=== PATIENT | female | born 2000 | race Caucasian/White ===

== ENCOUNTER → 2018-04-01 12:00 | Outpatient (CLI) | payer OTHER, SELFPAY ==
[2018-04-06 03:04] LABS: DHEA Sulfate 142.8 ug/dL (110.0-433.2); Testosterone, % Free 1.34 % (0.50-2.80); Testosterone, Free 0.15 ng/dL (0.10-0.85)
[2018-04-06 08:57] LABS: Androstenedione 64 ng/dL (41-262); Sex Hormone-binding Globulin 87.9 nmol/L (24.6-122.0); Testosterone, Total 11 ng/dL (.)
== END ==
PROVIDERS: Family Provider Family Medicine; PCP Family Medicine; Referring Provider Dermatology Pediatric Dermatology; Visit Provider Dermatology Pediatric Dermatology
DX: L70.0 Acne vulgaris (principal); L68.0 Hirsutism; L90.5 Scar conditions and fibrosis of skin
CPT/HCPCS: 36415; 82157; 82627; 84270; 84402; 84403; 82626

== ENCOUNTER → 2022-05-21 | Outpatient (CLI) | payer OTHER, SELFPAY ==
[2022-05-27 11:46] LABS: HPV Reflexed? NOT INDICATED
== END | disposition home or self-care (01) ==
LOC: LABSPEC 16:59
PROVIDERS: PCP Family Medicine; Visit Provider Registered Nurse
DX: C53.9 Malignant neoplasm of cervix uteri, unspecified (principal)
CPT/HCPCS: 88175; G0145

== ENCOUNTER → 2022-11-20 | Outpatient (CLI) | payer OTHER, SELFPAY | END | disposition home or self-care (01) | LOC: LABSPEC 15:42 | PROVIDERS: PCP Family Medicine; Referring Provider Otolaryngology; Visit Provider Otolaryngology | DX: J03.01 Acute recurrent streptococcal tonsillitis (principal) | CPT/HCPCS: 87070 ==

== ENCOUNTER → 2023-07-06 | Outpatient (CLI) | payer OTHER, SELFPAY ==
--- NOTE | 2023-07-06 07:28 | US_ITS ---
STUDY: ABDOMINAL ULTRASOUND - RIGHT UPPER QUADRANT REASON FOR VISIT: Female, 22 years old Right upper quadrant pain TECHNIQUE: Ultrasound evaluation of the right upper quadrant was performed with real-time and static bunn-scale imaging. TECHNICAL QUALITY: Adequate. COMPARISON: None. FINDINGS: Liver: The liver measures 16.3 cm. There is mild increased echogenicity consistent with mild fatty infiltration. The bile ducts are within normal limits. There is hepatic color flow. The direction of portal flow is hepatopetal. There is no demonstrated mass lesion. Gallbladder: Normal distended gallbladder. The gallbladder wall measures 1.6 mm. There is a negative sonographic Lima''s sign. There is no pericholecystic fluid. There are no gallstones. Common Bile Duct (C.B.D.): The common bile duct measures 2.9 mm. Pancreas: Normal size of the head, body and tail of the pancreas. There is normal echogenicity of the pancreas. There is no demonstrated pancreatic mass or cyst. Right Kidney: Normal size of the right kidney. The right kidney measures 11.9 cm x 4.6 cm x 4.8 cm. Normal renal cortex. The right cortex measures 1.2 cm. There is no demonstrated renal mass or cyst. There is no right hydronephrosis. US/Abdomen Limited IMPRESSION: Mild degree of fatty infiltration of the liver. Electronically Signed: Jeremias Bennett MD at 15:54 EDT ,
--- OUTSIDE RECORDS SUMMARY | 2023-07-06 07:41 | XMS RPT_ITS | CCD ---
Author Name Unknown Address [address] [place] [address] Organization [facility] Care Team Providers Care Funnel Setter Name Role Phone NHUNG CARLOS Admitting Unavailable NHUNG CARLOS Attending Unavailable NHUNG CARLOS Primary Care Unavailable CHARMAINE LOREDO Consulting Unavailable PROVIDER, UNKNOWN Consulting Unavailable Vineet CERVANTES, Eber Cormier Unavailable [facility] Unavailable Cardiology Provider Unavailable Unavailable [facility], . Unavailable Physical Therapy, [place] Unavailable [facility], ([facility]) Unavailable Moira CERVANTES, Dr. Meño Sood Unavailable [phone] Kamran CERVANTES, Shira Nichols Unavailable Zari GARYN, Frances Unavailable Taiwo PAPPAS, Candice Warner Unavailable Kvng ESCOBEDO, Pauline Unavailable Unavailable Kevin GARYN, Shawna Unavailable Unavailable Facundo PAPPAS, Charmaine Dillon Unavailable Dorian GARYN, Zeenat Unavailable Unavailable King DANNY-C, Kermit Roca Unavailable [phone] Charmaine Ho RN Unavailable Unavailpatricia Barrientos MA, Eli Unavailable Unavailable Jonathon GARYN, Raven Unavailable Unavailable Giuseppe GARYN, Star Unavailable Unavailable Lee GARCIA, Ro Unavailable Omi GARCIA, Debbie Burdick Unavailable Unavailable Serina GARYN, Luzmaria Dykes Unavailable Unavailab domingo Barker LPN, Shira Choi Unavailable Unavailab domingo Dickey LPN, Judith Hernandez Unavailable Unavailab Darek Lui MD Unavailable Vess Gomez GRACIA Unavailable Unavailable Unavailable Unavailable Allergies Allergy Classification Reported Allergen(s) Allergy Type Date of Onset Reaction(s) Facility (4 sources) Sulfonamides (Antibiotic) 11-14-2022 [facility] Medications Current Medications Medication Drug Class(es) Dates Sig (Normalized) Sig (Original) Multivitamin Adult Oral Tablet (2 sources) Multivitamin Laci lt Oral Tablet Completed/Discontinued Medications Medication Drug Class(es) Dates Sig (Normalized) Sig (Original) amoxicillin 875 mg / clavulanate 125 mg oral tablet (4 sources) Penicillin-class Antibacterial Start: 10-13-2016 End: 11-14-2022 amoxicillin 875 mg-potassium clavulanate 125 mg tablet ; 1 (one) tablet bid w food for 10 days Quantity: 20 {Tablet} Refills: 0 Ordered: 04-Nov-2022 MD Eber Manley Start: 04-Nov-2022 End: 14-Nov-2022 Status: Inactive Problems Active Problems Problem Classification Problem Date Documented Da te Episodic/Chronic Abdominal pain (4 sources) Right upper quadrant pain; Translations: [Right upper quadrant pain] 06-24-2023 Episodic Cardiac dysrhythmias (2 sources) Tachycardia; Translations: [Tachycardia, unspecified] 12-21-2018 Episodic Conduction disorders (4 sources) Mobitz type I incomplete atrioventricular block; Translations: [Atrioventricular block, second degree] 10-05-2015 Chronic Disorders usually diagnosed in infancy, childhood, or adolescence (20 sources) Attention deficit hyperactivity disorder, predominantly inattentive type; Translations: [Other specified behavioral and emotional disorders with onset usually occurring in childhood and adolescence] 12-22-2022 Chronic Headache; including migraine (4 sources) Tension-type headache; Translations: [Tension-type headache, unspecified, not intractable] 10-27-2018 Chronic Headache; including migraine (6 sources) Sinus headache; Translations: [Headache] 04-06-2012 Episodic Immunizations and screening for infectious disease (20 sources) Patient encounter status; Translations: [Encounter for screening for respiratory tuberculosis] 06-22-2023 Episodic Lymphadenitis (12 sources) Lymphadenopathy of head AND/OR neck; Translations: [Localized enlarged lymph nodes] 12-22-2022 Episodic Other acquired deformities (12 sources) Scoliosis deformity of spine; Translations: [Scoliosis, unspecified] 11-11-2016 Chronic Other acquired deformities (8 sources) Leg length inequality; Translations: [Unequal limb length (acquired), unspecified site] 10-27-2018 Episodic Other and unspecified benign neoplasm (4 sources) Lipoma (clinical); Translations: [Benign lipomatous neoplasm, unspecified] 06-22-2023 Episodic Other connective tissue disease (4 sources) Tendinitis; Translations: [Other synovitis and tenosynovitis, unspecified site] 10-27-2018 Episodic Other connective tissue disease (2 sources) Finding of hip region; Translations: [Other symptoms and signs involving the musculoskeletal system] 04-06-2012 Episodic Other gastrointestinal disorders (2 sources) Diarrhea; Translations: [Diarrhea, unspecified] 10-19-2012 Episodic Other nervous system disorders (8 sources) Inattention; Translations: [Attention and concentration deficit] 10-27-2018 Chronic Other non-traumatic joint disorders (2 sources) Multiple joint pain; Translations: [Pain in unspecified joint] 07-30-2012 Episodic Other skin disorders (6 sources) Acne; Translations: [Acne, unspecified] 10-27-2018 Episodic Other upper respiratory infections (8 sources) Viral upper respiratory tract infection; Translations: [Acute upper respiratory infection, unspecified] 10-13-2016 Episodic Residual codes; unclassified (4 sources) History of syncope; Translations: [Personal history of other specified conditions] 10-27-2018 Episodic Residual codes; unclassified (8 sources) Influenza vaccination declined; Translations: [Immunization not carried out because of patient refusal] 10-27-2018 Episodic Past or Other Problems Problem Classification Problem Date Documented Da te Episodic/Chronic Unclassified (2 sources) Abdominal pain - The onset of the abdominal pain has been gradual and has been occurring in an intermittent pattern for 3 months. The course has been recurrent. The pain is described as a moderate sharp pain. The pain is located in the right upper quadrant and radiates to the back. The symptoms are aggravated by meals (1/2 to 1 hour after eating) (Pt said heavier meals) and milk (Pt said coffee also bothers it) but have no relieving factors. The symptoms have been associated with diarrhea and nausea, while the symptoms have not been associated with amenorrhea, bloating, constipation, dysuria, fever, heartburn, vomiting or weight loss. Note for Abdominal pain : Patient is concerned that the pain could be caused by her gallbladder. 06-24-2023 Unclassified (2 sources) Well Adult, female - The patient feels well with no complaints, has good energy level and is sleeping well. The first day of the last menstrual period was : (12-18-22). The patient is not using any method of contraception at this time. The patient has a balanced diet and takes no supplemental vitamins & iron. The patient exercises 3 - 4 times per week (runs). The patient sleeps 6 hours per night. 12-22-2022 Unclassified (2 sources) Enlarged lymph node - Was seen in office with enlarged lymph node on left side of neck 11-03-22. Was given a prescription for Bactrim DS but had to discontinue due to generalized rash. Was given a prescription for Cephalexin 11-14-22. Lymph node is getting worse. No pain. Started with sore throat yesterday. Sinus symptoms have resolved. reviewed by B 11-17-2022 Unclassified (2 sources) swollen spot on neck - pt had cold symptoms, went to urgent care and was treated for sinus infectionher sinuses feel betterthen just today she noticed that she has a lump on the left side of neck, tender to the touch no sore throat pt did have a tick on her 09/04/2022, no bullseye but just wanted to mention fatigue as well, feels worn out reviewed by B 11-03-2022 Unclassified (2 sources) lump on back - Noticed lump on back 2 weeks ago, no pain. reviewed by [facility] 07-16-2022 Unclassified (2 sources) Well adult female - The patient feels well with no complaints, has good energy level and is sleeping well. The first day of the last menstrual period was : (02/12/22). The patient has a balanced diet and takes supplemental vitamins. The patient exercises 3 - 4 times per week. The patient sleeps 7 hours per night. Note for Well adult female : States passing out has been better. It has been in the past. States she occasionally gets dizzy when she stands. Patient states she is not overly concerned with these symptoms. She had marked these as yes on her ROS, but was unsure when to stop marking them as yes. She has not passed out for approximately 8 months.Needs a form completed for work today. 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 02-13-2022 Unclassified (2 sources) Follow Up for Multiple Chronic Conditions - The patient is here for follow-up of other condition(s) (Hyperthyroidism). Note for Multiple chronic conditions follow-up : Had symptoms of tachycardia for a couple of weeks. Improved now. Last TSH was in 2019. Endocrine notes reviewed. She was all set to get radioactive iodine therapy but then labs normalized and sx resolved until just recently. She notes that wehn she had the tachycardia recently she was also overheated. has been fine since. 08-28-2021 Unclassified (2 sources) Well Adult, female - The patient feels well with no complaints, has good energy level and is sleeping well. The first day of the last menstrual period was : (07/23/2020). The patient is not using any method of contraception at this time. The patient has a balanced diet and takes supplemental vitamins. The patient exercises 3 - 4 times per week. The patient sleeps 7 hours per night. Note for Well Adult, female : she is traveling to [place] soon and her college, [employer], requires vaccines Hep A and Tdap.considering covid vaccine after her trip 07-30-2020 Unclassified (2 sources) Rapid heart rate - The onset of the rapid heart rate has been variable and has been occurring in an intermittent pattern for 1 month. The course has been constant. The rapid heart rate is characterized as increased awareness of heart beats. There have been no precipitating factors. Note for Rapid heart rate : Most of the time heart rate is between 110-130. Stopped Adderall when started with rapid heart rate. reviewed by [facility] 12-21-2018 Unclassified (2 sources) Concerns about control pills - Pt. started taking ortho-novum control pills in May 2018. Pt. was nauseous at first, but that symptom has resolved. Pt. continues to c/o insomnia in the last 3-4 months and also has noted that her diastolic numbers are high 80's-90. Normally patient notes that her bp is low (both systolic and diastolic) Pt. is interested in stopping OCPs 10-27-2018 Unclassified (2 sources) Well Adult, female - The patient feels well with no complaints, has good energy level and is sleeping well. The first day of the last menstrual period was : (08/15/2018). The current method of contraception is: oral contraceptives. The patient has a balanced diet and takes supplemental vitamins. The patient exercises daily. The patient sleeps 6 hours per night. Note for Well Adult, female : Here for form completion for nursing school and also f/u of ADD 08-16-2018 Unclassified (2 sources) Well adult female - The patient feels well with no complaints, has good energy level and is sleeping well. The first day of the last menstrual period was : (10/26/2017). The patient has a balanced diet. The patient exercises daily. The patient sleeps 7 hours per night. Note for Well adult female : sport PE form for [employer] to be completed today 10-27-2017 Unclassified (2 sources) Transition into care - The patient is transitioning into care from an emergency room and a summary of care was reviewed. 12-30-2016 Unclassified (2 sources) [ADDITIONAL REASON] Follow up consultation - The patient is here to follow-up after Emergency Room/Urgent Care ([facility] with near syncopal episode while running.(participates in [employer])) on : (12-24-16). Note for Consultation follow-up : Feels well now. No other episodes with running. reviewed by [facility] 12-30-2016 Unclassified (2 sources) Well child visit #4 - 13 to 17 years - The child is here for a 16 to 17 year well-child visit. The primary caregiver is the mother and father. Help and support are being provided by the father. Family status: coping adequately. There are no behavioral problems. The patient has a balanced diet. There are no eating difficulties. Meals/day: 3. The child sleeps 7 hours at night. Menstruation: irregular periods, no premenstrual symptoms and able to maintain daily schedule. The child performs well in school, interacts well with peers and participates in extracurricular activities ([employer] sports PE today). Safety measures taken include appropriate use of safety belts, home smoke detectors and avoiding exposure to passive smoke. 11-11-2016 Unclassified (2 sources) Cold Symptoms - Symptoms include sneezing, nasal congestion, runny nose, non-purulent sputum, sore throat, dry cough, fever (possibly) and general malaise, but do not include ear pain, headache or facial pain. The onset was sudden 4 day(s) ago. The symptoms occur constantly. The patient describes this as moderate in severity and unchanged. Current treatment includes NSAIDs. Risk factors do not include smoking. The patient has been exposed to an individual with an upper respiratory infection, but has not been exposed to an individual with similar symptoms or an individual with strep. Medical history includes seasonal allergies, but patient denies history of recurrent sinusitis, recurrent strep pharyngitis, asthma or tonsillectomy. 10-13-2016 Unclassified (2 sources) Follow-up - Patient is here today for a 1 month follow up for medication. Started Adderall on 12/07/2015 for inattention. Is accompanied by Father. Patient reports that she is able to focus and concentrate better on the medication. Feels more confident this year with her grades. Denies having any side effects. Would like to continue the medication. Does need a refill on Adderall today. Been taking Adderall once daily. Is taking daily, including weekends. Denies chest pain, shortness of breath, dizziness, and palpitations. Denies anorexia. 01-08-2016 Unclassified (2 sources) Well child visit #4 - 13 to 17 years - The child is here for a 16 to 17 year well-child visit. The primary caregiver is the mother and father. Family status: coping adequately. There are no behavioral problems. The patient has a balanced diet and is eating a variety of foods. Meals/day: 3 (with snacks). The child sleeps 10 (10-12 hours a night) hours at night. Menstruation: regular periods. The child performs well in school, interacts well with peers and participates in extracurricular activities (cross country, track, tennis, ski club). Note for Well child visit #4 - 13 to 17 years : Would like to discuss her ability to focus better. Finds her self being easily distracted or zoning off . Occurs at school and outside of school. Started in middle school; worse the last couple years; grades ok but she feels they could be better. Teachers have noted and told her to try an focus. Her two adult half brothers have had trouble focusing and they are using ADHD med as adults; nephew also takes med and dad wonders if he has had issues with it. 10-05-2015 Unclassified (2 sources) Syncope - Note for Syncope : First episode of Syncope was 2 weeks ago was running in a cross country race and passed out, fell to the ground. [facility] lightheaded, some spinning and dizziness before the episode occurred. The second episode happened this past Thursday, she was running cross country and fell to the ground. No injuries were substained. Is unsure of how long the episodes happened. Would wake up on the ground. Denies having nausea or vomiting. Would feel very weak before and after. Had some blurry vision right before and afterwards. Drinking plenty of water. [employer] meets are 3.1 miles; both episodes she had were during meets at about the 2 mile purnima. They occurred on hot and/or humid days. One was out of state and rescue personnel attended to her and noted her BP and sugar were ok. She runs 3-6 miles per day for practice and occasionally has presyncopal symptoms during practice. No palpitations. Otherwise feels fine. She does get a little nervous before meets. LMP 1 month ago; periods not heavy. Eats regularly. Family hx of heart murmurs on maternal side. 01-16-2015 Unclassified (2 sources) Well child visit #4 - 13 to 17 years - The child is here for a 15 to 16 year well-child visit. The primary caregiver is the mother and father. Family status: coping adequately. There are no behavioral problems. The patient has a balanced diet and is eating a variety of foods. Meals/day: 3 (small breakfast and snacks). The child sleeps 10 hours at night. Menstruation: regular periods. The child performs well in school, interacts well with peers and participates in extracurricular activities ([employer] and track). Safety measures taken include appropriate use of safety belts, home smoke detectors and avoiding exposure to passive smoke. Note for Well child visit #4 - 13 to 17 years : reviewed by shashi 11-23-2014 Unclassified (2 sources) several concerns - Her first concern is that she is having trouble focusing in school. She noticed it last year but is worsening this year. Her grades are pretty good. She gets distracted easily and if there are no distractions she still finds herself zoning out . Currently a freshman now. Is taking college prep classes and has more responsibility to learn independently and has to write more. She notices trouble focusing more at school when teacher is talking. Online reading/testing is ineffective for her (can't focus). Notes she needs more 1:1 teaching. Mom wonders if this could be a nutritional issue.Second concern is that she can't do dairy products much anymore because of stomach upset. Does eat some yogurt, but not much cheese or milk. Mom concerned about how much calcium she should be taking in and does she need to supplement that. Has not tried Lactaid yet.A few years ago, she had stomach issues that finally improved as she adjusted diet.Typical day of meals: skips breakfasts but does drink water; takes a granola bar to eat late morning; packs lunch with CHO foods and some veggies/fruits; goes right from school to indoor track practice (or ski club) and eats dinner well. Mom notes she grazes thru the evening. She runs regularly and feels good when she runs.Denies stress with friends or at school. Sleeps well. Denies depression sx. Has been having regular periods for 2 years; periods are not particularly heavy. 05-19-2014 Unclassified (2 sources) Well child visit #4 - 13 to 17 years - The child is here for a 14 to 15 year well-child visit. The primary caregiver is the mother and father. Family status: coping adequately. There are no behavioral problems. The patient has a balanced diet. The child sleeps 11 hours at night. The child performs well in school, interacts well with peers and participates in extracurricular activities (cross country and track). 11-10-2013 Unclassified (2 sources) [ADDITIONAL REASON] Transition into care - The patient is transitioning into care from another physician (ortho) and a summary of care was reviewed . 11-10-2013 Unclassified (2 sources) Cold Symptoms - Symptoms include sore throat, general malaise (upset stomach) and headache, but do not include fever. The onset was sudden 1 day(s) ago. The symptoms occur constantly. The patient describes this as moderate in severity and unchanged. The patient is not currently being treated for this problem. Risk factors do not include smoking. The patient has been exposed to an individual with similar symptoms. 02-05-2013 Unclassified (2 sources) Well child visit #4 - 13 to 17 years - The child is here for a 13 to 14 year well-child visit. The primary caregiver is the mother and father. There are no behavioral problems. The patient has a balanced diet. The child performs well in school, interacts well with peers and participates in extracurricular activities. Safety measures taken include appropriate use of safety belts, home smoke detectors and avoiding exposure to passive smoke. Note for Well child visit #4 - 13 to 17 years : Appetite is better but still feels weak (from not eating); ate better this weekend (more but still bland); no further diarrhea. 10-25-2012 Unclassified (2 sources) Abdominal pain - The onset of the abdominal pain has been acute (started while at a 3 day camp/retreat; ate in a dining velasquez, lived in cabins. No one else sick. Did swim in a chlorinated pool. Initially sick for 4 days, then better for a couple days and has flared intermittently since.) and has been occurring in an intermittent (every other day; hungry but then things don't sound good; eating bland diet) pattern for 1 week (will be 2wks Thursday). The course has been recurrent. The pain is described as a moderate colicky pain. The pain is located in the entire abdomen and does not radiate. The symptoms are aggravated by milk (or any dairy products seem to make it worse) but have no relieving factors. The symptoms have been associated with bloating, diarrhea (which occurs only when she is having the abdominal pain; 1 episode per day when it flares and has normal BMs in between) and nausea, while the symptoms have not been associated with anorexia, bloody stools, constipation, dysuria, fever or vomiting. Note for Abdominal pain : LMP just started today.Lacks energy from not eating. 10-19-2012 Unclassified (2 sources) Joint complaints (multiple) - The onset of the joint complaints has been gradual , and they have been occurring in an intermittent pattern for 1 year. The course has been worsening. The joint complaints are described as a moderate pain. The pain is located in the left hip, right hip, left knee, right knee, left ankle and right ankle. Aggravating factors include physical activity (specifically sports activities). Note for Joint complaints : Patient was recently seen by chiropractor, Dr. Chin, at [facility]. Patient had xrays done and also had physical therapy through the facility. Patient complains of continued pain. Patient describes the pain as dull and sharp. 07-30-2012 Unclassified (2 sources) pain - Discussed pain and headaches at summer well child visit. Completed course of therapy at [facility] and hasn't improved (did improve during therapy and shoe lift did help). Was in [place] this fall and was able to keep up with that.Dad inquiring about physical therapy. She reports she enjoys school. 04-06-2012 Unclassified (2 sources) Well child visit #3 - 4 to 12 years - The child is here for a follow-up 10 year well-child visit. The primary caregiver is mother and father. The patient has a balanced diet and takes supplemental vitamins. Meals/day: 3. The child performs well in school, interacts well with peers and participates in extracurricular activities. Safety measures taken include appropriate use of car seats/safety belts, home smoke detectors, awareness of dangers of passenger-side air bags, avoiding exposure to passive smoke, household child-proofing, appropriate use of helmets and pool/water/drowning precautions. Note for Well child visit #3 - 4 to 12 years : Their only concern today is that she has right leg pain frequently. They did go to [place] and [facility] and found that her right leg is 19mm shorter than her left. They have been gradually increasing the lift in her shoe, but she still has quite a bit of pain. 10-02-2011 Unclassified (2 sources) headaches - Complained of frequent headaches when she was in for well exam this past spring. since then she has had an eye exam and now has glasses for reading. She still has headaches, reports they are daily for the past month. They seem to be worse than they had been. she occasionally takes tylenol for the pain and mom wonders how to treat when they occur. Her mother states that sometimes the headaches interfere with her daily activities. She wonders if it could be allergy related. Has sneezing at night and gets headaches at night. Headaches are over face a lot of time. no nasal congestion.History from [facility] in June reviewed. Headaches have persisted despite the change in season and being out of school for the summer. 11-14-2010 Unclassified (2 sources) Well child visit #3 - 4 to 12 years - The child is here for a initial 9 year well-child visit. The primary caregiver is mother and father. There are no behavioral problems. The patient has a balanced diet. 07-11-2010 Unclassified (2 sources) [ADDITIONAL REASON] headaches - complains of frequent headaches for past 6 months. dull ache during the day makes her uncomfortable at school. she does not miss school due to the pain. she has not had a recent eye exam.Headaches localized to top of head and to either side, constant pain, sometimes throbs at temples and right maxillary sinus hurt this week. Gets 2-3 per day and they resolve without med. Occ takes motrin at bedtime. Do not wake her up in middle of night. Has had a few times in AM but usually later in day. Seems worse after watching smartboard in class too long. No food triggers and packing snacks didn't seem to help. NIETO 10:25-11:30 but not always with same activity at school. DOing well at school. Does have gym early in day and feels fine during that. Is in volley ball and soccer and did fine with those. Some gymnastics. No head injury. Did have a cold in April and then got another in May. No nasal congestion but does have more drainage the last few weeks. Treated for strep empirically since brother had it-this was in May. Was on cephalexin. No history of allergies. No new pets but does have dogs and cats at home-they are outdoor and she has always spent time with them. No periods yet. Is starting to develop physically.Mom has headaches. Mom thinks they are sinus. No known migraines altho has had aura in past. No relation to menstrual cycle. Family tries to limit TV and computer time, up to 30 min computer daily. Eats regular meals and snacks, tries to drink water. 07-11-2010 Results Test Name Value Interpretation Reference Range Facil ity Vital Signs Date Time Vital Sign Value Performing Clinician Armen lopez 06-24-2023 08:59-0500 Body height 167.64 cm Pauline Calderon MA [facility]. 06-24-2023 08:59-0500 Body mass index (BMI) [Ratio] 19.05 kg/m2 Pauline Calderon MA [facility] [employer] 06-24-2023 08:59-0500 Body surface area Derived from formula 1.6 m2 Pauline Calderon MA [employer] 06-24-2023 08:59-0500 Body weight 53.52 kg Pauline Calderon MA [employer] 06-24-2023 08:59-0500 Diastolic blood pressure 83 mm[Hg] Pauline Calderon MA [employer] Encounters Encounter Date Encounter Type Care Provider Facility Start: 06-24-2023 End: 06-24-2023 Office outpatient visit 15 minutes Eber Manley MD Work Phone: [employer] Start: 12-22-2022 End: 12-22-2022 Patient encounter status Eber Manley MD Work Phone: [employer] Start: 12-22-2022 End: 12-22-2022 Periodic preventive med est patient 18-39 yrs Eber Manley MD Work Phone: [employer]. Start: 11-17-2022 End: 11-17-2022 Office outpatient visit 15 minutes Eber Manley MD Work Phone: [employer]. Start: 11-14-2022 End: 11-14-2022 Orders Eber Manley MD Work Phone: [employer]. Start: 11-05-2022 End: 11-05-2022 Medication Eber Manley MD Work Phone: [employer]. Start: 11-04-2022 End: 11-04-2022 Medication Eber Manley MD Work Phone: [employer]. Start: 11-03-2022 End: 11-03-2022 Office outpatient visit 15 minutes Eber Manley MD Work Phone: [employer]. Start: 07-16-2022 End: 07-16-2022 Office outpatient visit 15 minutes Eber Manley MD Work Phone: [employer] Start: 02-13-2022 End: 02-13-2022 Patient encounter procedure Eber Manley MD Work Phone: [employer]; [employer]. Start: 02-13-2022 End: 02-13-2022 Periodic preventive med est patient 18-39 yrs Eber Manley MD Work Phone: [employer]. Start: 08-28-2021 End: 08-28-2021 Office outpatient visit 15 minutes Eber Manley MD Work Phone: [employer]. Start: 12-12-2020 End: 12-26-2020 Orders Eber Manley MD Work Phone: [employer] Start: 07-30-2020 End: 07-30-2020 Patient encounter procedure Gomez Webb LPN [employer]. Start: 03-27-2019 End: 03-27-2019 Patient encounter procedure NHUNG CARLOS [facility] Start: 12-28-2018 End: 12-28-2018 Orders Eber Manley MD Work Phone: [employer]. Start: 12-22-2018 End: 12-22-2018 Orders Eber Manley MD Work Phone: [employer] Start: 12-21-2018 End: 12-21-2018 Office outpatient visit 15 minutes Eber Manley MD Work Phone: [employer]. Start: 10-27-2018 End: 10-27-2018 Office outpatient visit 10 minutes Eber Manley MD Work Phone: [employer] Start: 10-11-2018 End: 10-11-2018 Historical Summary Eber Manley MD Work Phone: [employer] Start: 09-27-2018 End: 09-27-2018 Orders Eber Manley MD Work Phone: [employer] Start: 08-16-2018 End: 08-16-2018 Patient encounter procedure Eber Manley MD Work Phone: [employer] Start: 08-16-2018 End: 08-16-2018 Periodic preventive med est patient 18-39 yrs Eber Manley MD Work Phone: [employer]. Start: 06-23-2018 End: 06-23-2018 Office outpatient visit 15 minutes Eber Manley MD Work Phone: [employer]. Start: 10-27-2017 End: 10-27-2017 Historical Summary Eber Manley MD Work Phone: [employer] Start: 10-27-2017 End: 10-27-2017 Patient encounter procedure Eber Manley MD Work Phone: [employer] Start: 02-02-2017 End: 02-02-2017 Office outpatient visit 15 minutes Eber Manley MD Work Phone: [employer] Start: 12-30-2016 End: 12-30-2016 Telephone follow-up Eber Manley MD Work Phone: [employer] Start: 12-30-2016 End: 12-30-2016 Office outpatient visit 15 minutes Eber Manley MD Work Phone: [employer]. Start: 11-10-2016 End: 11-11-2016 Patient encounter procedure Eber Manley MD Work Phone: [employer] Start: 10-13-2016 End: 10-13-2016 Patient encounter procedure Eber Manley MD Work Phone: [employer]. Start: 10-06-2016 End: 10-06-2016 Office outpatient visit 10 minutes Eber Manley MD Work Phone: [employer]. Start: 07-07-2016 End: 07-07-2016 Office outpatient visit 10 minutes Eber Manley MD Work Phone: [employer]. Start: 06-09-2016 End: 06-09-2016 Medication Eber Manley MD Work Phone: [employer]. Start: 05-22-2016 End: 05-22-2016 Medication Eber Manley MD Work Phone: [employer]. Start: 04-08-2016 End: 04-08-2016 Patient encounter procedure Eber Manley MD Work Phone: [employer]. Start: 03-13-2016 End: 03-13-2016 Medication Eber Manley MD Work Phone: [employer]. Start: 02-27-2016 End: 02-27-2016 Nursing evaluation of patient and report Eber Manley MD Work Phone: [employer]. Start: 01-07-2016 End: 01-08-2016 Patient encounter procedure Eber Manley MD Work Phone: [employer]. Start: 12-07-2015 End: 12-08-2015 Orders Eber Manley MD Work Phone: [employer]. Start: 10-05-2015 End: 10-05-2015 Periodic preventive med est patient 12-17yrs Eber Manley MD Work Phone: [employer]. Start: 02-27-2015 End: 02-27-2015 Nursing evaluation of patient and report Eber Manley MD Work Phone: [employer] Start: 01-26-2015 End: 01-26-2015 Patient encounter procedure Eber Manley MD Work Phone: [employer] Start: 01-16-2015 End: 01-16-2015 Office outpatient visit 25 minutes Eber Manley MD Work Phone: [employer]. Start: 11-23-2014 End: 11-23-2014 Periodic preventive med est patient 12-17yrs Eber Manley MD Work Phone: [employer]. Start: 05-19-2014 End: 05-19-2014 Office outpatient visit 25 minutes Eber Manley MD Work Phone: [employer] Start: 04-11-2014 End: 04-11-2014 Nursing evaluation of patient and report Eber Manley MD Work Phone: [employer] Start: 11-10-2013 End: 11-10-2013 Periodic preventive med est patient 12-17yrs Eber Manley MD Work Phone: [employer]. Start: 02-05-2013 End: 02-05-2013 Patient encounter procedure Eber Manley MD Work Phone: [employer]. Start: 10-25-2012 End: 10-25-2012 Patient encounter procedure Eber Manley MD Work Phone: [employer] Start: 10-19-2012 End: 10-19-2012 Patient encounter procedure Eber Manley MD Work Phone: [employer]. Start: 07-28-2012 End: 07-30-2012 Patient encounter procedure Eber Manley MD Work Phone: [employer] Start: 04-06-2012 End: 04-06-2012 Patient encounter procedure Eber Manley MD Work Phone: [employer] Start: 09-30-2011 End: 10-02-2011 Patient encounter procedure Eber Manley MD Work Phone: [employer] Start: 11-14-2010 End: 11-14-2010 Patient encounter procedure Eber Manley MD Work Phone: [employer] Start: 07-11-2010 End: 07-11-2010 Patient encounter procedure Eber Manley MD Work Phone: [employer]. Start: 06-18-2010 End: 06-18-2010 Medication Eber Manley MD Work Phone: [employer] Patient encounter procedure Judith Dickey [employer] Patient encounter status Pauline Calderon MA [employer] Procedures Date Procedure Procedure Detail Performing Clinician Start: 12-22-2022 End: 12-22-2022 Depression screening Eber Manley MD Work Phone: Start: 12-22-2022 End: 12-22-2022 Scr dep neg, no plan reqd Eber Manley MD Work Phone: Start: 02-13-2022 End: 02-13-2022 Depression screening Candice Maravilla PA-C Work Phone: Start: 02-13-2022 End: 02-13-2022 Pos clin depres scrn f/u doc Candice J Taiwo PA-C Work Phone: Start: 07-30-2020 End: 07-30-2020 Depression screening Charmaine Loredo PA -C Work Phone: Start: 07-30-2020 End: 07-30-2020 Scr dep neg, no plan reqd Charmaine kitchen PA-C Work Phone: Start: 12-21-2018 End: 12-22-2018 Ecg routine ecg w/least 12 lds i&r only Eber Manley MD Work Phone: Start: 08-16-2018 End: 08-16-2018 Depression screening Eber Manley MD Work Phone: Start: 08-16-2018 End: 08-16-2018 Scr dep neg, no plan reqd Eber Manley MD Work Phone: Start: 02-02-2017 End: 02-02-2017 Flu imm no admin doc jim Eber Dillon Work Phone: Start: 11-10-2016 End: 11-11-2016 Radex entir thrc lmbr crv sac spi w/skull 1 vw Charmaine Loredo PA-C Work Phone: Start: 11-10-2016 End: 11-10-2016 Screening test visual acuity quantitative bilat Charmaine Loredo PA-C Work Phone: Start: 10-05-2015 End: 10-05-2015 No Known Past Surgical History Judith Dickey CABLE ENGINEER Start: 01-16-2015 End: 01-26-2015 Xtrnl ecg & 48 hr record scan stor w/r&i Shira Andrew MD Work Phone: Start: 11-23-2014 End: 11-23-2014 Screening test visual acuity quantitative balwinder Andrew MD Work Phone: Start: 11-10-2013 End: 11-10-2013 Screening test visual acuity quantitative balwinder Andrew MD Work Phone: Start: 10-25-2012 End: 10-25-2012 Screening test visual acuity quantitative balwinder Andrew MD Work Phone: Start: 04-06-2012 End: 06-02-2012 Radex spine thoracolumbar junction min 2 views Shira Andrew MD Work Phone: Start: 09-30-2011 End: 09-30-2011 Screening test visual acuity quantitative balwinder Andrew MD Work Phone: Start: 07-11-2010 End: 07-11-2010 Screening test visual acuity quantitative balwinder Andrew MD Work Phone: Plan of Treatment Date Care Activity Detail Author Start: 06-24-2023 Us abdominal real ti me w/image limited RUQ/Gallbladder Ultrasound (40147) Start: 24-Jun-2023 Intent [employer] [employer] Immunizations Immunization Date Immunization Notes Care Provider [facility] 07-30-2020 hepatitis A vaccine, adult dosage Eebr Manley MD Work Phone: [employer] Payers Date Payer Category Payer Unknown [id number] Unknown [id number] Unknown [facility] Social History Date Type Detail Facility Current Work/Study Status Current Work/St udy Status [employer]; [employer] Exercise History: Exercise Histo ry: ; Moderate. [employer] Tobacco Use: Tobacco Use: ; N ever smoker. [employer]. Female [employer]. Work Phone: Moderate [employer] [facility] Work Phone: Never smoked tobacco [facility] Work Phone: Summary Purpose Family History Cancer Status:Active Comments:Materna l Grandfather. Paternal Uncle. LUNG AND MELANOMA Cerebrovascular Accident Status:Active Comment s:Paternal Grandmother. Diabetes Mellitus Type II Status:Active Commen ts:Maternal Grandfather. Hypertension Status:Active Comments:Materna l Grandmother. Hypothyroidism Status:Active Comments:Materna l Grandmother. no scoliosis Status:Active scoliosis Status:Active Comments:Brother . mild Cancer Status:Active Comments:Materna l Grandfather. Paternal Uncle. LUNG AND MELANOMA Cerebrovascular Accident Status:Active Comment s:Paternal Grandmother. Diabetes Mellitus Type II Status:Active Commen ts:Maternal Grandfather. Hypertension Status:Active Comments:Materna l Grandmother. Hypothyroidism Status:Active Comments:Materna l Grandmother. no scoliosis Status:Active scoliosis Status:Active Comments:Brother . mild Advance Directives No Advanced Directives Records FoundNo Advanced Directives Records FoundNo Advanced Directives Records FoundNo Advanced Directives Records Found Additional Source Comments INFORMATION SOURCE (unrecogn ized section and content) DATE CREATED AUTHOR AUTHOR'S ORGANIZ ATION 03/31/2019 [facility] DATE CREATED AUTHOR AUTHOR'S ORGANIZ ATION 11/14/2019 [employer] DATE CREATED AUTHOR AUTHOR'S ORGANIZ ATION 08/30/2021 [facility] FOR RECORDS PERTAINING TO PATIENTS WHO ARE OR HAVE BEEN ENROLLED IN A CHEMICAL DEPENDENCY/SUBSTANCEABUSE PROGRAM, SOME INFORMATION MAY BE OMITTED. This clinical summary was aggregated from multiple sources. Caution should be exercised in using it in the provision of clinical care. This summary normalizes information from multiple sources, and as a consequence, information in this document may materially change the coding, format and clinical context of patient data. In addition, data may be omitted in some cases. CLINICAL DECISIONS SHOULD BE BASED ON THE PRIMARY CLINICAL RECORDS. [employer] provides no warranty or guarantee of the accuracy or completeness of information in this document.
== END | disposition home or self-care (01) ==
LOC: US 07:26
PROVIDERS: PCP Family Medicine
DX: R10.11 Right upper quadrant pain (principal)
CPT/HCPCS: 76705

== ENCOUNTER → 2023-12-04 | Outpatient (CLI) | payer OTHER, SELFPAY ==
--- NOTE | 2023-12-04 09:43 | NM_ITS ---
CLINICAL: 23-year-old female with history of right upper quadrant abdominal pain. RADIONUCLIDE HEPATOBILIARY SCINTIGRAPHY COMPARISON: Abdominal ultrasound report 07/06/2023 FINDINGS: Following the intravenous administration of 5.4 mCi of 99m Tc Mebrofenin, hepatobiliary images reveal: 1. Relatively prompt and homogeneous radiopharmaceutical concentration is noted by a normal sized liver. No parenchymal defects are identified. 2. Gallbladder activity is identified at 15 minutes post radiopharmaceutical administration. 3. Small intestinal tract is observed at 45 minutes following tracer injection. 4. Washout of the radiopharmaceutical by the hepatic parenchyma appears qualitatively normal. Cholecystokinin (0.02 ug/kg) was administered intravenously over a 30-minute period. The post CCK gallbladder ejection fraction calculated at 20 minutes following Cholecystokinin administration was noted to be 24.0 % (normal greater than 35%). During 30 minutes of post CCK imaging, there is scintigraphic evidence refilling of the gallbladder. NM/Hepatobilliary Img w/Pharm Int IMPRESSION: 1. ABNORMAL 99m Tc Mebrofenin hepatobiliary imaging examination with Cholecystokinin. A. A gallbladder ejection fraction calculated to be less than 35% following the administration of Cholecystokinin is consistent with the presence of functional hepatobiliary disease (gallbladder and/or sphincter of Oddi dyskinesia) and/or organic hepatobiliary disease (chronic acalculous cholecystitis and/or cystic duct syndrome) in patients with intermediate to high pretest probabilities of hepatobiliary illness. (Thao Felix et al, Journal of Nuclear Medicine 32:1695, 1991). B. Refilling of the gallbladder following CCK administration may represent the presence of Sphincter of Oddi dysfunction. Correlation with Sphincter of Oddi manometry may be of benefit. (Gretel and Gretel, J Nucl Med 38:1824, 1997). Electronically Signed: Deyvi Gutierrez DO at 9:24 EDT ,
== END | disposition home or self-care (01) ==
PROVIDERS: PCP Family Medicine
DX: R10.11 Right upper quadrant pain (principal)
CPT/HCPCS: 78227; A9537; J2805

== ENCOUNTER → 2023-12-24 | Outpatient (CLI) | payer OTHER, SELFPAY ==
[2023-12-24 07:57] LABS: CRP < 2.90 mg/L (0.0-3.0); Free T3 2.8 pg/mL (2.18-3.98); T4 Free Direct 0.99 ng/dL (0.76-1.46)
[2023-12-24 17:46] LABS: Erythrocyte Sedimentation Rate 5 mm/hr (0-30)
== END | disposition home or self-care (01) ==
LOC: LAB 06:16
DX: K82.8 Other specified diseases of gallbladder (principal)
CPT/HCPCS: 36415; 82784; 82785; 83516; 84165; 84439; 84443; 84481; 85652; 86003; 86005; 86036; 86140; 86225; 86235; 86255; 86256; 86334; 86671

== ENCOUNTER → 2023-12-25 | Outpatient (CLI) | payer OTHER, SELFPAY ==
[2023-12-28 03:06] LABS: Giardia Lamblia, Stool EIA Negative (Negative); Pancreatic Elastase, Fecal > 800 (>200)
== END | disposition home or self-care (01) ==
LOC: LABSPEC 06:44
DX: K82.8 Other specified diseases of gallbladder (principal)
CPT/HCPCS: 82653; 82705; 83630; 83993; 87329; 87493; 87506

== ENCOUNTER → 2024-01-14 | Outpatient (CLI) | payer OTHER, SELFPAY ==
--- NOTE | 2024-01-14 16:35 | MRI_ITS ---
Abdominal MRI and MRCP without contrast 01/14/2024 4:47 PM COMPARISON: 12/04/2023 HIDA scan CLINICAL HISTORY: biliary dyskinesia, c/o pain and nausea TECHNIQUE: Multiplanar and multisequence MR images of the abdomen were obtained with MRCP sequence. Three-dimensional post-processing reconstructions were performed. FINDINGS: Liver: There is hepatic steatosis. Smooth contour. Gallbladder: Unremarkable Bile Ducts: Unremarkable Pancreas: Unremarkable Spleen: Unremarkable Adrenal Glands: Unremarkable Kidneys: Unremarkable GI Tract: Unremarkable Lymphadenopathy: Absent Ascites: Absent Bones: No suspicious lesions MRI/MRCP Abdomen without Contrast IMPRESSION: Hepatic steatosis. Otherwise unremarkable MRI and MRCP of the abdomen Electronically Signed: Rob Cooley MD at 20:51 EDT ,
== END | disposition home or self-care (01) ==
LOC: MRI 16:27
DX: K82.8 Other specified diseases of gallbladder (principal)
CPT/HCPCS: 74181

== ENCOUNTER → 2024-01-18 | Outpatient (CLI) | payer OTHER, SELFPAY ==
--- NOTE | 2024-01-18 08:06 | CT_ITS ---
STUDY: CT ABDOMEN AND PELVIS WITH CONTRAST REASON FOR EXAM: Female, 23 years old. 10 month history of nausea and diarrhea. History of Crohn''s disease. RADIATION DOSAGE (If Supplied By Facility): CTDIvol = ( 8.19 ) mGy, DLP = ( 332.73 ) mGycm TECHNIQUE: Transaxial images were obtained from the dome of the diaphragm to the symphysis pubis without oral contrast. IV 75mL Isovue-300 was administered. Sagittal and coronal images were reconstructed. Individualized dose optimization techniques were used for this CT. COMPARISON: None. FINDINGS: The visualized lung bases are unremarkable. The visualized portions of the heart are within normal limits. Normal liver. Normal gallbladder and extrahepatic biliary system. Normal spleen. Normal pancreas. Normal bilateral adrenal glands. Normal right kidney. Normal left kidney. Normal visualized stomach. Normal small intestine. Moderate amount of fecal material is seen in the colon. The appendix is visualized and appears normal. Normal abdominal aorta. Normal inferior vena cava. Normal retroperitoneum. Normal urinary bladder. A NuvaRing is seen in the cervix. Cervical prolapse. Normal abdominal wall. Normal osseous structures. CT/Abdomen/Pelvis WITH Contrast IMPRESSION: Normal enhanced CT of the abdomen and pelvis. Electronically Signed: Jeremias Bennett MD at 14:33 EDT ,
== END | disposition home or self-care (01) ==
LOC: CT 08:06
DX: K82.8 Other specified diseases of gallbladder (principal)
CPT/HCPCS: 74177; Q9967; A4216

== ENCOUNTER → 2024-03-02 | Outpatient (CLI) | payer OTHER, SELFPAY | END | disposition home or self-care (01) | LOC: US 08:55 | DX: K82.8 Other specified diseases of gallbladder (principal) | CPT/HCPCS: 76705; 76981 ==

== ENCOUNTER 2024-03-09 11:55 | Day surgery (SDC) | payer OTHER, SELFPAY ==
[2024-03-09] VITALS (8 sets, daily range): BP systolic 89–117; BP diastolic 70–81; PULSE 64–85; RESP 16–18; TEMP 36.3–36.7; O2SAT 98–100; BMI 19.4
[2024-03-09 12:20] LABS: Internal QC Validated? YES +Cl - CLEAR BKGD; Pregnancy, Urine Negative Negative
== END 2024-03-09 14:46 | disposition home or self-care (01) ==
LOC: EN 11:56 → AC 11:57
PROVIDERS: Anesthesiology; Visit Provider Internal Medicine Gastroenterology
PROC: 0DJD8ZZ Inspection of Lower Intestinal Tract, Via Natural or Artificial Opening Endoscopic (ICD-10-PCS; CPT 45378; principal; 2024-03-09 12:55)
DX: K29.50 Unspecified chronic gastritis without bleeding (principal); R10.84 Generalized abdominal pain; K82.8 Other specified diseases of gallbladder
CPT/HCPCS: 45380; 43239; 81025; 88305; 88342; A4216; J2405

== ENCOUNTER → 2024-03-31 | Outpatient (CLI) | payer OTHER, SELFPAY ==
[2024-03-31 13:20] LABS: Erythrocyte Sedimentation Rate < 1 mm/hr (0-30)
[2024-04-05 11:09] LABS: Anti-Centromere B Ab <0.2 AI (0.0-0.9); Anti-Chromatin <0.2 AI (0.0-0.9); Anti-Jo <0.2 AI (0.0-0.9); Anti-Scleroderma-70 AB <0.2 AI (0.0-0.9); Anti-dsDNA Ab <1 IU/mL (0-9); RNP Ab <0.2 AI (0.0-0.9); SJOGREN'S Anti-SS-A test < 0.2 AI (0.0-0.9); SJOGREN'S Anti-SS-B test < 0.2 AI (0.0-0.9); Smith Ab <0.2 AI (0.0-0.9)
[2024-04-11 09:22] LABS: Anti-Cardiolipin Ab, IgA, Qn < 9 APL U/mL (0-11); Anti-Cardiolipin Ab, IgG, Qn < 9 GPL U/mL (0-14); Anti-Cardiolipin Ab, IgM, Qn < 9 MPL U/mL (0-12); Anti-Thrombin 3 AG, Immunol 76 % (72-124); Antithrombin 3 Function 117 % (75-135); Complement C3 90 mg/dL (82-167); Complement CH50 59 U/mL (>41); Cytoplasmic Ab (C-ANCA) <1:20 titer (Neg:<1:20); Dilute Prothrombin Time (dPT) 35.8 sec (0.0-47.6); Interpretation Comment: (.); PTT-LA 40.6 sec (0.0-43.5); Perinuclear Ab (P-ANCA) <1:20 titer (Neg:<1:20); Protein C, Functional 84 % (73-180); Protein S, Free 77 % (61-136); Protein S, Funtional 53 % (63-140); Protein S, Total 56 % (60-150); Thrombin Time 19.2 sec (0.0-23.0); dPT Confirm Ratio 0.98 Ratio (0.00-1.34)
== END | disposition home or self-care (01) ==
LOC: LAB 12:58
PROVIDERS: Referring Provider Internal Medicine Gastroenterology; Visit Provider Internal Medicine Gastroenterology
DX: R10.11 Right upper quadrant pain (principal); R19.7 Diarrhea, unspecified
CPT/HCPCS: 36415; 81240; 81241; 85300; 85301; 85303; 85305; 85306; 85652; 86037; 86147; 86160; 86162; 86225; 86235

== ENCOUNTER → 2024-04-15 | Outpatient (CLI) | payer OTHER, SELFPAY ==
[2024-04-15 15:39] LABS: D-Dimer Quantitative (DVT/PE) < 0.27 FEU/ug/m (0.27-0.49)
== END | disposition home or self-care (01) ==
LOC: LAB 14:29
DX: M79.606 Pain in leg, unspecified (principal)
CPT/HCPCS: 36415; 85379

== ENCOUNTER 2024-08-30 17:15 | Outpatient (REF) | payer SELFPAY ==
[2024-08-30 17:16] VITALS: BP 125/80; PULSE 77; RESP 18; TEMP 36.3; O2SAT 100; BMI 20.6
--- NOTE | 2024-08-30 17:33 | EDS_ITS ---
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 She was wearing gloves. She states that it took about 4 minutes for it to bleed, but she rinsed the area and wash the area, put a Band- Aid on it, and it was no longer bleeding. It was bleeding and aligned. She denies any direct puncture wound and states that she was removing the needle from the patient's skin when it scraped along her left hand. She denies other injuries. She believes her tetanus immunization is current. Of note, she is 4 weeks . [facility] Medical History Proteins serum plasma low Wears glasses Fatty liver Non-smoker Blackout History of echocardiogram Home Medications ?Medication ?Instructions ?Recorded ?Last Taken ?Type prenat.vits,jessy,meq-fenq-tzdcq tab PO DAILY 05/12/24 U nknown History Allergy/AdvReac Type Severity Reaction Status Date / Time Sulfa (Sulfonamide Allergy Rash Verified 08/30/24 17:16 Antibiotics) (sulfa drugs) Family History Grandmother Heart failure Father Hypertension Grandfather Lung cancer Other Cervical cancer Surgical History Hx of wisdom tooth extraction Social History adopted: No household members: family current occupational status: employed current occupation: [employer] current occupational exposures/hazards: No history of recent travel: No sexually active: No Smoking Status: Never smoker second hand exposure: No alcohol intake: never substance use type: does not use what type of physical activity do you participate in: walking, running and weight training seatbelt use: always do you feel safe at home: Yes additional social history: - Chance ROS ROS ED ROS Narrative Needlestick to left fifth digit. More scraping of needlepoint across middle phalanx of finger of the left hand. Denies other injuries. No other symptoms. EXAM Physical Exam Narrative Exam Narrative: Afebrile. Vital signs noted. Nontoxic-appearing. Cardiovascular examination feels regular rate and rhythm. Lungs clear to auscultation bilaterally. Abdomen soft, nontender with positive bowel sounds. Inspection of the left hand, fifth digit, especially on middle phalanx shows no evidence of laceration or abrasion, no bleeding. Full range of motion of left finger. Const Vital Signs: 08/30/24 17:16 Temperature 97.4 F L Temperature Source Temporal Pulse Rate 77 Respiratory Rate 18 Blood Pressure 125/80 H Blood Pressure Mean 95 Pulse Ox 100 Oxygen Delivery Method Room Air MDM MDM MDM Narrative Medical decision making narrative: Patient was told of the low risk of seroconversion for any blood-borne disease. Additionally, this was not a direct puncture wound, but more of an abrasion when she was withdrawing the needle. Nursing protocol for needlestick was started. She will follow-up with employee health. Disposition is discharged home in stable condition. 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 You may require further testing and blood tests. Discharge Orders/Prescriptions Prescriptions: No Action prenat.vits,jessy,gjs-mwld-lbotp Tablet PO DAILY Referrals / Follow Up: Health,Employee [Non-Staff -Ordering Privileges] - 3-5 Days Candice Maravilla PA [Primary Care Provider] - Disposition Disposition (needs filled in before D/C Order can be placed): Home, Self Care
[2024-08-30 18:04] VITALS: BP 120/70; PULSE 92; RESP 16; TEMP 36.6; O2SAT 100
[2024-08-30 18:51] LABS: Hepatitis B Surface Antibody REAC
[2024-08-30 19:07] LABS: Anion Gap 11 (5-15); BUN 17 mg/dL (4-19); BUN/Creat Ratio 27.1 RATIO (10-20); Calcium,Total 9.3 mg/dL (7.6-11.0); Carbon Dioxide 22.4 mmol/L (21.0-32.0); Chloride 103 mmol/L (98-108); Creatinine, Serum 0.62 mg/dL (0.70-1.20); EST Glomerular Filtration Rate 127 (>60); Estimated Creatinine Clearance 123.16 ml/min (50-250); Glucose 88 mg/dL (70-99); HIV Nonreactive (Nonreactive); Hepatitis B Surface Antigen Nonreactive (Nonreactive); Hepatitis C Antibody Nonreactive (Nonreactive); Sodium Level 136 mmol/L (133-145)
== END 2024-08-30 18:05 | disposition home or self-care (01) ==
LOC: ED 17:15
PROVIDERS: Visit Provider Emergency Medicine
DX: Z77.21 Contact with and (suspected) exposure to potentially hazardous body fluids (principal); W46.0XXA Contact with hypodermic needle, initial encounter
CPT/HCPCS: 80048; 86703; 86706; 86803; 87340

== ENCOUNTER → 2024-10-03 | Outpatient (CLI) | payer OTHER, SELFPAY ==
[2024-10-05 21:07] LABS: Chlamydia By Nucleic Acid AMP Negative (Negative); Gonococcus By Nucleic Acid AMP Negative (Negative)
== END | disposition home or self-care (01) ==
LOC: LABSPEC 16:26
PROVIDERS: Referring Provider Advanced Practice Midwife; Visit Provider Advanced Practice Midwife
DX: O09.90 Supervision of high risk pregnancy, unspecified, unspecified trimester (principal); Z3A.00 Weeks of gestation of pregnancy not specified
CPT/HCPCS: 87086; 87491; 87591

== ENCOUNTER → 2024-11-01 | Outpatient (CLI) | payer OTHER, SELFPAY ==
[2024-11-01 12:14] LABS: Hematocrit 38.5 % (37-47); Hemoglobin 13.7 g/dL (12.0-15.0); Immature Granulocytes Count 0.030 X10^3/uL (0.0-0.0); Mean Corp Hgb Conc 35.6 g/dL (32-36); Mean Corpuscular Volume 93.2 fL (81-99); Mean Platelet Vol. 11.4 fl (6.2-12.0); NRBC Flagged by Analyzer 0 % (0-5); Platelet Count 212 K/mm3 (150-450); RBC Distribution Width CV 12.1 % (11.6-14.6); RBC Distribution Width SD 41.4 fl (35.1-43.9); Red Blood Count 4.13 M/mm3 (4.2-5.4); White Blood Count 8.6 K/mm3 (4.4-11.0)
[2024-11-01 13:24] LABS: HIV Nonreactive (Nonreactive); Hepatitis B Surface Antigen Nonreactive (Nonreactive); Hepatitis C Antibody Nonreactive (Nonreactive); Syphilis Antibodies Nonreactive (Nonreactive)
== END | disposition home or self-care (01) ==
PROVIDERS: Visit Provider Advanced Practice Midwife
DX: O09.90 Supervision of high risk pregnancy, unspecified, unspecified trimester (principal); Z3A.00 Weeks of gestation of pregnancy not specified
CPT/HCPCS: 36415; 84439; 84443; 85025; 86703; 86762; 86780; 86803; 86850; 86900; 86901; 87340

== ENCOUNTER → 2025-02-08 | Outpatient (CLI) | payer OTHER, SELFPAY ==
[2025-02-08 11:17] LABS: Hematocrit 37.2 % (37-47); Hemoglobin 13.3 g/dL (12.0-15.0); Immature Granulocytes Count 0.070 X10^3/uL (0.0-0.0); Mean Corp Hgb Conc 35.8 g/dL (32-36); Mean Corpuscular Volume 95.9 fL (81-99); Mean Platelet Vol. 10.8 fl (6.2-12.0); NRBC Flagged by Analyzer 0 % (0-5); Platelet Count 194 K/mm3 (150-450); RBC Distribution Width CV 12.1 % (11.6-14.6); RBC Distribution Width SD 41.5 fl (35.1-43.9); Red Blood Count 3.88 M/mm3 (4.2-5.4); White Blood Count 10.0 K/mm3 (4.4-11.0)
[2025-02-08 12:34] LABS: HIV Nonreactive (Nonreactive); Syphilis Antibodies Nonreactive (Nonreactive)
[2025-02-08 12:50] LABS: Glucose Challenge Gest 1H 50g 98 mg/dL (70-140)
== END | disposition home or self-care (01) ==
LOC: LAB 10:32
PROVIDERS: Referring Provider Advanced Practice Midwife; Visit Provider Advanced Practice Midwife
DX: O09.90 Supervision of high risk pregnancy, unspecified, unspecified trimester (principal); Z13.1 Encounter for screening for diabetes mellitus; Z13.29 Encounter for screening for other suspected endocrine disorder; Z86.39 Personal history of other endocrine, nutritional and metabolic disease; Z3A.00 Weeks of gestation of pregnancy not specified
CPT/HCPCS: 36415; 82950; 84439; 84443; 85025; 86703; 86780

== ENCOUNTER → 2025-02-16 | Outpatient (CLI) | payer OTHER, SELFPAY ==
--- NOTE | 2025-02-16 17:58 | US_ITS ---
PROCEDURE: OB LIMITED WITH BIOMETRICS 02/16/2025 REASON FOR EXAM: GROWTH TECHNIQUE: Procedure Code: USOBGROWTH Modality: US Procedure: OB LIMITED WITH BIOMETRICS COMPARISON: None FINDINGS LMP: August 06, 2024. Number: 1 Position: Vertex Placental Position: Anterior and not low-lying Placental Abnormalities: No evidence of previa. DIMENSIONS: Biparietal Diameter: 7.1 cm: 28 weeks and 4 days: 65th percentile/ Head Circumference: 26.5 cm: 28 weeks and 6 days: 56 percentile/ Abdominal Circumference: 23.6 cm: 28 weeks and 0 days: 49 percentile/ Femur Length: 5 cm: 27 weeks and 0 days: 17 percentile/ ESTIMATED WEIGHT: 1126 g plus/minus 169 g. ESTIMATED WEIGHT PERCENTILE (24+ weeks): 40 ESTIMATED GESTATIONAL AGE: Baseline: 27 weeks and 5 days By Ultrasound: 28 weeks and 1 day ESTIMATED DATE OF DELIVERY: Baseline: May 13, 2025 By Ultrasound: May 10, 2025 BIOPHYSICAL ASSESSMENT: Amniotic Fluid Volume: 4.8 cm Amniotic Fluid Index: 15.1 (8-24 cm normal range) Cardiac Motion: 144 beats per minute (average) Trunk and Limb Motion: Present. MATERNAL ANATOMY: [employer]: Neither maternal ovary is successfully identified. US/OB Limited With Biometrics IMPRESSION: Single live intrauterine gestation with a mean gestational age of 28 weeks and 1 day. Reading Location: [id number]
== END | disposition home or self-care (01) ==
LOC: US 17:56
PROVIDERS: Referring Provider Advanced Practice Midwife; Visit Provider Advanced Practice Midwife
DX: Z34.90 Encounter for supervision of normal pregnancy, unspecified, unspecified trimester (principal)
CPT/HCPCS: 76816

== ENCOUNTER → 2025-03-16 | Outpatient (CLI) | payer OTHER, SELFPAY ==
--- NOTE | 2025-03-16 17:50 | US_ITS ---
PROCEDURE: OB LIMITED WITH BIOMETRICS 03/16/2025 REASON FOR EXAM: GROWTH TECHNIQUE: Procedure Code: USOBGROWTH Modality: US Procedure: OB LIMITED WITH BIOMETRICS COMPARISON: 02/16/25 FINDINGS Cephalic position with cardiac activity of 127 bpm. Maximum vertical pocket of 6.2 Cm and AVTAR of 13.4 Cm. Placenta is anterior position with grade 1. Circum vallate of placenta. BPD of 7.9, OFD of the 10, HC of 29.3, AC of 28, and FL of 5.8 Cm corresponding with average gestational age of 31 weeks and 3 days with RAMO of 05/15/25. Biometric measurement are within normal limits. Estimated weight of 1794g (34 percentile). US/OB Limited With Biometrics IMPRESSION: corresponding with average gestational age of 31 weeks and 3 days with RAMO of . Biometric measurement are within normal limits. Circum vallate of placenta. Reading Location: [id number]
== END | disposition home or self-care (01) ==
LOC: US 17:52
PROVIDERS: PCP Nurse Practitioner Family; Referring Provider Advanced Practice Midwife; Visit Provider Advanced Practice Midwife
DX: Z34.90 Encounter for supervision of normal pregnancy, unspecified, unspecified trimester (principal)
CPT/HCPCS: 76816

== ENCOUNTER → 2025-04-13 | Outpatient (CLI) | payer OTHER, SELFPAY ==
--- NOTE | 2025-04-13 17:58 | US_ITS ---
PROCEDURE: OB LIMITED WITH BIOMETRICS 04/13/2025 REASON FOR EXAM: GROWTH TECHNIQUE: Procedure Code: [id number] Modality: US Procedure: OB LIMITED WITH BIOMETRICS COMPARISON: March 16, 2025. FINDINGS Number: 1 Position: Vertex Placental Position: Anterior and not low-lying Placental Abnormalities: Circumvallate placenta DIMENSIONS: Biparietal Diameter: 8.6 cm: 34 weeks and 5 days: 28 percentile/ Head Circumference: 32.3 cm: 36 weeks and 3 days: 36 percentile/ Abdominal Circumference: 32.2 cm: 36 weeks and 1 day: 70 percentile/ Femur Length: 6.6 cm: 34 weeks and 0 days: 8 percentile/ ESTIMATED WEIGHT: 2665 g plus/-400 g ESTIMATED WEIGHT PERCENTILE (24+ weeks): 41 ESTIMATED GESTATIONAL AGE: Baseline: 35 weeks and 5 days By Ultrasound: 35 weeks and 4 days ESTIMATED DATE OF DELIVERY: Baseline: May 13, 2025 By Ultrasound: May 14, 2025 BIOPHYSICAL ASSESSMENT: Amniotic Fluid Volume: 6.3 cm Amniotic Fluid Index: 14.4 cm (8-24 cm normal range) Cardiac Motion: 133 beats per minute (average) Trunk and Limb Motion: Present. MATERNAL ANATOMY: Adnexa: Neither maternal ovary is successfully identified. US/OB Limited With Biometrics IMPRESSION: Single live intrauterine gestation with a mean gestational age of 35 weeks and 4 days. There has been good interval growth. Reading Location: [id number]
== END | disposition home or self-care (01) ==
LOC: US 17:57
PROVIDERS: PCP Nurse Practitioner Family; Referring Provider Advanced Practice Midwife; Visit Provider Advanced Practice Midwife
DX: Z34.90 Encounter for supervision of normal pregnancy, unspecified, unspecified trimester (principal)
CPT/HCPCS: 76816

== ENCOUNTER → 2025-04-19 | Outpatient (CLI) | payer OTHER, SELFPAY ==
--- OUTSIDE RECORDS SUMMARY | 2025-04-19 11:25 | XMS RPT_ITS | CCD ---
Author Organization [facility] Care Team Providers Care Milk Tanker Driver Name Role Phone Vineet CERVANTES, Eber Cormier Unavailable Eber Manley MD Unavailable [facility] Unavailable Cardiology Provider Unavailable Unavailable [facility], . Unavailable Physical Therapy, [place] [facility]available [facility], ([facility]) Unavailable Moira CERVANTES, Dr. Meño Sood Unavailable Kamran CERVANTES, Shira Nichols Unavailable Zari ENGINE REPAIRER, Frances Unavailable Taiwo PAPPAS, Zoila Warner Unavailable Pauline Calderon MA Unavailable Unavailable Kevin GARYN, Shawna Unavailable Unavailable Facundo PAPPAS, Kareen Dillon Unavailable Dorian GARYN, Zeenat Unavailable Unavailable King DANNY-C, Kermit Roca Unavailable [phone] Vic GARCIA, Kareen Longoria Unavailable Unavaila sapphire Barrientos MA, Eli Unavailable Unavailable Jonathon ENGINE REPAIRER, Raven Unavailable Unavailable Giuseppe GARYN, Star Unavailable Unavailable Ro Howard RN Unavailable [phone] Omi GARCIA, Debbie Lemus Unavailable Unavailable Serina GARYN, Luzmaria Dykes Unavailable Unavailab domingo Barker LPN, Shira Choi Unavailable Unavailab domingo Dickey LPN, Judith Hernandez Unavailable Unavailab Darek Lui MD Unavailable [phone] Vess ENGINE REPAIRER, Gomez Dykes Unavailable Unavailable Unavailable Unavailable Corry Saucedo MA Unavailable Unavailable Gastroenterology Provider Unavailable Unavai lable BEARDEN, ART T Attending Unavailable BEARDEN, ART T Primary Care Unavailable BEARDEN, ART T Admitting Unavailable OROZCO, ZOILA PAC Consulting Unavailable PROVIDER, UNKNOWN Consulting Unavailable Dr. Andres Keen DO Referring Provider Earl CERVANTES, Dr. Ortega Attending Provider Orozco PA, Zoila Primary Care Provider Earl CERVANTES, Dr. Ortega Referring Provider Orozco PA, Zoila Referring Provider Lucero RESIDENCY PROGRAM COORDINATOR-C, Fina Attending Provider Dr. Veronica Valles DO Attending Provider Assessment, Health Risk Attending Provider Unava ilrashmi Assessment, Health Risk Referring Provider Unava ilable Eduardo Eduardo MD Emergency Provider Orozco PA, Zoila Primary Care Provider Eduardo Eduardo MD Attending Provider Genesis Mccullough CNM Attending Provider Orozco PA, Zoila Primary Care Provider Orozco PA, Zoila Referring Provider Genesis Mccullough CNM Referring Provider Dr. Veronica Valles DO Attending Provider Shreya Alvarado CNM Attending Provider RADHA STANFORD Attending Unavailable VERONICA ELIZABETH Referring Unavailab SALLIE Guadalupe Primary Care Unavailable Orozco PA, Zoila Primary Care Provider Orozco PA, Zoila Primary Care Physician Orozco PA, Zoila Referring Provider Genesis Mccullough CNM Attending Physician [phone] Dr. Veronica Valles DO Attending Physician Shreya Alvarado CNM Attending Physician [phone] Genesis Mccullough Attending Unavailable Orozco, Zoila Primary Care Unavailable Orozco, Zoila Referring Unavailable Shreya Alvarado Attending Unavailable Orozco, Zoila Primary Care Unavailable Orozco, Zoila Referring Unavailable Philly Dueñas Attending Unavailable Orozco, Zoila Referring Unavailable Friend, Andres Attending Unavailable Orozco, Zoila Primary Care Unavailable Orozco, Zoila Referring Unavailable Orozco, Zoila Primary Care Unavailable Genesis Mccullough Attending Unavailable Genesis Mccullough Referring Unavailable Genesis Mccullough Attending Unavailable Orozco, Zoila Primary Care Unavailable Genesis Mccullough Referring Unavailable Prah, Jordan Referring Unavailable PrahJordan Attending Unavailable Orozco, Zoila Primary Care Unavailable Assessment, Health Risk Referring Unavaila ble Assessment, Health Risk Attending Unavaila ble Orozco, Zoila Primary Care Unavailable Orozco, Zoila Primary Care Unavailable Genesis Mccullough Attending Unavailable Genesis Mccullough Referring Unavailable Orozco, Zoila Primary Care Unavailable Orozco, Zoila Referring Unavailable Genesis Mccullough Attending Unavailable Veronica Valles Attending Unavailabl e Orozco, Zoila Primary Care Unavailable Orozco, Zoila Referring Unavailable Friend, Andres Referring Unavailable Prah, Jordan Attending Unavailable Orozco, Zoila Primary Care Unavailable FriendAndres Attending Unavailable Friend, Andres Consulting Unavailable Orozco, Zoila Primary Care Unavailable Orozco, Zoila Referring Unavailable Veronica Valles Attending Unavailabl e Orozco, Zoila Referring Unavailable Orozco, Zoila Primary Care Unavailable Fina Barker NP Attending Unavailable Orozco, Zoila Referring Unavailable Orozco, Zoila Primary Care Unavailable Genesis Mccullough Attending Unavailable Orozco, Zoila Primary Care Unavailable Orozco, Zoila Referring Unavailable Genesis Mccullough Attending Unavailable Orozco, Zoila Primary Care Unavailable Orozco, Zoila Referring Unavailable Genesis Mccullough Attending Unavailable Orozco, Zoila Primary Care Unavailable Orozco, Zoila Referring Unavailable Genesis Mccullough Attending Unavailable Orozco, Zoila Primary Care Unavailable Genesis Mccullough Referring Unavailable Friend, Andres Referring Unavailable Friend, Andres Attending Unavailable Orozco, Zoila Primary Care Unavailable Orozco, Zoila Attending Unavailable Orozco, Zoila Referring Unavailable Orozco, Zoila Primary Care Unavailable Eduardo Eduardo Attending Unavailable Orozco, Zoila Primary Care Unavailable Genesis Mccullough Attending Unavailable Orozco, Zoila Primary Care Unavailable Allergies Allergy Classification Reported Allergen(s) Allergy Type Date of Onset Reaction(s) Facility (20 sources) Sulfonamides (Antibiotic) 3 [facility] (1 source) Sulfonamides (Antibiotic) Drug allergy (disorder) [facility] (9 sources) Sulfonamides (Antibiotic) Allergy to substance 5 [facility] (1 source) Sulfonamides (Antibiotic) Drug allergy (disorder) 5 [facility] Medications Current Medications Medication Drug Class(es) Dates Sig (Normalized) Sig (Original) Multivitamin Adult Oral Tablet (20 sources) Multivitamin Laci lt Oral Tablet Mv-Mins 68-Empx-Djkab No.1-Dha ([facility]) 28-1-300 mg capsule (8 sources) Start: 09-20-2024 Mv-Mins 45-Mjux-Gqroi No.1-Dha ([facility]) 28-1-300 mg capsule Active NMA PO September 20, 2024 12:00am Complies with drug therapy Start: 09-20-2024 Mv-Mins 71-Iro n-Folic No.1-Dha ([facility]) 28-1-300 mg capsule Active NMA PO September 20, 2024 12:00am Completed/Discontinued Medications Medication Drug Class(es) Dates Sig (Normalized) Sig (Original) amoxicillin 875 mg / clavulanate 125 mg oral tablet (20 sources) Penicillin-class Antibacterial Start: 10-24-2022 End: 11-03-2022 Amoxicillin-Pot Clavulanate 875-125 mg tablet Discontinued 1 {tbl} PO Q12H 20 10 October 24, 2022 12:00am November 02, 2022 12:00am November 03, 2022 12:03am Acute sinusitis, unspecified Start: 10-24-2022 End: 11-03-2022 take 1 tablet by mouth every twelve hours Amoxicillin-Pot Clavulanate Discontinued 1 TABLET PO Q12H 13 02October 24, 2022 12:00am November 03, 2022 12:03am Start: 10-13-2016 End: 11-14-2022 amoxicillin 875 mg-potassium clavulanate 125 mg tablet ; 1 (one) tablet bid w food for 10 days Quantity: 20 {Tablet} Refills: 0 Ordered: 04-Nov-2022 MD Eber Manley Start: 04-Nov-2022 End: 14-Nov-2022 Status: Inactive Comment on above: Discontinued by [facility] vendor. amphetamine aspartate 2.5 mg / amphetamine sulfate 2.5 mg / dextroamphetamine saccharate 2.5 mg / dextroamphetamine sulfate 2.5 mg oral tablet (20 sources) Central Nervous System Stimulant Start: 11-10-19 End: 07-31-19 take 1 tablet by mouth twice daily Adderall 10 MG Oral Tablet ; 1 (one) Tablet bid for 0 days Quantity: 60 {Tablet} Refills: 0 Ordered: 30-Jul-2020 BASIL Webb Start: 09-Nov-2018 End: 30-Jul-2020 Status: Inactive atenolol 50 mg oral tablet (20 sources) beta-Adrenergic Shabana Start: 12-23-19 End: 07-31-19 take 1 tablet by mouth once daily Atenolol 50 MG Oral Tablet ; 1 (one) Tablet qd for 0 days Quantity: 30 {Tablet} Refills: 1 Ordered: 30-Jul-2020 BASIL Webb Start: 22-Dec-2018 End: 30-Jul-2020 Status: Inactive cephalexin 500 mg oral capsule (20 sources) Cephalosporin Antibacterial Start: 11-15-19 End: 11-22-19 cephALEXin 500 mg capsule ; 1 (one) capsule three times daily for 7 days Quantity: 21 {Capsule} Refills: 0 Ordered: 14-Nov-2022 BASIL Hameed Start: 14-Nov-2022 End: 21-Nov-2022 Status: Inactive Start: 06-18-2010 End: 06-28-2010 CEPHALEXIN, 250MG/5ML (Oral Suspension Reconstituted) ; 2 (two) Teaspoon(s) tid for 10 days Quantity: 300 {Milliliter} Refills: 0 Ordered: 18-Jun-2010 MD Eber Manley Start: 18-Jun-2010 End: 28-Jun-2010 Status: Inactive dicyclomine hydrochloride 10 mg oral capsule (9 sources) Anticholinergic Start: 01-05-2024 End: 02-02-2024 take 1 capsule by mouth every six hours as needed for pain Dicyclomine 10 mg capsule Discontinued 10 mg PO EVERY 6 HOURS NEEDED as needed for abdominal pain January 05, 2024 12:00am February 02, 2024 2:39pm ethinyl estradiol 0.035 mg / norethindrone 1 mg oral tablet (20 sources) Estrogen Start: 06-23-2018 End: 12-21-2018 take 1 tablet by mouth once daily Ortho-Novum (28) 1-35 MG-MCG Oral Tablet ; 1 (one) Tablet Tablet daily for 0 days Quantity: 1 {Package} Refills: 12 Ordered: 21-Dec-2018 BASIL Dickey Judith Hernandez Start: 23-Jun-2018 End: 21-Dec-2018 Status: Inactive Comments: generic sub must be ONLY Comment on above: generic sub must be ONLY fluconazole 150 mg oral tablet (9 sources) Azole Antifungal Start: 04-12-2024 End: 05-12-2024 Fluconazole 150 mg tablet Discontinued 150 mg PO .COMPLEX 2 0 April 12, 2024 1:00am May 12, 2024 3:50pm 150 mg PO take one po now and repeat in 3 days 24 hr loratadine 10 mg / pseudoephedrine sulfate 240 mg extended release oral tablet (20 sources) alpha-Adrenergic Agonist take 10-240 mg by mouth every twenty-four hours as needed CLARITIN-D 24 HOUR, 10-240MG (Oral Tablet Extended Release 24 Hour) ; as needed (10-240 MG) Status: Inactive Comments: Medication taken as needed. Comment on above: Medication taken as needed. minocycline 100 mg oral capsule (20 sources) Tetracycline-class Drug take 1 capsule by mouth once daily Minocycline HCl 100 MG Oral Capsule ; 1 daily (100 MG) Status: Inactive ondansetron 4 mg disintegrating oral tablet (20 sources) Serotonin-3 Receptor Antagonist Start: 12-29-2023 End: 05-27-2024 take 1 tablet by mouth every eight hours as needed for nausea and vomiting Ondansetron 4 mg tablet,disintegra ting Discontinued 4 mg PO Q8H as needed for nausea and vomiting 30 2 February 26, 2024 7:30am May 27, 2024 2:38pm Rtds-Pz-Miry 1 MG Oral Tablet Chewable (20 sources) Start: 11-10-2016 Snsk-Cl-Zkbi 1 MG Oral Tablet Chewable ; 1 (one) (1 MG) Start: 10-Nov-2016 Status: Inactive Prenat.Vits,Jessy,Min- Iron-Folic tablet (9 sources) Start: 05-12-2024 End: 09-20-2024 Prenat.Vits,Jessy,M hc-Kads-Bnicj tablet Discontinued {tbl} PO DAILY May 12, 2024 1:00am September 20, 2024 8:08am Start: 05-12-2024 Prenat.Vits,Ca l,Xxl-Ziod-Hchgk tablet Active {tbl} PO DAILY May 12, 2024 1:00am sulfamethoxazole 800 mg / trimethoprim 160 mg oral tablet (20 sources) Dihydrofolate Reductase Inhibitor Antibacterial, Sulfonamide Antimicrobial Start: 11-05-2022 End: 11-14-2022 Bactrim DS 800 mg-160 mg tablet ; 1 (one) tablet bid for 10 days Quantity: 20 {Tablet} Refills: 0 Ordered: 14-Nov-2022 Zari, BASIL Frances Start: 05-Nov-2022 End: 14-Nov-2022 Status: Inactive Problems Active Problems Problem Classification Problem Date Documented Date Episodic/Chronic Abdominal pain (20 sources) Right upper quadrant pain; Translations: [Right upper quadrant pain] Onset: 5 06-24-2023 Episodic Comment on above: Patient describes im mediate postprandial discomfort. This seems inconsistent with gallbladder etiology which should be delayed by several hours. With this descriptor I would be more concerned for peptic ulcer disease, gastritis, other inflammatory issues of the stomach or esophagus... 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 While she describes some consistencies with the gallbladder etiology (right upper quadrant discomfort that is not predicted by position or timing) certain other descriptors are inconsistent with a gallbladder etiology. Moreover, patient remarks that she was told her IBD panel was positive enough for gastroenterology to offer initiation of medications for presumptive diagnosis of Crohn's. With this personal history and her familial history of IBD in the family I believe it may be prudent to pursue double endoscopy before considering a surgery with cholecystectomy. I have shared with Ms. 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 She expresses agreement with this rationale and confirms that she is in no hurry to undergo surgery. Cardiac dysrhythmias (20 sources) Tachycardia; Translations: [Tachycardia, unspecified] 12-21-2018 Episodic Conduction disorders (20 sources) Mobitz type I incomplete atrioventricular block; Translations: [Atrioventricular block, second degree] 10-05-2015 Chronic Disorders usually diagnosed in infancy, childhood, or adolescence (20 sources) Attention deficit hyperactivity disorder, predominantly inattentive type; Translations: [Other specified behavioral and emotional disorders with onset usually occurring in childhood and adolescence] 12-22-2022 Chronic Headache; including migraine (20 sources) Tension-type headache; Translations: [Tension-type headache, unspecified, not intractable] 10-27-2018 Chronic Headache; including migraine (20 sources) Sinus headache; Translations: [Headache] 04-06-2012 Episodic Immunizations and screening for infectious disease (20 sources) Patient encounter status; Translations: [Encounter for screening for respiratory tuberculosis] Onset: 5 06-22-2023 Episodic Lymphadenitis (20 sources) Lymphadenopathy of head AND/OR neck; Translations: [Localized enlarged lymph nodes] 12-22-2022 Episodic Menstrual disorders (20 sources) Amenorrhea; Translations: [Amenorrhea, unspecified] Onset: 5 09-20-2024 Chronic Comment on above: +UPT Nausea and vomiting (20 sources) Nausea; Translations: [Nausea] Onset: 5 02-02-2024 Episodic Comment on above: Described as patient 's biggest complaint this symptom accompanies pain and is not necessarily postprandial in its onset. Patient does describe more of an a.m. onset. Differential would include above diagnoses as well as H. pylori Open wounds of extremities (20 sources) Needle stick injury of finger 08-30-2024 Episodic Other acquired deformities (20 sources) Scoliosis deformity of spine; Translations: [Scoliosis, unspecified] 11-11-2016 Chronic Other acquired deformities (20 sources) Leg length inequality; Translations: [Unequal limb length (acquired), unspecified site] 10-27-2018 Episodic Other and unspecified benign neoplasm (20 sources) Lipoma (clinical); Translations: [Benign lipomatous neoplasm, unspecified] 06-22-2023 Episodic Other complications of (20 sources) High risk ; Translations: [Supervision of high risk , unspecified, unspecified trimester] 09-20-2024 Episodic Comment on above: , RAMO 05/06/25, Chance PRR, , RAMO 05/06, Chance Other complications of (5 sources) Placenta circumvallata; Translations: [Circumvallate placenta, unspecified trimester] 12-29-2024 Episodic Comment on above: growth [facility] at [facility] Other complications of (2 sources) Circumvallate placenta, unspecified trimester; Translations: [Circumvallate placenta, unspecified trimester] Onset: 5 Episodic Other complications of (1 source) Supervision of high risk , unspecified, unspecified trimester; Translations: [Supervision of high risk , unspecified, unspecified trimester] Onset: 5 Episodic Other connective tissue disease (20 sources) Tendinitis; Translations: [Other synovitis and tenosynovitis, unspecified site] 10-27-2018 Episodic Other connective tissue disease (20 sources) Finding of hip region; Translations: [Other symptoms and signs involving the musculoskeletal system] 04-06-2012 Episodic Other connective tissue disease (20 sources) Pain in lower limb; Translations: [Pain in leg, unspecified] 04-15-2024 Episodic Other gastrointestinal disorders (20 sources) Diarrhea; Translations: [Diarrhea, unspecified] 10-19-2012 Episodic Comment on above: Sporadic diarrhea. S tool studies negative. Pancreatic elastase negative. Stool lactoferrin negative. However, IBD panel somewhat equivocal but suggestive of Crohn's disease. Will discuss with Dr. Keen of gastroenterology to see if he believes endoscopy will be more clarifying. Other gastrointestinal disorders (1 source) Diarrhea, unspecified; Translations: [Diarrhea, unspecified] Onset: 5 Episodic Other hematologic conditions (20 sources) Serum proteins low 05-27-2024 Episodic Comment on above: saw hematology and c leared without follow up. Other liver diseases (20 sources) Steatosis of liver; Translations: [Fatty (change of) liver, not elsewhere classified] 11-11-2023 Chronic Other liver diseases (1 source) Fatty (change of) liver, not elsewhere classified; Translations: [Fatty (change of) liver, not elsewhere classified] Onset: 5 Chronic Other nervous system disorders (20 sources) Inattention; Translations: [Attention and concentration deficit] 10-27-2018 Chronic Other non-traumatic joint disorders (20 sources) Multiple joint pain; Translations: [Pain in unspecified joint] 07-30-2012 Episodic Other nutritional; endocrine; and metabolic disorders (20 sources) H/O: hyperthyroidism; Translations: [Personal history of other endocrine, nutritional and metabolic disease] 09-20-2024 Episodic Comment on above: 2019- resolved witho ut treatment 2018- resolved witho ut treatment-normal thyroid labs at [facility] Other nutritional; endocrine; and metabolic disorders (1 source) Personal history of other endocrine, nutritional and metabolic disease; Translations: [Personal history of other endocrine, nutritional and metabolic disease] Onset: 5 Episodic Other and delivery including normal (20 sources) ; Translations: [Encounter for supervision of normal , unspecified, unspecified trimester] Onset: 5 10-03-2024 Episodic Comment on above: elects NIPT & Trudi r testing elects NIPT-low risk , male & Carrier testing NIPT-low risk, male. Horizon neg. Other skin disorders (20 sources) Acne; Translations: [Acne, unspecified] 10-27-2018 Episodic Other upper respiratory infections (20 sources) Viral upper respiratory tract infection; Translations: [Acute upper respiratory infection, unspecified] 10-13-2016 Episodic Residual codes; unclassified (20 sources) History of syncope; Translations: [Personal history of other specified conditions] 10-27-2018 Episodic Residual codes; unclassified (20 sources) Influenza vaccination declined; Translations: [Immunization not carried out because of patient refusal] 10-27-2018 Episodic Comment on above: declined for today, will get at a later date Residual codes; unclassified (1 source) 28 weeks gestation of ; Translations: [28 weeks gestation of ] Onset: 5 Episodic Residual codes; unclassified (1 source) 24 weeks gestation of ; Translations: [24 weeks gestation of ] Onset: 5 Episodic Residual codes; unclassified (1 source) 20 weeks gestation of ; Translations: [20 weeks gestation of ] Onset: 5 Episodic Syncope (20 sources) Syncope; Translations: [Syncope and collapse] 10-27-2018 Episodic Thyroid disorders (20 sources) Hyperthyroidism; Translations: [Thyrotoxicosis, unspecified without thyrotoxic crisis or storm] 12-22-2022 Chronic Unclassified (20 sources) discuss meds for acne - Pt. has seen a bit grinder for acne, and pt. was told she should be started on a control medication. (vidhi, ortho nuvum or esthela suggested) Pt. is also taking minocycline daily, using differin gel and sulfa wash on days not using differin. She is not sexually active and really wanted to avoid OCPs...she is willing to try it since dermatology is recommending 06-23-2018 Unclassified (20 sources) Follow up for multiple chronic conditions - The patient is here for follow-up of other condition(s) (ADD). The patient always takes the prescribed medications. No side effects noted. The patient engages in regular exercise program 3-5 times per week. The patient states that mood is unchanged. Note for Multiple chronic conditions follow-up: Doing well in school, no problems w medication. Senior year , grades are doing well. 02-02-2017 Unclassified (20 sources) Follow up for chronic condition - The patient is here for follow-up of other condition(s) (3 month follow up on ADD. Was last seen on 07/07/2016, continued Adderall 20mg. ). The patient always takes the prescribed medications. No side effects noted (will sometimes not take her medication if not needing for work or school ). The patient engages in regular exercise program 3-5 times per week. The patient states that there is no recent angina or dyspnea, weight has decreased (1 # since last office visit) and headaches are rarely noted. Note for Chronic condition follow-up: Is accompanied by mother today. No concerns voiced. Did well in school this past year. No concerns from the teacher. Is currently working at [employer]. Reviewed by BINA. 10-06-2016 Unclassified (20 sources) Follow up for chronic condition - The patient is here for follow-up of other condition(s) (3 month follow up on ADD. Was last seen on 04/18/2016, continued Adderall 20mg. ). The patient always takes the prescribed medications. No side effects noted (will sometimes not take her medication on the weekend if she is not working. ). The patient engages in regular exercise program 3-5 times per week. The patient states that weight has increased (2 pounds since CHANEL). Note for Chronic condition follow-up: Reports that she is doing well in school. No concerns from the teachers. Grades are good. Reviewed by BINA. 07-07-2016 Unclassified (20 sources) Follow up for chronic condition - The patient is here for follow-up of other condition(s) (3 month follow up on ADD. Was last seen on 01/07/2016, continued Adderall. ). The patient always takes the prescribed medications. Side effects noted (has noticed that she does not feel hungry like she used to before taking the medication. Has lost 3 pounds since last office visit. ). Note for Chronic condition follow-up: Is accompanied by father today and would like to discuss the director of elementary education side effects of the medication. Going well at school. No concerns from teachers. Feels that she is able to focus better at school. Would like a refill on the medication today if possible. Reviewed by BINA. 04-08-2016 Past or Other Problems Problem Classification Problem Date Documented Date Episodic/Chronic Other connective tissue disease (1 source) Pain in leg, unspecified; Translations: [Pain in leg, unspecified] Onset: 05-18-2024 Episodic Other hematologic conditions (2 sources) Abnormality of plasma protein, unspecified; Translations: [Abnormality of plasma protein, unspecified] Onset: 05-12-2024 Episodic Residual codes; unclassified (1 source) 9 weeks gestation of ; Translations: [9 weeks gestation of ] Onset: 10-03-2024 Episodic Unclassified (20 sources) Abdominal pain - The onset of [...] vomiting or weight loss. Note for Abdominal pain: Patient is concerned that the pain could be caused by her gallbladder. 06-24-2023 Unclassified (20 sources) Well Adult, female - The patient [...] sleeps 6 hours per night. 12-22-2022 Unclassified (20 sources) Enlarged lymph node - Was seen in office with enlarged lymph node on left side of neck 11-03-22. Was given a prescription for Bactrim DS but had to discontinue due to generalized rash. Was given a prescription for Cephalexin 11-14-22. Lymph node is getting worse. No pain. Started with sore throat yesterday. Sinus symptoms have resolved. reviewed by B 11-17-2022 Unclassified (20 sources) swollen spot on neck - pt [...] worn out reviewed by B 11-03-2022 Unclassified (20 sources) lump on back - Noticed lump on back 2 weeks ago, no pain. reviewed by B 07-16-2022 Unclassified (20 sources) Well adult female - The patient feels well with no complaints, has good energy level and is sleeping well. The first day of the last menstrual period was : (02/12/22). The patient has a balanced diet and takes supplemental vitamins. The patient exercises 3 - 4 times per week. The patient sleeps 7 hours per night. Note for Well adult female: States passing out has been better. It [...] today. 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 02-13-2022 Unclassified (20 sources) Follow Up for Multiple Chronic Conditions - The patient is here for follow-up of other condition(s) (Hyperthyroidism). Note for Multiple chronic conditions follow-up: Had symptoms of tachycardia for a couple of weeks. Improved now. Last TSH was in 2019. Endocrine notes reviewed. She was all set to get radioactive iodine therapy but then labs normalized and sx resolved until just recently. She notes that wehn she had the tachycardia recently she was also overheated. has been fine since. 08-28-2021 Unclassified (20 sources) Well Adult, female - The patient [...] hours per night. Note for Well Adult, female: she is traveling to [place] soon and her college, [employer], requires vaccines Hep A and Tdap.considering covid vaccine after her trip 07-30-2020 Unclassified (20 sources) Rapid heart rate - The onset of the rapid heart rate has been variable and has been occurring in an intermittent pattern for 1 month. The course has been constant. The rapid heart rate is characterized as increased awareness of heart beats. There have been no precipitating factors. Note for Rapid heart rate: Most of the time heart rate is between 110-130. Stopped Adderall when started with rapid heart rate. reviewed by [facility]B 12-21-2018 Unclassified (20 sources) Concerns about control pills - Pt. [...] is interested in stopping OCPs 10-27-2018 Unclassified (20 sources) Well Adult, female - The patient [...] hours per night. Note for Well Adult, female: Here for form completion for nursing school and also f/u of ADD 08-16-2018 Unclassified (20 sources) Well adult female - The patient feels well with no complaints, has good energy level and is sleeping well. The first day of the last menstrual period was : (10/26/2017). The patient has a balanced diet. The patient exercises daily. The patient sleeps 7 hours per night. Note for Well adult female: sport PE form for Parker Gautam to be completed today 10-27-2017 Unclassified (17 sources) Transition into care - The patient is transitioning into care from an emergency room and a summary of care was reviewed. 12-30-2016 Unclassified (17 sources) [ADDITIONAL REASON] Follow up consultation - The patient is here to follow-up after Emergency Room/Urgent Care ([facility] with near syncopal episode while running.(participates in [employer])) on : (12-24-16). Note for Consultation follow-up: Feels well now. No other episodes with running. reviewed by B 12-30-2016 Unclassified (20 sources) Well child visit #4 - 11 [...] with peers and participates in extracurricular activities ([employer] sports PE today). Safety measures taken include appropriate use of safety belts, home smoke detectors and avoiding exposure to passive smoke. 11-11-2016 Unclassified (20 sources) Cold Symptoms - Symptoms include sneezing, [...] strep pharyngitis, asthma or tonsillectomy. 10-13-2016 Unclassified (20 sources) Follow-up - Patient is here today [...] dizziness, and palpitations. Denies anorexia. 01-08-2016 Unclassified (20 sources) Well child visit #4 - 13 [...] child visit #4 - 13 to 17 years: Would like to discuss her ability to focus better. Finds her self being easily distracted or zoning off. Occurs at school and outside of school. [...] has had issues with it. 10-05-2015 Unclassified (20 sources) Syncope - Note for Syncope: First episode of Syncope was 2 weeks ago was running in a cross country race and passed out, fell to the ground. Dudley lightheaded, some spinning and dizziness before the [...] and afterwards. Drinking plenty of water. Cross [employer] meets are 3.1 miles; both episodes she [...] heart murmurs on maternal side. 01-16-2015 Unclassified (20 sources) Well child visit #4 - 11 [...] with peers and participates in extracurricular activities ([employer] and [employer]). Safety measures taken include appropriate use of safety belts, home smoke detectors and avoiding exposure to passive smoke. Note for Well child visit #4 - 13 to 17 years: reviewed by shashi 11-23-2014 Unclassified (20 sources) several concerns - Her first concern is that she is having trouble focusing in school. She noticed it last year but is worsening this year. Her grades are pretty good. She gets distracted easily and if there are no distractions she still finds herself zoning out. Currently a freshman now. Is taking college [...] periods are not particularly heavy. 05-19-2014 Unclassified (20 sources) Well child visit #4 - 11 [...] activities (cross country and track). 11-10-2013 Unclassified (20 sources) [ADDITIONAL REASON] Transition into care - The patient is transitioning into care from another physician (ortho) and a summary of care was reviewed . 11-10-2013 Unclassified (20 sources) Cold Symptoms - Symptoms include sore [...] an individual with similar symptoms. 02-05-2013 Unclassified (20 sources) Well child visit #4 - 13 [...] child visit #4 - 13 to 17 years: Appetite is better but still feels weak (from not eating); ate better this weekend (more but still bland); no further diarrhea. 10-25-2012 Unclassified (20 sources) Abdominal pain - The onset of [...] dysuria, fever or vomiting. Note for Abdominal pain: LMP just started today.Lacks energy from not eating. 10-19-2012 Unclassified (20 sources) Joint complaints (multiple) - The onset [...] activity (specifically sports activities). Note for Joint complaints: Patient was recently seen by chiropractor, Dr. Chin, at [facility] [employer] [facility]. Patient had xrays done and also had physical therapy through the facility. Patient complains of continued pain. Patient describes the pain as dull and sharp. 07-30-2012 Unclassified (20 sources) pain - Discussed pain and headaches at summer well child visit. Completed course of therapy at [facility] and hasn't improved (did improve during therapy and shoe lift did help). [place] this [place] and was able to keep up with that.Dad inquiring about physical therapy. She reports she enjoys school. 04-06-2012 Unclassified (20 sources) Well child visit #3 - 4 [...] child visit #3 - 4 to 12 years: Their only concern today is that she has right leg pain frequently. They did go to [facility] and found that her right leg is 19mm shorter than her left. They have been gradually increasing the lift in her shoe, but she still has quite a bit of pain. 10-02-2011 Unclassified (20 sources) headaches - Complained of frequent headaches [...] lot of time. no nasal congestion.History from [facility] in June reviewed. Headaches have persisted despite the change in season and being out of school for the summer. 11-14-2010 Unclassified (20 sources) Well child visit #3 - 4 to 12 years - The child is here for a initial 9 year well-child visit. The primary caregiver is mother and father. There are no behavioral problems. The patient has a balanced diet. 07-11-2010 Unclassified (20 sources) [ADDITIONAL REASON] headaches - complains of [...] and snacks, tries to drink water. 07-11-2010 Unclassified (20 sources) Follow up consultation - The patient is here to follow-up after Emergency Room/Urgent Care ([facility] with near syncopal episode while running.(participates in [employer] country)) on : (12-24-16). Note for Consultation follow-up: Feels well now. No other episodes with running. reviewed by [facility] 12-30-2016 Unclassified (20 sources) [ADDITIONAL REASON] Transition into care - The patient is transitioning into care from an emergency room and a summary of care was reviewed. 12-30-2016 Unclassified (9 sources) headaches - complains of frequent headaches for [...] and snacks, tries to drink water. 07-11-2010 Unclassified (9 sources) [ADDITIONAL REASON] Well child visit #3 - 4 to 12 years - The child is here for a initial 9 year well-child visit. The primary caregiver is mother and father. There are no behavioral problems. The patient has a balanced diet. 07-11-2010 Unclassified (20 sources) Well adult female - The patient feels well with no complaints and has good energy level. The first day of the last menstrual period was : (10/21-10/26). The current method of contraception is: condom-male. The patient has a balanced diet and takes no supplemental vitamins & iron. The patient exercises every other day. The patient sleeps 8 hours per night. The patient's libido is normal. Note for Well adult female: pap - 3Patient reports that while her right upper abdominal pain has improved, it has not fully resolved. She wonders if there is a next step to workup of this. 11-10-2023 Unclassified (10 sources) Transition into care - The patient is transitioning into care from another physician (ortho) and a summary of care was reviewed . 11-10-2013 Unclassified (10 sources) [ADDITIONAL REASON] Well child visit #4 - 13 to [...] extracurricular activities (cross country and track). 11-10-2013 NEGATED: Highlighted row has been ruled out!Unclassified (20 sources) No Known / History Onset: 11-10-2023 11-10-2023 Results Test Name Value Interpretation Reference Range Facility Blow Up Operator Office Visit Reporton 03-07-2025 Blow Up Operator Office Visit Report [facility] [address], [address] [place] [address] OFFICE VISIT Date of Service: 03/07/25 MR#: [id number] Acct: [id number] Name: ARUN HELM Rep #: [id number] : 2000 Provider: SUMA Singer ams Age/Sex: 24/F [facility] [facility] Status: Signed Intake Vital Signs 01/23/25 14:53 02/24/25 15:40 03/07/25 14:56 03/07/25 14:57 Height 5 ft 5 in 5 ft 5 in 5 ft 5 in 5 ft 5 in Weight: 152 lb 9 oz BMI 25.4 BP 111/75 Intake Visit Reasons: 30 WK3D 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: No Is patient in pain?: No Allergies Sulfa (Sulfonamide Antibiotics) (sulfa drugs) Allergy (Verified 03/07/25 14:56) Rash Medications ???Medication ???Instructions ???Recorded ???Confirmed ???Type multivit-min no.71-iron fum 28 cap PO 09/20/24 03/07/25 History mg-folate no.1 1 mg-dha 300 mg capsule (PNV-Brightwaters) Last Menstrual Period: 07/30/24 Zika: Zika virus screening: Negative : No PFSH PFSH Medical History Proteins serum plasma low Wears glasses Fatty liver Non-smoker Blackout History of echocardiogram Surgical History Hx of wisdom tooth extraction Family History Grandmother Heart failure Maternal Thyroid disorder Maternal hypothyroidism Father Hypertension Grandfather Lung cancer Maternal CVA (cerebral vascular accident) Maternal Diabetes Maternal Aunt Cervical cancer, Onset Age: 20 Paternal Mother Hypertension Osteoporosis Adenomyosis Uterine fibroid Ovarian cyst Social History adopted: No household members: spouse housing: house current occupational status: employed current occupation: [employer] current occupational exposures/hazards: No pets and animals: Yes pets and animals: dog(s) [facility] [place] [facility] out of state: Yes out of country: No sexually active: Yes Smoking Status: Never smoker second hand exposure: No alcohol intake: never substance use type: does not use well-balanced diet: daily or most days caffeine: Yes Type: coffee Number of servings: 1 eating out: 1-3 times/week during the past year weight has: remained stable what type of physical activity do you participate in: walking, running and weight training frequency: 3-4 times per week duration: 15-30 minutes/day rivera/baptism: Alevism seatbelt use: always do you feel safe at home: Yes additional social history: - Chance - Independent Consultant History 1 Elective abortions Hx Para 0 Spontaneous abortions Hx # Term Pregnancies Ectopic pregnancies Hx # Pregnancies Multiple births # of living children HPI 30 WK3D Details: ARUN HELM is a 24 year old who presents for routine OB visit. OB Visit RAMO Calculator Estimated Delivery Date Method Current WG Current Estimate 05/13/25 Ultrasound #1 30w 3d Other Estimates 05/06/25 LMP (Certain) 31w 3d Expected Delivery Route/Plan Labor Preferences- CB/BF classes: [] labor support person: [] labor intervention preferences: [] pain management options preferred: [] cut cord/dad catch: [] : [] PP control planned: [] discussed possible routes of delivery and associated risks: [] special requests: [] Specific Issue/Plans Covid status: [] Flu vaccine: given Tdap vaccine: given Rhogam: na LARC form signed: [] movement and labor precautions reviewed. Problem list reviewed and updated with the most current plan of care details and appropriate orders placed. Relevant counseling for the gestational age provided. Continue routine care and follow up unless otherwise noted in visit notes/problem list details Initial Weight: 120 lb Date -???-???-???-???-???-??? -???-???-???-???-???-??? - EGA Weight BP Urine Prot -???-???-???-???-???-??? -???-???-???-???-???-??? - Glucose FHR FuHt Pres Dilation -???-???-???-???-???-??? -???-???-???-???-???-??? - Effaced St Visit Note 10/03/24 -???-???-???-???-???-??? -???-???-???-???-???-??? - 8w 2d 120 lb 8 oz (+8 oz) 119/84 -???-???-???-???-???-??? -???-???-???-???-???-??? - 174 -???-???-???-???-???-??? -???-???-???-???-???-??? - KW- CRL not cons with dates. RAMO changed. accepts NIPT and carrier 11/03/24 -???-???-???-???-???-??? -???-???-???-???-???-??? - 12w 5d 123 lb 6 oz (+3 lb 6 oz) 123/79 Negative -???-???-???-???-???-??? -???-???-???-???-???-??? - Negative 165 -???-???-???-???-???-??? -???-???-???-???-???-??? - JV- no compl aints today. CRL still consistent with last scan. Nipt pending 0 (more content not included)... Normal [facility] Blow Up Operator Office Visit Reporton 02-24-2025 Blow Up Operator Office Visit Report [address], [address] [place] [address] OFFICE VISIT Date of Service: 02/24/25 MR#: [id number] Acct: [id number] Name: ARUN HELM Rep #: [id number] : 2000 Provider: Dr. Philly chow MD Age/Sex: 24/F [facility] Status: Signed with Addenda ADDENDUM by Magnolia Talbot on 02/27/25 at 0754 Office Procedure Documentation entered by Magnolia Talbot 02/27/25 07:54: Immunizations Flucelvax [id number] (PF) 45 mcg (15 mcg x 3)/0.5 mL IM syringe Performing Provider: Philly Dueñas MD Performing Location: [facility] Administered by: Magnolia Talbot on 02/27/25 07:52 Dose Route Admin Location Dispensed Lot Number Expiration Date Package ND NDC Billet Driller 0.5 mL IM Right Deltoid 0.5 mL [id number] 09/03/25 20449-703-12 [id number] [employer] VIS Given Date VIS Provided VIS Publication Date 02/24/25 Single Vaccine 24 Eligibility Eligibility Date Funding Source Not Applicable Boostrix Tdap 2.5 Lf unit-8 mcg-5 Lf/0.5 mL intramuscular syringe Performing Provider: Philly Dueñas MD Performing Location: [facility] Documented (not given) by: Magnolia Talbot on 02/27/25 07:52 Reason Not Given: Refused Adacel(Tdap Adolesn/Adult)(PF) 2 Lf-(2.5-5-3-5)-5 Lf/0.5 mL IM syringe Performing Provider: Philly Dueñas MD Performing Location: [facility] Administered by: Magnolia Talbot on 02/27/25 07:52 Dose Route Admin Location Dispensed Lot Number Expiration Date Package FORMERLY NAMED [facility] NDC Billet Driller 0.5 mL IM Left Deltoid 0.5 mL [id number] 12/25/26 03216-269-96 [id number] [employer] VIS Given Date VIS Provided VIS Publication Date 02/24/25 Single Vaccine 24 Eligibility Eligibility Date Funding Source Not Applicable Date cc: * Signed Intake Vital Signs 12/29/24 14:20 01/23/25 14:53 02/24/25 15:40 Height 5 ft 5 in 5 ft 5 in 5 ft 5 in Weight: 153 lb 5 oz BMI 25.4 BP 130/82 H Intake Visit Reasons: 28wk6d ob 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 Philly Dueñas MD) Proteins serum plasma low Wears glasses Fatty liver Non-smoker Blackout History of echocardiogram Surgical History Hx of wisdom tooth extraction Family History Grandmother Heart failure Maternal Thyroid disorder Maternal hypothyroidism Father Hypertension Grandfather Lung cancer Maternal CVA (cerebral vascular accident) Maternal Diabetes Maternal Aunt Cervical cancer, Onset Age: 20 Paternal Mother Hypertension Osteoporosis Adenomyosis Uterine fibroid Ovarian cyst Social History adopted: No household members: spouse housing: house current occupational status: employed current occupation: [employer] current occupational exposures/hazards: No pets and animals: Yes pets and animals: dog(s) [facility] [place] [facility] out of state: Yes out of country: No sexually active: Yes Smoking Status: Never smoker second hand exposure: No alcohol intake: never substance use type: does not use well-balanced diet: daily or most days caffeine: Yes Type: coffee Number of servings: 1 eating out: 1-3 times/week during the past year weight has: remained stable what type of physical activity do you participate in: walking, running and weight training frequency: 3-4 times per week duration: 15-30 minutes/day rivera/baptism: Alevism seatbelt use: always do you feel safe at home: Yes additional social history: - Chance - Independent Consultant History 1 Elective abortions Hx Para 0 Spontaneous abortions Hx # Term Pregnancies Ectopic pregnancies Hx # Pregnancies Multiple births # of living children HPI 28wk6d ob Details: ARUN HELM is a 24 year old who presents for routine OB visit. OB Visit RAMO Calculator Estimated Delivery Date Method Current WG Current Estimate 05/13/25 Ultrasound #1 28w 6d Other Estimates 05/06/25 LMP (Certain) 29w 6d Expected Delivery Route/Plan Labor Preferences- (more content not included)... Normal [facility] OB Limited With Biometricson 02-16-2025 OB Limited With Biometrics [facility] [address] [place] [address] OB Limited With Biometrics MR#: [id number] Acct: [id number] Name: ARUN HELM Rep #: [id number] : 2000 F 24 From: Jeremias lopez MD PCP: SUYAPA Carolina Status: REG CLI Study: OB Limited With Biometrics Date of Exam: 02/16 Exam# [id number] Ordering Dr: Genesis Mccullough CNM PROCEDURE: OB LIMITED WITH BIOMETRICS 02/16/2025 REASON FOR EXAM: GROWTH TECHNIQUE: Procedure Code: [id number] Modality: US Procedure: OB LIMITED WITH BIOMETRICS COMPARISON: None FINDINGS LMP: August 06, 2024. Number: 1 Position: Vertex Placental Position: Anterior and not low-lying Placental Abnormalities: No evidence of previa. DIMENSIONS: Biparietal Diameter: 7.1 cm: 28 weeks and 4 days: 65th percentile/ Head Circumference: 26.5 cm: 28 weeks and 6 days: 56 percentile/ Abdominal Circumference: 23.6 cm: 28 weeks and 0 days: 49 percentile/ Femur Length: 5 cm: 27 weeks and 0 days: 17 percentile/ ESTIMATED WEIGHT: 1126 g plus/minus 169 g. ESTIMATED WEIGHT PERCENTILE (24+ weeks): 40 ESTIMATED GESTATIONAL AGE: Baseline: 27 weeks and 5 days By Ultrasound: 28 weeks and 1 day ESTIMATED DATE OF DELIVERY: Baseline: May 13, 2025 By Ultrasound: May 10, 2025 BIOPHYSICAL ASSESSMENT: Amniotic Fluid Volume: 4.8 cm Amniotic Fluid Index: 15.1 (8-24 cm normal range) Cardiac Motion: 144 beats per minute (average) Trunk and Limb Motion: Present. MATERNAL ANATOMY: Adnexa: Neither maternal ovary is successfully identified. US/OB Limited With Biometrics IMPRESSION: Single live intrauterine gestation with a mean gestational age of 28 weeks and 1 day. Reading Location: [id number] CC: SUMA Mccullough; SUYAPA Carolina Inserting Press Operator: Signed Normal [facility] CBC W/Diff, Automatedon 01-25 Absolute Lymph 1.33 X10 3/uL Normal 0.83-4.51 [facility] Comment on above: Performed By: #### L 3300.0450, L3100.5440, L3100.7250, L3300.1200, L4500.0100, L3100.5600, L3100.5700, L4500.5000, L3100.5800, L4500.2000, L101.9900, L3100.7325, L3100.8408, L3100.7050 #### [facility] [address] [place], [address] Absolute Neut 7.8 X10 3/uL High 2.0-7.7 [facility] Comment on above: Performed By: #### L 3300.0450, L3100.5440, L3100.7250, L3300.1200, L4500.0100, L3100.5600, L3100.5700, L4500.5000, L3100.5800, L4500.2000, L101.9900, L3100.7325, L3100.8408, L3100.7050 #### [facility] [address] [place], [address] Basophils/100 WBC (Bld) 0.3 % Normal 0-1 [facility] Comment on above: Performed By: #### L 3300.0450, L3100.5440, L3100.7250, L3300.1200, L4500.0100, L3100.5600, L3100.5700, L4500.5000, L3100.5800, L4500.2000, L101.9900, L3100.7325, L3100.8408, L3100.7050 #### [facility] [address] [place], [address] Eosinophils/100 WBC (Bld) 1.2 % Normal 0-5 [facility] Comment on above: Performed By: #### L 3300.0450, L3100.5440, L3100.7250, L3300.1200, L4500.0100, L3100.5600, L3100.5700, L4500.5000, L3100.5800, L4500.2000, L101.9900, L3100.7325, L3100.8408, L3100.7050 #### [facility] [address] [place], [place], [id number] ([phone]) Erythrocyte distribution width (RBC) [Ratio] 12.1 % Normal 11.6-14.6 [facility] Comment on above: Performed By: #### L 3300.0450, L3100.5440, L3100.7250, L3300.1200, L4500.0100, L3100.5600, L3100.5700, L4500.5000, L3100.5800, L4500.2000, L101.9900, L3100.7325, L3100.8408, L3100.7050 #### [facility] [address] [place], [address] Hematocrit (Bld) [Volume fraction] 37.2 % Normal 37-47 [facility] Comment on above: Performed By: #### L 3300.0450, L3100.5440, L3100.7250, L3300.1200, L4500.0100, L3100.5600, L3100.5700, L4500.5000, L3100.5800, L4500.2000, L101.9900, L3100.7325, L3100.8408, L3100.7050 #### [facility] [address] [place], [address] Hemoglobin (Bld) [Mass/Vol] 13.3 g/dL Normal 12.0-15.0 [facility] Comment on above: Performed By: #### L 3300.0450, L3100.5440, L3100.7250, L3300.1200, L4500.0100, L3100.5600, L3100.5700, L4500.5000, L3100.5800, L4500.2000, L101.9900, L3100.7325, L3100.8408, L3100.7050 #### [facility] [address] [facility] [place], [place], [id number] IG% 0.700 Normal 0.0-0.9 [facility] Comment on above: Result Comment: IG% - Immature Granulocytes (promyelocytes, myelocytes and metamyelocytes) > 1% indicates that a LEFT SHIFT is Present. Performed By: #### L 3300.0450, L3100.5440, L3100.7250, L3300.1200, L4500.0100, L3100.5600, L3100.5700, L4500.5000, L3100.5800, L4500.2000, L101.9900, L3100.7325, L3100.8408, L3100.7050 #### [facility] [address] [place], [place], [phone] Lymphocytes/100 WBC (Bld) 13.3 % Low 19-41 [facility] Comment on above: Performed By: #### L 3300.0450, L3100.5440, L3100.7250, L3300.1200, L4500.0100, L3100.5600, L3100.5700, L4500.5000, L3100.5800, L4500.2000, L101.9900, L3100.7325, L3100.8408, L3100.7050 #### [facility] [address] [place], [address] MCH (RBC) [Entitic mass] 34.3 pg High 27.0-32.0 [facility] Comment on above: Performed By: #### L 3300.0450, L3100.5440, L3100.7250, L3300.1200, L4500.0100, L3100.5600, L3100.5700, L4500.5000, L3100.5800, L4500.2000, L101.9900, L3100.7325, L3100.8408, L3100.7050 #### [facility] [address] [place], [address] MCHC (RBC) [Mass/Vol] 35.8 g/dL Normal 32-36 [facility] Comment on above: Performed By: #### L 3300.0450, L3100.5440, L3100.7250, L3300.1200, L4500.0100, L3100.5600, L3100.5700, L4500.5000, L3100.5800, L4500.2000, L101.9900, L3100.7325, L3100.8408, L3100.7050 #### [facility] [address] [place], [address] MCV (RBC) [Entitic vol] 95.9 fL Normal 81-99 [facility] Comment on above: Performed By: #### L 3300.0450, L3100.5440, L3100.7250, L3300.1200, L4500.0100, L3100.5600, L3100.5700, L4500.5000, L3100.5800, L4500.2000, L101.9900, L3100.7325, L3100.8408, L3100.7050 #### [facility] [address] [place], [address] Monocytes/100 WBC (Bld) 7.1 % Normal 0-10 [facility] Comment on above: Performed By: #### L 3300.0450, L3100.5440, L3100.7250, L3300.1200, L4500.0100, L3100.5600, L3100.5700, L4500.5000, L3100.5800, L4500.2000, L101.9900, L3100.7325, L3100.8408, L3100.7050 #### [facility] [address] [place], [address] Neutrophils/100 WBC (Bld) 77.4 % High 47-70 [facility] Comment on above: Performed By: #### L 3300.0450, L3100.5440, L3100.7250, L3300.1200, L4500.0100, L3100.5600, L3100.5700, L4500.5000, L3100.5800, L4500.2000, L101.9900, L3100.7325, L3100.8408, L3100.7050 #### [facility] [address] [place], [place], [phone] (740) Nucleated RBC (Bld) [#/Vol] 0 10*3/uL Normal 0-5 [facility] Comment on above: Performed By: #### L 3300.0450, L3100.5440, L3100.7250, L3300.1200, L4500.0100, L3100.5600, L3100.5700, L4500.5000, L3100.5800, L4500.2000, L101.9900, L3100.7325, L3100.8408, L3100.7050 #### [facility] [address] [facility] [place], [place], [phone] (064) Platelet mean volume (Bld) [Entitic vol] 10.8 fL Normal 6.2-12.0 [facility] Comment on above: Performed By: #### L 3300.0450, L3100.5440, L3100.7250, L3300.1200, L4500.0100, L3100.5600, L3100.5700, L4500.5000, L3100.5800, L4500.2000, L101.9900, L3100.7325, L3100.8408, L3100.7050 #### [facility] [address] [place], [place], [phone] (412) Platelets (Bld) [#/Vol] 194 10*3/uL Normal 150-450 [facility] Comment on above: Performed By: #### L 3300.0450, L3100.5440, L3100.7250, L3300.1200, L4500.0100, L3100.5600, L3100.5700, L4500.5000, L3100.5800, L4500.2000, L101.9900, L3100.7325, L3100.8408, L3100.7050 #### [facility] [address] [place], [address] RBC (Bld) [#/Vol] 3.88 10*6/uL Low 4.2-5.4 [facility] Comment on above: Performed By: #### L 3300.0450, L3100.5440, L3100.7250, L3300.1200, L4500.0100, L3100.5600, L3100.5700, L4500.5000, L3100.5800, L4500.2000, L101.9900, L3100.7325, L3100.8408, L3100.7050 #### [facility] [address] [place], [address] RDW SD 41.5 fl Normal 35.1-43.9 [facility] Comment on above: Performed By: #### L 3300.0450, L3100.5440, L3100.7250, L3300.1200, L4500.0100, L3100.5600, L3100.5700, L4500.5000, L3100.5800, L4500.2000, L101.9900, L3100.7325, L3100.8408, L3100.7050 #### [facility] [address] [place], [place], [phone] (810) WBC (Bld) [#/Vol] 10.0 10*3/uL Normal 4.4-11.0 [facility] Comment on above: Performed By: #### L 3300.0450, L3100.5440, L3100.7250, L3300.1200, L4500.0100, L3100.5600, L3100.5700, L4500.5000, L3100.5800, L4500.2000, L101.9900, L3100.7325, L3100.8408, L3100.7050 #### [facility] [address] [place], [address] Glucose Challenge Gest 1H 50 gisell 02-08-2025 GLU GEST 50g 1H 98 mg/dL Normal 70-140 [facility] Comment on above: Result Comment: AMENDED REPORT 02/08/25 1250 GLU GEST 50g 1H previously reported as: 93 mg/dL Performed By: #### L 3300.0450, L3100.5440, L3100.7250, L3300.1200, L4500.0100, L3100.5600, L3100.5700, L4500.5000, L3100.5800, L4500.2000, L101.9900, L3100.7325, L3100.8408, L3100.7050 #### [facility] [address] [facility] [place], [address] HIVon 02-08-2025 HIV Non-Reactive Normal Nonreactive [facility] Comment on above: Result Comment: Non- Reactive Reactive Repeatedly reactive samples must be confirmed according to CDC recommended confirmatory algorithms. The subresults for either HIVAG or AHIV can be used as an aid in the selection of the confirmation algorithm for reactive samples. Send out specimens with Reactive results to [facility] for confirmation. Order the HIV antibody detection and differentiation: #[id number] Performed By: #### L 3300.0450, L3100.5440, L3100.7250, L3300.1200, L4500.0100, L3100.5600, L3100.5700, L4500.5000, L3100.5800, L4500.2000, L101.9900, L3100.7325, L3100.8408, L3100.7050 #### [facility] [address] [facility] [place], [address] Syphilis Antibodieson 2024 Syphilis Abs Non-Reactive Normal Nonreactive [facility] Comment on above: Performed By: #### L 3300.0450, L3100.5440, L3100.7250, L3300.1200, L4500.0100, L3100.5600, L3100.5700, L4500.5000, L3100.5800, L4500.2000, L101.9900, L3100.7325, L3100.8408, L3100.7050 #### [facility] [address] [place], [place], [id number] T4 Free Directon 02-08-2025 T4 FREE DIRECT 1.00 ng/dL Normal 0.76-1.46 [facility] Comment on above: Performed By: #### L 3300.0450, L3100.5440, L3100.7250, L3300.1200, L4500.0100, L3100.5600, L3100.5700, L4500.5000, L3100.5800, L4500.2000, L101.9900, L3100.7325, L3100.8408, L3100.7050 #### [facility] [address] [place], [place], [address] Thyroid Stim Hormone (TSH)on 02-08-2025 TSH 1.640 uIU/mL Normal 0.300-4.200 [facility] Comment on above: Performed By: #### L 3300.0450, L3100.5440, L3100.7250, L3300.1200, L4500.0100, L3100.5600, L3100.5700, L4500.5000, L3100.5800, L4500.2000, L101.9900, L3100.7325, L3100.8408, L3100.7050 #### [facility] [address] [place], [place], [address] Blow Up Operator Office Visit Reporton 01-23-2025 Blow Up Operator Office Visit Report [facility] [address], [address] [place] [address] OFFICE VISIT Date of Service: 01/23/25 MR#: [id number] Acct: [id number] Name: ARUN HELM Rep #: [id number] : 2000 Provider: SUMA Singer ams Age/Sex: 24/F [place] [facility] Status: Signed Intake Vital Signs 11/03/24 15:59 12/29/24 14:20 01/23/25 14:52 01/23/25 14:53 Height 5 ft 5 in 5 ft 5 in 5 ft 5 in 5 ft 5 in Weight: 142 lb BMI 23.6 BP 119/78 Intake Visit 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: No Is patient in pain?: No Allergies Sulfa (Sulfonamide Antibiotics) (sulfa drugs) Allergy (Verified 01/23/25 14:52) Rash Medications ???Medication ???Instructions ???Recorded ???Confirmed ???Type multivit-min no.71-iron fum 28 cap PO 09/20/24 01/23/25 History mg-folate no.1 1 mg-dha 300 mg capsule (PNV-B[facility]waters) Last Menstrual Period: 07/30/24 Zika: Zika virus screening: Negative : No PFSH PFSH Medical History Proteins serum plasma low Wears glasses Fatty liver Non-smoker Blackout History of echocardiogram Surgical History Hx of wisdom tooth extraction Family History Grandmother Heart failure Maternal Thyroid disorder Maternal hypothyroidism Father Hypertension Grandfather Lung cancer Maternal CVA (cerebral vascular accident) Maternal Diabetes Maternal Aunt Cervical cancer, Onset Age: 20 Paternal Mother Hypertension Osteoporosis Adenomyosis Uterine fibroid Ovarian cyst Social History adopted: No household members: spouse housing: house current occupational status: employed current occupation: [employer] current occupational exposures/hazards: No pets and animals: Yes pets and animals: dog(s) [facility] [place] [facility] out of state: Yes out of country: No sexually active: Yes Smoking Status: Never smoker second hand exposure: No alcohol intake: never substance use type: does not use well-balanced diet: daily or most days caffeine: Yes Type: coffee Number of servings: 1 eating out: 1-3 times/week during the past year weight has: remained stable what type of physical activity do you participate in: walking, running and weight training frequency: 3-4 times per week duration: 15-30 minutes/day rivera/baptism: Alevism seatbelt use: always do you feel safe at home: Yes additional social history: - 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 OB Visit RAMO Calculator Estimated Delivery Date Method Current WG Current Estimate 05/13/25 Ultrasound #1 24w 2d Other Estimates 05/06/25 LMP (Certain) 25w 2d Expected Delivery Route/Plan Labor Preferences- CB/BF classes: [] labor support person: [] labor intervention preferences: [] pain management options preferred: [] cut cord/dad catch: [] : [] PP control planned: [] discussed possible routes of delivery and associated risks: [] special requests: [] Specific Issue/Plans Covid status: [] Flu vaccine: [] Tdap vaccine: [] Rhogam: [] LARC form signed: [] Problem list reviewed and updated with the most current plan of care details and appropriate orders placed. Relevant counseling for the gestational age provided. Continue routine care and follow up unless otherwise noted in visit notes/problem list details Initial Weight: 120 lb Date -???-???-???-???-???-??? -???-???-???-???-???-??? - EGA Weight BP Urine Prot -???-???-???-???-???-??? -???-???-???-???-???-??? - Glucose FHR FuHt Pres Dilation -???-???-???-???-???-??? -???-???-???-???-???-??? - Effaced St Visit Note 10/03/24 -???-???-???-???-???-??? -???-???-???-???-???-??? - 8w 2d 120 lb 8 oz (+8 oz) 119/84 -???-???-???-???-???-??? -???-???-???-???-???-??? - 174 -???-???-???-???-???-??? -???-???-???-???-???-??? - KW- CRL not cons with dates. RAMO changed. accepts NIPT and carrier 11/03/24 -???-???-???-???-???-??? -???-???-???-???-???-??? - 12w 5d 123 lb 6 oz (+3 lb 6 oz) 123/79 Negative -???-???-???-???-???-??? -???-???-???-???-???-??? - Negative 165 -???-???-???-???-???-??? -???-???-???-???-???-??? - JV- no compl aints today. CRL still consistent with last scan. Nipt pending 12/02/24 -???-???-???-???-???-??? -???-???-???-???-???-? (more content not included)... Normal [facility] - Chemistry and C hemistry - challengeOrdered By: Genesis Mccullough on 12-29-2024 Glucose Ql (U) Negative [facility] - UrinalysisOrder ed By: Genesis Mccullough on 12-29-2024 Protein Ql (U) Negative [facility] Blow Up Operator Office Visit Reporton 12-29-2024 Blow Up Operator Office Visit Report [address], [address] [place] [address] OFFICE VISIT Date of Service: 12/29/24 MR#: [id number] Acct: [id number] Name: ARUN HELM Rep #: [id number] : 2000 Provider: SUMA Singer ams Age/Sex: 24/F [place] [facility] Status: Signed Intake Vital Signs 11/03/24 15:59 12/02/24 15:27 12/29/24 14:20 Height 5 ft 5 in 5 ft 5 in 5 ft 5 in Weight: 139 lb 3 oz BMI 23.1 BP 114/76 Intake Visit Reasons: 19wk ob Chief Complaint: 19wk OB 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: No Is patient in pain?: No Allergies Sulfa (Sulfonamide Antibiotics) (sulfa drugs) Allergy (Verified 12/29/24 14:19) Rash Medications ???Medication ???Instructions ???Recorded ???Confirmed ???Type multivit-min no.71-iron fum 28 cap PO 09/20/24 12/29/24 History mg-folate no.1 1 mg-dha 300 mg capsule (PNV-[facility]) Last Menstrual Period: 07/30/24 : No Have you fallen in the past year?: No PFSH PFSH Medical History Proteins serum plasma low Wears glasses Fatty liver Non-smoker Blackout History of echocardiogram Surgical History Hx of wisdom tooth extraction Family History Grandmother Heart failure Maternal Thyroid disorder Maternal hypothyroidism Father Hypertension Grandfather Lung cancer Maternal CVA (cerebral vascular accident) Maternal Diabetes Maternal Aunt Cervical cancer, Onset Age: 20 Paternal Mother Hypertension Osteoporosis Adenomyosis Uterine fibroid Ovarian cyst Social History adopted: No household members: spouse housing: house current occupational status: employed current occupation: [employer] current occupational exposures/hazards: No pets and animals: Yes pets and animals: dog(s) [facility] [place] [facility] out of state: Yes out of country: No sexually active: Yes Smoking Status: Never smoker second hand exposure: No alcohol intake: never substance use type: does not use well-balanced diet: daily or most days caffeine: Yes Type: coffee Number of servings: 1 eating out: 1-3 times/week during the past year weight has: remained stable what type of physical activity do you participate in: walking, running and weight training frequency: 3-4 times per week duration: 15-30 minutes/day rivera/baptism: Alevism seatbelt use: always do you feel safe at home: Yes 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 OB Visit RAMO Calculator Estimated Delivery Date Method Current WG Current Estimate 05/13/25 Ultrasound #1 20w 5d Other Estimates 05/06/25 LMP (Certain) 21w 5d Expected Delivery Route/Plan Labor Preferences- CB/BF classes: [] labor support person: [] labor intervention preferences: [] pain management options preferred: [] cut cord/dad catch: [] : [] PP control planned: [] discussed possible routes of delivery and associated risks: [] special requests: [] Specific Issue/Plans Covid status: [] Flu vaccine: [] Tdap vaccine: [] Rhogam: [] LARC form signed: [] Problem list reviewed and updated with the most current plan of care details and appropriate orders placed. Relevant counseling for the gestational age provided. Continue routine care and follow up unless otherwise noted in visit notes/problem list details Initial Weight: 120 lb Date -???-???-???-???-???-??? -???-???-???-???-???-??? - EGA Weight BP Urine Prot -???-???-???-???-???-??? -???-???-???-???-???-??? - Glucose FHR FuHt Pres Dilation -???-???-???-???-???-??? -???-???-???-???-???-??? - Effaced St Visit Note 10/03/24 -???-???-???-???-???-??? -???-???-???-???-???-??? - 8w 2d 120 lb 8 oz (+8 oz) 119/84 -???-???-???-???-???-??? -???-???-???-???-???-??? - 174 -???-???-???-???-???-??? -???-???-???-???-???-??? - KW- CRL not cons with dates. RAMO changed. accepts NIPT and carrier 11/03/24 -???-???-???-???-???-??? -???-???-???-???-???-??? - 12w 5d 123 lb 6 oz (+3 lb 6 oz) 123/79 Negative -???-???-???-???-???-??? -???-???-???-???-???-??? - Negative 165 -???-???-???-???-???-??? -???-???-???-???-???-??? - JV- no compl aints today. CRL still consistent with last scan. Nipt pending 12/02/24 -???-???-???-???-???-??? -???-???-???-???-???-??? - 16w 6d 130 l (more content not included)... Normal [facility] Blow Up Operator Office Visit Reporton 12-02-2024 Blow Up Operator Office Visit Report [facility] [address] [place] [address], [address] [place] [address] OFFICE VISIT Date of Service: 12/02/24 MR#: [id number] Acct: [id number] Name: ARUN HELM Rep #: [id number] : 2000 Provider: SUMA pedersen Age/Sex: 24/F [place] [facility] Status: Signed Intake Vital Signs 10/03/24 14:47 11/03/24 15:59 12/02/24 15:27 Height 5 ft 5 in 5 ft 5 in 5 ft 5 in Weight: 130 lb 1 oz BMI 21.6 BP 106/68 Intake Visit Reasons: 15 wk ob 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: No Is patient in pain?: No Allergies Sulfa (Sulfonamide Antibiotics) (sulfa drugs) Allergy (Verified 12/02/24 15:30) Rash Medications ???Medication ???Instructions ???Recorded ???Confirmed ???Type multivit-min no.71-iron fum 28 cap PO 09/20/24 12/02/24 History mg-folate no.1 1 mg-dha 300 mg capsule (PNV-B[facility]waters) Last Menstrual Period: 07/30/24 : No PFSH PFSH Medical History Proteins serum plasma low Wears glasses Fatty liver Non-smoker Blackout History of echocardiogram Surgical History Hx of wisdom tooth extraction Family History Grandmother Heart failure Maternal Thyroid disorder Maternal hypothyroidism Father Hypertension Grandfather Lung cancer Maternal CVA (cerebral vascular accident) Maternal Diabetes Maternal Aunt Cervical cancer, Onset Age: 20 Paternal Mother Hypertension Osteoporosis Adenomyosis Uterine fibroid Ovarian cyst Social History adopted: No household members: spouse housing: house current occupational status: employed current occupation: [employer] current occupational exposures/hazards: No pets and animals: Yes pets and animals: dog(s) [facility] [place] [facility] out of state: Yes out of country: No sexually active: Yes Smoking Status: Never smoker second hand exposure: No alcohol intake: never substance use type: does not use well-balanced diet: daily or most days caffeine: Yes Type: coffee Number of servings: 1 eating out: 1-3 times/week during the past year weight has: remained stable what type of physical activity do you participate in: walking, running and weight training frequency: 3-4 times per week duration: 15-30 minutes/day rivera/baptism: Alevism seatbelt use: always do you feel safe at home: Yes additional social history: - Chance - Independent Consultant History 1 Elective abortions Hx Para 0 Spontaneous abortions Hx # Term Pregnancies Ectopic pregnancies Hx # Pregnancies Multiple births # of living children HPI 15 wk ob Details: ARUN HELM is a 24 year old who presents for routine OB visit. OB Visit RAMO Calculator Estimated Delivery Date Method Current WG Current Estimate 05/13/25 Ultrasound #1 16w 6d Other Estimates 05/06/25 LMP (Certain) 17w 6d Expected Delivery Route/Plan Labor Preferences- CB/BF classes: [] labor support person: [] labor intervention preferences: [] pain management options preferred: [] cut cord/dad catch: [] : [] PP control planned: [] discussed possible routes of delivery and associated risks: [] special requests: [] Specific Issue/Plans Covid status: [] Flu vaccine: [] Tdap vaccine: [] Rhogam: [] LARC form signed: [] Problem list reviewed and updated with the most current plan of care details and appropriate orders placed. Relevant counseling for the gestational age provided. Continue routine care and follow up unless otherwise noted in visit notes/problem list details Initial Weight: 120 lb Date -???-???-???-???-???-??? -???-???-???-???-???-??? - EGA Weight BP Urine Prot -???-???-???-???-???-??? -???-???-???-???-???-??? - Glucose FHR FuHt Pres Dilation -???-???-???-???-???-??? -???-???-???-???-???-??? - Effaced St Visit Note 10/03/24 -???-???-???-???-???-??? -???-???-???-???-???-??? - 8w 2d 120 lb 8 oz (+8 oz) 119/84 -???-???-???-???-???-??? -???-???-???-???-???-??? - 174 -???-???-???-???-???-??? -???-???-???-???-???-??? - KW- CRL not cons with dates. RAMO changed. accepts NIPT and carrier 11/03/24 -???-???-???-???-???-??? -???-???-???-???-???-??? - 12w 5d 123 lb 6 oz (+3 lb 6 oz) 123/79 Negative -???-???-???-???-???-??? -???-???-???-???-???-??? - Negative 165 -???-???-???-???-???-??? -???-???-???-???-???-??? - JV- no compl aints today. CRL still consistent with last scan. Nipt pending 12/02/24 -???-???-???-???-???-??? -???-???-???-???-???-??? - 16w 6d 130 lb 1 oz (+10 lb 1 oz) 106/68 -???-???-???-???-??? (more content not included)... Normal [facility] [id number] 11-07-2024 [facility]. COMMENT Normal . [facility] Comment on above: Order Comment: Test( s) [id number]-[id number] Antigen was developed and its performance characteristics determined by [facility]. It has not been cleared or approved by the Food and Drug Administration. Result Comment: Test Ordered: [id number] TSH Receptor Antibody (TBII) TSH Receptor Antibody (TBII) <0.3 U/L Reference Range: . Reference Range: Antibody Titer: <1.0 U/L = Negative 1.1 - 1.5 U/L = Equivocal >1.5 U/L = Positive Performed at: [facility] [address] [place] [id number] Hairspring Assembler: Gerard Prater MD, Phone: [phone] Performed at: [address] [id number] Hairspring Assembler: Kun Alicea PhD, Phone: [phone] Performed By: #### L 3300.0450, L3100.5440, L3100.7250, L3300.1200, L4500.0100, L3100.5600, L3100.5700, L4500.5000, L3100.5800, L4500.2000, L101.9900, L3100.7325, L3100.8408, L3100.7050 #### [facility] [address] [place] [address]. [place], [address] Laboratory - Chemistry and C hemistry - challengeOrdered By: Veronica Laws on 11-03-2024 Glucose Ql (U) Negative [facility] - UrinalysisOrder ed By: Veronica Laws on 11-03-2024 Protein Ql (U) Negative [facility] Blow Up Operator Office Visit Reporton 11-03-2024 Blow Up Operator Office Visit Report [address], [address] [place] [address] OFFICE VISIT Date of Service: 11/03/24 MR#: [id number] Acct: [id number] Name: ARUN HELM Rep #: [id number] : 2000 Provider: Dr. Veronica Skinner DO Age/Sex: 23/F [place] [facility] Status: Signed Intake Vital Signs 09/20/24 08:02 10/03/24 14:47 11/03/24 15:59 Height 5 ft 5 in 5 ft 5 in 5 ft 5 in Weight: 123 lb 6 oz BMI 20.5 BP 123/79 H Intake Visit Reasons: 11 wk ob 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: No Is patient in pain?: No Allergies Sulfa (Sulfonamide Antibiotics) (sulfa drugs) Allergy (Verified 11/03/24 15:59) Rash Medications ???Medication ???Instructions ???Recorded ???Confirmed ???Type multivit-min no.71-iron fum 28 cap PO 09/20/24 11/03/24 History mg-folate no.1 1 mg-dha 300 mg capsule (PNV-[facility]) Last Menstrual Period: 07/30/24 Zika: Zika virus screening: Negative : No PFSH PFSH Medical History Proteins serum plasma low Wears glasses Fatty liver Non-smoker Blackout History of echocardiogram Surgical History Hx of wisdom tooth extraction Family History Grandmother Heart failure Maternal Thyroid disorder Maternal hypothyroidism Father Hypertension Grandfather Lung cancer Maternal CVA (cerebral vascular accident) Maternal Diabetes Maternal Aunt Cervical cancer, Onset Age: 20 Paternal Mother Hypertension Osteoporosis Adenomyosis Uterine fibroid Ovarian cyst Social History adopted: No household members: spouse housing: house current occupational status: employed current occupation: [employer] current occupational exposures/hazards: No pets and animals: Yes pets and animals: dog(s) [facility] [place] [facility] out of state: Yes out of country: No sexually active: Yes Smoking Status: Never smoker second hand exposure: No alcohol intake: never substance use type: does not use well-balanced diet: daily or most days caffeine: Yes Type: coffee Number of servings: 1 eating out: 1-3 times/week during the past year weight has: remained stable what type of physical activity do you participate in: walking, running and weight training frequency: 3-4 times per week duration: 15-30 minutes/day rivera/baptism: Alevism seatbelt use: always do you feel safe at home: Yes additional social history: - Chance - Independent Consultant History 1 Elective abortions Hx Para 0 Spontaneous abortions Hx # Term Pregnancies Ectopic pregnancies Hx # Pregnancies Multiple births # of living children HPI 11 wk ob Details: ARUN HELM is a 23 year old who presents for routine OB visit. OB Visit RAMO Calculator Estimated Delivery Date Method Current WG Current Estimate 05/13/25 Ultrasound #1 12w 6d Other Estimates 05/06/25 LMP (Certain) 13w 6d Expected Delivery Route/Plan Labor Preferences- CB/BF classes: [] labor support person: [] labor intervention preferences: [] pain management options preferred: [] cut cord/dad catch: [] : [] PP control planned: [] discussed possible routes of delivery and associated risks: [] special requests: [] Specific Issue/Plans Covid status: [] Flu vaccine: [] Tdap vaccine: [] Rhogam: [] LARC form signed: [] Problem list reviewed and updated with the most current plan of care details and appropriate orders placed. Relevant counseling for the gestational age provided. Continue routine care and follow up unless otherwise noted in visit notes/problem list details Initial Weight: Not Recorded Date -???-???-???-???-???-??? -???-???-???-???-???-??? - EGA Weight BP Urine Prot -???-???-???-???-???-??? -???-???-???-???-???-??? - Glucose FHR FuHt Pres Dilation -???-???-???-???-???-??? -???-???-???-???-???-??? - Effaced St Visit Note 10/03/24 -???-???-???-???-???-??? -???-???-???-???-???-??? - 8w 2d 120 lb 8 oz 119/84 -???-???-???-???-???-??? -???-???-???-???-???-??? - 174 -???-???-???-???-???-??? -???-???-???-???-???-??? - KW- CRL not cons with dates. RAMO changed. accepts NIPT and carrier 11/03/24 -???-???-???-???-???-??? -???-???-???-???-???-??? - 12w 5d 123 lb 6 oz 123/79 Negative -???-???-???-???-???-??? -???-???-???-???-???-??? - Negative 165 -???-???-???-???-???-??? -???-???-???-???-???-??? - JV- no compl aints today. CRL still consistent with last scan. Nipt pending ACOG First Trimester First Trimester: Desire for , Alcohol, Tobacco Cessation (more content not included)... Normal [facility] Absolute lymphocyte countOrd ered By: Genesis Mccullough on 11-01-2024 Lymphocytes Auto (Unsp spec) [#/Vol] 1.96 10*3/uL 0.83-4.51 [facility] Absolute neutrophil countOrd ered By: Genesis Mccullough on 11-01-2024 Neutrophils (Bld) [#/Vol] 5.9 10*3/uL 2.0-7.7 [facility] Automated lymphocyte count a s percentage of total leukocytesOrdered By: Genesis Mccullough on 11-01-2024 Lymphocytes/100 WBC Auto (Unsp spec) 22.8 % 19-41 [facility] Basophil percentageOrdered B y: Genesis Jamel on 11-01-2024 Basophils/100 WBC (Bld) 0.3 % 0-1 [facility] CBC W/Diff, Automatedon Absolute Lymph 1.96 X10 3/uL Normal 0.83-4.51 [facility] Comment on above: Performed By: #### L 3300.0450, L3100.5440, L3100.7250, L3300.1200, L4500.0100, L3100.5600, L3100.5700, L4500.5000, L3100.5800, L4500.2000, L101.9900, L3100.7325, L3100.8408, L3100.7050 #### [facility] [address] [place], [place], [id number] Absolute Neut 5.9 X10 3/uL Normal 2.0-7.7 [facility] Comment on above: Performed By: #### L 3300.0450, L3100.5440, L3100.7250, L3300.1200, L4500.0100, L3100.5600, L3100.5700, L4500.5000, L3100.5800, L4500.2000, L101.9900, L3100.7325, L3100.8408, L3100.7050 #### [facility] [address] [place], [place], [id number] Basophils/100 WBC (Bld) 0.3 % Normal 0-1 [facility] Comment on above: Performed By: #### L 3300.0450, L3100.5440, L3100.7250, L3300.1200, L4500.0100, L3100.5600, L3100.5700, L4500.5000, L3100.5800, L4500.2000, L101.9900, L3100.7325, L3100.8408, L3100.7050 #### [facility] [address] [place], [address] Eosinophils/100 WBC (Bld) 1.4 % Normal 0-5 [facility] Comment on above: Performed By: #### L 3300.0450, L3100.5440, L3100.7250, L3300.1200, L4500.0100, L3100.5600, L3100.5700, L4500.5000, L3100.5800, L4500.2000, L101.9900, L3100.7325, L3100.8408, L3100.7050 #### [facility] [address] [place], [address] (020) Erythrocyte distribution width (RBC) [Ratio] 12.1 % Normal 11.6-14.6 [facility] Comment on above: Performed By: #### L 3300.0450, L3100.5440, L3100.7250, L3300.1200, L4500.0100, L3100.5600, L3100.5700, L4500.5000, L3100.5800, L4500.2000, L101.9900, L3100.7325, L3100.8408, L3100.7050 #### [facility] [address] [facility] [place], [address] Hematocrit (Bld) [Volume fraction] 38.5 % Normal 37-47 [facility] Comment on above: Performed By: #### L 3300.0450, L3100.5440, L3100.7250, L3300.1200, L4500.0100, L3100.5600, L3100.5700, L4500.5000, L3100.5800, L4500.2000, L101.9900, L3100.7325, L3100.8408, L3100.7050 #### [facility] [address] [place], [address] Hemoglobin (Bld) [Mass/Vol] 13.7 g/dL Normal 12.0-15.0 [facility] Comment on above: Performed By: #### L 3300.0450, L3100.5440, L3100.7250, L3300.1200, L4500.0100, L3100.5600, L3100.5700, L4500.5000, L3100.5800, L4500.2000, L101.9900, L3100.7325, L3100.8408, L3100.7050 #### [facility] [address] [place], [address] IG% 0.300 Normal 0.0-0.9 [facility] Comment on above: Result Comment: IG% - Immature Granulocytes (promyelocytes, myelocytes and metamyelocytes) > 1% indicates that a LEFT SHIFT is Present. Performed By: #### L 3300.0450, L3100.5440, L3100.7250, L3300.1200, L4500.0100, L3100.5600, L3100.5700, L4500.5000, L3100.5800, L4500.2000, L101.9900, L3100.7325, L3100.8408, L3100.7050 #### [facility] [address] [place], [address] Lymphocytes/100 WBC (Bld) 22.8 % Normal 19-41 [facility] Comment on above: Performed By: #### L 3300.0450, L3100.5440, L3100.7250, L3300.1200, L4500.0100, L3100.5600, L3100.5700, L4500.5000, L3100.5800, L4500.2000, L101.9900, L3100.7325, L3100.8408, L3100.7050 #### [facility] [address] [place], [address] MCH (RBC) [Entitic mass] 33.2 pg High 27.0-32.0 [facility] Comment on above: Performed By: #### L 3300.0450, L3100.5440, L3100.7250, L3300.1200, L4500.0100, L3100.5600, L3100.5700, L4500.5000, L3100.5800, L4500.2000, L101.9900, L3100.7325, L3100.8408, L3100.7050 #### [facility] [address] [place], [address] MCHC (RBC) [Mass/Vol] 35.6 g/dL Normal 32-36 [facility] Comment on above: Performed By: #### L 3300.0450, L3100.5440, L3100.7250, L3300.1200, L4500.0100, L3100.5600, L3100.5700, L4500.5000, L3100.5800, L4500.2000, L101.9900, L3100.7325, L3100.8408, L3100.7050 #### [facility] [address] [place], [address] MCV (RBC) [Entitic vol] 93.2 fL Normal 81-99 [facility] Comment on above: Performed By: #### L 3300.0450, L3100.5440, L3100.7250, L3300.1200, L4500.0100, L3100.5600, L3100.5700, L4500.5000, L3100.5800, L4500.2000, L101.9900, L3100.7325, L3100.8408, L3100.7050 #### [facility] [address] [place], [address] Monocytes/100 WBC (Bld) 6.6 % Normal 0-10 [facility] Comment on above: Performed By: #### L 3300.0450, L3100.5440, L3100.7250, L3300.1200, L4500.0100, L3100.5600, L3100.5700, L4500.5000, L3100.5800, L4500.2000, L101.9900, L3100.7325, L3100.8408, L3100.7050 #### [facility] [address] [place], [address] Neutrophils/100 WBC (Bld) 68.6 % Normal 47-70 [facility] Comment on above: Performed By: #### L 3300.0450, L3100.5440, L3100.7250, L3300.1200, L4500.0100, L3100.5600, L3100.5700, L4500.5000, L3100.5800, L4500.2000, L101.9900, L3100.7325, L3100.8408, L3100.7050 #### [facility] [address] [place], [address] Nucleated RBC (Bld) [#/Vol] 0 10*3/uL Normal 0-5 [facility] Comment on above: Performed By: #### L 3300.0450, L3100.5440, L3100.7250, L3300.1200, L4500.0100, L3100.5600, L3100.5700, L4500.5000, L3100.5800, L4500.2000, L101.9900, L3100.7325, L3100.8408, L3100.7050 #### [facility] [address] [place], [address] Platelet mean volume (Bld) [Entitic vol] 11.4 fL Normal 6.2-12.0 [facility] Comment on above: Performed By: #### L 3300.0450, L3100.5440, L3100.7250, L3300.1200, L4500.0100, L3100.5600, L3100.5700, L4500.5000, L3100.5800, L4500.2000, L101.9900, L3100.7325, L3100.8408, L3100.7050 #### [facility] [address] [place], [address] Platelets (Bld) [#/Vol] 212 10*3/uL Normal 150-450 [facility] Comment on above: Performed By: #### L 3300.0450, L3100.5440, L3100.7250, L3300.1200, L4500.0100, L3100.5600, L3100.5700, L4500.5000, L3100.5800, L4500.2000, L101.9900, L3100.7325, L3100.8408, L3100.7050 #### [facility] [address] [place], [address] RBC (Bld) [#/Vol] 4.13 10*6/uL Low 4.2-5.4 [facility] Comment on above: Performed By: #### L 3300.0450, L3100.5440, L3100.7250, L3300.1200, L4500.0100, L3100.5600, L3100.5700, L4500.5000, L3100.5800, L4500.2000, L101.9900, L3100.7325, L3100.8408, L3100.7050 #### [facility] [address] [place], [address] RDW SD 41.4 fl Normal 35.1-43.9 [facility] Comment on above: Performed By: #### L 3300.0450, L3100.5440, L3100.7250, L3300.1200, L4500.0100, L3100.5600, L3100.5700, L4500.5000, L3100.5800, L4500.2000, L101.9900, L3100.7325, L3100.8408, L3100.7050 #### [facility] [address] [place], [address] WBC (Bld) [#/Vol] 8.6 10*3/uL Normal 4.4-11.0 [facility] Comment on above: Performed By: #### L 3300.0450, L3100.5440, L3100.7250, L3300.1200, L4500.0100, L3100.5600, L3100.5700, L4500.5000, L3100.5800, L4500.2000, L101.9900, L3100.7325, L3100.8408, L3100.7050 #### [facility] [address] [place] [place], [address] Eosinophil percentageOrdered By: Genesis Mccullough on 11-01-2024 Eosinophils/100 WBC (Bld) 1.4 % 0-5 [facility] Erythrocyte distribution wid th ratioOrdered By: Genesis Mccullough on 11-01-2024 Erythrocyte distribution width (RBC) [Ratio] 12.1 % 11.6-14.6 [facility] Erythrocyte distribution wid th standard deviationOrdered By: Genesis Mccullough on 11-01-2024 Erythrocyte distribution width (RBC) [Ratio] 41.4 fl 35.1-43.9 [facility] HIVon 11-01-2024 HIV Non-Reactive Normal Nonreactive [facility] Comment on above: Result Comment: Non- Reactive Reactive Repeatedly reactive samples must be confirmed according to CDC recommended confirmatory algorithms. The subresults for either HIVAG or AHIV can be used as an aid in the selection of the confirmation algorithm for reactive samples. Send out specimens with Reactive results to [facility] for confirmation. Order the HIV antibody detection and differentiation: #[id number] Performed By: #### L 3300.0450, L3100.5440, L3100.7250, L3300.1200, L4500.0100, L3100.5600, L3100.5700, L4500.5000, L3100.5800, L4500.2000, L101.9900, L3100.7325, L3100.8408, L3100.7050 #### [facility] [address] [place], [place], [id number] Hematocrit Auto (Bld) [Volum e fraction]Ordered By: Genesis Mccullough on 11-01-2024 Hematocrit (Bld) [Volume fraction] 38.5 % 37-47 [facility] Hemoglobin measurementOrdere d By: Genesis Mccullough on 11-01-2024 Hemoglobin (Bld) [Mass/Vol] 13.7 g/dL 12.0-15.0 [facility] Hepatitis C Antibodyon 11-01 Hepatitis C Ab Non-Reactive Normal Nonreactive [facility] Comment on above: Result Comment: Reac tive: Presumptive evidence of antibodies to HCV. Follow CDC recommendations for supplemental testing. Non-Reactive: Antibodies to HCV were not detected; does not exclude the possibility of exposure to HCV Reactive Results are presumptive evidence of antibodies to HCV. Follow CDC recommendations for supplemental testing. Order confirmation testing: HCV Quant by PCR testing - HCVPCR #[id number] Non Reactive: < 0.8 Equivocal: >/= 0.8 to < 1.0 Reactive: >/= 1.0 The [facility] requires that a reactive/equivocal HCV antibody result be sent out for confirmation. HCV Quant by PCR testing. Performed By: #### L 3300.0450, L3100.5440, L3100.7250, L3300.1200, L4500.0100, L3100.5600, L3100.5700, L4500.5000, L3100.5800, L4500.2000, L101.9900, L3100.7325, L3100.8408, L3100.7050 #### [facility] [address] [place], [place], [address] Immature granulocytes/100 WB C Auto (Bld)Ordered By: Genesis Mccullough on 11-01-2024 Immature granulocytes/100 WBC (Bld) 0.300 % 0.0-0.9 [facility] Comment on above: IG% - Immature Granu locytes (promyelocytes, myelocytes and metamyelocytes) > 1% indicates that a LEFT SHIFT is Present. L3890.6102on 11-01-2024 HEP B Surf Ag Non-Reactive Normal Nonreactive [facility] Comment on above: Result Comment: Reac tive: Presumptive evidence of HBV. Repeatedly reactive samples must be confirmed using a neutralization test ([employer] HBsAg Confirmatory Test) Non-Reactive: HBsAg not detected; does not exclude the possibility of exposure to HBV Performed By: #### L 3300.0450, L3100.5440, L3100.7250, L3300.1200, L4500.0100, L3100.5600, L3100.5700, L4500.5000, L3100.5800, L4500.2000, L101.9900, L3100.7325, L3100.8408, L3100.7050 #### [facility] [address] [facility] [facility] [place], [place], [address] L509.4006on 11-01-2024 Rubella IgG REAC Normal Nonreactive [facility] Comment on above: Result Comment: Anti body Result: Interpretation Non-Reactive: Non-Immune Reactive: Immune The following results were obtained with the [employer] Rubella IgG assay. Results from assays of other manufacturers cannot be used interchangeably. Performed By: #### L 3300.0450, L3100.5440, L3100.7250, L3300.1200, L4500.0100, L3100.5600, L3100.5700, L4500.5000, L3100.5800, L4500.2000, L101.9900, L3100.7325, L3100.8408, L3100.7050 #### [facility] [address] [place], [place], [address] Laboratory - Microbiology an d Antimicrobial susceptibilityOrdered By: Genesis Mccullough on 11-01-2024 HBV surface Ag Ql (S) Non-Reactive Nonreactive [facility] Comment on above: Reactive: Presumptiv e evidence of HBV. Repeatedly reactive samples must be confirmed using a neutralization test ([employer] HBsAg Confirmatory Test)Non-Reactive: HBsAg not detected; does not exclude the possibility of exposure to HBV MCV (mean corpuscular volume ) determinationOrdered By: Genesis Mccullough on 11-01-2024 MCV (RBC) [Entitic vol] 93.2 fL 81-99 [facility] Mean corpuscular hemoglobin (MCH) determinationOrdered By: Genesis Mccullough on 11-01-2024 MCH (RBC) [Entitic mass] 33.2 pg High 27.0-32.0 [facility] Mean corpuscular hemoglobin concentration (MCHC) determinationOrdered By: Genesis Mccullough on 11-01-2024 MCHC (RBC) [Mass/Vol] 35.6 g/dL 32-36 [facility] Mean platelet volume determi nationOrdered By: Genesis Mccullough on 11-01-2024 Platelet mean volume (Bld) [Entitic vol] 11.4 fL 6.2-12.0 [facility] Monocyte percentageOrdered B y: Genesis Mccullough on 11-01-2024 Monocytes/100 WBC (Bld) 6.6 % 0-10 [facility] NATERAon 11-01-2024 NATURA SEE SCANNED REPORT Normal [facility] Comment on above: Order Comment: Comme nts: NIPT with gender Carrier Performed By: #### L 3300.0450, L3100.5440, L3100.7250, L3300.1200, L4500.0100, L3100.5600, L3100.5700, L4500.5000, L3100.5800, L4500.2000, L101.9900, L3100.7325, L3100.8408, L3100.7050 #### [facility] [address] [place], [place], [id number] Neutrophil percentageOrdered By: Genesis Mccullough on 11-01-2024 Neutrophils/100 WBC (Bld) 68.6 % 47-70 [facility] No Panel InformationOrdered By: Genesis Mccullough on 11-01-2024 HIV (1&2) Antibody Non-Reactive Nonreactive [facility] Comment on above: Non-ReactiveReactive Repeatedly reactive samples must be confirmed according to CDC recommended confirmatory algorithms. The subresults for either HIVAG or AHIV can be used as an aid in the selection of the confirmation algorithm for reactive samples.Send out specimens with Reactive results to [facility] for confirmation.Order the HIV antibody detection and differentiation: #[id number] Nucleated red blood cell per centageOrdered By: Genesis Mccullough on 11-01-2024 Nucleated RBC/100 WBC (Bld) [Ratio] 0 % 0-5 [facility] Platelet countOrdered By: Matthew Mccullough on 11-01-2024 Platelets (Bld) [#/Vol] 212 10*3/uL 150-450 [facility] RBC Auto (Bld) [#/Vol]Ordere d By: Genesis Mccullough on 11-01-2024 RBC (Bld) [#/Vol] 4.13 10*6/uL Low 4.2-5.4 [facility] Syphilis Antibodieson 2024 Syphilis Abs Non-Reactive Normal Nonreactive [facility] Comment on above: Performed By: #### L 3300.0450, L3100.5440, L3100.7250, L3300.1200, L4500.0100, L3100.5600, L3100.5700, L4500.5000, L3100.5800, L4500.2000, L101.9900, L3100.7325, L3100.8408, L3100.7050 #### [facility] [address] [place], [place], [id number] T4 Free Directon 11-01-2024 T4 FREE DIRECT 1.10 ng/dL Normal 0.76-1.46 [facility] Comment on above: Order Comment: NIPT with gender Carrier Performed By: #### L 3300.0450, L3100.5440, L3100.7250, L3300.1200, L4500.0100, L3100.5600, L3100.5700, L4500.5000, L3100.5800, L4500.2000, L101.9900, L3100.7325, L3100.8408, L3100.7050 #### [facility] [address] [place], [address] T4 freeOrdered By: Genesis cedillo on 11-01-2024 Free T4 [Mass/Vol] 1.10 ng/dL 0.76-1.46 [facility] TSH DL <= 0.005 mIU/L QnOrde red By: Genesis Mccullough on 11-01-2024 TSH Qn 2.040 uIU/mL 0.300-4.200 [facility] Thyroid Stim Hormone (TSH)on 11-01-2024 TSH 2.040 uIU/mL Normal 0.300-4.200 [facility] Comment on above: Performed By: #### L 3300.0450, L3100.5440, L3100.7250, L3300.1200, L4500.0100, L3100.5600, L3100.5700, L4500.5000, L3100.5800, L4500.2000, L101.9900, L3100.7325, L3100.8408, L3100.7050 #### [facility] [address] [place], [place], [id number] Type AND Screenon 11-01-2024 Ab SCREEN GEL Negative Normal [facility] Comment on above: Order Comment: PN Performed By: #### L 3300.0450, L3100.5440, L3100.7250, L3300.1200, L4500.0100, L3100.5600, L3100.5700, L4500.5000, L3100.5800, L4500.2000, L101.9900, L3100.7325, L3100.8408, L3100.7050 #### [facility] [address] [place], [address] White blood cell (WBC) count Ordered By: Genesis Mccullough on 11-01-2024 WBC (Bld) [#/Vol] 8.6 10*3/uL 4.4-11.0 [facility] Chlamydia/GC YO aptimaon CHLAMY,NUC ACID Negative Normal Negative [facility] Comment on above: Performed By: #### L 3300.0450, L3100.5440, L3100.7250, L3300.1200, L4500.0100, L3100.5600, L3100.5700, L4500.5000, L3100.5800, L4500.2000, L101.9900, L3100.7325, L3100.8408, L3100.7050 #### [facility] [address] [place], [place], [id number] GC BY NUC ACID Negative Normal Negative [facility] Comment on above: Result Comment: Perf ormed at: =G - [facility] [address] [id number] Hairspring Assembler: Anisha Blanca MD, Phone: [phone] Performed By: #### L 3300.0450, L3100.5440, L3100.7250, L3300.1200, L4500.0100, L3100.5600, L3100.5700, L4500.5000, L3100.5800, L4500.2000, L101.9900, L3100.7325, L3100.8408, L3100.7050 #### [facility] [address] [place], [place], [id number] Urine Cultureon 10-04-2024 URC Culture exhibits no growth. Normal [facility] Comment on above: Performed By: #### L 3300.0450, L3100.5440, L3100.7250, L3300.1200, L4500.0100, L3100.5600, L3100.5700, L4500.5000, L3100.5800, L4500.2000, L101.9900, L3100.7325, L3100.8408, L3100.7050 #### [facility] [address] [place], [place], [id number] Chlamydia trachomatis rRNA d etection by probe and target amplification methodOrdered By: Genesis Mccullough on 10-03-2024 C. trachomatis rRNA YO+probe Ql (Unsp spec) Negative Negative [facility] Neisseria gonorrhoeae nuclei c acid detection by amplified probe techniqueOrdered By: Genesis Mccullough on 10-03-2024 N. gonorrhoeae DNA YO+probe Ql (Unsp spec) Negative Negative [facility] Comment on above: Performed at: =[address] [id number] Director: Anisha Blanca MD, Phone: [phone] Blow Up Operator Office Visit Reporton 10-03-2024 Blow Up Operator Office Visit Report [facility]'[address], [address] [place] [address] OFFICE VISIT Date of Service: 10/03/24 MR#: [id number] Acct: [id number] Name: ARUN HELM Rep #: [id number] : 2000 Provider: SUMA Singer ams Age/Sex: 23/F Location[facility] Status: Signed Intake Vital Signs 08/30/24 17:16 09/20/24 08:02 10/03/24 14:47 Height 5 ft 5 in 5 ft 5 in 5 ft 5 in Weight: 120 lb 8 oz BMI 20.0 BP 119/84 H Intake Visit Reasons: *EST* NOB LMP 07/30, RAMO 05/06/25 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: No Is patient in pain?: No Allergies Sulfa (Sulfonamide Antibiotics) (sulfa drugs) Allergy (Verified 10/03/24 14:49) Rash Medications ???Medication ???Instructions ???Recorded ???Confirmed ???Type multivit-min no.71-iron fum 28 cap PO 09/20/24 10/03/24 History mg-folate no.1 1 mg-dha 300 mg capsule (PNV-[place]) Last Menstrual Period: 07/30/24 Zika: Zika virus screening: Negative : Yes PFSH PFSH Medical History Proteins serum plasma low Wears glasses Fatty liver Non-smoker Blackout History of echocardiogram Surgical History Hx of wisdom tooth extraction Family History Grandmother Heart failure Maternal Thyroid disorder Maternal hypothyroidism Father Hypertension Grandfather Lung cancer Maternal CVA (cerebral vascular accident) Maternal Diabetes Maternal Aunt Cervical cancer, Onset Age: 20 Paternal Mother Hypertension Osteoporosis Adenomyosis Uterine fibroid Ovarian cyst Social History adopted: No household members: spouse housing: house current occupational status: employed current occupation: [employer] current occupational exposures/hazards: No pets and animals: Yes pets and animals: dog(s) [facility] [place] [facility] out of state: Yes out of country: No sexually active: Yes Smoking Status: Never smoker second hand exposure: No alcohol intake: never substance use type: does not use well-balanced diet: daily or most days caffeine: Yes Type: coffee Number of servings: 1 eating out: 1-3 times/week during the past year weight has: remained stable what type of physical activity do you participate in: walking, running and weight training frequency: 3-4 times per week duration: 15-30 minutes/day rivera/baptism: Alevism seatbelt use: always do you feel safe at home: Yes additional social history: - 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 OB Visit [facility]O Calculator Estimated Delivery Date Method Current WG Current Estimate 05/13/25 Ultrasound #1 8w 2d Other Estimates 05/06/25 LMP (Certain) 9w 2d Estimated Due Date: 05/06/25 Expected Delivery Route/Plan Labor Preferences- CB/BF classes: [] labor support person: [] labor intervention preferences: [] pain management options preferred: [] cut cord/dad catch: [] : [] PP control planned: [] discussed possible routes of delivery and associated risks: [] special requests: [] Specific Issue/Plans Covid status: [] Flu vaccine: [] Tdap vaccine: [] Rhogam: [] LARC form signed: [] Problem list reviewed and updated with the most current plan of care details and appropriate orders placed. Relevant counseling for the gestational age provided. Continue routine care and follow up unless otherwise noted in visit notes/problem list details Initial Weight: Not Recorded Date -???-???-???-???-???-??? -???-???-???-???-???-??? - EGA Weight BP Urine Prot -???-???-???-???-???-??? -???-???-???-???-???-??? - Glucose FHR FuHt Pres Dilation -???-???-???-???-???-??? -???-???-???-???-???-??? - Effaced St Visit Note 10/03/24 -???-???-???-???-???-??? -???-???-???-???-???-??? - 8w 2d 120 lb 8 oz 119/84 -???-???-???-???-???-??? -???-???-???-???-???-??? - 174 -???-???-???-???-???-??? -???-???-???-???-???-??? - KW- CRL not cons with dates. RAMO changed. accepts NIPT and carrier Menstrual History Last Menstrual Period: 07/30/24 Reported LMP: definite Normal amount/duration: Yes Frequency in days: 29 On hormonal BC at conception: No hCG+: 08/28/24 Antepartum Record Genetic Screening: Congenital Heart Defect: Patient (Maternal grandma heart murmur), Neural Tube Defect: Oth (more content not included)... Normal [facility] Urine cultureOrdered By: Tristan Mccullough on 10-03-2024 Bacteria identified Cx Nom (U) Culture exhibits no growth. [facility] - Chemistry and C hemistry - challengeOrdered By: Genesis Mccullough on 09-20-2024 HCG ( test) Ql (U) Positive [facility] Office Visit Reporton 2024 Office Visit Report [facility] [address] [place] [address] OFFICE VISIT Date of Service: 09/20/24 MR#: [id number] Acct: [id number] Patient: ARUN HELM Rep #: [id number] : 2000 Provider: SUMA Singer ams Age/Sex: 23/F [place] [facility] Status: Signed Intake Vital Signs 08/30/24 17:16 09/20/24 08:02 Height 5 ft 5 in 5 ft 5 in Weight: 120 lb 2 oz BMI 20.0 BP 102/62 Blood Pressure Location Rt brachial Position Sitting Intake Visit Reasons: NOB, Confirm , Vitals Chief Complaint: Referred for Protein S deficiency 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: No Accompanied by: Is patient in pain?: No Allergies Sulfa (Sulfonamide Antibiotics) (sulfa drugs) Allergy (Verified 09/20/24 08:10) Rash Medications ???Medication ???Instructions ???Recorded ???Confirmed ???Type multivit-min no.71-iron fum 28 cap PO 09/20/24 09/20/24 History mg-folate no.1 1 mg-dha 300 mg capsule (PNV-[place]) Is last menstrual period known: Yes Last menstrual period: 07/30/24 Post menopausal: No Patient : Yes Nurse's Note: Pt here for secondary amenorrhea. Office UPT: positive. Vitals WNL. PNOB questions completed. Problem list, allergies, and medications updated. First trimester ACOG education completed. Results POC Urine Office , Urine Positive Last Edit by Mary Collazo on 09/20/24 08:10 Assessment and Plan Assessment and Plan Orders: Orders POC Urine Today N91.2 - Amenorrhea, unspecified CBC W/Diff, Automated Today O09.90 - Supervision of high risk , unspecified, unspecified trimester Type Screen Today O09.90 - Supervision of high risk , unspecified, unspecified trimester Rubella IgG Today O09.90 - Supervision of high risk , unspecified, unspecified trimester Hepatitis C Antibody Today O09.90 - Supervision of high risk , unspecified, unspecified trimester Hepatitis B Surface Antigen Today O09.90 - Supervision of high risk , unspecified, unspecified trimester Culture, Urine Today O09.90 - Supervision of high risk , unspecified, unspecified trimester Syphilis Antibodies Today O09.90 - Supervision of high risk , unspecified, unspecified trimester Chlamydia/GC YO aptima Today O09.90 - Supervision of high risk , unspecified, unspecified trimester HIV Today O09.90 - Supervision of high risk , unspecified, unspecified trimester Thyroid Stim Hormone (TSH) Today O09.90 - Supervision of high risk , unspecified, unspecified trimester T4 Free Direct Today O09.90 - Supervision of high risk , unspecified, unspecified trimester [facility] Misc. Today O09.90 - Supervision of high risk , unspecified, unspecified trimester DONELL Today O09.90 - Supervision of high risk , unspecified, unspecified trimester 09/20/24 1151 Date Genesis Bright Signature: Date (if applicable) CC: Normal [facility] Anion gap in Serum or Plasma Ordered By: Eduardo Eduardo on 08-30-2024 Anion gap [Moles/Vol] 11 mmol/L 5-15 [facility] BUN/creatinine ratioOrdered By: Eduardo Eduardo on 08-30-2024 Urea nitrogen/Creatinine [Mass ratio] 27.1 mg/mg High 10- [facility] Basic Metabolic Profile (BMP )on 08-30-2024 BUN/CRE 27.1 RATIO High 02-13 [facility] Comment on above: Order Comment: Test( s) 221051-Urmvobtnagrc Antigen was developed and its performance characteristics determined by [facility]. It has not been cleared or approved by the Food and Drug Administration. Performed By: #### L 3300.0450, L3100.5440, L3100.7250, L3300.1200, L4500.0100, L3100.5600, L3100.5700, L4500.5000, L3100.5800, L4500.2000, L101.9900, L3100.7325, L3100.8408, L3100.7050 #### [facility] [address] [place], [place], [phone] Calcium [Mass/Vol] 9.3 mg/dL Normal 7.6-11.0 [facility] Comment on above: Order Comment: Test( s) 296993-Zwtnyrcubutb Antigen was developed and its performance characteristics determined by [facility]. It has not been cleared or approved by the Food and Drug Administration. Performed By: #### L 3300.0450, L3100.5440, L3100.7250, L3300.1200, L4500.0100, L3100.5600, L3100.5700, L4500.5000, L3100.5800, L4500.2000, L101.9900, L3100.7325, L3100.8408, L3100.7050 #### [facility] [address] [place], [place], [phone] Chloride [Moles/Vol] 103 mmol/L Normal 98-108 [facility] Comment on above: Order Comment: Test( s) 446811-Oszpnyxuykkv Antigen was developed and its performance characteristics determined by [facility]. It has not been cleared or approved by the Food and Drug Administration. Performed By: #### L 3300.0450, L3100.5440, L3100.7250, L3300.1200, L4500.0100, L3100.5600, L3100.5700, L4500.5000, L3100.5800, L4500.2000, L101.9900, L3100.7325, L3100.8408, L3100.7050 #### [facility] [address] [place], [place], [phone] CO2 [Moles/Vol] 22.4 mmol/L Normal 21.0-32.0 [facility] Comment on above: Order Comment: Test( s) 309650-Yomwjuagtwhz Antigen was developed and its performance characteristics determined by [facility]. It has not been cleared or approved by the Food and Drug Administration. Performed By: #### L 3300.0450, L3100.5440, L3100.7250, L3300.1200, L4500.0100, L3100.5600, L3100.5700, L4500.5000, L3100.5800, L4500.2000, L101.9900, L3100.7325, L3100.8408, L3100.7050 #### [facility] [address] [place], [place], [phone] Creatinine [Mass/Vol] 0.62 mg/dL Low 0.70-1.20 [facility] Comment on above: Order Comment: Test( s) 917411-Vvmjicgxopgd Antigen was developed and its performance characteristics determined by [facility]. It has not been cleared or approved by the Food and Drug Administration. Performed By: #### L 3300.0450, L3100.5440, L3100.7250, L3300.1200, L4500.0100, L3100.5600, L3100.5700, L4500.5000, L3100.5800, L4500.2000, L101.9900, L3100.7325, L3100.8408, L3100.7050 #### [facility] [address] [place], [place], [phone] (063) ECRCL 123.16 ml/min Normal 50-250 [facility] Comment on above: Order Comment: Test( s) 043303-Cusqdchccxfc Antigen was developed and its performance characteristics determined by [facility]. It has not been cleared or approved by the Food and Drug Administration. Performed By: #### L 3300.0450, L3100.5440, L3100.7250, L3300.1200, L4500.0100, L3100.5600, L3100.5700, L4500.5000, L3100.5800, L4500.2000, L101.9900, L3100.7325, L3100.8408, L3100.7050 #### [facility] [address] [place], [place], [phone] (272) GAP 11 Normal 5-15 [facility] Comment on above: Order Comment: Test( s) 657988-Dwcgzsqfalrz Antigen was developed and its performance characteristics determined by [facility]. It has not been cleared or approved by the Food and Drug Administration. Performed By: #### L 3300.0450, L3100.5440, L3100.7250, L3300.1200, L4500.0100, L3100.5600, L3100.5700, L4500.5000, L3100.5800, L4500.2000, L101.9900, L3100.7325, L3100.8408, L3100.7050 #### [facility] [address] [place], [address] GFR/1.73 sq M.predicted among non-blacks MDRD (S/P/Bld) [Vol rate/Area] 127 mL/min/{1.73_m2} Normal >60 [facility] Comment on above: Order Comment: Test( s) 181734-Dnhkeskyvwqu Antigen was developed and its performance characteristics determined by [facility]. It has not been cleared or approved by the Food and Drug Administration. Result Comment: mL/m in/1.73m2 CKD-EPI Creatinine Equation (2020) Performed By: #### L 3300.0450, L3100.5440, L3100.7250, L3300.1200, L4500.0100, L3100.5600, L3100.5700, L4500.5000, L3100.5800, L4500.2000, L101.9900, L3100.7325, L3100.8408, L3100.7050 #### [facility] [address] [place], [place], [phone] Glucose [Mass/Vol] 88 mg/dL Normal 70-99 [facility] Comment on above: Order Comment: Test( s) 858854-Psbjawsnfkxc Antigen was developed and its performance characteristics determined by [facility]. It has not been cleared or approved by the Food and Drug Administration. Performed By: #### L 3300.0450, L3100.5440, L3100.7250, L3300.1200, L4500.0100, L3100.5600, L3100.5700, L4500.5000, L3100.5800, L4500.2000, L101.9900, L3100.7325, L3100.8408, L3100.7050 #### [facility] [address] [place], [place], [phone] Potassium [Moles/Vol] 4.0 mmol/L Normal 3.3-5.1 [facility] Comment on above: Order Comment: Test( s) 431676-Khhrodhaasxp Antigen was developed and its performance characteristics determined by [facility]. It has not been cleared or approved by the Food and Drug Administration. Performed By: #### L 3300.0450, L3100.5440, L3100.7250, L3300.1200, L4500.0100, L3100.5600, L3100.5700, L4500.5000, L3100.5800, L4500.2000, L101.9900, L3100.7325, L3100.8408, L3100.7050 #### [facility] [address] [place], [address] Sodium [Moles/Vol] 136 mmol/L Normal 133-145 [facility] Comment on above: Order Comment: Test( s) 216082-Foabqltwtjxa Antigen was developed and its performance characteristics determined by [facility]. It has not been cleared or approved by the Food and Drug Administration. Performed By: #### L 3300.0450, L3100.5440, L3100.7250, L3300.1200, L4500.0100, L3100.5600, L3100.5700, L4500.5000, L3100.5800, L4500.2000, L101.9900, L3100.7325, L3100.8408, L3100.7050 #### [facility] [address] [place], [address] Urea nitrogen [Mass/Vol] 17 mg/dL Normal 4-19 [facility] Comment on above: Order Comment: Test( s) 455712-Cidllsseecll Antigen was developed and its performance characteristics determined by [facility]. It has not been cleared or approved by the Food and Drug Administration. Performed By: #### L 3300.0450, L3100.5440, L3100.7250, L3300.1200, L4500.0100, L3100.5600, L3100.5700, L4500.5000, L3100.5800, L4500.2000, L101.9900, L3100.7325, L3100.8408, L3100.7050 #### [facility] [address] [place], [address] Carbon dioxide, total [Moles /volume] in Central venous bloodOrdered By: Eduardo Eduardo on 08-30-2024 CO2 [Moles/Vol] 22.4 mmol/L 21.0-32.0 [facility] Chloride assayOrdered By: Satinder Eduardo on 08-30-2024 Chloride [Moles/Vol] 103 mmol/L 98-108 [facility] Emergency Department Summary on 08-30-2024 Emergency Department Summary [facility] Medical Records Department [address] [place] [place] [address] Emergency Department Summary 08/30/24 MR#: [id number] Acct: [id number] Name: ARUN HELM Rep #: [id number] : 2000 23 From: Eduardo Eduardo MD PCP: SUYAPA Carolina Status:DEP REF Location: ED HPI History of Present Illness Chief Complaint: Occup Expose Narrative Narrative: 23-year-old female, wpecp-fqwf-ycuufztq, denies significant past medical history, 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 She was wearing gloves. She states that it took about 4 minutes for it to bleed, but she rinsed the area and wash the area, put a Band-Aid on it, and it was no longer bleeding. It was bleeding and aligned. She denies any direct puncture wound and states that she was removing the needle from the patient's skin when it scraped along her left hand. She denies other injuries. She believes her tetanus immunization is current. Of note, she is [address] [facility] Medical History Proteins serum plasma low Wears glasses Fatty liver Non-smoker Blackout History of echocardiogram Home Medications ???Medication ???Instructions ???Recorded ???Last Taken ???Type prenat.vits,jessy,min-iron -folic tab PO DAILY 05/12/24 Unknown Hist ory Allergy/AdvReac Type Severity Reaction Status Date / Time Sulfa (Sulfonamide Allergy Rash Verified 08/30/24 17:16 Antibiotics) (sulfa drugs) Family History Grandmother Heart failure Father Hypertension Grandfather Lung cancer Other Cervical cancer Surgical History Hx of wisdom tooth extraction Social History adopted: No household members: family current occupational status: employed current occupation: [employer] current occupational exposures/hazards: No history of recent travel: No sexually active: No Smoking Status: Never smoker second hand exposure: No alcohol intake: never substance use type: does not use what type of physical activity do you participate in: walking, running and weight training seatbelt use: always do you feel safe at home: Yes additional social history: - Chance ROS ROS ED ROS Narrative Needlestick to left fifth digit. More scraping of needlepoint across middle phalanx of finger of the left hand. Denies other injuries. No other symptoms. EXAM Physical Exam Narrative Exam Narrative: Afebrile. Vital signs noted. Nontoxic-appearing. Cardiovascular examination feels regular rate and rhythm. Lungs clear to auscultation bilaterally. Abdomen soft, nontender with positive bowel sounds. Inspection of the left hand, fifth digit, especially on middle phalanx shows no evidence of laceration or abrasion, no bleeding. Full range of motion of left finger. Const Vital Signs: 08/30/24 17:16 Temperature 97.4 F L Temperature Source Temporal Pulse Rate 77 Respiratory Rate 18 Blood Pressure 125/80 H Blood Pressure Mean 95 Pulse Ox 100 Oxygen Delivery Method Room Air MDM MDM MDM Narrative Medical decision making narrative: Patient was told of the low risk of seroconversion for any blood-borne disease. Additionally, this was not a direct puncture wound, but more of an abrasion when she was withdrawing the needle. Nursing protocol for needlestick was started. She will follow-up with employee health. Disposition is discharged home in stable condition. 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 You may require further testing and blood tests. Discharge Orders/Prescriptions Prescriptions: No Action prenat.vits,jessy,min-iron -folic Tablet PO DAILY Referrals / Follow Up: Health,Employee [Non-Staff -Ordering Privileges] - 3-5 Days Zoila Orozco PA [Primary Care Provider] - Disposition Disposition (needs filled in before D/C Order can be placed): Home, Self Care What to do if you have Problems For any increased pain, shortness of breath, bleeding, nausea or vomiting, chest pain, or any unexpected problems, contact your Primary Care Provider. Call [facility] ([phone]) or report to the closest Emergency Room. Call 911 if necessary. 08/30/242016 Cosigner Signature (if applicable): CC: SUYAPA Carolina Signed Normal [facility] Glomerular filtration rate ( GFR) estimation/1.73 sq m using serum, plasma, or whole bOrdered By: Eduardo Eduardo on 08-30-2024 GFR/1.73 sq M.predicted among non-blacks MDRD (S/P/Bld) [Vol rate/Area] 127 mL/min/{1.73_m2} >60 [facility] Comment on above: mL/min/1.73m2 CKD-EP I Creatinine Equation (2020) HIVon 08-30-2024 HIV Non-Reactive Normal Nonreactive [facility] Comment on above: Order Comment: Test( s) 843649-Tlelqjqxieph Antigen was developed and its performance characteristics determined by [facility]. It has not been cleared or approved by the Food and Drug Administration. Result Comment: Non- Reactive Reactive Repeatedly reactive samples must be confirmed according to CDC recommended confirmatory algorithms. The subresults for either HIVAG or AHIV can be used as an aid in the selection of the confirmation algorithm for reactive samples. Send out specimens with Reactive results to [facility] for confirmation. Order the HIV antibody detection and differentiation: lc#[id number] Performed By: #### L 3300.0450, L3100.5440, L3100.7250, L3300.1200, L4500.0100, L3100.5600, L3100.5700, L4500.5000, L3100.5800, L4500.2000, L101.9900, L3100.7325, L3100.8408, L3100.7050 #### [facility] [address] [place], [place], [phone] Hepatitis B Surface Antibody on 08-30-2024 HEP B Surf Ab REAC Normal [facility] Comment on above: Result Comment: <8.5 mIU/mL: Non-Reactive 8.5<= x <11.5 mIU/mL: Indeterminate >=11.5 mIU/mL: Reactive Non Reactive: Inconsistent with immunity less than <10 mIU/mL Reactive: Consistent with immunity greater than or equal to 10 mIU/mL Performed By: #### L 3300.0450, L3100.5440, L3100.7250, L3300.1200, L4500.0100, L3100.5600, L3100.5700, L4500.5000, L3100.5800, L4500.2000, L101.9900, L3100.7325, L3100.8408, L3100.7050 #### [facility] [address] [place], [place], [id number] Hepatitis C Antibodyon 08-30 Hepatitis C Ab Non-Reactive Normal Nonreactive [facility] Comment on above: Order Comment: Test( s) 379856-Vyhvfzoodmxf Antigen was developed and its performance characteristics determined by [facility]. It has not been cleared or approved by the Food and Drug Administration. Result Comment: Reac tive: Presumptive evidence of antibodies to HCV. Follow CDC recommendations for supplemental testing. Non-Reactive: Antibodies to HCV were not detected; does not exclude the possibility of exposure to HCV Reactive Results are presumptive evidence of antibodies to HCV. Follow CDC recommendations for supplemental testing. Order confirmation testing: HCV Quant by PCR testing - HCVPCR #[id number] Non Reactive: < 0.8 Equivocal: >/= 0.8 to < 1.0 Reactive: >/= 1.0 The CDC requires that a reactive/equivocal HCV antibody result be sent out for confirmation. HCV Quant by PCR testing. Performed By: #### L 3300.0450, L3100.5440, L3100.7250, L3300.1200, L4500.0100, L3100.5600, L3100.5700, L4500.5000, L3100.5800, L4500.2000, L101.9900, L3100.7325, L3100.8408, L3100.7050 #### [facility] [address] [place], [place], [id number] L3890.6102on 08-30-2024 HEP B Surf Ag Non-Reactive Normal Nonreactive [facility] Comment on above: Order Comment: Test( s) 002548-Nalzjkmmcpuq Antigen was developed and its performance characteristics determined by [facility]. It has not been cleared or approved by the Food and Drug Administration. Result Comment: Reac tive: Presumptive evidence of HBV. Repeatedly reactive samples must be confirmed using a neutralization test ([facility] HBsAg Confirmatory Test) Non-Reactive: HBsAg not detected; does not exclude the possibility of exposure to HBV Performed By: #### L 3300.0450, L3100.5440, L3100.7250, L3300.1200, L4500.0100, L3100.5600, L3100.5700, L4500.5000, L3100.5800, L4500.2000, L101.9900, L3100.7325, L3100.8408, L3100.7050 #### [facility] [address] [place] [place], [address] Laboratory - Microbiology an d Antimicrobial susceptibilityOrdered By: Eduardo Eduardo on 08-30-2024 HBV surface Ag Ql (S) Non-Reactive Nonreactive [facility] Comment on above: Reactive: Presumptiv e evidence of HBV. Repeatedly reactive samples must be confirmed using a neutralization test ([facility] HBsAg Confirmatory Test)Non-Reactive: HBsAg not detected; does not exclude the possibility of exposure to HBV No Panel InformationOrdered By: Eduardo Eduardo on 08-30-2024 HIV (1&2) Antibody Non-Reactive Nonreactive [facility] Comment on above: Non-ReactiveReactive Repeatedly reactive samples must be confirmed according to CDC recommended confirmatory algorithms. The subresults for either HIVAG or AHIV can be used as an aid in the selection of the confirmation algorithm for reactive samples.Send out specimens with Reactive results to [facility] for confirmation.Order the HIV antibody detection and differentiation: #[id number] Potassium measurement (mass/ volume)Ordered By: Eduardo Eduardo on 08-30-2024 Potassium (Unsp spec) [Mass/Vol] 4.0 mmol/L 3.3-5.1 [facility] Serum creatinine measurement (mass/volume)Ordered By: Eduardo Eduardo on 08-30-2024 Creatinine [Mass/Vol] 0.62 mg/dL Low 0.70-1.20 [facility] Serum glucose measurement (m ass/volume)Ordered By: Eduardo Eduardo on 08-30-2024 Glucose [Mass/Vol] 88 mg/dL 70-99 [facility] Serum hepatitis B virus surf kelli antibody detectionOrdered By: Eduardo Eduardo on 08-30-2024 HBV surface Ab Ql (S) REAC [facility] Comment on above: <8.5 mIU/mL: Non-[place] ctive8.5<= x <11.5 mIU/mL: Indeterminate>=11.5 mIU/mL: Reactive Non Reactive: Inconsistent with immunity less than <10 mIU/mL Reactive: Consistent with immunity greater than or equal to 10 mIU/mL Serum or plasma calcium soumya urement (mass/volume)Ordered By: Eduardo Eduardo on 08-30-2024 Calcium [Mass/Vol] 9.3 mg/dL 7.6-11.0 [facility] Serum or plasma urea nitroge n measurement (mass/volume)Ordered By: Eduardo Eduardo on 08-30-2024 Urea nitrogen [Mass/Vol] 17 mg/dL 4-19 [facility] Sodium levelOrdered By: Eduardo Eduardo on 08-30-2024 Sodium [Moles/Vol] 136 mmol/L 133-145 [facility] Absolute lymphocyte countOrd ered By: HEALTH ASSESSMENT on 08-15-2024 Lymphocytes Auto (Unsp spec) [#/Vol] 2.44 10*3/uL 0.83-4.51 [facility] Absolute neutrophil countOrd ered By: HEALTH ASSESSMENT on 08-15-2024 Neutrophils (Bld) [#/Vol] 3.3 10*3/uL 2.0-7.7 [facility] Absolute nucleated red blood cell countOrdered By: HEALTH ASSESSMENT on 08-15-2024 Nucleated RBC (Bld) [#/Vol] 0.00 10*3/uL 0-5 [facility] Anion gap in Serum or Plasma Ordered By: HEALTH ASSESSMENT on 08-15-2024 Anion gap [Moles/Vol] 8 mmol/L 5-15 [facility] BUN/creatinine ratioOrdered By: HEALTH ASSESSMENT on 08-15-2024 Urea nitrogen/Creatinine [Mass ratio] 15.9 mg/mg 10-20 [facility] Bilirubin Test strip Ql (U)O rdered By: HEALTH ASSESSMENT on 08-15-2024 Bilirubin Ql (U) Negative Negative [facility] Bilirubin directOrdered By: HEALTH ASSESSMENT on 08-15-2024 Bilirubin.direct [Mass/Vol] 0.30 mg/dL 0.00-0.30 [facility] Bilirubin, totalOrdered By: HEALTH ASSESSMENT on 08-15-2024 Bilirubin [Mass/Vol] 0.62 mg/dL 0.00-1.30 [facility] CBC, Employeeon 08-15-2024 Absolute Lymph 2.44 X10 3/uL Normal 0.83-4.51 [facility] Comment on above: Performed By: #### L 3300.0450, L3100.5440, L3100.7250, L3300.1200, L4500.0100, L3100.5600, L3100.5700, L4500.5000, L3100.5800, L4500.2000, L101.9900, L3100.7325, L3100.8408, L3100.7050 #### [facility] [address] [place], [place], [phone] Absolute Neut 3.3 X10 3/uL Normal 2.0-7.7 [facility] Comment on above: Performed By: #### L 3300.0450, L3100.5440, L3100.7250, L3300.1200, L4500.0100, L3100.5600, L3100.5700, L4500.5000, L3100.5800, L4500.2000, L101.9900, L3100.7325, L3100.8408, L3100.7050 #### [facility] [address] [place], [place], [phone] (114) Basophils/100 WBC (Bld) 0.6 % Normal 0-1 [facility] Comment on above: Performed By: #### L 3300.0450, L3100.5440, L3100.7250, L3300.1200, L4500.0100, L3100.5600, L3100.5700, L4500.5000, L3100.5800, L4500.2000, L101.9900, L3100.7325, L3100.8408, L3100.7050 #### [facility] [address] [place], [place], [phone] ([phone]) Eosinophils/100 WBC (Bld) 2.0 % Normal 0-5 [facility] Comment on above: Performed By: #### L 3300.0450, L3100.5440, L3100.7250, L3300.1200, L4500.0100, L3100.5600, L3100.5700, L4500.5000, L3100.5800, L4500.2000, L101.9900, L3100.7325, L3100.8408, L3100.7050 #### [facility] [address] [place], [address] (329) Erythrocyte distribution width (RBC) [Ratio] 11.6 % Normal 11.6-14.6 [facility] Comment on above: Performed By: #### L 3300.0450, L3100.5440, L3100.7250, L3300.1200, L4500.0100, L3100.5600, L3100.5700, L4500.5000, L3100.5800, L4500.2000, L101.9900, L3100.7325, L3100.8408, L3100.7050 #### [facility] [address] [place], [address] Hematocrit (Bld) [Volume fraction] 39.6 % Normal 37-47 [facility] Comment on above: Performed By: #### L 3300.0450, L3100.5440, L3100.7250, L3300.1200, L4500.0100, L3100.5600, L3100.5700, L4500.5000, L3100.5800, L4500.2000, L101.9900, L3100.7325, L3100.8408, L3100.7050 #### [facility] [address] [place], [address] Hemoglobin (Bld) [Mass/Vol] 14.2 g/dL Normal 12.0-15.0 [facility] Comment on above: Performed By: #### L 3300.0450, L3100.5440, L3100.7250, L3300.1200, L4500.0100, L3100.5600, L3100.5700, L4500.5000, L3100.5800, L4500.2000, L101.9900, L3100.7325, L3100.8408, L3100.7050 #### [facility] [address] [place], [address] Lymphocytes/100 WBC (Bld) 38.2 % Normal 19-41 [facility] Comment on above: Performed By: #### L 3300.0450, L3100.5440, L3100.7250, L3300.1200, L4500.0100, L3100.5600, L3100.5700, L4500.5000, L3100.5800, L4500.2000, L101.9900, L3100.7325, L3100.8408, L3100.7050 #### [facility] [address] [place], [address] MCH (RBC) [Entitic mass] 32.4 pg High 27.0-32.0 [facility] Comment on above: Performed By: #### L 3300.0450, L3100.5440, L3100.7250, L3300.1200, L4500.0100, L3100.5600, L3100.5700, L4500.5000, L3100.5800, L4500.2000, L101.9900, L3100.7325, L3100.8408, L3100.7050 #### [facility] [address] [place], [address] MCHC (RBC) [Mass/Vol] 35.9 g/dL Normal 32-36 [facility] Comment on above: Performed By: #### L 3300.0450, L3100.5440, L3100.7250, L3300.1200, L4500.0100, L3100.5600, L3100.5700, L4500.5000, L3100.5800, L4500.2000, L101.9900, L3100.7325, L3100.8408, L3100.7050 #### [facility] [address] [place], [address] MCV (RBC) [Entitic vol] 90.4 fL Normal 81-99 [facility] Comment on above: Performed By: #### L 3300.0450, L3100.5440, L3100.7250, L3300.1200, L4500.0100, L3100.5600, L3100.5700, L4500.5000, L3100.5800, L4500.2000, L101.9900, L3100.7325, L3100.8408, L3100.7050 #### [facility] [address] [place], [address] Monocytes/100 WBC (Bld) 7.7 % Normal 0-10 [facility] Comment on above: Performed By: #### L 3300.0450, L3100.5440, L3100.7250, L3300.1200, L4500.0100, L3100.5600, L3100.5700, L4500.5000, L3100.5800, L4500.2000, L101.9900, L3100.7325, L3100.8408, L3100.7050 #### [facility] [address] [place], [address] Neutrophils/100 WBC (Bld) 51.3 % Normal 47-70 [facility] Comment on above: Performed By: #### L 3300.0450, L3100.5440, L3100.7250, L3300.1200, L4500.0100, L3100.5600, L3100.5700, L4500.5000, L3100.5800, L4500.2000, L101.9900, L3100.7325, L3100.8408, L3100.7050 #### [facility] [address] [place], [address] NRBC # 0.00 10 3/uL Normal 0-5 [facility] Comment on above: Performed By: #### L 3300.0450, L3100.5440, L3100.7250, L3300.1200, L4500.0100, L3100.5600, L3100.5700, L4500.5000, L3100.5800, L4500.2000, L101.9900, L3100.7325, L3100.8408, L3100.7050 #### [facility] [address] [place], [address] (584) Nucleated RBC (Bld) [#/Vol] 0 10*3/uL Normal 0-5 [facility] Comment on above: Performed By: #### L 3300.0450, L3100.5440, L3100.7250, L3300.1200, L4500.0100, L3100.5600, L3100.5700, L4500.5000, L3100.5800, L4500.2000, L101.9900, L3100.7325, L3100.8408, L3100.7050 #### [facility] [address] [place], [address] ([phone]) Platelet mean volume (Bld) [Entitic vol] 10.7 fL Normal 6.2-12.0 [facility] Comment on above: Performed By: #### L 3300.0450, L3100.5440, L3100.7250, L3300.1200, L4500.0100, L3100.5600, L3100.5700, L4500.5000, L3100.5800, L4500.2000, L101.9900, L3100.7325, L3100.8408, L3100.7050 #### [facility] [address] [place], [address] (541) Platelets (Bld) [#/Vol] 195 10*3/uL Normal 150-450 [facility] Comment on above: Performed By: #### L 3300.0450, L3100.5440, L3100.7250, L3300.1200, L4500.0100, L3100.5600, L3100.5700, L4500.5000, L3100.5800, L4500.2000, L101.9900, L3100.7325, L3100.8408, L3100.7050 #### [facility] [address] [place], [place], [phone] (726) RBC (Bld) [#/Vol] 4.38 10*6/uL Normal 4.2-5.4 [facility] Comment on above: Performed By: #### L 3300.0450, L3100.5440, L3100.7250, L3300.1200, L4500.0100, L3100.5600, L3100.5700, L4500.5000, L3100.5800, L4500.2000, L101.9900, L3100.7325, L3100.8408, L3100.7050 #### [facility] [address] [place], [place], [phone] (368) RDW SD 38.2 fl Normal 35.1-43.9 [facility] Comment on above: Performed By: #### L 3300.0450, L3100.5440, L3100.7250, L3300.1200, L4500.0100, L3100.5600, L3100.5700, L4500.5000, L3100.5800, L4500.2000, L101.9900, L3100.7325, L3100.8408, L3100.7050 #### [facility] [address] [place], [place], [phone] (042) WBC (Bld) [#/Vol] 6.4 10*3/uL Normal 4.4-11.0 [facility] Comment on above: Performed By: #### L 3300.0450, L3100.5440, L3100.7250, L3300.1200, L4500.0100, L3100.5600, L3100.5700, L4500.5000, L3100.5800, L4500.2000, L101.9900, L3100.7325, L3100.8408, L3100.7050 #### [facility] [address] [place], [address] Calculated very low density lipoprotein (VLDL) cholesterol measurementOrdered By: HEALTH ASSESSMENT on 08-15-2024 Calculated very low density lipoprotein (VLDL) cholesterol measurement 8 mg/dL 5-40 [facility] VLDL Cholesterol 8 mg/dL 5-40 [facility] Carbon dioxide, total [Moles /volume] in Central venous bloodOrdered By: HEALTH ASSESSMENT on 08-15-2024 CO2 [Moles/Vol] 25.3 mmol/L 21.0-32.0 [facility] Chloride assayOrdered By: HE ALTH ASSESSMENT on 08-15-2024 Chloride [Moles/Vol] 104 mmol/L 98-108 [facility] Employee Profileon CHOL:HDL 1.61 Normal [facility] Comment on above: Performed By: #### L 3300.0450, L3100.5440, L3100.7250, L3300.1200, L4500.0100, L3100.5600, L3100.5700, L4500.5000, L3100.5800, L4500.2000, L101.9900, L3100.7325, L3100.8408, L3100.7050 #### [facility] [address] [place], [place], [phone] Cholesterol [Mass/Vol] 143 mg/dL Normal <=[address] [facility] Comment on above: Result Comment: Chol esterol level, Desirable <200 mg/dL Borderline high cholesterol 200-239 mg/dL High cholesterol >=240 mg/dL Recommendations of the NCEP Adult Treatment Panel for the following risk-cutoff thresholds for the [place] population. Performed By: #### L 3300.0450, L3100.5440, L3100.7250, L3300.1200, L4500.0100, L3100.5600, L3100.5700, L4500.5000, L3100.5800, L4500.2000, L101.9900, L3100.7325, L3100.8408, L3100.7050 #### [facility] [address] [place], [place], [phone] (462) Cholesterol in HDL [Mass/Vol] 89 mg/dL Normal [facility] Comment on above: Result Comment: [place] Cholesterol Education Program (NCEP) guidelines: <40 mg/dL: Low HDL-cholesterol (major risk factor for CHD) >= 60 mg/dL: High HDL-cholesterol (negative risk factor for CHD) HDL-cholesterol is affected by a number of factors, e.g. smoking, exercise, hormones, sex and age. Performed By: #### L 3300.0450, L3100.5440, L3100.7250, L3300.1200, L4500.0100, L3100.5600, L3100.5700, L4500.5000, L3100.5800, L4500.2000, L101.9900, L3100.7325, L3100.8408, L3100.7050 #### [facility] [address] [place], [place], [phone] Cholesterol in VLDL [Mass/Vol] 8 mg/dL Normal 5-40 [facility] Comment on above: Performed By: #### L 3300.0450, L3100.5440, L3100.7250, L3300.1200, L4500.0100, L3100.5600, L3100.5700, L4500.5000, L3100.5800, L4500.2000, L101.9900, L3100.7325, L3100.8408, L3100.7050 #### [facility] [address] [place], [place], [id number] LDH 147 U/L Normal 84-246 [facility] Comment on above: Performed By: #### L 3300.0450, L3100.5440, L3100.7250, L3300.1200, L4500.0100, L3100.5600, L3100.5700, L4500.5000, L3100.5800, L4500.2000, L101.9900, L3100.7325, L3100.8408, L3100.7050 #### [facility] [address] [place], [address] Phosphate [Mass/Vol] 3.3 mg/dL Normal 2.7-4.5 [facility] Comment on above: Performed By: #### L 3300.0450, L3100.5440, L3100.7250, L3300.1200, L4500.0100, L3100.5600, L3100.5700, L4500.5000, L3100.5800, L4500.2000, L101.9900, L3100.7325, L3100.8408, L3100.7050 #### [facility] [address] [place], [address] Triglyceride [Mass/Vol] 39 mg/dL Normal [facility] Comment on above: Result Comment: The drugs N-Acetylcysteine and Metamizole may falsely depress this assay. Normal range: <150 mg/dL Borderline High: 150-199 mg/dL High: 200-499 mg/dL Very High: >500 mg/dL Performed By: #### L 3300.0450, L3100.5440, L3100.7250, L3300.1200, L4500.0100, L3100.5600, L3100.5700, L4500.5000, L3100.5800, L4500.2000, L101.9900, L3100.7325, L3100.8408, L3100.7050 #### [facility] [address] [place], [address] URIC 2.5 mg/dL Low 2.6-6.0 [facility] Comment on above: Result Comment: The drugs N-Acetylcysteine and Metamizole may falsely depress this assay. Performed By: #### L 3300.0450, L3100.5440, L3100.7250, L3300.1200, L4500.0100, L3100.5600, L3100.5700, L4500.5000, L3100.5800, L4500.2000, L101.9900, L3100.7325, L3100.8408, L3100.7050 #### [facility] [address] [place], [address] Erythrocyte distribution wid th (RBC) [Ratio]Ordered By: HEALTH ASSESSMENT on 08-15-2024 Erythrocyte distribution width (RBC) [Entitic vol] 38.2 fL 35.1-43.9 [facility] Erythrocyte distribution wid th ratioOrdered By: HEALTH ASSESSMENT on 08-15-2024 Erythrocyte distribution width (RBC) [Ratio] 11.6 % 11.6-14.6 [facility] Erythrocyte distribution wid th standard deviationOrdered By: HEALTH ASSESSMENT on 08-15-2024 Erythrocyte distribution width (RBC) [Ratio] 38.2 fl 35.1-43.9 [facility] GFR/1.73 sq M.predicted mauro g non-blacks MDRD (S/P/Bld) [Vol rate/Area]Ordered By: HEALTH ASSESSMENT on 08-15-2024 Estimated GFR (MDRD) Non-Af Amer 128 >60 [facility] Comment on above: mL/min/1.73m2 CKD-EP I Creatinine Equation (2020) Glomerular filtration rate ( GFR) estimation/1.73 sq m using serum, plasma, or whole bOrdered By: HEALTH ASSESSMENT on 08-15-2024 GFR/1.73 sq M.predicted among non-blacks MDRD (S/P/Bld) [Vol rate/Area] 128 mL/min/{1.73_m2} >60 [facility] Comment on above: mL/min/1.73m2 CKD-EP I Creatinine Equation (2020) Glucose Ql (U)Ordered By: HE ALTH ASSESSMENT on 08-15-2024 Urine Glucose (UA) Normal mg/dl Normal [facility] Hematocrit Auto (Bld) [Volum e fraction]Ordered By: HEALTH ASSESSMENT on 08-15-2024 Hematocrit (Bld) [Volume fraction] 39.6 % 37-47 [facility] Hemoglobin measurementOrdere d By: HEALTH ASSESSMENT on 08-15-2024 Hemoglobin (Bld) [Mass/Vol] 14.2 g/dL 12.0-15.0 [facility] Ketones Test strip Ql (U)Ord ered By: HEALTH ASSESSMENT on 08-15-2024 Ketones Ql (U) Negative Negative [facility] - Chemistry and C hemistry - challengeOrdered By: HEALTH ASSESSMENT on 08-15-2024 AST [Catalytic activity/Vol] 22 U/L <32 [facility] Lactate dehydrogenase (LDH) measurementOrdered By: HEALTH ASSESSMENT on 08-15-2024 LDH [Catalytic activity/Vol] 147 U/L 84-246 [facility] Low density lipoprotein (LDL ) cholesterol measurementOrdered By: HEALTH ASSESSMENT on 08-15-2024 Cholesterol in LDL [Mass/Vol] 46 mg/dL 0-130 [facility] Lymphocytes Auto (Unsp spec) [#/Vol]Ordered By: HEALTH ASSESSMENT on 08-15-2024 Lymphocytes (Bld) [#/Vol] 2.44 10*3/uL 0.83-4.51 [facility] MCV (mean corpuscular volume ) determinationOrdered By: HEALTH ASSESSMENT on 08-15-2024 MCV (RBC) [Entitic vol] 90.4 fL 81-99 [facility] Mean corpuscular hemoglobin (MCH) determinationOrdered By: HEALTH ASSESSMENT on 08-15-2024 MCH (RBC) [Entitic mass] 32.4 pg High 27.0-32.0 [facility] Mean corpuscular hemoglobin concentration (MCHC) determinationOrdered By: HEALTH ASSESSMENT on 08-15-2024 MCHC (RBC) [Mass/Vol] 35.9 g/dL 32-36 [facility] Mean platelet volume determi nationOrdered By: HEALTH ASSESSMENT on 08-15-2024 Platelet mean volume (Bld) [Entitic vol] 10.7 fL 6.2-12.0 [facility] Neutrophil percentageOrdered By: HEALTH ASSESSMENT on 08-15-2024 Neutrophils/100 WBC (Bld) 51.3 % 47-70 [facility] Nitrite Test strip Ql (U)Ord ered By: HEALTH ASSESSMENT on 08-15-2024 Nitrite Ql (U) Negative Negative [facility] Nucleated red blood cell per centageOrdered By: HEALTH ASSESSMENT on 08-15-2024 Nucleated RBC/100 WBC (Bld) [Ratio] 0 % 0-5 [facility] Platelet countOrdered By: HE ALTH ASSESSMENT on 08-15-2024 Platelets (Bld) [#/Vol] 195 10*3/uL 150-450 [facility] Potassium (Unsp spec) [Mass/ Vol]Ordered By: HEALTH ASSESSMENT on 08-15-2024 Potassium [Moles/Vol] 4.4 mmol/L 3.3-5.1 [facility] Potassium measurement (mass/ volume)Ordered By: HEALTH ASSESSMENT on 08-15-2024 Potassium (Unsp spec) [Mass/Vol] 4.4 mmol/L 3.3-5.1 [facility] Protein Test strip Ql (U)Ord ered By: HEALTH ASSESSMENT on 08-15-2024 Protein Ql (U) Negative Negative [facility] RBC Auto (Bld) [#/Vol]Ordere d By: HEALTH ASSESSMENT on 08-15-2024 RBC (Bld) [#/Vol] 4.38 10*6/uL 4.2-5.4 [facility] Screening total cholesterol/ high density lipoprotein (HDL) cholesterol ratioOrdered By: HEALTH ASSESSMENT on 08-15-2024 Cholesterol.total/Chol esterol in HDL [Mass ratio] 1.61 {ratio} [facility] Serum creatinine measurement (mass/volume)Ordered By: HEALTH ASSESSMENT on 08-15-2024 Creatinine [Mass/Vol] 0.59 mg/dL Low 0.70-1.20 [facility] Serum globulin measurementOr dered By: HEALTH ASSESSMENT on 08-15-2024 Globulin (S) [Mass/Vol] 2.5 g/dL 2.2-4.2 [facility] Serum glucose measurement (m ass/volume)Ordered By: HEALTH ASSESSMENT on 08-15-2024 Glucose [Mass/Vol] 64 mg/dL Low 70-99 [facility] Serum or plasma alanine lazaro otransferase (ALT) measurementOrdered By: HEALTH ASSESSMENT on 08-15-2024 ALT [Catalytic activity/Vol] 12 U/L <35 [facility] Serum or plasma albumin soumya urement (mass/volume)Ordered By: HEALTH ASSESSMENT on 08-15-2024 Albumin [Mass/Vol] 4.4 g/dL 3.5-5.0 [facility] Serum or plasma albumin/glob ulin mass ratioOrdered By: HEALTH ASSESSMENT on 08-15-2024 Albumin/Globulin [Mass ratio] 1.8 {ratio} 0.9-2.4 [facility] Serum or plasma alkaline kevin sphatase measurementOrdered By: HEALTH ASSESSMENT on 08-15-2024 ALP [Catalytic activity/Vol] 63 U/L 35-104 [facility] Serum or plasma calcium soumya urement (mass/volume)Ordered By: HEALTH ASSESSMENT on 08-15-2024 Calcium [Mass/Vol] 9.6 mg/dL 7.6-11.0 [facility] Serum or plasma cholesterol in HDL measurement (mass/volume)Ordered By: HEALTH ASSESSMENT on 08-15-2024 Cholesterol in HDL [Mass/Vol] 89 mg/dL >40 [facility] Comment on above: National Cholesterol Education Program (NCEP) guidelines:<40 mg/dL: Low HDL-cholesterol (major risk factor for CHD)>= 60 mg/dL: High HDL-cholesterol (negative risk factor for CHD)HDL-cholesterol is affected by a number of factors, e.g. smoking, exercise, hormones, sex and age. Serum or plasma cholesterol measurement (mass/volume)Ordered By: HEALTH ASSESSMENT on 08-15-2024 Cholesterol [Mass/Vol] 143 mg/dL <[address] [facility] Comment on above: Cholesterol level, D esirable <200 mg/dLBorderline high cholesterol 200-239 mg/dLHigh cholesterol >=240 mg/dLRecommendations of the NCEP Adult Treatment Panel for the following risk-cutoff thresholds for the [place] population. Serum or plasma urea nitroge n measurement (mass/volume)Ordered By: HEALTH ASSESSMENT on 08-15-2024 Urea nitrogen [Mass/Vol] 9 mg/dL 4-19 [facility] Serum or plasma uric acid me asurement (mass/volume)Ordered By: HEALTH ASSESSMENT on 08-15-2024 Urate [Mass/Vol] 2.5 mg/dL Low 2.6-6.0 [facility] Comment on above: The drugs N-Acetylcy steine and Metamizole may falsely depress this assay. Serum phosphorus measurement Ordered By: HEALTH ASSESSMENT on 08-15-2024 Phosphorus Level 3.3 mg/dL 2.7-4.5 [facility] Sodium levelOrdered By: [facility] ASSESSMENT on 08-15-2024 Sodium [Moles/Vol] 137 mmol/L 133-145 [facility] Total proteinOrdered By: [facility] ASSESSMENT on 08-15-2024 Protein [Mass/Vol] 7.0 g/dL 5.9-8.4 [facility] Triglycerides measurementOrd ered By: HEALTH ASSESSMENT on 08-15-2024 Triglyceride [Mass/Vol] 39 mg/dL <199 [facility] Comment on above: The drugs N-Acetylcy steine and Metamizole may falsely depress this assay. Normal range: <150 mg/dLBorderline High: 150-199 mg/dLHigh: 200-499 mg/dLVery High: >500 mg/dL Urinalysis, Employeeon 08-15 BILIRUBIN URINE Negative Normal Negative [facility] Comment on above: Order Comment: Test( s) 117531-Fgxuubxffiej Antigen was developed and its performance characteristics determined by [employer]. It has not been cleared or approved by the Food and Drug Administration. Performed By: #### L 3300.0450, L3100.5440, L3100.7250, L3300.1200, L4500.0100, L3100.5600, L3100.5700, L4500.5000, L3100.5800, L4500.2000, L101.9900, L3100.7325, L3100.8408, L3100.7050 #### [facility] [address] [place], [address] Clarity (U) Clear Normal Clear [facility] Comment on above: Order Comment: Test( s) 739528-Cimfsckkeeej Antigen was developed and its performance characteristics determined by [facility]. It has not been cleared or approved by the Food and Drug Administration. Performed By: #### L 3300.0450, L3100.5440, L3100.7250, L3300.1200, L4500.0100, L3100.5600, L3100.5700, L4500.5000, L3100.5800, L4500.2000, L101.9900, L3100.7325, L3100.8408, L3100.7050 #### [facility] [address] [place], [address] Color (U) Yellow Normal Yellow [facility] Comment on above: Order Comment: Test( s) 166438-Wxfcgmvexeje Antigen was developed and its performance characteristics determined by [facility]. It has not been cleared or approved by the Food and Drug Administration. Performed By: #### L 3300.0450, L3100.5440, L3100.7250, L3300.1200, L4500.0100, L3100.5600, L3100.5700, L4500.5000, L3100.5800, L4500.2000, L101.9900, L3100.7325, L3100.8408, L3100.7050 #### [facility] [address] [place], [address] GLUCOSE, UR Normal Normal Normal [facility] Comment on above: Order Comment: Test( s) 256996-Whjljtyhsjhk Antigen was developed and its performance characteristics determined by [facility]. It has not been cleared or approved by the Food and Drug Administration. Performed By: #### L 3300.0450, L3100.5440, L3100.7250, L3300.1200, L4500.0100, L3100.5600, L3100.5700, L4500.5000, L3100.5800, L4500.2000, L101.9900, L3100.7325, L3100.8408, L3100.7050 #### [facility] [address] [place], [place], [phone] ([phone]) KETONE UR Negative Normal Negative [facility] Comment on above: Order Comment: Test( s) 939329-Nqsqrttxsfig Antigen was developed and its performance characteristics determined by [facility]. It has not been cleared or approved by the Food and Drug Administration. Performed By: #### L 3300.0450, L3100.5440, L3100.7250, L3300.1200, L4500.0100, L3100.5600, L3100.5700, L4500.5000, L3100.5800, L4500.2000, L101.9900, L3100.7325, L3100.8408, L3100.7050 #### [facility] [address] [place], [place], [phone] ([phone]) LEUK ESTERASE 25 /ul Abnormal Negative [facility] Comment on above: Order Comment: Test( s) 856390-Auevaiqtzohd Antigen was developed and its performance characteristics determined by [facility]. It has not been cleared or approved by the Food and Drug Administration. Performed By: #### L 3300.0450, L3100.5440, L3100.7250, L3300.1200, L4500.0100, L3100.5600, L3100.5700, L4500.5000, L3100.5800, L4500.2000, L101.9900, L3100.7325, L3100.8408, L3100.7050 #### [facility] [address] [place], [address] Nitrite Ql (U) Negative Normal Negative [facility] Comment on above: Order Comment: Test( s) 087990-Wssrbzihkgth Antigen was developed and its performance characteristics determined by [facility]. It has not been cleared or approved by the Food and Drug Administration. Performed By: #### L 3300.0450, L3100.5440, L3100.7250, L3300.1200, L4500.0100, L3100.5600, L3100.5700, L4500.5000, L3100.5800, L4500.2000, L101.9900, L3100.7325, L3100.8408, L3100.7050 #### [facility] [address] [place], [address] OCCULT BLOOD-UR Negative Normal Negative [facility] Comment on above: Order Comment: Test( s) 118048-Uphdjcownrir Antigen was developed and its performance characteristics determined by [facility]. It has not been cleared or approved by the Food and Drug Administration. Performed By: #### L 3300.0450, L3100.5440, L3100.7250, L3300.1200, L4500.0100, L3100.5600, L3100.5700, L4500.5000, L3100.5800, L4500.2000, L101.9900, L3100.7325, L3100.8408, L3100.7050 #### [facility] [address] [place], [address] pH UR 6.0 Normal 5.0 - 8.0 [facility] Comment on above: Order Comment: Test( s) 238844-Vmnubuvghqcw Antigen was developed and its performance characteristics determined by [facility]. It has not been cleared or approved by the Food and Drug Administration. Performed By: #### L 3300.0450, L3100.5440, L3100.7250, L3300.1200, L4500.0100, L3100.5600, L3100.5700, L4500.5000, L3100.5800, L4500.2000, L101.9900, L3100.7325, L3100.8408, L3100.7050 #### [facility] [address] [place], [address] PROT DIPSTX Negative Normal Negative [facility] Comment on above: Order Comment: Test( s) 910912-Bwsmwmklgguj Antigen was developed and its performance characteristics determined by [facility]. It has not been cleared or approved by the Food and Drug Administration. Performed By: #### L 3300.0450, L3100.5440, L3100.7250, L3300.1200, L4500.0100, L3100.5600, L3100.5700, L4500.5000, L3100.5800, L4500.2000, L101.9900, L3100.7325, L3100.8408, L3100.7050 #### [facility] [address] [place], [address] SP.GR. DIPSTX 1.010 Normal 1.002-1.030 [facility] Comment on above: Order Comment: Test( s) 802227-Iqxugxrsjcfl Antigen was developed and its performance characteristics determined by [facility]. It has not been cleared or approved by the Food and Drug Administration. Performed By: #### L 3300.0450, L3100.5440, L3100.7250, L3300.1200, L4500.0100, L3100.5600, L3100.5700, L4500.5000, L3100.5800, L4500.2000, L101.9900, L3100.7325, L3100.8408, L3100.7050 #### [facility] [address] [place], [place], [id number] UROBILI Normal Normal Normal [facility] Comment on above: Order Comment: Test( s) [id number]-Csoxcyhehvpf Antigen was developed and its performance characteristics determined by [facility]. It has not been cleared or approved by the Food and Drug Administration. Performed By: #### L 3300.0450, L3100.5440, L3100.7250, L3300.1200, L4500.0100, L3100.5600, L3100.5700, L4500.5000, L3100.5800, L4500.2000, L101.9900, L3100.7325, L3100.8408, L3100.7050 #### [facility] [address] [facility] [place], [address] Urine blood detectionOrdered By: HEALTH ASSESSMENT on 08-15-2024 Urine Occult Blood Negative Negative [facility] Urine clarityOrdered By: [facility] ASSESSMENT on 08-15-2024 Clarity (U) Clear Clear [facility] Urine color determinationOrd ered By: HEALTH ASSESSMENT on 08-15-2024 Color (U) Yellow Yellow [facility] Urine glucose detectionOrder ed By: HEALTH ASSESSMENT on 08-15-2024 Glucose Ql (U) Normal mg/dl Normal [facility] Urine leukocyte esterase det ection by dipstickOrdered By: HEALTH ASSESSMENT on 08-15-2024 Leukocyte esterase Test strip Ql (U) 25 /ul High Negative [facility] Urine pHOrdered By: HEALTH A SSESSMENT on 08-15-2024 pH (U) 6.0 [pH] 5.0 - 8.0 [facility] Urine specific gravity measu rementOrdered By: HEALTH ASSESSMENT on 08-15-2024 Specific gravity (U) [Rel density] 1.010 1.002-1.030 [facility] Urine urobilinogen measureme ntOrdered By: HEALTH ASSESSMENT on 08-15-2024 Urobilinogen Ql (U) Normal mg/dl Normal [facility] Urobilinogen Ql (U)Ordered B y: HEALTH ASSESSMENT on 08-15-2024 Urine Urobilinogen Normal mg/dl Normal [facility] White blood cell (WBC) count Ordered By: HEALTH ASSESSMENT on 08-15-2024 WBC (Bld) [#/Vol] 6.4 10*3/uL 4.4-11.0 [facility] 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 Is patient in pain?: No Allergies Sulfa (Sulfonamide Antibiotics) (sulfa drugs) Allergy (Verified 05/27/24 13:33) Rash Medications ???Medication ???Instructions ???Recorded ???Confirmed ???Type prenat.vits,jessy,min-iron -folic tab PO DAILY 05/12/24 05/27/24 His tory Post menopausal: No Patient : No : No PFSH Medical History Proteins serum plasma low Wears glasses Fatty liver Non-smoker Blackout History of echocardiogram Surgical History Hx of wisdom tooth extraction Family History (Updated 05/27/24 @ 13:37 by Racheal Hussein) Grandmother Heart failure Father Hypertension Grandfather Lung cancer Other Cervical cancer Social History (Updated 05/27/24 @ 13:39 by Racheal Hussein) adopted: No household members: family current occupational status: employed current occupation: [employer] current occupational exposures/hazards: No history of recent travel: No sexually active: No Smoking Status: Never smoker second hand exposure: No alcohol intake: never substance use type: does not use what type of physical activity do you participate in: walking, running and weight training seatbelt use: always do you feel safe at home: Yes additional social history: - Chance HPI Encounter for routine gynecological examination Details: ARUN HELM is a 23 year old who presents for annual exam. Last PAP: 05/21/22 History of abnormal PAP: no Last mammogram: n/a History of abnormal mammogram: n/a Colon cancer screening: up to date Other preventative health care screenings: followed by pcp and up to date had a low/undetectable elevation in protein S. This was tested due to a bout of ischemic colitis that is now resolved. Unknown cause. Female Reproductive History Cycle Length: 21-35 Bleeding Duration: 5 Questions: metorrhagia: No, sexually active: Yes, dyspareunia: No and PCB: No Menopausal Symptoms: No hot flashes, No night sweats, No weight change, No mood changes, No difficulty concentrating, No sleep problems and No change in libido ROS Const Constitutional: Reports as per HPI; Denies fatigue, increased appetite, poor appetite, night sweats, weight gain or weight loss Cardio Card: Denies chest pain Resp Resp: Denies cough or dyspnea GI GI: Reports as per HPI; Denies abdominal pain, bloating, constipation, nausea or vomiting : Reports as per HPI and other; Denies difficulty voiding, dysuria, hematuria, hot flashes, nipple discharge, pelvic pain, prolapse symptoms, urinary frequency, urinary incontinence, urinary urgency, vaginal discharge, vaginal dryness, vaginal odor or vaginal pruritus Skin Skin/Breast: Denies changing lesions, breast mass, breast pain, breast skin changes or nipple discharge Psych Psych: Denies anxiety, change in libido, depression or difficulty concentrating Exam Const General: cooperative, healthy appearing, comfortable, no acute distress, well developed and well groomed HENMT Head: normal to inspection and normocephalic Ears: hearing grossly normal bilaterally and external ears normal Nose: external nose normal Face and sinus: normal facial exam Neck Neck: normal visual inspection, full ROM and no lymphadenopathy Thyroid: thyroid normal Chest Chest palpation inspection: normal inspection of the chest Breast inspection: normal inspection of the breasts and normal inspection of the axillae Breast palpation: normal palpation of the breasts, normal palpation of the axillae and no axillary lymphadenopathy Resp Effort Inspection: normal respiratory effort GI Inspection: normal to inspection and non-distended Palpation: soft, no hepatosplenomegaly and no guarding General: bladder normal to palpation External Female Exam: normal external appearance, normal appearance of the urethra and no lesions Urethra: normal appearance of the urethra and normal palpation Speculum Exam - Vagina: normal appearance of the vagina and normal vaginal discharge Speculum Exam - Cervix: normal appearance of the cervix, no cervical discharge, no lesions and nontender Bimanual Exam- Vagina Uterus: normal biman (more content not included)... Normal [facility] Oncology Visit Reporton 04-28 Oncology Visit Report [facility] [address] [place] [address] OFFICE VISIT Date of Service: 05/24/24 1451 MR#: [id number] Acct: [id number] Name: ARUN HELM Rep #: [id number] : 2000 From: Fina BraxtonC Age/Sex: 23/F [place] [facility] Status: Signed HPI Subjective Date of Service 05/24/24 Chief Complaint Referred for Protein S deficiency History of Present Illness Ms. Helm is a pleasant 23 y.o.woman who developed diarrhea April 2023. Had Colonoscopy done on 03/10/2024 was found to have colonic ulcer. She had Thrombotic Risk Profile done which showed modestly low protein S antigen March 31, 2024. As a result, she was referred to hematology for further investigation. She is planning to get . Denies personal/family history of clotting, bleeding disorder. She is not on Contraceptives. GI symptoms have resolved. Interval History Presents to clinic today to review labs repeated on 05/12/24. Denies any outstanding concerns r/t today's visit. [facility] Medical History Proteins serum plasma low Wears glasses Fatty liver Non-smoker Blackout History of echocardiogram Surgical History Hx of wisdom tooth extraction Family History Grandmother Heart failure Father Hypertension Grandfather Lung cancer Social History adopted: No household members: family current occupational status: employed current occupation: [employer] current occupational exposures/hazards: No history of recent travel: No sexually active: No Smoking Status: Never smoker second hand exposure: No alcohol intake: never substance use type: does not use what type of physical activity do you participate in: running seatbelt use: always do you feel safe at home: Yes additional social history: fiance - Chance ROS ROS Narrative Negative except as documented in the interval HPI Intake Vital Signs 05/12/24 14:54 05/24/24 14:54 05/24/24 14:55 Height 5 ft 5 in 5 ft 5 in 5 ft 5 in Weight: 122 lb 1 oz 121 lb 3 oz BMI 20.2 20.1 BP 113/75 Blood Pressure Location Lt brachial Position Sitting Respiration 18 Pulse 74 Pulse Source Monitor Temp 97.8 F Temperature Source Temporal Artery Pulse Oximetry (%) 98 Oxygen Delivery Method room air Intake Is patient in pain?: No Allergies Sulfa (Sulfonamide Antibiotics) (sulfa drugs) Allergy (Verified 05/24/24 14:53) Rash Medications ???Medication ???Instructions ???Recorded ???Confirmed ???Type ondansetron 4 mg disintegrating 4 mg PO Q8H PRN nausea and 02/26/24 05/24/24 Rx tablet vomiting #30 tabs prenat.vits,jessy,min-iron -folic tab PO DAILY 05/12/24 05/24/24 History Central Venous Access Central Venous Access: No Laboratory Results 05/12/24 03/31/24 16:20 13:00 WBC 6.2 Hgb 13.4 Hct 38.0 Plt Count 227 Absolute Neuts (auto) 3.5 PT 13.8 INR 1.0 APTT 32.9 Fibrinogen 252 Functional Protein S 63 53 L Free Protein S 76 77 Total Protein S 57 L 56 L Sodium 142 Potassium 3.7 Chloride 110 H BUN 15 Creatinine 0.51 L Iron 78 TIBC 193 L Iron Saturation 40.4 Ferritin 20 Total Bilirubin 0.50 AST 17 ALT 16 Alkaline Phosphatase 68 Lactate Dehydrogenase 146 Albumin 3.7 Vitamin B12 577 Folate 26.80 Exam Physical Exam Const alert, oriented x3 and no apparent distress HEENT normocephalic Eyes General Eye: normal appearance of both eyes Extremity no clubbing, cyanosis or edema Psych mental status grossly normal Coding Level of Care Code Off vis,est,level 4 Exam Problem Focused Diagnoses Protein S in undetectable to low range in serum Assessment and Plan Assessment and Plan (1) Protein S in undetectable to low range in serum: Status: Chronic Plan: Repeat labs reveal minimally low protein S antigen with preserved protein S function. Void of history of VTE and with negative factor V, this finding is of doubtful clinical significance. No further workup is indicated at this time. All the patient's questions were addressed to her satisfaction 05/25/24 9035 Date Fina Barker NP RESIDENCY PROGRAM COORDINATOR-C Cosigner Signature: Date (if applicable) CC: [place] Normal [facility] L3410.9999on 05-18-2024 [facility] Misc. COMMENT Normal . [facility] Comment on above: Order Comment: Test( s) 924700-Kqehjgghjkog Antigen was developed and its performance characteristics determined by [facility]. It has not been cleared or approved by the Food and Drug Administration. Result Comment: Test Ordered: [id number] Thrombotic Risk Profile II Homocyst(e)ine 6.3 umol/L CB Reference Range: 0.0-14.5 Plasminogen 84 % BN Reference Range: 70-150 Antithrombin Activity 126 % BN Reference Range: 75-135 Direct Xa inhibitor anticoagulants such as rivaroxaban, apixaban and edoxaban will lead to spuriously elevated antithrombin activity levels possibly masking a deficiency. Protein C-Functional 101 % BN Reference Range: 73-180 Protein S, Free 74 % BN Reference Range: 61-136 Act.Prt.C Resist. 2.7 ratio BN Reference Range: 2.2-3.5 The APCR result may be falsely increased (masking an abnormal, low APCR result) in patients on direct Xa inhibitor (e.g., rivaroxaban, apixaban, edoxaban) or a direct thrombin inhibitor (e.g., dabigatran) anticoagulant therapy due to assay interference by these drugs. PTT-LA 40.6 sec BN Reference Range: 0.0-43.5 dRVVT 33.0 sec BN Reference Range: 0.0-47.0 Lupus Reflex Interpretation Comment: BN Reference Range: . No lupus anticoagulant was detected. Dilute Prothrombin Time(dPT) 35.9 sec BN Reference Range: 0.0-47.6 dPT Confirm Ratio 1.04 Ratio BN Reference Range: 0.00-1.34 Anticardiolipin Ab,IgG,Qn <9 GPL U/mL CB Reference Range: 0-14 Negative: <15 Indeterminate: 15 - 20 Low-Med Positive: >20 - 80 High Positive: >80 Anticardiolipin Ab,IgM,Qn <9 MPL U/mL CB Reference Range: 0-12 Negative: <13 Indeterminate: 13 - 20 Low-Med Positive: >20 - 80 High Positive: >80 Anticardiolipin Ab,IgA,Qn <9 APL U/mL CB Reference Range: 0-11 Negative: <12 Indeterminate: 12 - 20 Low-Med Positive: >20 - 80 High Positive: >80 Beta-2 Glycoprotein I Ab, IgG <9 CB Units of Measure: GPI IgG units Reference Range: 0-20 The reference interval reflects a 3SD or 99th percentile interval, which is thought to represent a potentially clinically significant result in accordance with the International Consensus Statement on the classification criteria for definitive antiphospholipid syndrome (APS). J Thromb Haem 2006;4:295-306. Beta-2 Glycoprotein I Ab, IgA <9 CB Units of Measure: GPI IgA units Reference Range: 0-25 The reference interval reflects a 3SD or 99th percentile interval, which is thought to represent a potentially clinically significant result in accordance with the International Consensus Statement on the classification criteria for definitive antiphospholipid syndrome (APS). J Thromb Haem 2006;4:295-306. Beta-2 Glycoprotein I Ab, IgM <9 CB Units of Measure: GPI IgM units Reference Range: 0-32 The reference interval reflects a 3SD or 99th percentile interval, which is thought to represent a potentially clinically significant result in accordance with the International Consensus Statement on the classification criteria for definitive antiphospholipid syndrome (APS). J Thromb Haem 2006;4:295-306. Antiphosphatidylserine IgM 17 Units BN Reference Range: 0-30 Antiphosphatidylserine IgA 2 BN Units of Measure: APS Units Reference Range: 0-19 Antiphosphatidylserine IgG 9 Units BN Reference Range: 0-30 Performed at: - [address] [id number] Hairspring Assembler: Kun Alicea PhD, Phone: [phone] Performed at: - [facility] [id number] Hairspring Assembler: Eliseo Barbour MD, Phone: [phone] Performed By: #### L 3300.0450, L3100.5440, L3100.7250, L3300.1200, L4500.0100, L3100.5600, L3100.5700, L4500.5000, L3100.5800, L4500.2000, L101.9900, L3100.7325, L3100.8408, L3100.7050 #### [facility] [address] [place], [place], [phone] Protein S Defic. Profileon 0 05-15-2024 PROTEIN S, FREE 76 Normal 61-136 [facility] Comment on above: Performed By: #### L 3300.0450, L3100.5440, L3100.7250, L3300.1200, L4500.0100, L3100.5600, L3100.5700, L4500.5000, L3100.5800, L4500.2000, L101.9900, L3100.7325, L3100.8408, L3100.7050 #### [facility] [address] [place], [place], [phone] PROTEIN S, FUNC 63 Normal 63-140 [facility] Comment on above: Result Comment: Prot ein S activity may be falsely increased (masking an abnormal, low result) in patients receiving direct Xa inhibitor (e.g., rivaroxaban, apixaban, edoxaban) or a direct thrombin inhibitor (e.g., dabigatran) anticoagulant treatment due to assay interference by these drugs. Performed at: [address] [id number] Hairspring Assembler: Eliseo Barbour MD, Phone: [phone] Performed By: #### L 3300.0450, L3100.5440, L3100.7250, L3300.1200, L4500.0100, L3100.5600, L3100.5700, L4500.5000, L3100.5800, L4500.2000, L101.9900, L3100.7325, L3100.8408, L3100.7050 #### [facility] [address] [place], [address] PROTEIN S,TOTAL 57 Low 60-150 [facility] Comment on above: Result Comment: This test was developed and its performance characteristics determined by [facility]. It has not been cleared or approved by the Food and Drug Administration. Performed By: #### L 3300.0450, L3100.5440, L3100.7250, L3300.1200, L4500.0100, L3100.5600, L3100.5700, L4500.5000, L3100.5800, L4500.2000, L101.9900, L3100.7325, L3100.8408, L3100.7050 #### [facility] [address] [place], [place], [id number] Absolute neutrophil countOrd ered By: Jordan Elliott on 05-12-2024 Neutrophils (Bld) [#/Vol] 3.5 10*3/uL 2.0-7.7 [facility] Albumin to globulin ratioOrd ered By: Jordan Elliott on 05-12-2024 Albumin/Globulin [Mass ratio] 1.1 {ratio} Normal 0.9-2.4 [facility] Comment on above: Order Comment: Test( s) [id number]-Gtdxshfrnbxr Antigen was developed and its performance characteristics determined by [facility]. It has not been cleared or approved by the Food and Drug Administration. Performed By: #### L 3300.0450, L3100.5440, L3100.7250, L3300.1200, L4500.0100, L3100.5600, L3100.5700, L4500.5000, L3100.5800, L4500.2000, L101.9900, L3100.7325, L3100.8408, L3100.7050 #### [facility] [address] [facility] [place], [address] Basophil percentageOrdered B y: Jordan Elliott on 05-12-2024 Basophils/100 WBC (Bld) 0.5 % 0-1 [facility] Bilirubin, totalOrdered By: Jordan Elliott on 05-12-2024 Bilirubin [Mass/Vol] 0.50 mg/dL Normal 0.20-1.00 [facility] Comment on above: For patients on eltr ombopag therapy, use of Dimension [place] TBIL is not recommended. Order Comment: Test( s) 474631-Ffpjgtaudhhx Antigen was developed and its performance characteristics determined by [facility]. It has not been cleared or approved by the Food and Drug Administration. Result Comment: For patients on eltrombopag therapy, use of Dimension [place] TBIL is not recommended. Performed By: #### L 3300.0450, L3100.5440, L3100.7250, L3300.1200, L4500.0100, L3100.5600, L3100.5700, L4500.5000, L3100.5800, L4500.2000, L101.9900, L3100.7325, L3100.8408, L3100.7050 #### [facility] [address] [facility] [place], [place], [id number] Blood urea nitrogen (BUN)/cr eatinine ratioOrdered By: Jordan Elliott on 05-12-2024 Urea nitrogen/Creatinine [Mass ratio] 29.5 mg/mg High 10-20 [facility] C-reactive protein measureme nt by high sensitivity methodOrdered By: Jordan Elliott on 05-12-2024 C-Reactive Protein Extended Range < 2.90 mg/L 0.0-3.0 [facility] Comment on above: C-Reactive Protein ( CRP) provides useful information for thediagnosis, therapy and monitoring of inflammatory processesand associated diseases. For the evaluation of Relative Riskfor Cardiovascular Disease, a High Sensitivity CRP (HSCRP)should be ordered. CBC W/Diff, Automatedon 04-27 Absolute Lymph 2.07 X10 3/uL Normal 0.83-4.51 [facility] Comment on above: Performed By: #### L 3300.0450, L3100.5440, L3100.7250, L3300.1200, L4500.0100, L3100.5600, L3100.5700, L4500.5000, L3100.5800, L4500.2000, L101.9900, L3100.7325, L3100.8408, L3100.7050 #### [facility] [address] [place], [address] Absolute Neut 3.5 X10 3/uL Normal 2.0-7.7 [facility] Comment on above: Performed By: #### L 3300.0450, L3100.5440, L3100.7250, L3300.1200, L4500.0100, L3100.5600, L3100.5700, L4500.5000, L3100.5800, L4500.2000, L101.9900, L3100.7325, L3100.8408, L3100.7050 #### [facility] [address] [place], [address] Basophils/100 WBC (Bld) 0.5 % Normal 0-1 [facility] Comment on above: Performed By: #### L 3300.0450, L3100.5440, L3100.7250, L3300.1200, L4500.0100, L3100.5600, L3100.5700, L4500.5000, L3100.5800, L4500.2000, L101.9900, L3100.7325, L3100.8408, L3100.7050 #### [facility] [address] [place], [address] Eosinophils/100 WBC (Bld) 2.4 % Normal 0-5 [facility] Comment on above: Performed By: #### L 3300.0450, L3100.5440, L3100.7250, L3300.1200, L4500.0100, L3100.5600, L3100.5700, L4500.5000, L3100.5800, L4500.2000, L101.9900, L3100.7325, L3100.8408, L3100.7050 #### [facility] [address] [facility] [place], [place], [phone] ([phone]) Erythrocyte distribution width (RBC) [Ratio] 11.7 % Normal 11.6-14.6 [facility] Comment on above: Performed By: #### L 3300.0450, L3100.5440, L3100.7250, L3300.1200, L4500.0100, L3100.5600, L3100.5700, L4500.5000, L3100.5800, L4500.2000, L101.9900, L3100.7325, L3100.8408, L3100.7050 #### [facility] [address] [facility] [place], [place], [phone] (850) Hematocrit (Bld) [Volume fraction] 38.0 % Normal 37-47 [facility] Comment on above: Performed By: #### L 3300.0450, L3100.5440, L3100.7250, L3300.1200, L4500.0100, L3100.5600, L3100.5700, L4500.5000, L3100.5800, L4500.2000, L101.9900, L3100.7325, L3100.8408, L3100.7050 #### [facility] [address] [place], [address] Hemoglobin (Bld) [Mass/Vol] 13.4 g/dL Normal 12.0-15.0 [facility] Comment on above: Performed By: #### L 3300.0450, L3100.5440, L3100.7250, L3300.1200, L4500.0100, L3100.5600, L3100.5700, L4500.5000, L3100.5800, L4500.2000, L101.9900, L3100.7325, L3100.8408, L3100.7050 #### [facility] [address] [place], [address] IG% 0.300 Normal 0.0-0.9 [facility] Comment on above: Result Comment: IG% - Immature Granulocytes (promyelocytes, myelocytes and metamyelocytes) > 1% indicates that a LEFT SHIFT is Present. Performed By: #### L 3300.0450, L3100.5440, L3100.7250, L3300.1200, L4500.0100, L3100.5600, L3100.5700, L4500.5000, L3100.5800, L4500.2000, L101.9900, L3100.7325, L3100.8408, L3100.7050 #### [facility] [address] [place], [address] Lymphocytes/100 WBC (Bld) 33.3 % Normal 19-41 [facility] Comment on above: Performed By: #### L 3300.0450, L3100.5440, L3100.7250, L3300.1200, L4500.0100, L3100.5600, L3100.5700, L4500.5000, L3100.5800, L4500.2000, L101.9900, L3100.7325, L3100.8408, L3100.7050 #### [facility] [address] [place], [address] MCH (RBC) [Entitic mass] 31.9 pg Normal 27.0-32.0 [facility] Comment on above: Performed By: #### L 3300.0450, L3100.5440, L3100.7250, L3300.1200, L4500.0100, L3100.5600, L3100.5700, L4500.5000, L3100.5800, L4500.2000, L101.9900, L3100.7325, L3100.8408, L3100.7050 #### [facility] [address] [place], [place], [id number] MCHC (RBC) [Mass/Vol] 35.3 g/dL Normal 32-36 [facility] Comment on above: Performed By: #### L 3300.0450, L3100.5440, L3100.7250, L3300.1200, L4500.0100, L3100.5600, L3100.5700, L4500.5000, L3100.5800, L4500.2000, L101.9900, L3100.7325, L3100.8408, L3100.7050 #### [facility] [address] [place], [address] MCV (RBC) [Entitic vol] 90.5 fL Normal 81-99 [facility] Comment on above: Performed By: #### L 3300.0450, L3100.5440, L3100.7250, L3300.1200, L4500.0100, L3100.5600, L3100.5700, L4500.5000, L3100.5800, L4500.2000, L101.9900, L3100.7325, L3100.8408, L3100.7050 #### [facility] [address] [place], [place], [id number] Monocytes/100 WBC (Bld) 6.9 % Normal 0-10 [facility] Comment on above: Performed By: #### L 3300.0450, L3100.5440, L3100.7250, L3300.1200, L4500.0100, L3100.5600, L3100.5700, L4500.5000, L3100.5800, L4500.2000, L101.9900, L3100.7325, L3100.8408, L3100.7050 #### [facility] [address] [facility] [place], [address] Neutrophils/100 WBC (Bld) 56.6 % Normal 47-70 [facility] Comment on above: Performed By: #### L 3300.0450, L3100.5440, L3100.7250, L3300.1200, L4500.0100, L3100.5600, L3100.5700, L4500.5000, L3100.5800, L4500.2000, L101.9900, L3100.7325, L3100.8408, L3100.7050 #### [facility] [address] [facility] [place], [address] Nucleated RBC (Bld) [#/Vol] 0 10*3/uL Normal 0-5 [facility] Comment on above: Performed By: #### L 3300.0450, L3100.5440, L3100.7250, L3300.1200, L4500.0100, L3100.5600, L3100.5700, L4500.5000, L3100.5800, L4500.2000, L101.9900, L3100.7325, L3100.8408, L3100.7050 #### [facility] [address] [facility] [address] [place], [address] Platelet mean volume (Bld) [Entitic vol] 10.8 fL Normal 6.2-12.0 [facility] Comment on above: Performed By: #### L 3300.0450, L3100.5440, L3100.7250, L3300.1200, L4500.0100, L3100.5600, L3100.5700, L4500.5000, L3100.5800, L4500.2000, L101.9900, L3100.7325, L3100.8408, L3100.7050 #### [facility] [address] [facility] [place], [address] Platelets (Bld) [#/Vol] 227 10*3/uL Normal 150-450 [facility] Comment on above: Performed By: #### L 3300.0450, L3100.5440, L3100.7250, L3300.1200, L4500.0100, L3100.5600, L3100.5700, L4500.5000, L3100.5800, L4500.2000, L101.9900, L3100.7325, L3100.8408, L3100.7050 #### [facility] [address] [place], [address] RBC (Bld) [#/Vol] 4.20 10*6/uL Normal 4.2-5.4 [facility] Comment on above: Performed By: #### L 3300.0450, L3100.5440, L3100.7250, L3300.1200, L4500.0100, L3100.5600, L3100.5700, L4500.5000, L3100.5800, L4500.2000, L101.9900, L3100.7325, L3100.8408, L3100.7050 #### [facility] [address] [place], [address] RDW SD 38.6 fl Normal 35.1-43.9 [facility] Comment on above: Performed By: #### L 3300.0450, L3100.5440, L3100.7250, L3300.1200, L4500.0100, L3100.5600, L3100.5700, L4500.5000, L3100.5800, L4500.2000, L101.9900, L3100.7325, L3100.8408, L3100.7050 #### [facility] [address] [place], [address] WBC (Bld) [#/Vol] 6.2 10*3/uL Normal 4.4-11.0 [facility] Comment on above: Performed By: #### L 3300.0450, L3100.5440, L3100.7250, L3300.1200, L4500.0100, L3100.5600, L3100.5700, L4500.5000, L3100.5800, L4500.2000, L101.9900, L3100.7325, L3100.8408, L3100.7050 #### [facility] [address] [place], [place], [id number] CRPon 05-12-2024 C-REACTIVE PROT < 2.90 Normal 0.0-3.0 [facility] Comment on above: Order Comment: Test( s) 688307-Mwtfqyzgpchp Antigen was developed and its performance characteristics determined by [facility]. It has not been cleared or approved by the Food and Drug Administration. Result Comment: C-Re active Protein (CRP) provides useful information for the diagnosis, therapy and monitoring of inflammatory processes and associated diseases. For the evaluation of Relative Risk for Cardiovascular Disease, a High Sensitivity CRP (HSCRP) should be ordered. Performed By: #### L 3300.0450, L3100.5440, L3100.7250, L3300.1200, L4500.0100, L3100.5600, L3100.5700, L4500.5000, L3100.5800, L4500.2000, L101.9900, L3100.7325, L3100.8408, L3100.7050 #### [facility] [address] [facility] [place], [address] Carbon dioxide measurementOr dered By: Jordan Elliott on 05-12-2024 CO2 [Moles/Vol] 27.0 mmol/L Normal 21.0-32.0 [facility] Comment on above: Order Comment: Test( s) 496618-Havrehatqgme Antigen was developed and its performance characteristics determined by [facility]. It has not been cleared or approved by the Food and Drug Administration. Performed By: #### L 3300.0450, L3100.5440, L3100.7250, L3300.1200, L4500.0100, L3100.5600, L3100.5700, L4500.5000, L3100.5800, L4500.2000, L101.9900, L3100.7325, L3100.8408, L3100.7050 #### [facility] [address] [place], [place], [id number] Chloride measurementOrdered By: Jordan Elliott on 05-12-2024 Chloride [Moles/Vol] 110 mmol/L High 98-107 [facility] Comment on above: Order Comment: Test( s) 078854-Wrgkxdkiwebo Antigen was developed and its performance characteristics determined by [facility]. It has not been cleared or approved by the Food and Drug Administration. Performed By: #### L 3300.0450, L3100.5440, L3100.7250, L3300.1200, L4500.0100, L3100.5600, L3100.5700, L4500.5000, L3100.5800, L4500.2000, L101.9900, L3100.7325, L3100.8408, L3100.7050 #### [facility] [address] [place], [place], [id number] Comprehensive Metabolic Prof ilon 05-12-2024 ALK P 68 U/L Normal 45-117 [facility] Comment on above: Order Comment: Test( s) 557888-Nbsdqdobdllq Antigen was developed and its performance characteristics determined by [facility]. It has not been cleared or approved by the Food and Drug Administration. Performed By: #### L 3300.0450, L3100.5440, L3100.7250, L3300.1200, L4500.0100, L3100.5600, L3100.5700, L4500.5000, L3100.5800, L4500.2000, L101.9900, L3100.7325, L3100.8408, L3100.7050 #### [facility] [address] [place], [place], [id number] BUN/CRE 29.5 RATIO High 10-20 [facility] Comment on above: Order Comment: Test( s) 615993-Nzegassebayn Antigen was developed and its performance characteristics determined by [facility]. It has not been cleared or approved by the Food and Drug Administration. Performed By: #### L 3300.0450, L3100.5440, L3100.7250, L3300.1200, L4500.0100, L3100.5600, L3100.5700, L4500.5000, L3100.5800, L4500.2000, L101.9900, L3100.7325, L3100.8408, L3100.7050 #### [facility] [address] [place], [place], [id number] CA,Total 9.3 mg/dL Normal 8.5-10.1 [facility] Comment on above: Order Comment: Test( s) 959460-Czkdkvrwpepb Antigen was developed and its performance characteristics determined by [facility]. It has not been cleared or approved by the Food and Drug Administration. Performed By: #### L 3300.0450, L3100.5440, L3100.7250, L3300.1200, L4500.0100, L3100.5600, L3100.5700, L4500.5000, L3100.5800, L4500.2000, L101.9900, L3100.7325, L3100.8408, L3100.7050 #### [facility] [address] [place], [place], [id number] EST GFR - AA 189 mL/min Normal >60 [facility] Comment on above: Order Comment: Test( s) 306038-Vjnayctvkshx Antigen was developed and its performance characteristics determined by [facility]. It has not been cleared or approved by the Food and Drug Administration. Result Comment: Afri can Gambian GFR Calc Performed By: #### L 3300.0450, L3100.5440, L3100.7250, L3300.1200, L4500.0100, L3100.5600, L3100.5700, L4500.5000, L3100.5800, L4500.2000, L101.9900, L3100.7325, L3100.8408, L3100.7050 #### [facility] [address] [place], [place], [id number] GAP 5 Normal 5-15 [facility] Comment on above: Order Comment: Test( s) 240758-Upmirizfeosh Antigen was developed and its performance characteristics determined by [facility]. It has not been cleared or approved by the Food and Drug Administration. Performed By: #### L 3300.0450, L3100.5440, L3100.7250, L3300.1200, L4500.0100, L3100.5600, L3100.5700, L4500.5000, L3100.5800, L4500.2000, L101.9900, L3100.7325, L3100.8408, L3100.7050 #### [facility] [address] [place], [address] GFR/1.73 sq M.predicted among non-blacks MDRD (S/P/Bld) [Vol rate/Area] 156 mL/min/{1.73_m2} Normal >60 [facility] Comment on above: Order Comment: Test( s) 340989-Hamhvjurrhxi Antigen was developed and its performance characteristics determined by [facility]. It has not been cleared or approved by the Food and Drug Administration. Result Comment: Non- GFR Calc Performed By: #### L 3300.0450, L3100.5440, L3100.7250, L3300.1200, L4500.0100, L3100.5600, L3100.5700, L4500.5000, L3100.5800, L4500.2000, L101.9900, L3100.7325, L3100.8408, L3100.7050 #### [facility] [address] [place], [address] T PROT 7.0 g/dL Normal 6.4-8.2 [facility] Comment on above: Order Comment: Test( s) 647681-Ogdvoekcrhow Antigen was developed and its performance characteristics determined by [facility]. It has not been cleared or approved by the Food and Drug Administration. Performed By: #### L 3300.0450, L3100.5440, L3100.7250, L3300.1200, L4500.0100, L3100.5600, L3100.5700, L4500.5000, L3100.5800, L4500.2000, L101.9900, L3100.7325, L3100.8408, L3100.7050 #### [facility] [address] [place], [address] Comprehensive Metabolic Prof ilOrdered By: Jordan Elliott on 05-12-2024 AST [Catalytic activity/Vol] 17 U/L Normal 15-37 [facility] Comment on above: Order Comment: Test( s) 666654-Javeuzlvamgi Antigen was developed and its performance characteristics determined by [employer]. It has not been cleared or approved by the Food and Drug Administration. Performed By: #### L 3300.0450, L3100.5440, L3100.7250, L3300.1200, L4500.0100, L3100.5600, L3100.5700, L4500.5000, L3100.5800, L4500.2000, L101.9900, L3100.7325, L3100.8408, L3100.7050 #### [facility] [address] [place], [address] Eosinophil percentageOrdered By: Jordan Elliott on 05-12-2024 Eosinophils/100 WBC (Bld) 2.4 % 0-5 [facility] Erythrocyte Sed Rateon 05-12 SED RATE 1 mm/hr Normal 0-30 [facility] Comment on above: Performed By: #### L 3300.0450, L3100.5440, L3100.7250, L3300.1200, L4500.0100, L3100.5600, L3100.5700, L4500.5000, L3100.5800, L4500.2000, L101.9900, L3100.7325, L3100.8408, L3100.7050 #### [facility] [address] [place], [address] Erythrocyte distribution wid th (RBC) [Ratio]Ordered By: Jordan Elliott on 05-12-2024 Erythrocyte distribution width (RBC) [Entitic vol] 38.6 fL 35.1-43.9 [facility] Erythrocyte distribution wid th ratioOrdered By: Jordan Elliott on 05-12-2024 Erythrocyte distribution width (RBC) [Ratio] 11.7 % 11.6-14.6 [facility] Erythrocyte sedimentation ra teOrdered By: Jordan Elliott on 05-12-2024 ESR (Bld) [Velocity] 1 mm/h 0-30 [facility] Estimated glomerular filtrat ion rate (GFR) AmericanOrdered By: Jordan Elliott on 05-12-2024 Estimated GFR (MDRD) Amer 189 mL/min >60 [facility] Comment on above: GFR Calc Ferritin measurementOrdered By: Jordan Elliott on 05-12-2024 Ferritin [Mass/Vol] 20 ng/mL Normal 8-252 [facility] Comment on above: Order Comment: Test( s) 076014-Qfnyvvqreyot Antigen was developed and its performance characteristics determined by [employer]. It has not been cleared or approved by the Food and Drug Administration. Performed By: #### L 3300.0450, L3100.5440, L3100.7250, L3300.1200, L4500.0100, L3100.5600, L3100.5700, L4500.5000, L3100.5800, L4500.2000, L101.9900, L3100.7325, L3100.8408, L3100.7050 #### [facility] [address] [place], [place], [id number] Fibrinogenon 05-12-2024 FIBRINOGEN 252 mg/dl Normal 203-444 [facility] Comment on above: Performed By: #### L 3300.0450, L3100.5440, L3100.7250, L3300.1200, L4500.0100, L3100.5600, L3100.5700, L4500.5000, L3100.5800, L4500.2000, L101.9900, L3100.7325, L3100.8408, L3100.7050 #### [facility] [address] [place], [place], [id number] Fibrinogen measurementOrdere d By: Jordan Elliott on 05-12-2024 Fibrinogen 252 mg/dl 203-444 [facility] Folates, (Folic Acid)on 04-27 FOLATES 26.80 ng/mL Normal 3.1-55.4 [facility] Comment on above: Order Comment: Test( s) 163006-Pruqcmzdrono Antigen was developed and its performance characteristics determined by [facility]. It has not been cleared or approved by the Food and Drug Administration. Performed By: #### L 3300.0450, L3100.5440, L3100.7250, L3300.1200, L4500.0100, L3100.5600, L3100.5700, L4500.5000, L3100.5800, L4500.2000, L101.9900, L3100.7325, L3100.8408, L3100.7050 #### [facility] [address] [facility] [place], [address] Folic acid measurementOrdere d By: Jordan Elliott on 05-12-2024 Folate 26.80 ng/mL 3.1-55.4 [facility] Glomerular filtration rate ( GFR) estimationOrdered By: Jordan Elliott on 05-12-2024 Estimated GFR (MDRD) Non-Af Amer 156 mL/min >60 [facility] Comment on above: Non- GFR Calc Glucose measurementOrdered B y: Jordan Elliott on 05-12-2024 Glucose [Mass/Vol] 84 mg/dL Normal 74-106 [facility] Comment on above: Order Comment: Test( s) 461606-Ekqwdhbjzqyn Antigen was developed and its performance characteristics determined by [facility]. It has not been cleared or approved by the Food and Drug Administration. Performed By: #### L 3300.0450, L3100.5440, L3100.7250, L3300.1200, L4500.0100, L3100.5600, L3100.5700, L4500.5000, L3100.5800, L4500.2000, L101.9900, L3100.7325, L3100.8408, L3100.7050 #### [facility] [address] [place], [address] Hematocrit Auto (Bld) [Volum e fraction]Ordered By: Jordan Elliott on 05-12-2024 Hematocrit (Bld) [Volume fraction] 38.0 % 37-47 [facility] Hemoglobin (Reticulocytes) [ Entitic mass]Ordered By: Jordan Elliott on 05-12-2024 Reticulocyte Hemoglobin Equivalent 36.6 pg High 30-35 [facility] Hemoglobin measurementOrdere d By: Jordan Elliott on 05-12-2024 Hemoglobin (Bld) [Mass/Vol] 13.4 g/dL 12.0-15.0 [facility] Immature granulocytes/100 WB C Auto (Bld)Ordered By: Jordan Elliott on 05-12-2024 Immature granulocytes/100 WBC (Bld) 0.300 % 0.0-0.9 [facility] Comment on above: IG% - Immature Granu locytes (promyelocytes, myelocytes and metamyelocytes) > 1% indicates that a LEFT SHIFT is Present. Immature reticulocyte fracti onOrdered By: Jordan Elliott on 05-12-2024 Immature Reticulocyte Fraction 6.70 % 3.00-15.90 [facility] International normalized rat io (INR) calculationOrdered By: Jordan Elliott on 05-12-2024 INR Coag (Bld) [Relative time] 1.0 {INR} [facility] Iron measurement (mass/mass) Ordered By: Jordan Elliott on 05-12-2024 Iron [Mass/Vol] 78 ug/dL Normal 50-170 [facility] Comment on above: Order Comment: Test( s) 505893-Vqnwbpmyurtk Antigen was developed and its performance characteristics determined by [employer]. It has not been cleared or approved by the Food and Drug Administration. Performed By: #### L 3300.0450, L3100.5440, L3100.7250, L3300.1200, L4500.0100, L3100.5600, L3100.5700, L4500.5000, L3100.5800, L4500.2000, L101.9900, L3100.7325, L3100.8408, L3100.7050 #### [facility] [address] [place], [place], [id number] Iron saturation [Mass fracti on]Ordered By: Jordan Elliott on 05-12-2024 Iron Saturation 40.4 % 15.0-55.0 [facility] Iron+Iron Binding Capacityon 05-12-2024 IRON SATURATION 40.4 Normal 15.0-55.0 [facility] Comment on above: Order Comment: Test( s) 058358-Omvuodgvzwue Antigen was developed and its performance characteristics determined by [facility]. It has not been cleared or approved by the Food and Drug Administration. Performed By: #### L 3300.0450, L3100.5440, L3100.7250, L3300.1200, L4500.0100, L3100.5600, L3100.5700, L4500.5000, L3100.5800, L4500.2000, L101.9900, L3100.7325, L3100.8408, L3100.7050 #### [facility] [address] [facility] [place], [place], [id number] TIBC 193 ug/dL Low 250-450 [facility] Comment on above: Order Comment: Test( s) 776109-Bjyxgxtlgwom Antigen was developed and its performance characteristics determined by [facility]. It has not been cleared or approved by the Food and Drug Administration. Performed By: #### L 3300.0450, L3100.5440, L3100.7250, L3300.1200, L4500.0100, L3100.5600, L3100.5700, L4500.5000, L3100.5800, L4500.2000, L101.9900, L3100.7325, L3100.8408, L3100.7050 #### [facility] [address] [place], [place], [id number] LDHon 05-12-2024 LDH 146 U/L Normal 84-246 [facility] Comment on above: Order Comment: Test( s) 614092-Lcivyknytvkl Antigen was developed and its performance characteristics determined by [facility]. It has not been cleared or approved by the Food and Drug Administration. Performed By: #### L 3300.0450, L3100.5440, L3100.7250, L3300.1200, L4500.0100, L3100.5600, L3100.5700, L4500.5000, L3100.5800, L4500.2000, L101.9900, L3100.7325, L3100.8408, L3100.7050 #### [facility] [place], [address] Lactate dehydrogenase (LDH) measurementOrdered By: Jordan Elliott on 05-12-2024 LDH [Catalytic activity/Vol] 146 U/L 84-246 [facility] Lymphocytes Auto (Unsp spec) [#/Vol]Ordered By: Jordan Elliott on 05-12-2024 Lymphocytes (Bld) [#/Vol] 2.07 10*3/uL 0.83-4.51 [facility] Lymphocytes/100 WBC Auto (Un sp spec)Ordered By: Jordan Elliott on 05-12-2024 Lymphocytes/100 WBC (Bld) 33.3 % 19-41 [facility] MCV (mean corpuscular volume ) determinationOrdered By: [facility] MCV (RBC) [Entitic vol] 90.5 fL 81-99 [facility] Mean corpuscular hemoglobin (MCH) determinationOrdered By: [facility] on 05-12-2024 MCH (RBC) [Entitic mass] 31.9 pg 27.0-32.0 [facility] Mean corpuscular hemoglobin concentration (MCHC) determinationOrdered By: [facility] on 05-12-2024 MCHC (RBC) [Mass/Vol] 35.3 g/dL 32-36 [facility] Mean platelet volume determi nationOrdered By: Jordan Earl on 05-12-2024 Platelet mean volume (Bld) [Entitic vol] 10.8 fL 6.2-12.0 [facility] Monocyte percentageOrdered B y: [facility] on 05-12-[facility] Monocytes/100 WBC (Bld) 6.9 % 0-10 [facility] Neutrophil percentageOrdered By: [facility] on 05-12-2024 Neutrophils/100 WBC (Bld) 56.6 % 47-70 [facility] No Panel InformationOrdered By: [facility] on 05-12-2024 Miscellaneous Test COMMENT . [facility] Comment on above: Test Ordered: [id number] Thrombotic Risk Profile IIHomocyst(e)ine 6.3 umol/L CB Reference Range: 0.0-14.5Plasminogen 84 % BN Reference Range: 70-150Antithrombin Activity 126 % BN Reference Range: 75-135Direct Xa inhibitor anticoagulants such as rivaroxaban,apixaban and edoxaban will lead to spuriously elevatedantithrombin activity levels possibly masking a deficiency.Protein C-Functional 101 % BN Reference Range: 73-180Protein S, Free 74 % BN Reference Range: 61-136Act.Prt.C Resist. 2.7 ratio BN Reference Range: 2.2-3.5The APCR result may be falsely increased (masking anabnormal, low APCR result) in patients on direct Xainhibitor (e.g., rivaroxaban, apixaban, edoxaban) or adirect thrombin inhibitor (e.g., dabigatran) anticoagulanttherapy due to assay interference by these drugs.PTT-LA 40.6 sec BN Reference Range: 0.0-43.5dRVVT 33.0 sec BN Reference Range: 0.0-47.0Lupus Reflex Interpretation Comment: BN Reference Range: .No lupus anticoagulant was detected.Dilute Prothrombin Time(dPT) 35.9 sec BN Reference Range: 0.0-47.6dPT Confirm Ratio 1.04 Ratio BN Reference Range: 0.00-1.34Anticardiolipin Ab,IgG,Qn <9 GPL U/mL CB Reference Range: 0-14 Negative: <15 Indeterminate: 15 - 20 Low-Med Positive: >20 - 80 High Positive: >80Anticardiolipin Ab,IgM,Qn <9 MPL U/mL CB Reference Range: 0-12 Negative: <13 Indeterminate: 13 - 20 Low-Med Positive: >20 - 80 High Positive: >80Anticardiolipin Ab,IgA,Qn <9 APL U/mL CB Reference Range: 0-11 Negative: <12 Indeterminate: 12 - 20 Low-Med Positive: >20 - 80 High Positive: >80Beta-2 Glycoprotein I Ab, IgG <9 CB Units of Measure: GPI IgG units Reference Range: 0-20The reference interval reflects a 3SD or 99th percentileinterval, which is thought to represent a potentiallyclinically significant result in accordance with theInternational Consensus Statement on the classificationcriteria for definitive antiphospholipid syndrome (APS). JThromb Haem 2006;4:295-306.Beta-2 Glycoprotein I Ab, IgA <9 CB Units of Measure: GPI IgA units Reference Range: 0-25The reference interval reflects a 3SD or 99th percentileinterval, which is thought to represent a potentiallyclinically significant result in accordance with theInternational Consensus Statement on the classificationcriteria for definitive antiphospholipid syndrome (APS). JThromb Haem 2006;4:295-306.Beta-2 Glycoprotein I Ab, IgM <9 CB Units of Measure: GPI IgM units Reference Range: 0-32The reference interval reflects a 3SD or 99th percentileinterval, which is thought to represent a potentiallyclinically significant result in accordance with theInternational Consensus Statement on the classificationcriteria for definitive antiphospholipid syndrome (APS). JThromb Haem 2006;4:295-306.Antiphosphatidylserine IgM 17 Units BN Reference Range: 0-30Antiphosphatidylserine IgA 2 BN Units of Measure: APS Units Reference Range: 0-19Antiphosphatidylserine IgG 9 Units BN Reference Range: 0-30Performed at: [facility] [address] [id number] Director: Kun Alicea PhD, Phone: [phone] at: [facility] [address] [id number] Director: Eliseo Barbour MD, Phone: [phone] Nucleated red blood cell per centageOrdered By: Jordan Elliott on 05-12-2024 Nucleated RBC/100 WBC (Bld) [Ratio] 0 % 0-5 [facility] Oncology Visit Reporton 04-27 Oncology Visit Report [facility] [address] [place] [id number] OFFICE VISIT Date of Service: 05/12/24 1450 MR#: [id number] Acct: [id number] Name: ARUN HELM Rep #: [id number] : 2000 From: Jordan Elliott MD Age/Sex: 23/F [place] [facility] [place]: Signed HPI Subjective Date of Service 01/16/25 Chief Complaint Referred for Protein S deficiency History of Present Illness 23y.o.woman developed GI symptoms. Had Colonoscopy done on 03/10/2024 was found to have colonic ulcer. She had Thrombotic Risk Profile 1 done which showed Low Protein S so referred for evaluation. She is planning to get . Denies personal/family history of clotting, bleeding disorder. She is not on Contraceptives. GI symptoms have resolved. [facility] Medical History Proteins serum plasma low Wears glasses Fatty liver Non-smoker Blackout History of echocardiogram Surgical History Hx of wisdom tooth extraction Family History Grandmother Heart failure Father Hypertension Grandfather Lung cancer Social History adopted: No household members: family current occupational status: employed current occupation: [employer] current occupational exposures/hazards: No history of recent travel: No sexually active: No Smoking Status: Never smoker second hand exposure: No alcohol intake: never substance use type: does not use what type of physical activity do you participate in: running seatbelt use: always do you feel safe at home: Yes additional social history: fiance - Chance Intake Vital Signs 03/09/24 12:16 05/12/24 14:52 05/12/24 14:54 05/12/24 14:54 Height 5 ft 5 in 5 ft 5 in 5 ft 5 in 5 ft 5 in Weight: 55.367 kg 55.367 kg BMI 20.2 20.2 BP 113/78 Blood Pressure Location Lt brachial Position Sitting Respiration 18 Pulse 70 Pulse Source Monitor Temp 98.4 F Temperature Source Temporal Artery Pulse Oximetry (%) 100 Oxygen Delivery Method room air Intake Is patient in pain?: No Allergies Sulfa (Sulfonamide Antibiotics) (sulfa drugs) Allergy (Verified 05/12/24 14:50) Rash Medications ???Medication ???Instructions ???Recorded ???Confirmed ???Type ondansetron 4 mg disintegrating 4 mg PO Q8H PRN nausea and 02/26/24 05/12/24 Rx tablet vomiting #30 tabs prenat.vits,jessy,min-iron -folic tab PO DAILY 05/12/24 05/12/24 History Laboratory Results 04/15/24 03/31/24 14:33 13:00 PT Diluted 35.8 PT Ratio 0.98 Thrombin Time 19.2 D-Dimer Quant (PE/DVT) < 0.27 L Lupus Anticoag aPTT 40.6 Dil Jomar Viper Venom 34.0 Functional Protein C 84 Functional Protein S 53 L Free Protein S 77 Total Protein S 56 L Antithrombin III Ag 76 Func Antithrombin III 117 Result: c.1601G>A (p.[id number]) - Not Detected Factor V Leiden negative. Exam Physical Exam Narrative Young woman Const alert, oriented x3 and no apparent distress HEENT normocephalic, external ears normal and external nose normal Eyes PERRL, conjunctivae normal and no scleral icterus Neck supple Lymph Lymphatic: no lymphadenopathy noted Resp normal respiratory effort and clear to auscultation bilaterally Cardio regular rate, regular rhythm, S1 normal heart sound, S2 normal heart sound and no murmurs GI normal to inspection, nondistended, normoactive bowel sounds no CVA tenderness Back/Spine thoracic and lumbar spine normal to inspection Extremity no clubbing, cyanosis or edema Skin no rashes or lesions noted Neuro oriented x3, CN's II-XII intact bilaterally and moves all extremities Psych mental status grossly normal Coding Level of Care Code Off vis,new,level 3 Exam Problem Focused Diagnoses Protein S in undetectable to low range in serum Assessment and Plan Assessment and Plan (1) Protein S in undetectable to low range in serum: Status: Chronic Comment: Discussed Protein S levels, evaluation for deficiency, repeating the test before considering Genetic testing. Plan: To repeat Thrombotic risk profile 1, CBC/CMP/Iron profile/B12/Folate/LDH/P rotein S deficiency profile. Orders: Orders CBC W/Diff, Automated Today R77.9 - Abnormality of plasma protein, unspecified Comprehensive Metabolic Profil Today R77.9 - Abnormality of plasma protein, unspecified Retic Panel Count Today R77.9 - Abnormality of plasma protein, unspecified Erythrocyte Sed Rate Today R77.9 - Abnormality of plasma protein, unspecified CRP Today R77.9 - Abnormality of plasma protein, unspecified Ferritin Today R77.9 - Abnormality of plasma pro (more content not included)... Normal [facility] Partial Thromboplast Timeon 05-12-2024 aPTT Coag (Bld) [Time] 32.9 s Normal 24.1-36.[address] [facility] Comment on above: Performed By: #### L 3300.0450, L3100.5440, L3100.7250, L3300.1200, L4500.0100, L3100.5600, L3100.5700, L4500.5000, L3100.5800, L4500.2000, L101.9900, L3100.7325, L3100.8408, L3100.7050 #### [facility] [address] [place], [address] Platelet countOrdered By: Deepthi Elliott on 05-12-2024 Platelets (Bld) [#/Vol] 227 10*3/uL 150-450 [facility] Potassium measurementOrdered By: Jordan Elliott on 05-12-2024 Potassium [Moles/Vol] 3.7 mmol/L Normal 3.5-5.1 [facility] Comment on above: Order Comment: Test( s) 948953-Mpopzlsogmii Antigen was developed and its performance characteristics determined by [facility]. It has not been cleared or approved by the Food and Drug Administration. Performed By: #### L 3300.0450, L3100.5440, L3100.7250, L3300.1200, L4500.0100, L3100.5600, L3100.5700, L4500.5000, L3100.5800, L4500.2000, L101.9900, L3100.7325, L3100.8408, L3100.7050 #### [facility] [address] [place], [address] Protein S Coag Qn (PPP)Order ed By: Jordan Elliott on 05-12-2024 Total Protein S 57 % Low 60-150 [facility] Comment on above: This test was develo ped and its performance characteristicsdetermined by [facility]. It has not been cleared orapproved by the Food and Drug Administration. Protein S Free Ag IA Qn (PPP )Ordered By: Jordan Elliott on 05-12-2024 Free Protein S 76 % 61-136 [facility] Protein S actual/normal Coag (PPP) [Relative time]Ordered By: Jordan Elliott on 05-12-2024 Functional Protein S 63 % 63-140 [facility] Comment on above: Protein S activity m ay be falsely increased (masking anabnormal, low result) in patients receiving direct Xainhibitor (e.g., rivaroxaban, apixaban, edoxaban) or adirect thrombin inhibitor (e.g., dabigatran) anticoagulanttreatment due to assay interference by these drugs.Performed at: [address] [id number] Director: Eliseo Barbour MD, Phone: [phone] Prothrombin Time w/INRon INR Coag (PPP) [Relative time] 1.0 {INR} Normal [facility] Comment on above: Performed By: #### L 3300.0450, L3100.5440, L3100.7250, L3300.1200, L4500.0100, L3100.5600, L3100.5700, L4500.5000, L3100.5800, L4500.2000, L101.9900, L3100.7325, L3100.8408, L3100.7050 #### [facility] [address] [place], [address] PT Coag (PPP) [Time] 13.8 s Normal 11.7-14.9 [facility] Comment on above: Performed By: #### L 3300.0450, L3100.5440, L3100.7250, L3300.1200, L4500.0100, L3100.5600, L3100.5700, L4500.5000, L3100.5800, L4500.2000, L101.9900, L3100.7325, L3100.8408, L3100.7050 #### [facility] [address] [place], [address] Prothrombin timeOrdered By: Jordan Elliott on 05-12-2024 PT Coag (PPP) [Time] 13.8 s 11.7-14.9 [facility] RBC Auto (Bld) [#/Vol]Ordere d By: Jordan Elliott on 05-12-2024 RBC (Bld) [#/Vol] 4.20 10*6/uL 4.2-5.4 [facility] Retic Panelon 05-12-2024 IM RET FRACTION 6.70 Normal 3.00-15.90 [facility] Comment on above: Performed By: #### L 3300.0450, L3100.5440, L3100.7250, L3300.1200, L4500.0100, L3100.5600, L3100.5700, L4500.5000, L3100.5800, L4500.2000, L101.9900, L3100.7325, L3100.8408, L3100.7050 #### [facility] [address] [place], [address] RET-HE 36.6 pg High 30-35 [facility] Comment on above: Performed By: #### L 3300.0450, L3100.5440, L3100.7250, L3300.1200, L4500.0100, L3100.5600, L3100.5700, L4500.5000, L3100.5800, L4500.2000, L101.9900, L3100.7325, L3100.8408, L3100.7050 #### [facility] [address] [place], [address] Retic Count 1.53 High 0.5-1.5 [facility] Comment on above: Performed By: #### L 3300.0450, L3100.5440, L3100.7250, L3300.1200, L4500.0100, L3100.5600, L3100.5700, L4500.5000, L3100.5800, L4500.2000, L101.9900, L3100.7325, L3100.8408, L3100.7050 #### [facility] [address] [place], [place], [id number] Reticulocytes Auto (Bld) [#/ Vol]Ordered By: Jordan Elliott on 05-12-2024 Reticulocyte Count 1.53 % High 0.5-1.5 [facility] Serum anion gap measurementO rdered By: Jordan Bowmananya on 05-12-2024 Anion gap [Moles/Vol] 5 mmol/L 5-15 [facility] Serum globulin measurementOr dered By: Jordan Bowmananya on 05-12-2024 Globulin (S) [Mass/Vol] 3.3 g/dL Normal 2.2-4.2 [facility] Comment on above: Order Comment: Test( s) 211706-Limrczffrskt Antigen was developed and its performance characteristics determined by [facility]. It has not been cleared or approved by the Food and Drug Administration. Performed By: #### L 3300.0450, L3100.5440, L3100.7250, L3300.1200, L4500.0100, L3100.5600, L3100.5700, L4500.5000, L3100.5800, L4500.2000, L101.9900, L3100.7325, L3100.8408, L3100.7050 #### [facility] [address] [place], [place], [id number] Serum or plasma alanine lazaro otransferase (ALT) measurementOrdered By: Jordan Bowmananya on 05-12-2024 ALT [Catalytic activity/Vol] 16 U/L Normal 13-56 [facility] Comment on above: Order Comment: Test( s) 587602-Ybssbelafplg Antigen was developed and its performance characteristics determined by [facility]. It has not been cleared or approved by the Food and Drug Administration. Performed By: #### L 3300.0450, L3100.5440, L3100.7250, L3300.1200, L4500.0100, L3100.5600, L3100.5700, L4500.5000, L3100.5800, L4500.2000, L101.9900, L3100.7325, L3100.8408, L3100.7050 #### [facility] [address] [place], [place], [id number] Serum or plasma albumin soumya urement (mass/volume)Ordered By: Jordan Bowmananya on 05-12-2024 Albumin [Mass/Vol] 3.7 g/dL Normal 3.2-5.0 [facility] Comment on above: Order Comment: Test( s) 990760-Lyjrwowlzxjr Antigen was developed and its performance characteristics determined by [facility]. It has not been cleared or approved by the Food and Drug Administration. Performed By: #### L 3300.0450, L3100.5440, L3100.7250, L3300.1200, L4500.0100, L3100.5600, L3100.5700, L4500.5000, L3100.5800, L4500.2000, L101.9900, L3100.7325, L3100.8408, L3100.7050 #### [facility] [address] [place], [place], [id number] Serum or plasma alkaline kevin sphatase measurementOrdered By: Jordan Bowmananya on 05-12-2024 ALP [Catalytic activity/Vol] 68 U/L 45-117 [facility] Serum or plasma calcium soumya urement (mass/volume)Ordered By: Jordan Bowman on 05-12-2024 Calcium [Mass/Vol] 9.3 mg/dL 8.5-10.1 [facility] Serum or plasma creatinine m easurement (mass/volume)Ordered By: Jordan [facility] on 05-12-2024 Creatinine [Mass/Vol] 0.51 mg/dL Low 0.55-1.02 [facility] Comment on above: The validity of the calculated GFR & GFRAA in patients over 70 years has not been determined. Clinical correlation is essential. Order Comment: Test( s) 600492-Rsjprvkobsry Antigen was developed and its performance characteristics determined by [facility]. It has not been cleared or approved by the Food and Drug Administration. Result Comment: The validity of the calculated GFR GFRAA in patients over 70 years has not been determined. Clinical correlation is essential. Performed By: #### L 3300.0450, L3100.5440, L3100.7250, L3300.1200, L4500.0100, L3100.5600, L3100.5700, L4500.5000, L3100.5800, L4500.2000, L101.9900, L3100.7325, L3100.8408, L3100.7050 #### [facility] [address] [facility]. [place], [place], [id number] Serum or plasma urea nitroge n measurement (mass/volume)Ordered By: Jordan Elliott on 05-12-2024 Urea nitrogen [Mass/Vol] 15 mg/dL Normal 7-18 [facility] Comment on above: Order Comment: Test( s) 109219-Dunjorqosshs Antigen was developed and its performance characteristics determined by [facility]. It has not been cleared or approved by the Food and Drug Administration. Performed By: #### L 3300.0450, L3100.5440, L3100.7250, L3300.1200, L4500.0100, L3100.5600, L3100.5700, L4500.5000, L3100.5800, L4500.2000, L101.9900, L3100.7325, L3100.8408, L3100.7050 #### [facility] [address] [facility] [place], [address] Sodium levelOrdered By: Dylan Elliott on 05-12-2024 Sodium [Moles/Vol] 142 mmol/L Normal 136-145 [facility] Comment on above: Order Comment: Test( s) 946042-Bizvuixqdknh Antigen was developed and its performance characteristics determined by [facility]. It has not been cleared or approved by the Food and Drug Administration. Performed By: #### L 3300.0450, L3100.5440, L3100.7250, L3300.1200, L4500.0100, L3100.5600, L3100.5700, L4500.5000, L3100.5800, L4500.2000, L101.9900, L3100.7325, L3100.8408, L3100.7050 #### [facility] [address] [facility] [place], [address] [phone] TIBCOrdered By: Jordan Elliott on 05-12-2024 Total Iron Binding Capacity 193 ug/dL Low 250-450 [facility] Total proteinOrdered By: Papo Elliott on 05-12-2024 Protein [Mass/Vol] 7.0 g/dL 6.4-8.2 [facility] Vitamin B12on 05-12-2024 Cobalamin (Vitamin B12) [Mass/Vol] 577 pg/mL Normal 211-911 [facility] Comment on above: Performed By: #### L 3300.0450, L3100.5440, L3100.7250, L3300.1200, L4500.0100, L3100.5600, L3100.5700, L4500.5000, L3100.5800, L4500.2000, L101.9900, L3100.7325, L3100.8408, L3100.7050 #### [facility] [address] [facility] [place], [address] Vitamin B12 measurementOrder ed By: Jordan Elliott on 05-12-2024 Cobalamin (Vitamin B12) [Mass/Vol] 577 pg/mL 211-911 [facility] White blood cell (WBC) count Ordered By: Jordan Elliott on 05-12-2024 WBC (Bld) [#/Vol] 6.2 10*3/uL 4.4-11.0 [facility] aPTT Coag (PPP) [Time]Ordere d By: Jordan Elliott on 05-12-2024 aPTT Coag (Bld) [Time] 32.9 s 24.1-36.[address] [facility] D-Dimer Quantitative (DVT/PE )on 04-15-2024 D-DIMER QUANT < 0.27 Low 0.27-0.49 [facility] Comment on above: Result Comment: NORM AL D-Dimer level (<0.50) indicates no DVT or PE. Performed By: #### L 3300.0450, L3100.5440, L3100.7250, L3300.1200, L4500.0100, L3100.5600, L3100.5700, L4500.5000, L3100.5800, L4500.2000, L101.9900, L3100.7325, L3100.8408, L3100.7050 #### [facility] [place], [address] ANCAon 04-11-2024 Cytoplasmic Ab <1:20 Normal Neg:<1:20 [facility] Comment on above: Order Comment: Test( s) 907072-Ehyejmjfdpyn Antigenwas developed and its performance characteristicsdetermined by [facility]. It has not been cleared or approvedby the Food and Drug Administration. Result Comment: TEST RESULTS LIMITS Antineutrophil Cytoplasmic Ab Cytoplasmic (C-ANCA) <1:20 titer Neg:<1:20 Perinuclear (P-ANCA) <1:20 titer Neg:<1:20 The presence of positive fluorescence exhibiting P-ANCA or C-ANCA patterns alone is not specific for the diagnosis of Meli's Granulomatosis (WG) or microscopic polyangiitis. Decisions about treatment should not be based solely on ANCA IFA results. The [employer] ANCA [employer] Consensus recommends follow up testing of positive sera with both IL-3 and MPO-ANCA enzyme immunoassays. As many as 5% serum samples are positive only by EIA. Ref. AM J Clin Pathol 1999;111:507-513. Atypical pANCA <1:20 titer Neg:<1:20 The atypical pANCA pattern has been observed in a significant percentage of patients with ulcerative colitis, primary sclerosing cholangitis and autoimmune hepatitis. TESTING PERFORMED AT [facility]. ORIGINAL REPORT ON FILE IN LAB CONTAINS ADDITIONAL TEST SITE INFORMATION. AMENDED REPORT 04/11/24 0922 CYTOPLASMIC Ab previously reported as: TEST RESULTS LIMITS Antineutrophil Cytoplasmic Ab Cytoplasmic (C-ANCA) <1:20 titer Neg:<1:20 Perinuclear (P-ANCA) <1:20 titer Neg:<1:20 The presence of positive fluorescence exhibiting P-ANCA or C-ANCA patterns alone is not specific for the diagnosis of Meli's Granulomatosis (WG) or microscopic polyangiitis. Decisions about treatment should not be based solely on ANCA IFA results. The [employer] ANCA [employer] Consensus recommends follow up testing of positive sera with both IL-3 and MPO-ANCA enzyme immunoassays. As many as 5% serum samples are positive only by EIA. Ref. AM J Clin Pathol 1999;111:507-513. Atypical pANCA <1:20 titer Neg:<1:20 The atypical pANCA pattern has been observed in a significant percentage of patients with ulcerative colitis, primary sclerosing cholangitis and autoimmune hepatitis. TESTING PERFORMED AT [facility]. ORIGINAL REPORT ON FILE IN LAB CONTAINS ADDITIONAL TEST SITE INFORMATION. Performed By: #### L 3300.0450, L3100.5440, L3100.7250, L3300.1200, L4500.0100, L3100.5600, L3100.5700, L4500.5000, L3100.5800, L4500.2000, L101.9900, L3100.7325, L3100.8408, L3100.7050 #### [facility] [address] [place], [address] AT III Func / Immunolon 03-27 AT3 FUNCTIONAL 117 Normal 75-135 [facility] Comment on above: Order Comment: Test( s) 067237-Qjgzgvvqwiqf Antigenwas developed and its performance characteristicsdetermined by [facility]. It has not been cleared or approvedby the Food and Drug Administration. Result Comment: Dire ct Xa inhibitor anticoagulants such as rivaroxaban, apixaban and edoxaban will lead to spuriously elevated antithrombin activity levels possibly masking a deficiency. AMENDED REPORT 04/11/24921 AT3 FUNCTION previously reported as: TEST RESULTS LIMITS Antithrombin III, Func/Immunol Antithrombin Activity 117 % 75-135 Direct Xa inhibitor anticoagulants such as rivaroxaban, apixaban and edoxaban will lead to spuriously elevated antithrombin activity levels possibly masking a deficiency. Antithrombin Antigen, 76 % 72-124 TESTING PERFORMED AT [facility]. ORIGINAL REPORT ON FILE IN LAB CONTAINS ADDITIONAL TEST SITE INFORMATION. Performed By: #### L 3300.0450, L3100.5440, L3100.7250, L3300.1200, L4500.0100, L3100.5600, L3100.5700, L4500.5000, L3100.5800, L4500.2000, L101.9900, L3100.7325, L3100.8408, L3100.7050 #### [facility] [address] [place], [address] Anticardiolipin IgA,G,Mon ANTICARDIO IgG < 9 Normal 0-14 [facility] Comment on above: Order Comment: Test( s) 252323-Gervtdkbsgld Antigenwas developed and its performance characteristicsdetermined by [facility]. It has not been cleared or approvedby the Food and Drug Administration. Result Comment: Nega tive: <15 Indeterminate: 15 - 20 Low-Med Positive: >20 - 80 High Positive: >80 AMENDED REPORT 12/16/24 0922 ANTICARDIO IgG previously reported as: TEST RESULTS LIMITS Anticardiolip Ab, IgA/G/M, Qn Anticardiolipin Ab,IgG,Qn <9 GPL U/mL 0-14 Negative: <15 Indeterminate: 15 - 20 Low-Med Positive: >20 - 80 High Positive: >80 Anticardiolipin Ab,IgM,Qn <9 MPL U/mL 0-12 Negative: <13 Indeterminate: 13 - 20 Low-Med Positive: >20 - 80 High Positive: >80 Anticardiolipin Ab,IgA,Qn <9 APL U/mL 0-11 Negative: <12 Indeterminate: 12 - 20 Low-Med Positive: >20 - 80 High Positive: >80 TESTING PERFORMED AT [facility]. ORIGINAL REPORT ON FILE IN LAB CONTAINS ADDITIONAL TEST SITE INFORMATION. Performed By: #### L 3300.0450, L3100.5440, L3100.7250, L3300.1200, L4500.0100, L3100.5600, L3100.5700, L4500.5000, L3100.5800, L4500.2000, L101.9900, L3100.7325, L3100.8408, L3100.7050 #### [facility] [address] [place], [address] Complement C3on 04-11-2024 COMP C3 90 mg/dL Normal 82-167 [facility] Comment on above: Order Comment: Test( s) 834188-Xfnjzficwdfi Antigen was developed and its performance characteristics determined by [facility]. It has not been cleared or approved by the Food and Drug Administration. Result Comment: TEST RESULTS LIMITS Complement C3, Serum 90 mg/dL 82-167 TESTING PERFORMED AT [facility]. ORIGINAL REPORT ON FILE IN LAB CONTAINS ADDITIONAL TEST SITE INFORMATION. AMENDED REPORT 04/11/24921 COMP C3 previously reported as: TEST RESULTS LIMITS Complement C3, Serum 90 mg/dL 82-167 TESTING PERFORMED AT [facility]. ORIGINAL REPORT ON FILE IN LAB CONTAINS ADDITIONAL TEST SITE INFORMATION. Performed By: #### L 3300.0450, L3100.5440, L3100.7250, L3300.1200, L4500.0100, L3100.5600, L3100.5700, L4500.5000, L3100.5800, L4500.2000, L101.9900, L3100.7325, L3100.8408, L3100.7050 #### [facility] [address] [place], [address] Complement C4on 04-11-2024 COMPLEMENT, C4 18 mg/dL Normal [facility] Comment on above: Order Comment: Test( s) 655389-Jdvgjqilqczq Antigen was developed and its performance characteristics determined by [facility]. It has not been cleared or approved by the Food and Drug Administration. Result Comment: TEST RESULTS LIMITS Complement C4, Serum 18 mg/dL TESTING PERFORMED AT [facility]. ORIGINAL REPORT ON FILE IN LAB CONTAINS ADDITIONAL TEST SITE INFORMATION. AMENDED REPORT 04/11/24921 COMP C4 previously reported as: TEST RESULTS LIMITS Complement C4, Serum 18 mg/dL 12 TESTING PERFORMED AT [facility]. ORIGINAL REPORT ON FILE IN LAB CONTAINS ADDITIONAL TEST SITE INFORMATION. Performed By: #### L 3300.0450, L3100.5440, L3100.7250, L3300.1200, L4500.0100, L3100.5600, L3100.5700, L4500.5000, L3100.5800, L4500.2000, L101.9900, L3100.7325, L3100.8408, L3100.7050 #### [facility] [address] [place], [place], [id number] Complement CH50on 04-11-2024 COMPLEMENT,CH50 59 U/mL Normal >41 [facility] Comment on above: Order Comment: Test( s) 888626-Mlypmswukyjc Antigen was developed and its [facility] characteristics [facility]. It has not been cleared or approved by the Food and Drug Administration. Result Comment: Age Male Female 1 - 30 days Not Estab. Not Estab. 31 days - 6 months >32 >20 7 months - 17 years >39 >39 >17 years >41 >41 NOTE: The adult (>17 years) reference interval range is used to flag abnormals on this report. If the patient is 17 years old or younger, use the table above to determine out of range values. AMENDED REPORT 04/11/24 0922 COMP CH50 previously reported as: TEST RESULTS LIMITS Complement, Total (CH50) 59 U/mL >41 Age Male Female 1 - 30 days Not Estab. Not Estab. 31 days - 6 months >32 >20 7 months - 17 years >39 >39 >17 years >41 >41 NOTE: The adult (>17 years) reference interval range is used to flag abnormals on this report. If the patient is 17 years old or younger, use the table above to determine out of range values. TESTING PERFORMED AT [facility]. ORIGINAL REPORT ON FILE IN LAB CONTAINS ADDITIONAL TEST SITE INFORMATION. Performed By: #### L 3300.0450, L3100.5440, L3100.7250, L3300.1200, L4500.0100, L3100.5600, L3100.5700, L4500.5000, L3100.5800, L4500.2000, L101.9900, L3100.7325, L3100.8408, L3100.7050 #### [facility] [address] [place], [address] Fact V Leiden Mutationon Reviewed By Comment Normal . [facility] Comment on above: Order Comment: Test( s) 299710-Qgxomlzfsdbz Antigen was developed and its performance characteristics determined by [facility]. It has not been cleared or approved by the Food and Drug Administration. Result Comment: Tech nical Component performed at [facility] RTP Professional Component performed by: [facility] Ayse Friedman, Ph.D., [facility] Director, Molecular Genetics [id number] [facility] Performed By: #### L 3300.0450, L3100.5440, L3100.7250, L3300.1200, L4500.0100, L3100.5600, L3100.5700, L4500.5000, L3100.5800, L4500.2000, L101.9900, L3100.7325, L3100.8408, L3100.7050 #### [facility] [address] [place], [address] Factor II, DNA Analysison FACTOR II, DNA Comment Normal . [facility] Comment on above: Order Comment: Test( s) 351505-Dwfrdezbvywj Antigen was developed and its performance characteristics determined by [facility]. It has not been cleared or approved by the Food and Drug Administration. Result Comment: Resu lt: c.*97G>A - Not Detected This result is not associated with an increased risk for venous thromboembolism. See Additional Clinical Information and Comments. Additional Clinical Information: Venous thromboembolism is a multifactorial disease influenced by genetic, environmental, and circumstantial risk factors. The c.*97G>A variant in the F2 gene is a genetic risk factor for venous thromboembolism. Heterozygous carriers have a 2- to 4-fold increased risk for venous thromboembolism. Homozygotes for the c.*97G>A variant are rare. The annual risk of VTE in homozygotes has been reported to be 1.1%/year. Individuals who carry both a c.*97G>A variant in the F2 gene and a c.1601G>A (p. [id number]) variant in the F5 gene (commonly referred to as Factor V Leiden) have an approximately 20- fold increased risk for venous thromboembolism. Risks are likely to be even higher in more complex genotype combinations involving the F2 c.*97G>A variant and Factor V Leiden (PMID: [id number]). Additional risk factors include but are not limited to: deficiency of protein C, protein S, or antithrombin III, age, male sex, personal or family history of deep vein thromboembolism, smoking, surgery, prolonged immobilization, malignant neoplasm, tamoxifen treatment, raloxifene treatment, oral contraceptive use, hormone replacement therapy, and . Management of thrombotic risk and thrombotic events should follow established guidelines and fit the clinical circumstance. This result cannot predict the occurrence or recurrence of a thrombotic event. Comments: Genetic counseling is recommended to discuss the potential clinical implications of positive results, as well as recommendations for testing family members. Genetic Coordinators are available for health care providers to discuss results at [phone]). Test Details: Variant analyzed: c.*97G>A, previously referred to as [id number] Methods/Limitations: DNA analysis of the F2 gene (NM_000506.5) was performed by PCR amplification followed by restriction enzyme analysis. The diagnostic sensitivity is >99%. Results must be combined with clinical information for the most accurate interpretation. Molecular-based testing is highly accurate, but as in any laboratory test, diagnostic errors may occur. False positive or false negative results may occur for reasons that include genetic variants, blood transfusions, bone marrow transplantation, somatic or tissue-specific mosaicism, mislabeled samples, or erroneous representation of family relationships. This test was developed and its performance characteristics determined by [facility]. It has not been cleared or approved by the Food and Drug Administration. References: Rakel Bautista, Zoya SANCHEZ, Clif R, Thor WW, Layton JH; [employer] Professional Practice and Guidelines Committee. Addendum: [employer] consensus statement on factor V Leiden mutation testing. [employer]. 2020Jun 29. doi: 10.1038/f06988-484-34351-j. PMID: 27006346. Placido MCDUFFIE. Prothrombin Thrombophilia. 2005Nov 18 [Updated 2020May 31]. In: Chilo MP, Colt HH, Nicolás RA, et al., editors. Koko(R) [Internet]. [place] ([place]): [facility]; 1271-1327. Available from: https://www.ncbi.nlm.nih.gov/books/KAR0878/ Luis Bautista, Zoya SANCHEZ, Emmanuel X, Jameson B, Francine EB, Heydi P, Mary Carmen CS; [employer] Laboratory Felt Strip Finisher Committee. Venous thromboembolism laboratory testing (factor V Leiden and factor II c.*97G>A), 2018 update: a technical standard of the [employer] ([employer]). [employer] Med. 2018 Mar;20(12):3629-6072. doi: 10.1038/z43618-051-7322-m. Epub 2017Jan 29. PMID: 19192009. AMENDED REPORT 04/11/24921 FACTOR II,DNA previously reported as: TEST RESULTS LIMITS Factor II, DNA Analysis Result: c.*97G>A - Not Detected This result is not associated with an increased risk for venous thromboembolism. See Additional Clinical Information and Comments. Additional Information: Additional Clinical Information: Venous thromboembolism is a multifactorial disease influenced by genetic, environmental, and circumstantial risk factors. The c.*97G>A variant in the F2 gene is a genetic risk factor for venous thromboembolism. Heterozygous carriers have a 2- to 4-fold increased risk for venous thromboembolism. Homozygotes for the c.*97G>A variant are rare. The annual risk of VTE in homozygotes has been reported to be 1.1%/year. Individuals who carry both a c.*97G>A variant in the F2 gene and a c.1601G>A (p. Yjt774Bgf) variant in the F5 gene (commonly referred to as Factor V Leiden) have an approximately 20- fold increased risk for venous thromboembolism. Risks are likely to be even higher in more complex genotype combinations involving the F2 c.*97G>A variant and Factor V Leiden (PMID: [id number]). Additional (more content not included)... Performed By: #### L 3300.0450, L3100.5440, L3100.7250, L3300.1200, L4500.0100, L3100.5600, L3100.5700, L4500.5000, L3100.5800, L4500.2000, L101.9900, L3100.7325, L3100.8408, L3100.7050 #### [facility] [address] [place], [address] Lupus Anticoagulant Compon 1 06-12-2023 aPTT Coag (Bld) [Time] 40.6 s Normal 0.0-43.[address] [facility] Comment on above: Order Comment: Test( s) 154755-Aqaesxqzclur Antigen was developed and its performance characteristics determined by [facility]. It has not been cleared or approved by the Food and Drug Administration. Performed By: #### L 3300.0450, L3100.5440, L3100.7250, L3300.1200, L4500.0100, L3100.5600, L3100.5700, L4500.5000, L3100.5800, L4500.2000, L101.9900, L3100.7325, L3100.8408, L3100.7050 #### [facility] [address] [place], [address] dPT Conf. Ratio 0.98 Ratio Normal 0.00-1.34 [facility] Comment on above: Order Comment: Test( s) 099267-Vxujctoekoge Antigen was developed and its performance characteristics determined by [facility]. It has not been cleared or approved by the Food and Drug Administration. Performed By: #### L 3300.0450, L3100.5440, L3100.7250, L3300.1200, L4500.0100, L3100.5600, L3100.5700, L4500.5000, L3100.5800, L4500.2000, L101.9900, L3100.7325, L3100.8408, L3100.7050 #### [facility] [address] [place], [address] DRVVT 34.0 sec Normal 0.0-47.0 [facility] Comment on above: Order Comment: Test( s) 332842-Dtznkosunbpt Antigen was developed and its performance characteristics determined by [facility]. It has not been cleared or approved by the Food and Drug Administration. Performed By: #### L 3300.0450, L3100.5440, L3100.7250, L3300.1200, L4500.0100, L3100.5600, L3100.5700, L4500.5000, L3100.5800, L4500.2000, L101.9900, L3100.7325, L3100.8408, L3100.7050 #### [facility] [address] [place], [address] Interpretation Comment: Normal . [facility] Comment on above: Order Comment: Test( s) 137522-Lxcbafojnioc Antigen was developed and its performance characteristics determined by [facility]. It has not been cleared or approved by the Food and Drug Administration. Result Comment: No l upus anticoagulant was detected. Performed By: #### L 3300.0450, L3100.5440, L3100.7250, L3300.1200, L4500.0100, L3100.5600, L3100.5700, L4500.5000, L3100.5800, L4500.2000, L101.9900, L3100.7325, L3100.8408, L3100.7050 #### [facility] [address] [place], [address] THROMBIN TIME 19.2 sec Normal 0.0-23.0 [facility] Comment on above: Order Comment: Test( s) 151757-Gdmlzwpjfuff Antigen was developed and its performance characteristics determined by [facility]. It has not been cleared or approved by the Food and Drug Administration. Performed By: #### L 3300.0450, L3100.5440, L3100.7250, L3300.1200, L4500.0100, L3100.5600, L3100.5700, L4500.5000, L3100.5800, L4500.2000, L101.9900, L3100.7325, L3100.8408, L3100.7050 #### [facility] [address] [place], [address] Protein C, Functionalon 03-27 PROTEIN C,FUNC 84 Normal 73-180 [facility] Comment on above: Order Comment: Test( s) 798729-Zhbtdqmbouyx Antigenwas developed and its performance characteristicsdetermined by [facility]. It has not been cleared or approvedby the Food and Drug Administration. Result Comment: Perf ormed at: [facility] - [address] [id number] Hairspring Assembler: Eliseo Barbour MD, Phone: [phone] Performed at: [address] [id number] Hairspring Assembler: Kun Alicea PhD, Phone: [phone] Performed at: [facility] [address] [place], [place] [id number] Hairspring Assembler: Katherine Griffin [facility], Phone: [phone] AMENDED REPORT 04/11/24921 PROT C, Funct previously reported as: TEST RESULTS LIMITS Protein C-Functional 84 % 73-180 TESTING PERFORMED AT [facility]. ORIGINAL REPORT ON FILE IN LAB CONTAINS ADDITIONAL TEST SITE INFORMATION. Performed By: #### L 3300.0450, L3100.5440, L3100.7250, L3300.1200, L4500.0100, L3100.5600, L3100.5700, L4500.5000, L3100.5800, L4500.2000, L101.9900, L3100.7325, L3100.8408, L3100.7050 #### [facility] [address] [place], [address] Protein S Antigenon 04-11-20 24 PROTEIN S, FREE 77 Normal 61-136 [facility] Comment on above: Order Comment: Test( s) 809768-Hsgsbacdofha Antigen was developed and its performance characteristics determined by [facility]. It has not been cleared or approved by the Food and Drug Administration. Result Comment: TEST RESULTS LIMITS Protein S, Free 77 % 61-136 TESTING PERFORMED AT [facility]. ORIGINAL REPORT ON FILE IN LAB CONTAINS ADDITIONAL TEST SITE INFORMATION. AMENDED REPORT 04/11/24 0922 PROTEIN S, FREE previously reported as: TEST RESULTS LIMITS Protein S, Free 77 % 61-136 TESTING PERFORMED AT [facility]. ORIGINAL REPORT ON FILE IN LAB CONTAINS ADDITIONAL TEST SITE INFORMATION. Performed By: #### L 3300.0450, L3100.5440, L3100.7250, L3300.1200, L4500.0100, L3100.5600, L3100.5700, L4500.5000, L3100.5800, L4500.2000, L101.9900, L3100.7325, L3100.8408, L3100.7050 #### [facility] [address] [place], [place], [id number] PROTEIN S,TOTAL 56 Low 60-150 [facility] Comment on above: Order Comment: Test( s) 983195-Evslvwezbygh Antigen was developed and its performance characteristics [facility] by [facility]. It has not been cleared or approved by the Food and Drug Administration. Result Comment: This test was developed and its performance characteristics determined by [facility]. It has not been cleared or approved by the Food and Drug Administration. AMENDED REPORT 04/11/24 0922 PROTEIN S,TOTAL previously reported as: TEST RESULTS LIMITS Protein S, Total 56 Low % 60-150 This test was developed and its performance characteristics determined [facility]. It has not been cleared or approved by the Food and Drug Administration. TESTING PERFORMED AT [facility]. ORIGINAL REPORT ON FILE IN LAB CONTAINS ADDITIONAL TEST SITE INFORMATION. Performed By: #### L 3300.0450, L3100.5440, L3100.7250, L3300.1200, L4500.0100, L3100.5600, L3100.5700, L4500.5000, L3100.5800, L4500.2000, L101.9900, L3100.7325, L3100.8408, L3100.7050 #### [facility] [address] [place], [address] Protein S, Functionalon 03-27 PROTEIN S, FUNC 53 Low 63-140 [facility] Comment on above: Order Comment: Test( s) 508565-Assalbkcdyan Antigenwas developed and its performance characteristicsdetermined by [facility]. It has not been cleared or approvedby the Food and Drug Administration. Result Comment: A de ficiency of protein S (PS), either congenital or acquired, increases the risk of thromboembolism. PS activity levels may be falsely low in individuals with APCR/Factor V Leiden. Consider performing free protein S antigen in those with APCR/Factor V Leiden before making a diagnosis of protein S deficiency. Acquired PS deficiency is more common than congenital deficiency. PS values decrease with normal , and are also dependent on age, sex and hormone status. PS values tend to be lower in a younger age group and lower in women than in men. Levels may be decreased in pre-menopausal women on oral contraceptive agents. Acquired deficiency can occur as a result of vitamin K deficiency or antagonism, severe hepatic disorders, (hepatitis, cirrhosis, etc.), nephrotic syndrome, inflammatory bowel disease, certain chemotherapeutic agents, L-asparaginse therapy, sepsis, disseminated intravascular coagulation (DIC) and acute thrombosis. Levels may be decreased in patients with polycythemia vera, sickle cell disease and essential thrombocythemia. Repeat evaluation on a new plasma sample to confirm or refute this result should be considered, after ruling out acquired causes, depending on the clinical scenario. AMENDED REPORT 04/11/24 0922 PROTEIN S, FUNC previously reported as: TEST RESULTS LIMITS Protein S-Functional 53 Low % 63-140 A deficiency of protein S (PS), either congenital or acquired, increases the risk of thromboembolism. PS activity levels may be falsely low in individuals with APCR/Factor V Leiden. Consider performing free protein S antigen in those with APCR/Factor V Leiden before making a diagnosis of protein S deficiency. Acquired PS deficiency is more common than congenital deficiency. PS values decrease with normal , and are also dependent on age, sex and hormone status. PS values tend to be lower in a younger age group and lower in women than in men. Levels may be decreased in pre-menopausal women on oral contraceptive agents. Acquired deficiency can occur as a result of vitamin K deficiency or antagonism, severe hepatic disorders, (hepatitis, cirrhosis, etc.), nephrotic syndrome, inflammatory bowel disease, certain chemotherapeutic agents, L-asparaginse therapy, sepsis, disseminated intravascular coagulation (DIC) and acute thrombosis. Levels may be decreased in patients with polycythemia vera, sickle cell disease and essential thrombocythemia. Repeat evaluation on a new plasma sample to confirm or refute this result should be considered, after ruling out acquired causes, depending on the clinical scenario. TESTING PERFORMED AT [facility]. ORIGINAL REPORT ON FILE IN LAB CONTAINS ADDITIONAL TEST SITE INFORMATION. Performed By: #### L 3300.0450, L3100.5440, L3100.7250, L3300.1200, L4500.0100, L3100.5600, L3100.5700, L4500.5000, L3100.5800, L4500.2000, L101.9900, L3100.7325, L3100.8408, L3100.7050 #### [facility] [address] [place], [address] DANE Comprehensive Panelon DANE TABLE Comment Normal . [facility] Comment on above: Result Comment: Auto antibody Disease Association Condition Frequency --------- Antinuclear Antibody, SLE, mixed connective Direct (DANE-D) tissue diseases --------- dsDNA SLE 40 - 60% --------- Chromatin Drug induced SLE 90% SLE 48 - 97% --------- SSA (Ro) SLE 25 - 35% Sjogren's Syndrome 40 - 70% Lupus 100% --------- SSB (La) SLE 10% Sjogren's Syndrome 30% --------- Sm (anti-Moffett) SLE 15 - 30% --------- BARISTA Mixed Connective Tissue Disease 95% (U1 nRNP, SLE 30 - 50% anti-ribonucleoprotein) Polymyositis and/or Dermatomyositis 20% --------- Scl-70 (antiDNA Scleroderma (diffuse) 20 - 35% topoisomerase) Crest 13% --------- Deepthi-1 Polymyositis and/or Dermatomyositis 20 - 40% --------- Centromere B Scleroderma - Crest variant 80% Performed By: #### L 3300.0450, L3100.5440, L3100.7250, L3300.1200, L4500.0100, L3100.5600, L3100.5700, L4500.5000, L3100.5800, L4500.2000, L101.9900, L3100.7325, L3100.8408, L3100.7050 #### [facility] [address] [facility]. [place], [place], [id number] ANTI-CENT B AB <0.2 Normal 0.0-0.9 [facility] Comment on above: Performed By: #### L 3300.0450, L3100.5440, L3100.7250, L3300.1200, L4500.0100, L3100.5600, L3100.5700, L4500.5000, L3100.5800, L4500.2000, L101.9900, L3100.7325, L3100.8408, L3100.7050 #### [facility]. [place], [place], [id number] ANTI-DNA (DS)AB <1 Normal 0-9 [facility] Comment on above: Result Comment: Nega tive <5 Equivocal 5 - 9 Positive >9 Performed By: #### L 3300.0450, L3100.5440, L3100.7250, L3300.1200, L4500.0100, L3100.5600, L3100.5700, L4500.5000, L3100.5800, L4500.2000, L101.9900, L3100.7325, L3100.8408, L3100.7050 #### [facility] [address] [place], [place], [id number] ANTI-DEEPTHI-1 <0.2 Normal 0.0-0.9 [facility] Comment on above: Performed By: #### L 3300.0450, L3100.5440, L3100.7250, L3300.1200, L4500.0100, L3100.5600, L3100.5700, L4500.5000, L3100.5800, L4500.2000, L101.9900, L3100.7325, L3100.8408, L3100.7050 #### [facility] [address] [place], [address] ANTI-SS-A < 0.2 Normal 0.0-0.9 [facility] Comment on above: Performed By: #### L 3300.0450, L3100.5440, L3100.7250, L3300.1200, L4500.0100, L3100.5600, L3100.5700, L4500.5000, L3100.5800, L4500.2000, L101.9900, L3100.7325, L3100.8408, L3100.7050 #### [facility] [address] [place], [address] ANTI-SS-B < 0.2 Normal 0.0-0.9 [facility] Comment on above: Performed By: #### L 3300.0450, L3100.5440, L3100.7250, L3300.1200, L4500.0100, L3100.5600, L3100.5700, L4500.5000, L3100.5800, L4500.2000, L101.9900, L3100.7325, L3100.8408, L3100.7050 #### [facility] [address] [place], [address] ANTICHROMATIN <0.2 Normal 0.0-0.9 [facility] Comment on above: Performed By: #### L 3300.0450, L3100.5440, L3100.7250, L3300.1200, L4500.0100, L3100.5600, L3100.5700, L4500.5000, L3100.5800, L4500.2000, L101.9900, L3100.7325, L3100.8408, L3100.7050 #### [facility] [address] [place], [address] ANTISCLERODERM <0.2 Normal 0.0-0.9 [facility] Comment on above: Performed By: #### L 3300.0450, L3100.5440, L3100.7250, L3300.1200, L4500.0100, L3100.5600, L3100.5700, L4500.5000, L3100.5800, L4500.2000, L101.9900, L3100.7325, L3100.8408, L3100.7050 #### [facility] [address] [place], [address] BARISTA Ab <0.2 Normal 0.0-0.9 [facility] Comment on above: Performed By: #### L 3300.0450, L3100.5440, L3100.7250, L3300.1200, L4500.0100, L3100.5600, L3100.5700, L4500.5000, L3100.5800, L4500.2000, L101.9900, L3100.7325, L3100.8408, L3100.7050 #### [facility] [address] [place], [place], [id number] MOFFETT Ab <0.2 Normal 0.0-0.9 [facility] Comment on above: Performed By: #### L 3300.0450, L3100.5440, L3100.7250, L3300.1200, L4500.0100, L3100.5600, L3100.5700, L4500.5000, L3100.5800, L4500.2000, L101.9900, L3100.7325, L3100.8408, L3100.7050 #### [facility] [address] [place], [place], [id number] Erythrocyte Sed Rateon 03-31 SED RATE < 1 Normal 0-30 [facility] Comment on above: Performed By: #### L 3300.0450, L3100.5440, L3100.7250, L3300.1200, L4500.0100, L3100.5600, L3100.5700, L4500.5000, L3100.5800, L4500.2000, L101.9900, L3100.7325, L3100.8408, L3100.7050 #### [facility] [address] [place], [address] Colonoscopy Reporton 024 Colonoscopy Report [facility] Medical Records Department [address] [place] [address] Colonoscopy Report MR#: [id number] Acct: [id number] Name: ARUN HELM Rep #: [id number] : 2000 23 From: Andres Keen DO PCP: SUYAPA Carolina Status:REG [facility] Patient Name: Arun Helm Procedure Date: 03/09/2024 1:37 PM Date of : 2000 Age: 23 Procedure: Colonoscopy Indications: Generalized abdominal pain, Clinically significant diarrhea of unexplained origin Providers: Andres Keen DO Referring MD: Suyapa Carolina Medicines: Monitored Anesthesia Care Patient Profile: This is a 23 year old female. Refer to note in patient chart for documentation of history and physical. Patient has symptoms of chronic epigastric abdominal pain, chronic dyspepsia and chronic nausea. Last Colonoscopy: none. The patient's first colonoscopy is today. Complications: No immediate complications. Procedure: Pre-Anesthesia Assessment: - Prior to the procedure, a History and Physical was performed, and patient medications and allergies were reviewed. The patient is competent. The risks and benefits of the procedure and the sedation options and risks were discussed with the patient. All questions were answered and informed consent was obtained. Patient identification and proposed procedure were verified by the physician in the pre-procedure area. Mental Status Examination: alert and oriented. Airway Examination: normal oropharyngeal airway and neck mobility. Respiratory Examination: clear to auscultation. CV Examination: normal. Prophylactic Antibiotics: The patient does not require prophylactic antibiotics. Prior Anticoagulants: The patient has taken no anticoagulant or antiplatelet agents. ASA Grade Assessment: II - A patient with mild systemic disease. After reviewing the risks and benefits, the patient was deemed in satisfactory condition to undergo the procedure. The anesthesia plan was to use monitored anesthesia care (MAC). Immediately prior to administration of medications, the patient was re-assessed for adequacy to receive sedatives. The heart rate, respiratory rate, oxygen saturations, blood pressure, adequacy of pulmonary ventilation, and response to care were monitored throughout the procedure. The physical status of the patient was re-assessed after the procedure. After I obtained informed consent, the scope was passed under direct vision. Throughout the procedure, the patient's blood pressure, pulse, and oxygen saturations were monitored continuously. The colonoscope was introduced through the anus and advanced to the terminal ileum. The colonoscopy was performed without difficulty. The patient tolerated the procedure well. The quality of the bowel preparation was good. The terminal ileum, ileocecal valve, appendiceal orifice, and rectum were photographed. Scope In: 1:38:21 PM Scope Withdrawal Time 0 hours 10 minutes 4 seconds Scope Out: 1:53:57 PM Total Procedure Duration Time 0 hours 15 minutes 36 seconds Findings: The perianal and digital rectal examinations were normal. A patchy area of mildly altered vascular and erythematous mucosa was found in the rectum and in the sigmoid colon. Biopsies were taken with a cold forceps for histology. Verification of patient identification for the specimen was done. Estimated blood loss was minimal. The terminal ileum appeared normal. Biopsies were taken with a cold forceps for histology. Verification of patient identification for the specimen was done. Estimated blood loss was minimal. Impression: - Altered vascular and erythematous mucosa in the rectum and in the sigmoid colon. Biopsied. - The examined portion of the ileum was normal. Biopsied. Recommendation: - Discharge patient to home. - Resume previous diet. - Continue present medications. - Await pathology results. - Repeat colonoscopy is recommended for surveillance. The colonoscopy date will be determined after pathology results from today's exam become available for review. Procedure Code(s): --- Professional --- 83388, Colonoscopy, flexible; with biopsy, single or multiple CPT copyright 2021 [employer]. All rights reserved. The codes documented in this report are preliminary and upon route rider review may be revised to meet current compliance requirements. Andres Keen DO 03/09/2024 2:04:11 PM This report has been signed electronically. Number of Addenda: 0 Note Initiated On: 03/09/2024 1:37 PM 03/09/24 1404 Date Andres Keen DO Cosigner Signature: Date (if indicated) CC: Andres Keen DO; SUYAPA Carolina Date Dictated: 03/09/24 1337 Date Transcribed: Inserting Press Operator: ANDREW Mehta (more content not included)... Normal [facility] EGD Reporton 03-09-2024 EGD Report [facility] Medical Records Department [address] [place] [address] EGD Report MR#: [id number] Acct: [id number] Name: ARUN HELM Rep #: [id number] : 2000 23 From: Andres Keen DO PCP: SUYAPA Carolina Status:REG [facility] Patient Name: Arun Helm Procedure Date: 03/09/2024 1:24 PM Date of : 2000 Age: 23 Procedure: Upper GI endoscopy Indications: Epigastric abdominal pain, Functional Dyspepsia Providers: Andres Keen DO Referring MD: Suyapa Carolina Medicines: Monitored Anesthesia Care Patient Profile: This is a 23 year old female. Refer to note in patient chart for documentation of history and physical. Patient has symptoms of chronic epigastric abdominal pain, chronic dyspepsia and chronic nausea. Complications: No immediate complications. Procedure: Pre-Anesthesia Assessment: - Prior to the procedure, a History and Physical was performed, and patient medications and allergies were reviewed. The patient is competent. The risks and benefits of the procedure and the sedation options and risks were discussed with the patient. All questions were answered and informed consent was obtained. Patient identification and proposed procedure were verified by the physician in the pre-procedure area. Mental Status Examination: alert and oriented. Airway Examination: normal oropharyngeal airway and neck mobility. Respiratory Examination: clear to auscultation. CV Examination: normal. Prophylactic Antibiotics: The patient does not require prophylactic antibiotics. Prior Anticoagulants: The patient has taken no anticoagulant or antiplatelet agents. ASA Grade Assessment: II - A patient with mild systemic disease. After reviewing the risks and benefits, the patient was deemed in satisfactory condition to undergo the procedure. The anesthesia plan was to use monitored anesthesia care (MAC). Immediately prior to administration of medications, the patient was re-assessed for adequacy to receive sedatives. The heart rate, respiratory rate, oxygen saturations, blood pressure, adequacy of pulmonary ventilation, and response to care were monitored throughout the procedure. The physical status of the patient was re-assessed after the procedure. After obtaining informed consent, the endoscope was passed under direct vision. Throughout the procedure, the patient's blood pressure, pulse, and oxygen saturations were monitored continuously. The colonoscope was introduced through the mouth, and advanced to the second part of duodenum. The upper GI endoscopy was accomplished without difficulty. The patient tolerated the procedure well. Scope In: 1:32:04 PM Scope Out: 1:36:56 PM Total Procedure Duration Time 0 hours 4 minutes 52 seconds Findings: The examined esophagus was normal. Patchy mildly erythematous mucosa without bleeding was found in the gastric antrum. Biopsies were taken with a cold forceps for histology. Biopsies were taken with a cold forceps for Helicobacter pylori testing. Verification of patient identification for the specimen was done. Estimated blood loss was minimal. Patchy mildly erythematous mucosa without active bleeding and with no stigmata of bleeding was found in the duodenal bulb. Impression: - Normal esophagus. - Erythematous mucosa in the antrum. Biopsied. - Erythematous duodenopathy. Recommendation: - Discharge patient to home. - Resume previous diet. - Continue present medications. - Await pathology results. Procedure Code(s): --- Professional --- 25447, Esophagogastroduodenosco py, flexible, transoral; with biopsy, single or multiple CPT copyright 2021 [employer]. All rights reserved. The codes documented in this report are preliminary and upon route rider review may be revised to meet current compliance requirements. Andres Keen DO 03/09/2024 2:01:32 PM This report has been signed electronically. Number of Addenda: 0 Note Initiated On: 03/09/2024 1:24 PM 03/09/24 1401 Date Andres Quiñones Signature: Date (if indicated) CC: Andres Keen DO; SUYAPA Carolina Date Dictated: 03/09/241323 Date Transcribed: Inserting Press Operator: ANDREW Signed Normal [facility] H Pylori (initial)on H Pylori (initial) ---- Patient Age/Sex Location Account Attending Physician ARUN HELM / EN [id number] Andres Keen DO Specimen: [id number] Received: 03/10/24 Status: ZULY Carrasquillo Num: [id number] Spec Type: IMMUNO Subm Dr: Andres Keen DO PHYSICIAN INSTITUTION [place] [address] SPECIMEN INFORMATION: Tissue Source: B- Gastric body biopsy Clinical Info: Diarrhea Specimen Number: [id number] CPT code: 31259 METHODOLOGY: Deparaffinized sections of prefer/formalin-fixed tissue or PAP/DQ stained slides are incubated with monoclonal/polyclonal antibodies/oligonucleoti de probes. Localization is made via biotin free immunoperoxidase method. Appropriate controls are performed and reacted as expected. Results on target cell population are indicated in the following table: RESULTS: ANTIBODY / CLONE RESULT Block B H Pylori (polyclonal) negative These tests were developed and their performance characteristics determined by [facility]. They may not have been cleared or approved by the U.S. Food and Drug Administration. The FDA has determined that such clearance or approval is not necessary. The above immunohistochemical/dual RACHEL markers are ordered and reviewed by the Pathologist. INTERPRETATION: B. Gastric body, biopsy: Negative for Helicobacter pylori organisms. AM. 03/11/2024 Signed (signature on file) Dr. Mohsen Andrade, 03/11/24 1141 Normal [facility] Comment on above: Performed By: #### L 3300.0450, L3100.5440, L3100.7250, L3300.1200, L4500.0100, L3100.5600, L3100.5700, L4500.5000, L3100.5800, L4500.2000, L101.9900, L3100.7325, L3100.8408, L3100.7050 #### [facility] [address] [place], [place], [id number] MR/POSTOP.Vanessa 03-09-2024 MR/POSTOP.HERMILA [facility] Medical Records Department [address] [place] [address] Anesthesia Postop Eval I 03/09/24 1403 MR#: [id number] Acct: [id number] Name: ARUN HELM Rep #: [id number] : 2000 From: Jack Lebron PCP: SUYAPA Carolina Status:REG SDC Y Race: C Location: [place] [address] Anesthesia: Postop Eval I Current Vital Signs Temperature: 97.4 F Pulse Rate: 79 Blood Pressure: 89/70 Respiratory Rate: 18 Pulse Ox: 98 Oxygen Delivery Method: Room Air Assessment Airway patent: Yes Spontaneous unlabored respirations: Yes Mental status: Asleep nausea: No Vomiting: No Anesthesia Complication: No Fluid Hydration Crystalloid volume administer (ml): 60 Total IV fluid infused: 60 Progress Note Anesthesia document: Postop Eval 1 completed: Yes 03/09/24 1405 Date Jack Wintersignfrancy Signature: Date CC: Signed Normal [facility] [id number] 03-09-2024 [facility] Medical Records Department [address] [place] [address] Anesthesia Postop Eval II 03/09/24 1438 MR#: [id number] Acct: [id number] Name: ARUN HELM Rep #: [id number] : 2000 23 From: Helder Ruiz MD PCP: SUYAPA Carolina Status:REG SD Y Race: C Location: [place] [address] Anesthesia Postop Eval I Sum Postop Eval Completion status Anesthesia document: Postop Eval 1 completed: Yes Anesthesia Postop Eval I Summary Anesthesia Postop Eval I Summary: Anesthesia Postop Eval I: Assessment Summary Airway patent Yes 03/09/24 14:05 [email or web address] Spontaneous unlabored Yes 03/09/24 14:05 [email or web address] respirations Mental status Asleep 03/09/24 14:05 [email or web address] nausea No 03/09/24 14:05 [email or web address] Vomiting No 03/09/24 14:05 [email or web address] Anesthesia Postop Eval I: Fluid Summary Crystalloid volume administer 60 03/09/24 14:05 [email or web address] (ml) Colloids volume administered ( ml) Blood Product volume administered (ml) Total IV fluid infused 60 03/09/24 14:05 [email or web address] Anesthesia Postop Eval I: Summary Notes Anesthesia Complication No 03/09/24 14:05 [email or web address] Anesthesia Complication Comment: Post-operative progress note Anesthesia: Postop Eval II Evaluation Mental status: Awake Pain Level: 0 nausea: No Vomiting: No 03/09/24 1438 Date Helder Bright Signature: Date CC: Signed Normal [facility] ,Urineon 03-09-2024 Beta HCG ( test) Ql (U) Negative Normal [facility] Comment on above: Result Comment: Very dilute urine specimens, as indicated by a low specific gravity, may not contain airline security representative levels of hCG. If is still suspected, a first morning urine specimen should be collected 48 hours later and tested. Performed By: #### L 3300.0450, L3100.5440, L3100.7250, L3300.1200, L4500.0100, L3100.5600, L3100.5700, L4500.5000, L3100.5800, L4500.2000, L101.9900, L3100.7325, L3100.8408, L3100.7050 #### [facility] [place], [address] Surgery Specimen Level Makenzie 03-09-2024 Surgery Specimen Level IV Patient Age/Sex Location Account Attending Physician ARUN HELM EN [id number] Andres Keen DO Specimen: [id number] Received: 03/10/24 Status: ZULY Carrasquillo Num: [id number] Spec Type: EGD BIOPSY Subm Dr: Andres Keen DO HEADFRANCY OPERATION: Colonoscopy, EGD biopsy PRE-OP DIAGNOSIS: Diarrhea TISSUE SUBMITTED: A- Duodenum biopsy, B- Gastric body biopsy, C- Terminal ileum biopsy, D- Random colon biopsy, E- Rectum biopsy MICROSCOPIC DIAGNOSIS A. Duodenum, biopsy: No pathologic change. B. Gastric body, biopsy: Mild chronic inflammation. See comment. C. Terminal ileum, biopsy: No pathologic change. See comment. D. Colon, random biopsy: Mucosal denudation and focal ischemic-like change. E. Rectum, biopsy: No pathologic change. AM.mr 03/11/2024 COMMENT B. The results of immunohistochemistry for Helicobacter pylori will be reported separately ([id number]). C. Prominent benign appearing lymphoid aggregates are present. Case has been reviewed in consultation with Dr. Crockett who concurs with the above diagnosis. IDC:SJ MICROSCOPIC DESCRIPTION Slides are reviewed. GROSS DESCRIPTION A. Received in fixative is one container labeled with the patient's name and designated Duodenum biopsy. The specimen consists of multiple irregular fragments of light schultz soft tissue that in aggregate measure 1.2 x 0.4 x 0.1 cm. The specimen is totally submitted in one cassette. B. Received in fixative is one container labeled with the patient's name and designated Gastric body biopsy. The specimen consists of two irregular fragments of light schultz soft Patient Age/Sex Location Account Attending Physician ARUN HELM EN [id number] Andres Keen, DO tissue that in aggregate measure 0.6 x 0.6 x 0.1 cm. The specimen is totally submitted in one cassette. C. Received in fixative is one container labeled with the patient's name and designated Terminal ileum biopsy. The specimen consists of multiple irregular fragments of light schultz soft tissue that in aggregate measure 0.6 x 0.5 x 0.1 cm. The specimen is totally submitted in one cassette. D. Received in fixative is one container labeled with the patient's name and designated Random colon biopsy. The specimen consists of multiple irregular fragments of light schultz soft tissue that in aggregate measure 2.0 x 0.5 x 0.1 cm. The specimen is totally submitted in one cassette. E. Received in fixative is one container labeled with the patient's name and designated Rectum biopsy. The specimen consists of one irregular fragment of light schultz soft tissue that measures 0.3 x 0.3 x 0.1 cm. The specimen is totally submitted in one cassette. SJ 03/10/2024 TC:3 CPT:15222t0 Patient Age/Sex Location Account Attending Physician ARUN HELM EN [id number] Andres Keen DO Signed (signature on file) Dr. Mohsen Andrade DO 03/11/24 1146 Normal [facility] Comment on above: Performed By: #### P SUIV #### [facility] [address] [place] [place], [address] TSHon 08-29-2021 TSH Qn 2.34 m[IU]/L Normal [facility] Comment on above: Result Comment: Refe rence Range > or = 20 Years 0.40-4.50 Ranges First trimester 0.26-2.66 Second trimester 0.55-2.73 Third trimester 0.43-2.91 Performed By: #### 8 99 #### [facility] [address], [address] [place] [id number] Menu Planner: Reji Walker MD Laboratory - Chemistry and C hemistry - challengeon 08-28-2021 TSH Qn 2.34 m[IU]/L Normal [facility] No Panel Informationon 12-12 SKIN TEST INTRADERMAL TB Negative Normal [facility] [employer] [employer] NOVEL CORONAVIRUS (COVID-19) on 10-17-2019 SARS-COV-2 Not Detected Normal Not Detected [facility] Comment on above: Order Comment: This assay was performed by [employer] (YO) on the Aptima??? [place]??? System ([employer] [place], [place]) using Status Controller Mediated Amplification (TMA) technology. This test was developed, and its performance characteristics determined by [employer]. The Aptima??? SARS-CoV-2 assay is for use only under Emergency Use Authorization (EUA) in the US laboratories certified under the Clinical Laboratory Improvement Amendments of 1988 (CLIA), 42 U.S.C. ???263a, to perform high complexity tests. Performed By: #### C [id number] #### [facility] [address] [place], [address] Free T3on 03-29-2019 Free T3 [Mass/Vol] 3.4 pg/mL Normal 2.3-4.1 [facility] Comment on above: Performed By: #### F REET3 #### [facility] Routine Lab [address] [place], [place] [address] Laboratory - Chemistry and C hemistry - challengeon 12-21-2018 Albumin [Mass/Vol] 3.9 g/dL Normal 3.6 - 5.1 g/dL [facility] [employer], [employer]. Albumin/Globulin [Mass ratio] 1.8 {ratio} Normal 1.0 - 2.5 [facility] [employer].; [facility] ALP [Catalytic activity/Vol] 65 U/L Normal 33 - 115 U/L [facility] [employer] ALT [Catalytic activity/Vol] 23 U/L Normal 6 - 29 U/L [facility] [employer].; [facility] AST [Catalytic activity/Vol] 23 U/L Normal 10 - 30 U/L [facility] [employer].; [facility] Bilirubin [Mass/Vol] 0.8 mg/dL Normal 0.2 - 1 .2 mg/dL [facility] [employer].; [facility] Calcium [Mass/Vol] 10.1 mg/dL Normal 8.6 - 10. 2 mg/dL [facility], [employer] Chloride [Moles/Vol] 104 mmol/L Normal 98 - 11 0 mmol/L [facility] CO2 [Moles/Vol] 29 mmol/L Normal 20 - 32 mmol/L [facility], [employer] Creatinine [Mass/Vol] 0.51 mg/dL Normal 0.50 - 1.10 mg/dL [facility] Free T4 [Mass/Vol] 3.6 ng/dL Abnormal 0.8 - 1.4 ng/dL [facility].; [facility], [facility] Free T4 index Calc [Mass/Vol] 6.78 Abnormal 1.4 - 3.8 [facility].; [place] [facility] [facility] Work Phone: GFR/1.73 sq M.predicted among blacks MDRD (S/P/Bld) [Vol rate/Area] 160 {ML/MIN/1.73M2} Normal [facility]; [facility] GFR/1.73 sq M.predicted MDRD (S/P/Bld) [Vol rate/Area] 138 {ML/MIN/1.73M2} Normal [facility].; [place] [facility]. Globulin (S) [Mass/Vol] 2.2 g/dL Normal 1.9 - 3.7 g/dL [facility].; [place] [facility]. Glucose [Mass/Vol] 88 mg/dL Normal 65 - 99 mg/dL [facility].; [place] [facility], [facility]. Potassium [Moles/Vol] 4.4 mmol/L Normal 3.5 - 5.3 mmol/L [facility].; [facility], [facility] Protein [Mass/Vol] 6.1 g/dL Normal 6.1 - 8.1 g/dL [facility].; [place] [employer], [facility]. Sodium [Moles/Vol] 139 mmol/L Normal 135 - 146 mmol/L [facility].; [place] [facility]. T3RU 44.6 % Abnormal 22.0 - 35.0 % [facility].; [place] [facility], [facility]. T4 [Mass/Vol] 15.2 ug/dL Abnormal 5.3 - 11.7 ug/dL [facility].; [place] [facility], [facility]. TSH Qn 0.01 m[IU]/L Abnormal 0.40 - 4.50 {mIU/L} [facility].; [employer]. Urea nitrogen [Mass/Vol] 13 mg/dL Normal 7 - 25 mg/dL [facility] [employer] [facility], [employer]. Urea nitrogen/Creatinine [Mass ratio] 26.1 mg/mg Abnormal 6 - 22 [facility] [employer], [employer]. Laboratory - Hematology and Cell countson 12-21-2018 Basophils (Bld) [#/Vol] 20 {Cells}/uL Normal 0 - 200 {Cells}/uL [facility].; [employer] Basophils/100 WBC (Bld) 0.4 % Normal 0 - 1 % [place] [employer]; [employer], [employer]. Eosinophils (Bld) [#/Vol] 110 {Cells}/uL Normal 15 - 500 {Cells}/uL [place] [employer]; [employer], [employer]. Eosinophils/100 WBC (Bld) 2.2 % Normal 0 - 4 % [place] [employer]; [employer]. Erythrocyte distribution width (RBC) [Ratio] 11.0 % Normal 11.0 - 15.0 % [place] [employer]; [employer], [employer]. Hematocrit (Bld) [Volume fraction] 42.6 % Normal 35.0 - 45.0 % [place] [employer]; [employer], [employer]. Hemoglobin (Bld) [Mass/Vol] 14.8 g/dL Normal 11.7 - 15.5 g/dL [place] [facility] [facility].; [employer], [employer]. Lymphocytes (Bld) [#/Vol] 1650 {Cells}/uL Normal 850 - 3900 {Cells}/uL [place] [employer]; [employer], [employer]. Lymphocytes/100 WBC (Bld) 32.9 % Normal 12 - 47 % [place] [employer]; [employer], [employer]. MCH (RBC) [Entitic mass] 32.1 pg Normal 27.0 - 33.0 PG [place] [employer]; [employer], [employer]. MCHC (RBC) [Mass/Vol] 34.7 g/dL Normal 32.0 - 36.0 g/dL [employer]; [employer]. MCV (RBC) [Entitic vol] 92.4 fL Normal 80.0 - 100.0 fL [facility].; [employer]. Monocytes (Bld) [#/Vol] 600 {Cells}/uL Normal 200 - 950 {Cells}/uL [facility].; [facility], [employer]. Monocytes/100 WBC (Bld) 12.0 % Normal 4 - 12 % [employer], [employer]. Neutrophils (Bld) [#/Vol] 2610 {Cells}/uL Normal 1500 - 7800 {Cells}/uL [facility], [employer]. Neutrophils/100 WBC (Bld) 52.5 % Normal 40 - 75 % [employer].; [facility], [employer]. Platelet mean volume (Bld) [Entitic vol] 11.9 fL Normal 7.5 - 12.5 fL [employer], [employer]. Platelets (Bld) [#/Vol] 238 10*3/uL Normal 140 - 400 10*3/uL [employer], [employer]. RBC (Bld) [#/Vol] 4.61 10*6/uL Normal 3.80 - 5.1 0 10*6/uL [facility], [employer]. WBC (Bld) [#/Vol] 5.0 10*3/uL Normal 3.8 - 10.8 10*3/uL [facility] [employer]. Laboratory - Serology - non- microon 12-21-2018 TPO Ab Qn [IU]/mL Normal [facility].; [employer]. No Panel Informationon 10-11 SKIN TEST INTRADERMAL TB Negative Normal [facility].; [employer]. No Panel Informationon 09-27 SKIN TEST INTRADERMAL TB Negative Normal [facility] [employer]. Laboratory - Microbiology an d Antimicrobial susceptibilityon 08-16-2018 VZV IgG IA Qn (S) <135.00 Normal [facility]. Laboratory - Chemistry and C hemistry - challengeon 10-27-2017 Bilirubin Ql (U) Negative Normal [facility] [employer]; [employer]. Ketones Ql (U) Negative Normal [employer]; [facility], [employer]. pH (U) 7.0 [pH] Normal [employer]; [employer]. Specific gravity (U) [Rel density] 1.020 Normal [facility].; [employer]. Urobilinogen Qn (U) 0.2 mg/dL Normal [facility].; [employer]. Laboratory - Hematology and Cell countson 10-27-2017 Hemoglobin Ql (U) Negative Normal [employer]; [employer]. Laboratory - Specimen inform ationon 10-27-2017 Appearance (U) CLear Normal [facility].; [employer]. Color (U) yellow Normal [facility].; [employer]. Laboratory - Urinalysison Glucose Test strip (U) [Mass/Vol] Negative Normal [facility].; [employer]. Leukocyte esterase Test strip Ql (U) Negative Normal [facility] [employer]; [employer]. Nitrite Ql (U) Negative Normal [facility] [employer]; [employer]. Protein Ql (U) Negative Normal [facility].; [employer]. Laboratory - Chemistry and C hemistry - challengeon 01-16-2015 Anion gap [Moles/Vol] 9 mmol/L Abnormal 10 - 2 0 mmol/L [employer]; [employer]. Basic metabolic 2000 panel BMP with eGFR Normal [facility].; [employer]. Calcium [Mass/Vol] 9.7 mg/dL Normal 8.6 - 9.8 mg/dL [facility], [employer]. Chloride [Moles/Vol] 103 mmol/L Normal 102 - 1 12 mmol/L [facility], [employer]. CO2 [Moles/Vol] 27.0 mmol/L Normal 13.0 - 29.0 mmol/L [facility].; [place] [facility]. Creatinine [Mass/Vol] 0.6 mg/dL Abnormal 0.8 - 1.2 mg/dL [facility].; [place] [facility], [facility]. GFR/1.73 sq M.predicted among blacks MDRD (S/P/Bld) [Vol rate/Area] mL/min/{1.73_m2} Normal 60 - 999 {ML/MINUTE} [facility], [facility].; [place] [facility], [facility]. GFR/1.73 sq M.predicted MDRD (S/P/Bld) [Vol rate/Area] mL/min/{1.73_m2} Normal 60 - 999 {ML/MINUTE} [facility].; [place] [employer], [employer]. Glucose [Mass/Vol] 89 mg/dL Normal 74 - 106 mg/dL [facility].; [place] [employer], [facility]. Potassium [Moles/Vol] 4.2 mmol/L Normal 3.3 - 4.6 mmol/L [facility].; [place] [employer], [facility]. Sodium [Moles/Vol] 135 mmol/L Abnormal 136 - 145 mmol/L [facility].; [place] [facility], [facility]. TSH Qn 1.40 m[IU]/L Normal 0.34 - 5.60 {uIU/ml} [facility].; [place] [employer], [facility] Urea nitrogen [Mass/Vol] 14 mg/dL Normal 6 - 20 mg/dL [facility].; [place] [facility]. Laboratory - Hematology and Cell countson 01-16-2015 Basophils (Bld) [#/Vol] 0.00 {3/UL} Normal 0.00 - 0.10 {3/UL} [facility].; [place] [employer], [employer]. Basophils/100 WBC (Bld) 0.4 % Normal 0.0 - 2.0 % [facility].; [place] [employer] CBC W Auto Differential panel (Bld) CBC Normal [facility].; [place] [employer], [employer] Eosinophils (Bld) [#/Vol] 0.10 {3/UL} Normal 0.00 - 0.50 {3/UL} [facility].; [place] [facility]. Eosinophils/100 WBC (Bld) 1.4 % Normal 0.0 - 7.0 % [facility], [facility].; [facility], [facility]. Erythrocyte distribution width (RBC) [Ratio] 12.7 % Normal 12.0 - 15.6 % [facility], [facility].; [place] [facility], [facility]. Hematocrit (Bld) [Volume fraction] 43.9 % Normal 34.0 - 46.0 % [facility].; [place] [employer] [facility], [facility] Hemoglobin (Bld) [Mass/Vol] 14.6 g/dL Normal 12.0 - 16.0 g/dL [facility].; [place] [employer] [facility], [facility]. Lymphocytes (Bld) [#/Vol] 2.20 {3/UL} Normal 0.80 - 2.80 {3/UL} [facility], [facility].; [place] [employer], [facility]. Lymphocytes/100 WBC (Bld) 25.5 % Normal 20.0 - 45.0 % [facility].; [place] [employer], [employer]. MCH (RBC) [Entitic mass] 32 pg Normal 27 - 33 pg [place] [facility].; [place] [employer] [facility], [employer] MCHC (RBC) [Mass/Vol] 33 {X10_3} Normal 32 - 3 6 {X10_3} [facility], [facility].; [place] [employer], [facility]. MCV (RBC) [Entitic vol] 95 fL Normal 80 - 99 fL [place] [facility].; [employer], [facility]. Monocytes (Bld) [#/Vol] 0.70 {3/UL} Normal 0.20 - 1.00 {3/UL} [place] [employer], [facility].; [place] [employer] Monocytes/100 WBC (Bld) 8.2 % Normal 0.0 - 10.0 % [place] [employer] [facility], [facility].; [place] [employer] Morphology Jace (Bld) [Interp] N/A Normal [facility].; [place] [employer] Neutrophils (Bld) [#/Vol] 5.60 {3/UL} Normal 1.50 - 7.10 {3/UL} [employer]. Neutrophils/100 WBC (Bld) 64.5 % Normal 46.0 - 76.0 % [place] [employer]; [employer]. Platelet mean volume (Bld) [Entitic vol] 9.5 fL Normal 6.6 - 10.5 fL [employer]; [employer]. Platelets (Bld) [#/Vol] 235 {3/UL} Normal 150 - 450 {3/UL} [employer] [employer]. RBC (Bld) [#/Vol] 4.63 {6/UL} Normal 4.10 - 5.3 0 {6/UL} [employer]. WBC (Bld) [#/Vol] 8.6 {3/UL} Normal 4.5 - 10.8 {3/UL} [employer] [employer]. No Panel Informationon 01-16 AGE 14 {years} Normal [employer]. MANUAL DIFF N/A Normal [facility] [employer]. Laboratory - Hematology and Cell countson 05-19-2014 Hemoglobin (Bld) [Mass/Vol] 13.4 g/dL Normal 11.5 - 14.2 g/dL [facility] [employer]; [employer]. Laboratory - Microbiology an d Antimicrobial susceptibilityon 02-05-2013 S. pyogenes Ag EIA Ql (Throat) Negative Normal [facility] [employer]. Laboratory - Chemistry and C hemistry - challengeon 10-20-2012 Hemoglobin.gastrointes tinal Ql (Stl) Negative Normal [facility] [employer]. Laboratory - Microbiology an d Antimicrobial susceptibilityon 10-20-2012 Cryptosporidium sp Ag IA Ql (Stl) Negative Normal [facility] [employer]. G. lamblia Ag IA Ql (Stl) Negative Normal [employer]. No Panel Informationon 10-20 CULTURE STOOL, C&Y Normal [facility]; [facility] DIRECT SMEAR Negative Normal [facility]; [facility] E.histolytica/dispar Negative Normal [facility]; [facility] FECAL WBC'S NONE Normal [facility]; [facility] 0 See Note Normal [facility]; [facility] Laboratory - Hematology and Cell countson 07-28-2012 ESR (Bld) [Velocity] 2 mm/h Normal 0 - 20 mm/h Hol [facility]; [facility] Laboratory - Serology - non- microon 07-28-2012 Nuclear Ab IF Ql (S) Negative Normal [facility]; [facility] Rheumatoid factor Qn 6 [IU]/mL Normal [facility]; [facility] Vital Signs Date Time Vital Sign Value Performing Clinician Facility 01-23-2025 14:53-0400 Body height 165.1 cm Zoila Orozco PA Work Phone: [facility] 01-23-2025 14:52-0400 Body mass index (BMI) [Ratio] 23.6 kg/m2 Zoila Orozco PA Work Phone: [facility] 01-23-2025 14:52-0400 Body weight 64.41 kg Zoila Orozco PA Work Phone: [facility] 01-23-2025 14:52-0400 Diastolic blood pressure 78 mm[Hg] Zoila Orozco PA Work Phone: [facility] 01-23-2025 14:52-0400 Systolic blood pressure 119 mm[Hg] Zoila Orozco PA Work Phone: [facility] 12-29-2024 14:20-0400 Body height 165.1 cm Zoila Orozco PA Work Phone: [facility] 12-29-2024 14:20-0400 Body mass index (BMI) [Ratio] 23.1 kg/m2 Zoila Orozco PA Work Phone: 6(067)626-136344 [place] [address] 12-29-2024 14:20-0400 Body weight 63.13 kg Zoila Orozco PA Work Phone: 6(153)458-699402 [address] 12-29-2024 14:20-0400 Diastolic blood pressure 76 mm[Hg] Zoila Orozco PA Work Phone: 9(197)501-159302 [address] 12-29-2024 14:20-0400 Systolic blood pressure 114 mm[Hg] Zoila Orozco PA Work Phone: 2(400)155-778202 [address] 12-02-2024 15:27-0400 Body height 165.1 cm Zoila Orozco PA Work Phone: 1(444)574-418157 [place] [address] 12-02-2024 15:27-0400 Body mass index (BMI) [Ratio] 21.6 kg/m2 Zoila Orozco PA Work Phone: 4(704)304-845757 [place] [address] 12-02-2024 15:27-0400 Body weight 58.99 kg Zoila Orozco PA Work Phone: 0(845)577-876657 [place] [address] 12-02-2024 15:27-0400 Diastolic blood pressure 68 mm[Hg] Zoila Orozco PA Work Phone: 5(468)619-120157 [place] [address] 12-02-2024 15:27-0400 Systolic blood pressure 106 mm[Hg] Zoila Orozco PA Work Phone: 8(696)246-348757 [place] [address] 11-03-2024 15:59-0400 Body height 165.1 cm Zoila Orozco PA Work Phone: 5(947)533-966557 [place] [address] 11-03-2024 15:59-0400 Body mass index (BMI) [Ratio] 20.5 kg/m2 Zoila Orozco PA Work Phone: 6(010)432-844457 [place] [address] 11-03-2024 15:59-0400 Body weight 55.96 kg Zoila Orozco PA Work Phone: 7(166)258-219402 [address] 11-03-2024 15:59-0400 Diastolic blood pressure 79 mm[Hg] Zoila Orozco PA Work Phone: 5(284)220-037402 [address] 11-03-2024 15:59-0400 Systolic blood pressure 123 mm[Hg] Zoila Orozco PA Work Phone: 5(948)357-575202 [address] 10-03-2024 14:47-0400 Body height 165.1 cm Zoila Orozco PA Work Phone: 6(943)307-953444 [place] [address] 10-03-2024 14:47-0400 Body mass index (BMI) [Ratio] 20 kg/m2 Zoila Orozco PA Work Phone: 8(462)276-141002 [address] 10-03-2024 14:47-0400 Body weight 54.65 kg Zoila Orozco PA Work Phone: 1(480)868-612257 [place] [address] 10-03-2024 14:47-0400 Diastolic blood pressure 84 mm[Hg] Zoila Orozco PA Work Phone: 5(056)275-318544 [place] [address] 10-03-2024 14:47-0400 Systolic blood pressure 119 mm[Hg] Zoila Orozco PA Work Phone: 2(105)957-638257 [place] [address] 09-20-2024 08:02-0400 Body height 165.1 cm Zoila Orozco PA Work Phone: 2(128)112-500657 [place] [address] 09-20-2024 08:02-0400 Body mass index (BMI) [Ratio] 20 kg/m2 Zoila Orozco PA Work Phone: 5(298)279-248644 [place] [address] 09-20-2024 08:02-0400 Body weight 54.48 kg Zoila Orozco PA Work Phone: 2(158)721-448402 [address] 09-20-2024 08:02-0400 Diastolic blood pressure 62 mm[Hg] Zoila Orozco PA Work Phone: 2(274)457-596744 [place] [address] 09-20-2024 08:02-0400 Systolic blood pressure 102 mm[Hg] Zoila Orozco PA Work Phone: 6(836)204-845944 [place] [address] 08-30-2024 18:04-0400 Body temperature 98 [degF] Dr. Campos Friend DO Work Phone: [facility] 08-30-2024 18:04-0400 Diastolic blood pressure 70 mm[Hg] Dr. Andres Keen DO Work Phone: 4(689)077-385102 [place] [address] 08-30-2024 18:04-0400 Heart rate 92 /min Dr. Andres Keen DO Work Phone: 1(069)998-631702 [place] [address] 08-30-2024 18:04-0400 Respiratory rate 16 /min Dr. Andres Keen DO Work Phone: 4(659)468-428202 [place] [address] 08-30-2024 18:04-0400 SaO2% (BldA) [Mass fraction] 100 % Dr. Andres Keen DO Work Phone: 5(667)071-892602 [place] [address] 08-30-2024 18:04-0400 Systolic blood pressure 120 mm[Hg] Dr. Andres Keen DO Work Phone: 5(651)716-474602 [place] [address] 08-30-2024 17:16-0400 Body height 165.[address] Andres Keen DO Work Phone: 5(184)753-968102 [place] [address] 08-30-2024 17:16-0400 Body mass index (BMI) [Ratio] 20.6 kg/m2 Dr. Andres Keen DO Work Phone: 8(686)727-064302 [place] [address] 08-30-2024 17:16-0400 Body weight 56.[address] Andres Keen DO Work Phone: 5(958)279-364202 [place] [address] 05-27-2024 13:33-0500 Body mass index (BMI) [Ratio] 20.1 kg/m2 Dr. Andres Keen DO Work Phone: 3(989)102-881502 [place] [address] 05-27-2024 13:33-0500 Body weight 54.[address] Andres Keen DO Work Phone: 9(537)454-954302 [place] [address] 05-27-2024 13:33-0500 Diastolic blood pressure 83 mm[Hg] Dr. Andres Keen DO Work Phone: 6(596)456-829302 [place] [address] 05-27-2024 13:33-0500 Systolic blood pressure 120 mm[Hg] Dr. Andres Friend DO Work Phone: [facility] 05-24-2024 14:54-0500 Body mass index (BMI) [Ratio] 20.1 kg/m2 Dr. Campos Friend DO Work Phone: [facility] 05-24-2024 14:54-0500 Body temperature 97.8 [degF] Dr. Andres Keen DO Work Phone: [facility] 05-24-2024 14:54-0500 Body weight 54.[address] Andres Keen DO Work Phone: [facility] 05-24-2024 14:54-0500 Diastolic blood pressure 75 mm[Hg] Dr. Andres Keen DO Work Phone: [facility] 05-24-2024 14:54-0500 Heart rate 74 /min Dr. Andres Keen DO Work Phone: [facility] 05-24-2024 14:54-0500 Respiratory rate 18 /min Dr. Andres Keen DO Work Phone: [facility] 05-24-2024 14:54-0500 SaO2% (BldA) [Mass fraction] 98 % Dr. Andres Keen DO Work Phone: [facility] 05-24-2024 14:54-0500 Systolic blood pressure 113 mm[Hg] Dr. Andres Keen DO Work Phone: [facility] 05-12-2024 14:54-0500 Body mass index (BMI) [Ratio] 20.2 kg/m2 Dr. Andres Keen DO Work Phone: [facility] 05-12-2024 14:54-0500 Body weight 55.[address] Andres Keen DO Work Phone: [facility] 05-12-2024 14:52-0500 Body temperature 98.4 [degF] Dr. Andres Keen DO Work Phone: [facility] 05-12-2024 14:52-0500 Diastolic blood pressure 78 mm[Hg] Dr. Andres Keen DO Work Phone: [facility] 05-12-2024 14:52-0500 Heart rate 70 /min Dr. Andres Keen DO Work Phone: [facility] 05-12-2024 14:52-0500 Respiratory rate 18 /min Dr. Andres Keen DO Work Phone: [facility] 05-12-2024 14:52-0500 SaO2% (BldA) [Mass fraction] 100 % Dr. Andres Keen DO Work Phone: [facility] 05-12-2024 14:52-0500 Systolic blood pressure 113 mm[Hg] Dr. Andres Keen DO Work Phone: [facility] 11-10-2023 13:09-0400 Body height 167.64 cm Corry Saucedo MA [facility], [facility].; [employer], [facility]. 11-10-2023 13:09-0400 Body mass index (BMI) [Ratio] 19.46 kg/m2 Corry Saucedo MA [facility], [facility].; [facility], [facility]. 11-10-2023 13:09-0400 Body surface area Derived from formula 1.61 m2 Corry Saucedo MA [facility], [facility], [facility]. 11-10-2023 13:09-0400 Body weight 54.69 kg Corry Saucedo MA [facility], [facility].; [employer], [facility]. 11-10-2023 13:09-0400 Diastolic blood pressure 83 mm[Hg] Corry Saucedo MA [facility], [facility].; [facility], [facility]. Comment on above: Patient Position: Sitting; Cuff Location : Left Arm; Cuff Size: Standard 11-10-2023 13:09-0400 Heart rate 60 /min Corry Saucedo MA [facility], [facility] [employer], [employer]. Comment on above: Pattern: Regular 11-10-2023 13:09-0400 Systolic blood pressure 117 mm[Hg] Corry Saucedo MA [facility], [facility].; [facility]. Comment on above: Patient Position: Sitting; Cuff Location : Left Arm; Cuff Size: Standard 06-24-2023 08:59-0500 Body height 167.64 cm Pauline Calderon MA [facility], [facility] [place] [employer] [facility], [facility] 06-24-2023 08:59-0500 Body mass index (BMI) [Ratio] 19.05 kg/m2 Pauline Calderon MA [facility], [facility].; [facility] [employer] 06-24-2023 08:59-0500 Body surface area Derived from formula 1.6 m2 Pauline Calderon MA [facility], [facility].; [place] [employer] [facility], [facility]. 06-24-2023 08:59-0500 Body weight 53.52 kg Pauline Calderon MA [facility], [facility].; [place] [employer] [facility], [facility]. 06-24-2023 08:59-0500 Diastolic blood pressure 83 mm[Hg] Pauline Calderon MA [facility].; [employer]. Comment on above: Patient Position: Sitting; Cuff Location : Left Arm; Cuff Size: Standard 06-24-2023 08:59-0500 Heart rate 56 /min Pauline Calderon MA [facility].; [employer] Comment on above: Pattern: Regular 06-24-2023 08:59-0500 Systolic blood pressure 125 mm[Hg] Pauline Calderon MA [facility], [facility].; [place] [employer] Comment on above: Patient Position: Sitting; Cuff Location : Left Arm; Cuff Size: Standard 12-22-2022 15:49-0400 Body height 167.64 cm Judith Dickey LPN [facility], [facility].; [employer] 12-22-2022 15:49-0400 Body mass index (BMI) [Ratio] 18.24 kg/m2 Judith Dickey ENGINE REPAIRER [facility], [facility].; [employer] 12-22-2022 15:49-0400 Body surface area Derived from formula 1.57 m2 Judith Dickey ENGINE REPAIRER [facility].; [employer] 12-22-2022 15:49-0400 Body weight 51.26 kg Judith Dickey [facility], [facility].; [facility], [facility]. 12-22-2022 15:49-0400 Diastolic blood pressure 82 mm[Hg] Judith Dickey LPN [facility], [facility].; [employer] [facility], [facility] Comment on above: Patient Position: Sitting; Cuff Location : Left Arm; Cuff Size: Large 12-22-2022 15:49-0400 Heart rate 83 /min Judith Dickey [facility], [facility].; [place] [employer] [facility], [facility] Comment on above: Pattern: Regular 12-22-2022 15:49-0400 Systolic blood pressure 110 mm[Hg] Judith Dickey [facility], [facility] [place] [employer] [facility] Comment on above: Patient Position: Sitting; Cuff Location : Left Arm; Cuff Size: Large 11-17-2022 09:50-0400 Body height 167.64 cm Judith Dickey [facility], [facility].; [place] [employer] [facility], [facility] 11-17-2022 09:50-0400 Body mass index (BMI) [Ratio] 18.24 kg/m2 NitaMary Dickey [facility], [facility].; [facility] 11-17-2022 09:50-0400 Body surface area Derived from formula 1.57 m2 [facility] Keli [facility], [facility].; [facility], [facility]. 11-17-2022 09:50-0400 Body temperature 98.3 [degF] Judith Dickey [facility], [facility].; [facility] [facility], [employer]. Comment on above: Method: Tympanic 11-17-2022 09:50-0400 Body weight 51.26 kg Judith Dickey [facility], [facility].; [place] [employer] [facility], [facility] 11-17-2022 09:50-0400 Diastolic blood pressure 80 mm[Hg] Judith Dickey [facility], [facility].; [employer] [facility], [facility] Comment on above: Patient Position: Sitting; Cuff Location : Left Arm; Cuff Size: Large 11-17-2022 09:50-0400 Heart rate 74 /min Judith Dickey BASIL [facility], [facility].; [employer], [employer]. Comment on above: Pattern: Regular 11-17-2022 09:50-0400 Systolic blood pressure 115 mm[Hg] Judith Dickey ENGINE REPAIRERWinter [facility], Inc.; [employer], [employer]. Comment on above: Patient Position: Sitting; Cuff Location : Left Arm; Cuff Size: Large 11-03-2022 15:37-0400 Body height 167.64 cm Zeenat Alarcon LPN [facility], [facility].; [facility], [facility]. 11-03-2022 15:37-0400 Body mass index (BMI) [Ratio] 18.24 kg/m2 Zeenat Alarcon LPN [facility], [facility].; [facility] 11-03-2022 15:37-0400 Body surface area Derived from formula 1.57 m2 Zeenat Alarcon LPN [facility], [facility].; [place] [employer] [facility], [facility] 11-03-2022 15:37-0400 Body temperature 98.7 [degF] Zeenat Alarcon [facility], [facility].; [employer] [facility], [employer]. Comment on above: Method: Tympanic 11-03-2022 15:37-0400 Body weight 51.26 kg Zeenat Alarcon LPN [facility], [facility] [employer] 11-03-2022 15:37-0400 Diastolic blood pressure 84 mm[Hg] Zeenat Alarcon LPN [facility], [facility].; [employer], [employer]. Comment on above: Patient Position: Sitting; Cuff Location : Left Arm; Cuff Size: Standard 11-03-2022 15:37-0400 Heart rate 84 /min Zeenat Alarcon LPN [facility], [facility].; [employer], [employer]. Comment on above: Pattern: Regular 11-03-2022 15:37-0400 Systolic blood pressure 115 mm[Hg] Zeenat Alarcon LPN [facility], [facility] [employer], [employer]. Comment on above: Patient Position: Sitting; Cuff Location : Left Arm; Cuff Size: Standard 07-16-2022 08:48-0400 Body weight 53.52 kg Stargustavo Chin BASIL [facility].; [facility] 07-16-2022 08:48-0400 Diastolic blood pressure 90 mm[Hg] Stargustavo Chin BASIL [facility], [facility].; [place] [employer] [facility], [facility] Comment on above: Patient Position: Sitting; Cuff Location : Left Arm; Cuff Size: Standard 07-16-2022 08:48-0400 Heart rate 75 /min Star Giuseppeneeraj GRACIA [facility], [facility].; [place] [employer] [facility], [facility] Comment on above: Pattern: Regular 07-16-2022 08:48-0400 Systolic blood pressure 128 mm[Hg] Stargustavo Chin ENGINE REPAIRER [facility] [place] [employer] [facility] Comment on above: Patient Position: Sitting; Cuff Location : Left Arm; Cuff Size: Standard 02-13-2022 09:57-0400 Body height 167.64 cm Raven Holt LPN [facility], [facility].; [place] [facility] 02-13-2022 09:57-0400 Body mass index (BMI) [Ratio] 18.88 kg/m2 Raven Holt [facility], [facility].; [place] [employer] [facility] 02-13-2022 09:57-0400 Body surface area Derived from formula 1.59 m2 Raven Holt LPN [facility] [place] [employer] [facility] 02-13-2022 09:57-0400 Body weight 53.07 kg Raven Holt LPN [facility] [place] [employer] [facility] 02-13-2022 09:57-0400 Diastolic blood pressure 80 mm[Hg] Raven Holt ENGINE REPAIRER [facility], [facility].; [place] [employer] [facility] Comment on above: Patient Position: Sitting; Cuff Location : Left Arm; Cuff Size: Standard 02-13-2022 09:57-0400 Heart rate 60 /min Raven Holt LPN [facility] [employer], [employer]. Comment on above: Pattern: Regular 02-13-2022 09:57-0400 Systolic blood pressure 122 mm[Hg] Raven Holt [facility], [facility].; [place] [facility], [employer]. Comment on above: Patient Position: Sitting; Cuff Location : Left Arm; Cuff Size: Standard 08-28-2021 07:260400 Body height 167.64 cm Judith Dickey [facility].; [place] [employer] [facility] 08-28-2021 07:260400 Body mass index (BMI) [Ratio] 19.05 kg/m2 Judith Dickey [facility].; [place] [employer] [facility], [facility]. 08-28-2021 07:26040 Body surface area Derived from formula 1.6 m2 Judith Dickey [facility], [facility].; [place] [employer] [facility], [facility]. 08-28-2021 07:040 Body weight 53.52 kg Judith Dickey [facility], [facility].; [place] [employer] [facility], [facility]. 08-28-2021 07:[id number] Diastolic blood pressure 76 mm[Hg] Judith Dickey [facility], [facility].; [place] [facility], [employer]. Comment on above: Patient Position: Sitting; Cuff Location : Left Arm; Cuff Size: Large 08-28-2021 07:260400 Heart rate 66 /min Judith Dickey [facility], [facility].; [place] [facility] Comment on above: Pattern: Regular 08-28-2021 07:26-0400 Systolic blood pressure 114 mm[Hg] Judith Dickey [facility], [facility].; [place] [facility] Comment on above: Patient Position: Sitting; Cuff Location : Left Arm; Cuff Size: Large 07-30-2020 13:150400 Body height 167.64 cm Gomez Webb ENGINE REPAIRER [facility], [facility].; [place] [employer], [employer]. 07-30-2020 13:15-0400 Body mass index (BMI) [Ratio] 19.85 kg/m2 Neilee L Vess ENGINE REPAIRER [facility] [place] [employer] 07-30-2020 13:150400 Body surface area Derived from formula 1.63 m2 Neilee L Vess ENGINE REPAIRER [facility], [facility] [employer] 07-30-2020 13:15-0400 Body weight 55.79 kg Gomez Webb ENGINE REPAIRER [facility] [employer] 07-30-2020 13:15-0400 Diastolic blood pressure 80 mm[Hg] Rickye Jania Webb ENGINE REPAIRER [facility] [employer] Comment on above: Patient Position: Sitting; Cuff Location : Left Arm; Cuff Size: Standard 07-30-2020 13:15-0400 Systolic blood pressure 121 mm[Hg] Rickye Jania Webb ENGINE REPAIRER [facility] [employer] Comment on above: Patient Position: Sitting; Cuff Location : Left Arm; Cuff Size: Standard 12-21-2018 08:40-0400 Body height 167.64 cm Judith Dickey [facility] 12-21-2018 08:40-0400 Body mass index (BMI) [Ratio] 19.37 kg/m2 Judith Dickey [facility] 12-21-2018 08:40-0400 Body surface area Derived from formula 1.61 m2 Judith Dickey [facility] 12-21-2018 08:40-0400 Body weight 54.43 kg Judith Dickey [facility] 12-21-2018 08:40-0400 Diastolic blood pressure 87 mm[Hg] Judith Dickey [facility] Comment on above: Patient Position: Sitting; Cuff Location : Left Arm; Cuff Size: Large 12-21-2018 08:40-0400 Heart rate 114 /min NitaMary Dickey [facility] Comment on above: Pattern: Regular 12-21-2018 08:40-0400 Systolic blood pressure 122 mm[Hg] Judith Dickey [facility] [employer] [place]. Comment on above: Patient Position: Sitting; Cuff Location : Left Arm; Cuff Size: Large 10-27-2018 13:51-0400 Body height 167.64 cm Debbie Braga RN [facility] [place]. 10-27-2018 13:51-0400 Body mass index (BMI) [Percentile] Per age and sex 31 % Debbie Braga RN [facility] [place]. 10-27-2018 13:51-0400 Body mass index (BMI) [Ratio] 20.24 kg/m2 Debbie Braga RN [facility] [place]. 10-27-2018 13:51-0400 Body surface area Derived from formula 1.64 m2 Debbie Braga RN [facility] [place]. 10-27-2018 13:51-0400 Body temperature 98.2 [degF] Debbie Brgaa RN [facility] [place]. Comment on above: Method: Tympanic 10-27-2018 13:51-0400 Body weight 56.88 kg Debbie Braga RN [facility] [place]. 10-27-2018 13:51-0400 Diastolic blood pressure 90 mm[Hg] Debbie Braga RN [facility] [place]. Comment on above: Patient Position: Sitting; Cuff Location : Left Arm; Cuff Size: Standard 10-27-2018 13:51-0400 Heart rate 85 /min Debbie Braga RN [facility] [place]. Comment on above: Pattern: Regular 10-27-2018 13:51-0400 Systolic blood pressure 130 mm[Hg] Debbie Braga RN [place] [place]. Comment on above: Patient Position: Sitting; Cuff Location : Left Arm; Cuff Size: Standard 08-16-2018 08:39-0400 Body height 167.64 cm Gomez Webb LPN [facility] [place]. 08-16-2018 08:39-0400 Body mass index (BMI) [Percentile] Per age and sex 41 % Nevasyle Jania Vess ENGINE REPAIRER [facility] 08-16-2018 08:39-0400 Body mass index (BMI) [Ratio] 20.98 kg/m2 Neilee L Vess ENGINE REPAIRER [facility] 08-16-2018 08:39-0400 Body surface area Derived from formula 1.67 m2 Neilee L Vess ENGINE REPAIRER [facility] 08-16-2018 08:39-0400 Body weight 58.97 kg Nevasyle L Vess ENGINE REPAIRER [facility], [employer] [place]. 08-16-2018 08:39-0400 Diastolic blood pressure 75 mm[Hg] Neilee L Vess ENGINE REPAIRER [facility] [place]. Comment on above: Patient Position: Sitting; Cuff Location : Right Arm; Cuff Size: Standard 08-16-2018 08:39-0400 Heart rate 93 /min Rickye L Vess ENGINE REPAIRER [employer] [place]. Comment on above: Pattern: Regular 08-16-2018 08:39-0400 Systolic blood pressure 114 mm[Hg] Rickye L Vess ENGINE REPAIRER [facility], [employer] [place]. Comment on above: Patient Position: Sitting; Cuff Location : Right Arm; Cuff Size: Standard 06-23-2018 14:31-0500 Body height 166.37 cm Debbie Braga RN [place] [place]. 06-23-2018 14:31-0500 Body mass index (BMI) [Percentile] Per age and sex 34 % Debbie Braga RN [place] [place]. 06-23-2018 14:31-0500 Body mass index (BMI) [Ratio] 20.45 kg/m2 Debbie Braga RN [place] [place]. 06-23-2018 14:31-0500 Body surface area Derived from formula 1.63 m2 Debbie Braga RN [place] [place]. 06-23-2018 14:31-0500 Body temperature 97 [degF] Debbie Braga RN [place] [employer], [employer] [place]. Comment on above: Method: Tympanic 06-23-2018 14:31-0500 Body weight 56.61 kg Debbie Braga RN [place] [employer] [employer] 10-27-2017 13:23-0400 Body height 166.37 cm Shawna Brown LPN [facility] [employer] [place]. 10-27-2017 13:23-0400 Body mass index (BMI) [Percentile] Per age and sex 19 % Shawna Brown LPN [facility] [place]. 10-27-2017 13:23-0400 Body mass index (BMI) [Ratio] 19.17 kg/m2 Shawna Brown LPN [facility] [place]. 10-27-2017 13:23-0400 Body surface area Derived from formula 1.58 m2 Shawna Brown LPN [facility] [employer] [employer] [place]. 10-27-2017 13:23-0400 Body weight 53.07 kg Shawna Brown LPN [facility] [place]. 10-27-2017 13:23-0400 Diastolic blood pressure 79 mm[Hg] Shawna Brown LPN [facility] [place]. Comment on above: Patient Position: Sitting; Cuff Location : Left Arm; Cuff Size: Standard 10-27-2017 13:23-0400 Heart rate 88 /min Shawna Brown LPN [facility] [employer] [employer] [place]. Comment on above: Pattern: Regular 10-27-2017 13:23-0400 Systolic blood pressure 110 mm[Hg] Shawna Brown LPN [facility] [place]. Comment on above: Patient Position: Sitting; Cuff Location : Left Arm; Cuff Size: Standard 02-02-2017 14:16-0400 Body weight 51.26 kg Shawna Brown LPN [facility] [place]. 02-02-2017 14:16-0400 Diastolic blood pressure 77 mm[Hg] Shawna Brown [facility], [employer]. Comment on above: Patient Position: Sitting; Cuff Location : Left Arm; Cuff Size: Standard 02-02-2017 14:16-0400 Heart rate 120 /min Shawna Brown [facility] Comment on above: Pattern: Regular 02-02-2017 14:16-0400 Systolic blood pressure 109 mm[Hg] Shawna Brown ENGINE REPAIRER [facility] Comment on above: Patient Position: Sitting; Cuff Location : Left Arm; Cuff Size: Standard 12-30-2016 15:-0400 Body height 166.37 cm Judith Dickey ENGINE REPAIRER [facility] 12-30-2016 15:01-0400 Body mass index (BMI) [Percentile] Per age and sex 8 % Judith Wilsonuckey [facility] 12-30-2016 15:01-0400 Body mass index (BMI) [Ratio] 18.03 kg/m2 Judith Dickey [facility] 12-30-2016 15:01-0400 Body surface area Derived from formula 1.54 m2 Judith Dickey ENGINE REPAIRER [facility] 12-30-2016 15:-0400 Body weight 49.9 kg Judith Dickey ENGINE REPAIRER [facility] 12-30-2016 15:01-0400 Diastolic blood pressure 85 mm[Hg] Judith Dickey [facility], [employer]. Comment on above: Patient Position: Sitting; Cuff Location : Left Arm; Cuff Size: Large 12-30-2016 15:01-0400 Heart rate 85 /min Judith Dickey ENGINE REPAIRER [facility], [employer]. Comment on above: Pattern: Regular 12-30-2016 15:01-0400 Inhaled oxygen concentration 20 % Judith Dickey ENGINE REPAIRER [facility] [place] [facility] [place]. Comment on above: Room air 12-30-2016 15:01-0400 Inhaled oxygen concentration 21 % Judith Dickey [facility] [place]. Comment on above: Room air 12-30-2016 15:01-0400 SaO2% (BldA) [Mass fraction] 97 % Judith Dickey [facility] [place]. 12-30-2016 15:01-0400 Systolic blood pressure 120 mm[Hg] [facility] [place]. Comment on above: Patient Position: Sitting; Cuff Location : Left Arm; Cuff Size: Large 11-10-2016 13:40-0400 Body height 168.91 cm Debbie Braga RN [facility] [employer] [employer] [place]. 11-10-2016 13:40-0400 Body mass index (BMI) [Percentile] Per age and sex 5 % Debbie Braga RN [place] [facility], [employer]. 11-10-2016 13:40-0400 Body mass index (BMI) [Ratio] 17.58 kg/m2 Debbie Braga RN [place] [facility], [employer]. 11-10-2016 13:40-0400 Body surface area Derived from formula 1.56 m2 Debbie Braga RN [place] [facility], [employer]. 11-10-2016 13:40-0400 Body weight 50.17 kg Debbie Braga RN [place] [employer] [employer] [place]. 11-10-2016 13:40-0400 Diastolic blood pressure 73 mm[Hg] Debbie Braga RN [facility] [place]. Comment on above: Patient Position: Sitting; Cuff Location : Left Arm; Cuff Size: Standard 11-10-2016 13:40-0400 Heart rate 98 /min Debbie Braga RN [facility] [employer]; [place]. Comment on above: Pattern: Regular 11-10-2016 13:40-0400 Systolic blood pressure 113 mm[Hg] Debbie Braga RN [place] [place]. Comment on above: Patient Position: Sitting; Cuff Location : Left Arm; Cuff Size: Standard 10-13-2016 08:24-0400 Body height 168.91 cm Debbie Braga RN [facility] [place]. 10-13-2016 08:24-0400 Body mass index (BMI) [Percentile] Per age and sex 6 % Debbie Braga RN [facility] [place]. 10-13-2016 08:24-0400 Body mass index (BMI) [Ratio] 17.69 kg/m2 Debbie Braga RN [facility] [place]. 10-13-2016 08:24-0400 Body surface area Derived from formula 1.57 m2 Debbie Braga RN [facility] [place]. 10-13-2016 08:24-0400 Body temperature 97.3 [degF] Debbie Braga RN [place] [place]. Comment on above: Method: Tympanic 10-13-2016 08:24-0400 Body weight 50.49 kg Debbie Braga RN [facility] [place]. 10-06-2016 11:280400 Body height 165.1 cm Kareen Ho RN [place] [place]. 10-06-2016 11:28-0400 Body mass index (BMI) [Percentile] Per age and sex 17 % Kareen Ho RN [place] [place]. 10-06-2016 11:28-0400 Body mass index (BMI) [Ratio] 18.8 kg/m2 Kareen Ho RN [place] [place]. 10-06-2016 11:28-0400 Body surface area Derived from formula 1.55 m2 Kareen Ho RN [place] [place]. 10-06-2016 11:28-0400 Body weight 51.26 kg Kareen Ho RN [facility] [place]. 10-06-2016 11:28-0400 Diastolic blood pressure 67 mm[Hg] Kareen Ho RN [facility] [place]. Comment on above: Patient Position: Sitting; Cuff Location : Left Arm; Cuff Size: Standard 10-06-2016 11:28-0400 Heart rate 75 /min Kareen Ho RN [facility] [employer] Comment on above: Pattern: Regular 10-06-2016 11:28-0400 Systolic blood pressure 96 mm[Hg] Kareen Ho RN [facility] [employer] Comment on above: Patient Position: Sitting; Cuff Location : Left Arm; Cuff Size: Standard 07-07-2016 16:17-0400 Body height 165.1 cm Kareen Ho RN [facility] [employer] 07-07-2016 16:17-0400 Body mass index (BMI) [Percentile] Per age and sex 20 % Kareen Ho RN [facility] 07-07-2016 16:17-0400 Body mass index (BMI) [Ratio] 18.97 kg/m2 Kareen Ho RN [facility] [employer] 07-07-2016 16:17-0400 Body surface area Derived from formula 1.56 m2 Kareen Ho RN [facility] [employer] 07-07-2016 16:17-0400 Body weight 51.71 kg Kareen Ho RN [place] [place]. 07-07-2016 16:17-0400 Diastolic blood pressure 65 mm[Hg] Kareen Ho RN [facility] [place]. Comment on above: Patient Position: Sitting; Cuff Location : Left Arm; Cuff Size: Standard 07-07-2016 16:17-0400 Heart rate 84 /min Kareen Ho RN [place] [place]. Comment on above: Pattern: Regular 07-07-2016 16:17-0400 Systolic blood pressure 114 mm[Hg] Kareen Ho RN [facility] [place]. Comment on above: Patient Position: Sitting; Cuff Location : Left Arm; Cuff Size: Standard 04-08-2016 15:31-0500 Body height 165.1 cm Kareen Ho RN [facility] [place]. 04-08-2016 15:31-0500 Body mass index (BMI) [Percentile] Per age and sex 17 % Kareen Ho RN [facility] [place]. 04-08-2016 15:31-0500 Body mass index (BMI) [Ratio] 18.64 kg/m2 Kraeen Ho RN [facility] [place]. 04-08-2016 15:31-0500 Body surface area Derived from formula 1.55 m2 Kareen Ho RN [facility] [place]. 04-08-2016 15:31-0500 Body weight 50.8 kg Kareen Ho RN [facility] [place]. 04-08-2016 15:31-0500 Diastolic blood pressure 81 mm[Hg] Kareen Ho RN [facility] [place]. Comment on above: Patient Position: Sitting; Cuff Location : Right Arm; Cuff Size: Standard 04-08-2016 15:31-0500 Heart rate 92 /min Kareen Ho RN [place] [place]. Comment on above: Pattern: Regular 04-08-2016 15:31-0500 Systolic blood pressure 108 mm[Hg] Kareen Ho RN [place] [place]. Comment on above: Patient Position: Sitting; Cuff Location : Right Arm; Cuff Size: Standard 01-07-2016 15:47-0400 Body height 165.1 cm Kareen Ho RN [place] [place]. 01-07-2016 15:47-0400 Body mass index (BMI) [Percentile] Per age and sex 25 % Kareen Ho RN [place] [place]. 01-07-2016 15:47-0400 Body mass index (BMI) [Ratio] 19.14 kg/m2 Kareen Ho RN [place] [place]. 01-07-2016 15:47-0400 Body surface area Derived from formula 1.56 m2 Kareen Ho RN [place] [place]. 01-07-2016 15:47-0400 Body temperature 99.1 [degF] Kareen Ho RN [place] [place]. Comment on above: Method: Tympanic 01-07-2016 15:47-0400 Body weight 52.16 kg Kareen Ho RN [place] [place]. 01-07-2016 15:47-0400 Diastolic blood pressure 74 mm[Hg] Kareen Ho RN [place] [place]. Comment on above: Patient Position: Sitting; Cuff Location : Left Arm; Cuff Size: Standard 01-07-2016 15:47-0400 Heart rate 65 /min Kareen Ho RN [place] [place]. Comment on above: Pattern: Regular 01-07-2016 15:47-0400 Systolic blood pressure 115 mm[Hg] Kareen Ho RN [place] [place]. Comment on above: Patient Position: Sitting; Cuff Location : Left Arm; Cuff Size: Standard 10-05-2015 14:43-0400 Body height 166.37 cm Kareen Ho RN [place] [place]. 10-05-2015 14:43-0400 Body mass index (BMI) [Percentile] Per age and sex 41 % Kareen Ho RN [facility] [place]. 10-05-2015 14:43-0400 Body mass index (BMI) [Ratio] 20.16 kg/m2 Kareen Ho RN [facility] [place]. 10-05-2015 14:43-0400 Body surface area Derived from formula 1.62 m2 Kareen Ho RN [facility] [place]. 10-05-2015 14:43-0400 Body temperature 99 [degF] Kareen Ho RN [facility] [place]. Comment on above: Method: Tympanic 10-05-2015 14:43-0400 Body weight 55.79 kg Kareen Ho RN [facility] [place]. 10-05-2015 14:43-0400 Diastolic blood pressure 79 mm[Hg] Kareen Ho RN [facility] [place]. Comment on above: Patient Position: Sitting; Cuff Location : Right Arm; Cuff Size: Standard 10-05-2015 14:43-0400 Heart rate 68 /min Kareen Ho RN [place] [place]. Comment on above: Pattern: Regular 10-05-2015 14:43-0400 Systolic blood pressure 118 mm[Hg] Kareen Ho RN [facility] [place]. Comment on above: Patient Position: Sitting; Cuff Location : Right Arm; Cuff Size: Standard 01-16-2015 15:47-0400 Body height 167.64 cm Kareen Ho RN [place] [place]. 01-16-2015 15:47-0400 Body mass index (BMI) [Percentile] Per age and sex 32 % Kareen Ho RN [place] [place]. 01-16-2015 15:47-0400 Body mass index (BMI) [Ratio] 19.21 kg/m2 Kareen Ho RN [place] [place]. 01-16-2015 15:47-0400 Body surface area Derived from formula 1.6 m2 Kareen Ho RN [facility] [place]. 01-16-2015 15:47-0400 Body temperature 98.9 [degF] Kareen Ho RN [facility] [place]. Comment on above: Method: Tympanic 01-16-2015 15:47-0400 Body weight 53.98 kg Kareen Ho RN [facility] [place]. 01-16-2015 15:47-0400 Diastolic blood pressure 75 mm[Hg] Kareen Ho RN [facility] [place]. Comment on above: Patient Position: Sitting; Cuff Location : Left Arm; Cuff Size: Standard 01-16-2015 15:47-0400 Heart rate 61 /min Kareen Ho RN [facility] [place]. Comment on above: Pattern: Regular 01-16-2015 15:47-0400 Systolic blood pressure 109 mm[Hg] Kareen Ho RN [facility] [place]. Comment on above: Patient Position: Sitting; Cuff Location : Left Arm; Cuff Size: Standard 11-23-2014 14:30-0400 Body height 167.64 cm Kareen Ho RN [facility] [place]. 11-23-2014 14:30-0400 Body mass index (BMI) [Percentile] Per age and sex 26 % Kareen Ho RN [facility] [place]. 11-23-2014 14:30-0400 Body mass index (BMI) [Ratio] 18.72 kg/m2 Kareen Ho RN [place] [place]. 11-23-2014 14:30-0400 Body surface area Derived from formula 1.59 m2 Kareen Ho RN [place] [place]. 11-23-2014 14:30-0400 Body weight 52.62 kg Kareen Ho RN [place] [employer]; [place]. 11-23-2014 14:30-0400 Diastolic blood pressure 73 mm[Hg] Kareen Ho RN [place] [employer]; [place]. Comment on above: Patient Position: Sitting; Cuff Location : Right Arm; Cuff Size: Standard 11-23-2014 14:30-0400 Heart rate 74 /min Kareen Ho RN [place] [employer]; [place]. Comment on above: Pattern: Regular 11-23-2014 14:30-0400 Systolic blood pressure 112 mm[Hg] Kareen Ho RN [facility] [place]. Comment on above: Patient Position: Sitting; Cuff Location : Right Arm; Cuff Size: Standard 05-19-2014 11:00-0500 Body height 165.1 cm Ro Howard RN Work Phone: [facility] [place]. 05-19-2014 11:00-0500 Body mass index (BMI) [Percentile] Per age and sex 45 % Ro Howard RN Work Phone: [place] [place]. 05-19-2014 11:00-0500 Body mass index (BMI) [Ratio] 19.8 kg/m2 Ro Howard RN Work Phone: [facility] [place]. 05-19-2014 11:00-0500 Body surface area Derived from formula 1.59 m2 Ro Howard RN Work Phone: [facility] [place]. 05-19-2014 11:00-0500 Body temperature 97.8 [degF] Ro Howard RN Work Phone: [facility] [place]. Comment on above: Method: Tympanic 05-19-2014 11:00-0500 Body weight 53.98 kg Ro Howard RN Work Phone: [facility] [place]. 11-10-2013 15:50-0400 Body height 165.1 cm Frances Hameed LPN Work Phone: [facility] [place]. 11-10-2013 15:50-0400 Body mass index (BMI) [Percentile] Per age and sex 32 % Frances Hameed LPN Work Phone: [facility] [place]. 11-10-2013 15:50-0400 Body mass index (BMI) [Ratio] 18.64 kg/m2 Frances Hameed LPN Work Phone: [facility] [place]. 11-10-2013 15:50-0400 Body surface area Derived from formula 1.55 m2 Frances Hameed LPN Work Phone: [facility] [place]. 11-10-2013 15:50-0400 Body weight 50.8 kg Frances Hameed LPN Work Phone: [facility] [place]. 11-10-2013 15:50-0400 Diastolic blood pressure 74 mm[Hg] Frances Hameed LPN Work Phone: [facility] [place]. Comment on above: Patient Position: Sitting; Cuff Location : Left Arm; Cuff Size: Standard 11-10-2013 15:50-0400 Heart rate 98 /min Frances Hameed LPN Work Phone: [facility] [place]. Comment on above: Pattern: Regular 11-10-2013 15:50-0400 Systolic blood pressure 106 mm[Hg] Frances Hameed ENGINE REPAIRER Work Phone: [facility] [place]. Comment on above: Patient Position: Sitting; Cuff Location : Left Arm; Cuff Size: Standard 02-05-2013 09:39-0400 Body height 165.1 cm Gomez Jania Tracey ENGINE REPAIRER [facility] [place]. 02-05-2013 09:39-0400 Body mass index (BMI) [Percentile] Per age and sex 29 % Gomez Webb ENGINE REPAIRER [facility] 02-05-2013 09:39-0400 Body mass index (BMI) [Ratio] 17.97 kg/m2 Rikcye Jania Webb ENGINE REPAIRER [facility] 02-05-2013 09:39-0400 Body surface area Derived from formula 1.52 m2 Rickye Jania Webb ENGINE REPAIRER [facility], [employer] 02-05-2013 09:39-0400 Body temperature 97.4 [degF] Hivasyle [facility]ia Webb [facility] [place]. Comment on above: Method: Tympanic 02-05-2013 09:39-0400 Body weight 48.99 kg Gomez Webb ENGINE REPAIRER [facility] [employer] [place]. 10-25-2012 14:25-0400 Body height 165.1 cm Ro Howard RN Work Phone: [facility] [place]. 10-25-2012 14:25-0400 Body mass index (BMI) [Percentile] Per age and sex 19 % Ro Howard RN Work Phone: [facility] [place]. 10-25-2012 14:25-0400 Body mass index (BMI) [Ratio] 17.14 kg/m2 Ro Howard RN Work Phone: [facility] [place]. 10-25-2012 14:25-0400 Body surface area Derived from formula 1.49 m2 Ro Howard RN Work Phone: [facility] [place]. 10-25-2012 14:25-0400 Body weight 46.72 kg Ro Howard RN Work Phone: [facility] [place]. 10-25-2012 14:25-0400 Diastolic blood pressure 68 mm[Hg] Ro Howard RN Work Phone: [facility] [place]. Comment on above: Patient Position: Sitting; Cuff Location : Right Arm; Cuff Size: Standard 10-25-2012 14:25-0400 Heart rate 78 /min Ro Howard RN Work Phone: [facility] [place]. Comment on above: Pattern: Regular 10-25-2012 14:25-0400 Systolic blood pressure 99 mm[Hg] Ro Howard RN Work Phone: [facility] [place]. Comment on above: Patient Position: Sitting; Cuff Location : Right Arm; Cuff Size: Standard 10-19-2012 14:27-0400 Body height 165.74 cm Ro Howard RN Work Phone: [place] [place]. 10-19-2012 14:27-0400 Body mass index (BMI) [Percentile] Per age and sex 14 % Ro Howard RN Work Phone: [place] [place]. 10-19-2012 14:27-0400 Body mass index (BMI) [Ratio] 16.68 kg/m2 Ro Howard RN Work Phone: [place] [place]. 10-19-2012 14:27-0400 Body surface area Derived from formula 1.48 m2 Ro Howard RN Work Phone: [place] [place]. 10-19-2012 14:27-0400 Body temperature 97.8 [degF] Ro Howard RN Work Phone: [place]. Comment on above: Method: Tympanic 10-19-2012 14:27-0400 Body weight 45.81 kg Ro Howard RN Work Phone: [facility] [place]. 07-28-2012 15:38-0400 Body height 163.83 cm Eber Manley MD Work Phone: [facility] [place]. 07-28-2012 15:38-0400 Body mass index (BMI) [Percentile] Per age and sex 32 % Eber Manley MD Work Phone: [facility] [place]. 07-28-2012 15:38-0400 Body mass index (BMI) [Ratio] 17.91 kg/m2 Eber Manley MD Work Phone: [facility]. 07-28-2012 15:38-0400 Body surface area Derived from formula 1.5 m2 Eber Manley MD Work Phone: [facility]. 07-28-2012 15:38-0400 Body temperature 98 [degF] Eber Manley MD Work Phone: [facility]. Comment on above: Method: Tympanic 07-28-2012 15:38-0400 Body weight 48.08 kg Eber Manley MD Work Phone: [facility]. 04-06-2012 15:34-0500 Body temperature 97.6 [degF] Frances Hameed ENGINE REPAIRER Work Phone: [facility]. Comment on above: Method: Tympanic 04-06-2012 15:34-0500 Body weight 46.27 kg Frances Zari ENGINE REPAIRER Work Phone: [facility]. 09-30-2011 10:25-0400 Body height 161.29 cm Ro Howard RN Work Phone: [place] [place]. 09-30-2011 10:25-0400 Body mass index (BMI) [Percentile] Per age and sex 40 % Ro Howard RN Work Phone: [facility] [place]. 09-30-2011 10:25-0400 Body mass index (BMI) [Ratio] 17.96 kg/m2 Ro Howard RN Work Phone: [facility] [employer] 09-30-2011 10:25-0400 Body surface area Derived from formula 1.47 m2 Ro Howard RN Work Phone: [facility] [place]. 09-30-2011 10:25-0400 Body weight 46.72 kg Ro Howard RN Work Phone: [facility]. 09-30-2011 10:25-0400 Diastolic blood pressure 58 mm[Hg] Ro Howard RN Work Phone: [facility] [place]. Comment on above: Patient Position: Sitting; Cuff Location : Left Arm; Cuff Size: Standard 09-30-2011 10:25-0400 Heart rate 80 /min Ro Howard RN Work Phone: [facility] [place]. Comment on above: Pattern: Regular 09-30-2011 10:25-0400 Systolic blood pressure 99 mm[Hg] Ro Howard RN Work Phone: [facility] [place]. Comment on above: Patient Position: Sitting; Cuff Location : Left Arm; Cuff Size: Standard 11-14-2010 12:03-0400 Body height 153.67 cm [facility] Work Phone: [place] [place] 11-14-2010 12:03-0400 Body mass index (BMI) [Percentile] Per age and sex 12 % [facility] Work Phone: [place] [place]. 11-14-2010 12:03-0400 Body mass index (BMI) [Ratio] 15.56 kg/m2 Frances Hameed LPN Work Phone: [facility] [place]. 11-14-2010 12:03-0400 Body surface area Derived from formula 1.28 m2 Frances Hameed LPN Work Phone: [facility] [place]. 11-14-2010 12:03-0400 Body weight 36.74 kg Frances Hameed LPN Work Phone: Me[facility]auer.; [facility]. 11-14-2010 12:03-0400 Diastolic blood pressure 65 mm[Hg] Frances Hameed LPN Work Phone: [facility].; [facility]. Comment on above: Patient Position: Sitting; Cuff Location : Left Arm; Cuff Size: Standard 11-14-2010 12:03-0400 Heart rate 91 /min Frances Hameed LPN Work Phone: [employer]; [facility]. Comment on above: Pattern: Regular 11-14-2010 12:03-0400 Systolic blood pressure 108 mm[Hg] Frances Hameed LPN Work Phone: [employer]; [facility]. Comment on above: Patient Position: Sitting; Cuff Location : Left Arm; Cuff Size: Standard 07-11-2010 16:41-0400 Body height 149.86 cm Frances Hameed LPN Work Phone: [employer]; [facility]. 07-11-2010 16:41-0400 Body mass index (BMI) [Percentile] Per age and sex 7 % Frances Hameed LPN Work Phone: [employer]; [facility]. 07-11-2010 16:41-0400 Body mass index (BMI) [Ratio] 14.95 kg/m2 Frances Hameed LPN Work Phone: [employer]; [place]. 07-11-2010 16:41-0400 Body surface area Derived from formula 1.21 m2 Frances Hameed LPN [facility]: [facility]. 07-11-2010 [id number] Body weight 33.57 kg Frances Hameed LPN Work Phone: [facility] Encounters Encounter Date Encounter Type Care Provider Facility Start: 03-07-2025 End: 03-07-2025 ambulatory Zoila Orozco Facility:[facility] Start: 02-24-2025 End: 02-24-2025 ambulatory Philly Dueñas Facility:[facility] Start: 02-16-2025 End: 02-16-2025 ambulatory Zoila Orozco Facility:[facility] Start: 02-08-2025 End: 02-08-2025 ambulatory Genesis Mccullough Facility:[facility] Start: 01-23-2025 End: 01-23-2025 Patient encounter procedure Genesis Mccullough [facility] Work Phone: Start: 01-23-2025 End: 01-23-2025 ambulatory Zoila Orozco PA Work Phone: [facility] Start: 12-29-2024 End: 12-29-2024 Patient encounter procedure Genesis Mccullough [facility] Work Phone: Start: 12-29-2024 End: 12-29-2024 ambulatory Zoila Orozco PA Work Phone: [facility] Start: 12-13-2024 End: 12-13-2024 ambulatory RAD[facility] Start: 12-02-2024 End: 12-02-2024 Patient encounter procedure Shreya Alvarado [facility] Work Phone: Start: 12-02-2024 End: 12-02-2024 ambulatory Zoila Orozco PA Work Phone: [facility] Start: 11-03-2024 End: 11-03-[address] Veronica Valles DO -[facility] Work Phone: Start: 11-03-2024 End: 11-03-2024 ambulatory Zoila Orozco PA Work Phone: -[facility] Start: 11-01-2024 End: 11-01-2024 ambulatory Zoila Orozco PA Work Phone: -[facility] Start: 11-01-2024 End: 11-01-2024 Patient encounter procedure Genesis Mccullough CN -Lab [facility] Start: 11-01-2024 End: 11-01-2024 ambulatory Genesis Jamel Facility:[facility] Start: 10-03-2024 End: 10-03-2024 ambulatory Zoila Orozco PA Work Phone: [facility] Work Phone: Start: 10-03-2024 End: 10-03-2024 Patient encounter procedure Genesis Mccullough [facility] -Laboratory Specimen Work Phone: Start: 10-03-2024 End: 10-03-2024 Patient encounter procedure Genesis Mccullough [facility] -[facility] Work Phone: Start: 10-03-2024 End: 10-03-2024 ambulatory Zoila Orozco PA Work Phone: [facility] Work Phone: Start: 10-03-2024 End: 10-03-2024 ambulatory Genesis Mccullough Facility:[facility] Start: 09-20-2024 End: 09-20-2024 Patient encounter procedure Genesis Mccullough [facility] Work Phone: Start: 09-20-2024 End: 09-20-2024 ambulatory Zoila Orozco PA Work Phone: [facility] Work Phone: Start: 08-30-2024 End: 08-30-[address] Eduardo Eduardo MD -Emergency Departmen t Work Phone: Start: 08-30-2024 End: 08-30-2024 Emergency department patient visit Dr. Andres Keen DO Work Phone: -Emergency Department Work Phone: Start: 08-30-2024 End: 08-30-2024 ambulatory Eduardo Reodica Facility:[facility] Start: 08-15-2024 Registered [facility] HEALTH RISK ASSE [facility] -Employee Health Start: 08-15-2024 ambulatory Health Risk Assessment Facility:[facility] Start: 05-27-2024 End: 05-27-[address] Veronica Valles DO -[facility] Work Phone: Start: 05-27-2024 End: 05-27-[address] Veronica Valles DO [facility] Start: 05-27-2024 End: 05-27-2024 ambulatory Veronica Valles Facility:[facility] Start: 05-24-2024 End: 05-24-2024 Patient encounter procedure Fina Barker NP-C -[facility] Work Phone: Start: 05-24-2024 End: 05-24-2024 ambulatory Fina Barker NP Facility:[facility] Start: 05-12-[address] Jordan Elliott MD -[facility] Start: 05-12-2024 ambulatory Jordan Elliott Facility:[facility] Start: 05-12-2024 End: 05-12-[address] Jordan Elliott MD -[facility] Work Phone: Start: 05-12-2024 End: 05-12-2024 ambulatory Andres Keen Facility:[facility] Start: 04-15-2024 End: 04-15-2024 Orders Eber Manley MD Work Phone: [facility] Start: 04-15-2024 End: 04-15-2024 ambulatory Zoila Orozco Facility:[facility] Start: 04-02-2024 Encounter for other preprocedural examination Andres Keen [facility] Start: 03-31-2024 End: 03-31-2024 ambulatory Andres Friend Facility:[facility] Start: 03-09-2024 ambulatory Andres Friend Facility :[facility] Start: 03-09-2024 End: 03-09-2024 ambulatory [facility] Friend Facility:[facility] Start: 01-11-2024 ambulatory [facility] Start: 12-07-2023 End: 12-07-2023 Patient encounter procedure Eber Manley MD Work Phone: [facility]. Start: 11-11-2023 End: 11-11-2023 Orders Eber Manley MD Work Phone: [facility]. Start: 11-10-2023 End: 11-10-2023 Patient encounter status Corry Saucedo MA [facility] [employer] Start: 11-10-2023 End: 11-10-2023 Periodic preventive med est patient 18-39 yrs Eber Manley MD Work Phone: [facility]. Start: 07-06-2023 End: 07-06-2023 ambulatory [facility] Work Phone: Start: 07-06-2023 End: 07-06-2023 Patient encounter procedure [facility], [facility] Work Phone: Start: 06-24-2023 End: 06-24-2023 Office outpatient visit 15 minutes Eber Manley MD Work Phone: [facility]. Start: 12-22-2022 End: 12-22-2022 Patient encounter status Eber Manley MD Work Phone: [facility].; [facility]. Start: 12-22-2022 End: 12-22-2022 Periodic preventive med est patient 18-39 yrs Eber Manley MD Work Phone: [facility]. Start: 11-17-2022 End: 11-17-2022 Office outpatient visit 15 minutes Eber Manley MD Work Phone: [facility]. Start: 11-14-2022 End: 11-14-2022 Orders Eber Manley MD Work Phone: [facility]. Start: 11-05-2022 End: 11-05-2022 Medication Eber Manley MD Work Phone: [facility]. Start: 11-04-2022 End: 11-04-2022 Medication Eber Manley MD Work Phone: [facility]. Start: 11-03-2022 End: 11-03-2022 Office outpatient visit 15 minutes Eber Manley MD Work Phone: [facility]. Start: 07-16-2022 End: 07-16-2022 Office outpatient visit 15 minutes Eber Manley MD Work Phone: [facility]. Start: 02-13-2022 End: 02-13-2022 Patient encounter procedure Eber Manley MD Work Phone: [employer]; [employer]. Start: 02-13-2022 End: 02-13-2022 Periodic preventive med est patient 18-39 yrs Eber Manley MD Work Phone: [facility]. Start: 08-28-2021 End: 08-28-2021 Office outpatient visit 15 minutes Eber Manley MD Work Phone: [facility]. Start: 12-12-2020 End: 12-26-2020 Orders Eber Manley MD Work Phone: [facility]. Start: 07-30-2020 End: 07-30-2020 Patient encounter procedure Gomez Webb LPN [facility]. Start: 12-28-2018 End: 12-28-2018 Orders Eber Manley MD Work Phone: [facility]. Start: 12-22-2018 End: 12-22-2018 Orders Eber Manley MD Work Phone: [facility]. Start: 12-21-2018 End: 12-21-2018 Office outpatient visit 15 minutes Eber Manley MD Work Phone: [facility]. Start: 10-27-2018 End: 10-27-2018 Office outpatient visit 10 minutes Eber Manley MD Work Phone: [facility]. Start: 10-11-2018 End: 10-11-2018 Historical Summary Eber Manley MD Work Phone: [facility]. Start: 09-27-2018 End: 09-27-2018 Orders Eber Manley MD Work Phone: [facility]. Start: 08-16-2018 End: 08-16-2018 Patient encounter procedure Eber Manley MD Work Phone: [place] [employer] Start: 08-16-2018 End: 08-16-2018 Periodic preventive med est patient 18-39 yrs Eber Manley MD Work Phone: [facility]. Start: 06-23-2018 End: 06-23-2018 Office outpatient visit 15 minutes Eber Manley MD Work Phone: [facility]. Start: 10-27-2017 End: 10-27-2017 Historical Summary Eber Manley MD Work Phone: [facility]. Start: 10-27-2017 End: 10-27-2017 Patient encounter procedure Eber Manley MD Work Phone: [facility]. Start: 02-02-2017 End: 02-02-2017 Office outpatient visit 15 minutes Eber Manley MD Work Phone: [facility]. Start: 12-30-2016 End: 12-30-2016 Telephone follow-up Eber Manley MD Work Phone: [facility]. Start: 12-30-2016 End: 12-30-2016 Office outpatient visit 15 minutes Eber Manley MD Work Phone: [facility]. Start: 11-10-2016 End: 11-11-2016 Patient encounter procedure Eber Manley MD Work Phone: [facility]. Start: 10-13-2016 End: 10-13-2016 Patient encounter procedure Eber Manley MD Work Phone: [facility] Start: 10-06-2016 End: 10-06-2016 Office outpatient visit 10 minutes Eber Manley MD Work Phone: [facility]. Start: 07-07-2016 End: 07-07-2016 Office outpatient visit 10 minutes Eber Manley MD Work Phone: [facility]. Start: 06-09-2016 End: 06-09-2016 Medication Eber Manley MD Work Phone: [facility]. Start: 05-22-2016 End: 05-22-2016 Medication Eber Manley MD Work Phone: [facility]. Start: 04-08-2016 End: 04-08-2016 Patient encounter procedure Eber Manley MD Work Phone: [facility] Start: 03-13-2016 End: 03-13-2016 Medication Eber Manley MD Work Phone: [facility]. Start: 02-27-2016 End: 02-27-2016 Nursing evaluation of patient and report Eber Manley MD Work Phone: [facility] Start: 01-07-2016 End: 01-08-2016 Patient encounter procedure Eber Manley MD Work Phone: [facility]. Start: 12-07-2015 End: 12-08-2015 Orders Eber Manley MD Work Phone: [facility]. Start: 10-05-2015 End: 10-05-2015 Periodic preventive med est patient 12-17yrs Eber Manley MD Work Phone: [facility]. Start: 02-27-2015 End: 02-27-2015 Nursing evaluation of patient and report Eber Manley MD Work Phone: [facility]. Start: 01-26-2015 End: 01-26-2015 Patient encounter procedure Eber Manley MD Work Phone: [facility] Start: 01-16-2015 End: 01-16-2015 Office outpatient visit 25 minutes Eber Manley MD Work Phone: [facility] Start: 11-23-2014 End: 11-23-2014 Periodic preventive med est patient 12-17yrs Eber Manley MD Work Phone: [facility]. Start: 05-19-2014 End: 05-19-2014 Office outpatient visit 25 minutes Eber Manley MD Work Phone: [facility]. Start: 04-11-2014 End: 04-11-2014 Nursing evaluation of patient and report Eber Manley MD Work Phone: [facility] Start: 11-10-2013 End: 11-10-2013 Periodic preventive med est patient 12-17yrs Eber Manley MD Work Phone: [employer] Start: 02-05-2013 End: 02-05-2013 Patient encounter procedure Eber Manley MD Work Phone: [facility] Start: 10-25-2012 End: 10-25-2012 Patient encounter procedure Eber Manley MD Work Phone: [facility] Start: 10-19-2012 End: 10-19-2012 Patient encounter procedure Eber Manley MD Work Phone: [facility] Start: 07-28-2012 End: 07-30-2012 Patient encounter procedure Eber Manley MD Work Phone: [facility] Start: 04-06-2012 End: 04-06-2012 Patient encounter procedure Eber Manley MD Work Phone: [employer] Start: 09-30-2011 End: 10-02-2011 Patient encounter procedure Eber Manley MD Work Phone: [facility] Start: 11-14-2010 End: 11-14-2010 Patient encounter procedure Eber Manley MD Work Phone: [facility] Start: 07-11-2010 End: 07-11-2010 Patient encounter procedure Eber Manley MD Work Phone: [facility] Start: 06-18-2010 End: 06-18-2010 Medication Eber Manley MD Work Phone: [facility] Follow-up encounter Zoila mercer PA-C Work Phone: [facility]; [facility] Patient encounter procedure Judith Dickey ENGINE REPAIRER [facility]; [facility] Patient encounter status Pauline Calderon MA [facility]; [facility] Procedures Date Procedure Procedure Detail Performing Clinician Start: 11-01-2024 Hepatitis C antibody measurement Zoila DALE Work Phone: Comment on above: Reactive: Presumptiv e evidence of antibodies to HCV. Follow CDC recommendations for supplemental testing.Non-Reactive: Antibodies to HCV were not detected; does not exclude the possibility of exposure to HCVReactive Results are presumptive evidence of antibodies to HCV. Follow CDC recommendations for supplemental testing.Order confirmation testing: HCV Quant by PCR testing - HCVPCR #[id number] Non Reactive: < 0.8 Equivocal: >/= 0.8 to < 1.0 Reactive: >/= 1.0The CDC requires that a reactive/equivocal HCV antibody result be sent out for confirmation. HCV Quant by PCR testing. Start: 11-01-2024 Procedure Zoila DALE Work Phone: Comment on above: Test Ordered: [id number] TSH Receptor Antibody (TBII)TSH Receptor Antibody (TBII) <0.3 U/L ES Reference Range: .Reference Range:Antibody Titer:<1.0 U/L = Negative1.1 - 1.5 U/L = Equivocal>1.5 U/L = PositivePerformed at: ES - [facility] [address] [id number] Director: Gerard Prater MD, Phone: [phone] at: - [facility] [id number] Director: Kun Alicea PhD, Phone: [phone] Start: 11-01-2024 Rubella IgG measurement Zoila DALE Work Phone: Comment on above: Antibody Result: Int erpretationNon-Reactive: Non- ImmuneReactive: ImmuneThe following results were obtained with the [employer] Rubella IgG assay. Results from assays of other manufacturers cannot be used interchangeably. Start: 11-01-2024 Serologic test for syphilis Zoila Orozco SUYAPA Work Phone: Start: 10-03-2024 Urine culture Zoila Donnelly eajadon DALE Work Phone: Start: 08-30-2024 Estimated creatinine clearance Zoila Orozco SUYAPA Work Phone: Start: 08-30-2024 Hepatitis C antibody measurement Zoila Orozco SUYAPA Work Phone: Comment on above: Reactive: Presumptiv e evidence of antibodies to HCV. Follow CDC recommendations for supplemental testing.Non-Reactive: Antibodies to HCV were not detected; does not exclude the possibility of exposure to HCVReactive Results are presumptive evidence of antibodies to HCV. Follow CDC recommendations for supplemental testing.Order confirmation testing: HCV Quant by PCR testing - HCVPCR #[id number] Non Reactive: < 0.8 Equivocal: >/= 0.8 to < 1.0 Reactive: >/= 1.0The CDC requires that a reactive/equivocal HCV antibody result be sent out for confirmation. HCV Quant by PCR testing. Start: 08-15-2024 Serum inorganic phos phate measurement Zoila Orozco SUYAPA Work Phone: Start: 08-15-2024 Urnls dip stick/tabl et reagent auto microscopy Zoila DALE Work Phone: Start: 11-10-2023 End: 12-07-2023 Hepatobil syst imag inc gb w/pharma intervenj Zoila Orozco PA-C Work Phone: Start: 11-10-2023 End: 11-10-2023 Depression screening Zoila Orozco PA-C Work Phone: Start: 11-10-2023 End: 11-10-2023 No Known Past Surgical History Corry Saucedo MA Start: 11-10-2023 End: 11-10-2023 Scr dep neg, no plan reqd Zoila Orozco PA-C Work Phone: Start: 07-06-2023 Ultrasonography of abdomen Start: 06-24-2023 End: 07-07-2023 Us abdominal real time w/image limited Zoila Orozco PA-C Work Phone: Start: 12-22-2022 End: 12-22-2022 Depression screening Eber Manley MD Work Phone: Start: 12-22-2022 End: 12-22-2022 Scr dep neg, no plan reqd Eber Manley MD Work Phone: Start: 04-27-2022 End: 04-27-2022 Microscopic examination of cervical Papanicolaou smear Corry Saucedo MA Start: 02-13-2022 End: 02-13-2022 Depression screening Zoila Orozco PA-C Work Phone: Start: 02-13-2022 End: 02-13-2022 Pos clin depres scrn f/u doc Zoila vasquez PA-C Work Phone: Start: 07-30-2020 End: 07-30-2020 Depression screening Kareen Loredo PA [facility] Work Phone: Start: 07-30-2020 End: 07-30-2020 Scr dep neg, no plan reqd Kareen kitchen PA-[employer] Work Phone: Start: 12-21-2018 End: 12-22-2018 Ecg [...] lmbr crv sac spi w/skull 1 vw Kareen D Dunlap PA-C Work Phone: Start: 11-10-2016 End: 11-10-2016 Screening test visual acuity quantitative bilat Kareen GUEVARAC Work Phone: Start: 10-05-2015 End: 10-05-2015 No Known Past Surgical History Judith Dickey ENGINE REPAIRER Start: 01-16-2015 End: 01-26-2015 Xtrnl ecg & [...] Treatment Date Care Activity Detail Author Start: 03-16-2025 ambulatory Ambulatory Facility:[facility] Start: 01-23-2025 Measurement of glucose 2 hours after glucose challenge for glucose tolerance test [facility] Start: 01-23-2025 Serologic test for syphilis [facility] Start: 01-23-2025 T4 free measurement [facility] Start: 01-23-2025 Thyroid stimulating hormone measurement [facility] Start: 01-23-2025 [facility] Start: 11-01-2024 Procedure [facility] Start: 08-30-2024 Hepatitis C antibody measurement [facility] Start: 08-30-2024 End: 08-30-2024 [facility] Start: 04-15-2024 Fibrin dgradj products d-dimer quantitative D-Dimer([id number]) Start: 15-Apr-2024 11:55-05:00 Request [facility].; [facility]. Start: 11-11-2023 Comprehensive metabolic panel CMP w/ GFR* ([id number]) Start: 11-Nov-2023 Request [facility].; [facility]. Start: 11-10-2023 End: 11-11-2023 Hepatobil syst imag inc gb w/pharma intervenj [place] [employer]; [facility]. Start: 06-24-2023 Us abdominal real time w/image limited RUQ/Gallbladder Ultrasound ([id number]) Start: 24-Jun-2023 Intent [facility]hauer.; [facility]. Anion gap in Serum or Plasma [facility] BUN/Creatinine ratio [facility] Calcium [Mass/volume ] in Serum or Plasma [facility] Carbon dioxide, tota l [Moles/volume] in Central venous blood [facility] CBC W Auto Different ial panel - Blood [facility] CBC W Auto Different ial panel - Blood [facility] Chlamydia deoxyribon ucleic acid detection [facility] Creatinine [Mass/vol ume] in Serum or Plasma [facility] Glucose [Mass/volume ] in Serum or Plasma [facility] Hepatitis B virus austin rface Ab [Presence] in Serum [facility] Hepatitis B virus austin rface Ag [Presence] in Serum [facility] Hepatitis C antibody measurement [facility] Measurement of renal function [facility] Patient Education ED NEEDLE STIC K Health Care Worker [facility] Work Phone: Patient referral [facility] Work Phone: Potassium measurement [facility] Procedure [facility] Rubella IgG measurement [facility] Serologic test for syphilis [facility] Serum chloride measurement [facility] Sodium measurement [facility] T4 free measurement [facility] Thyroid stimulating hormone measurement [facility] Ultrasound scan for growth [facility] Urea nitrogen [Mass/ volume] in Serum or Plasma [facility] Immunizations Immunization Date Immunization Notes Care Provider Siena hawkins 03-10-2024 influenza, seasonal, injectable, preservative free Dr. Andres Keen DO Work Phone: [facility] 02-01-2023 influenza, injectabl e, quadrivalent, preservative free [facility] 01-28-2022 influenza, injectabl e, quadrivalent, preservative free [facility] 07-30-2020 hepatitis A vaccine, adult dosage Eber Manley MD Work Phone: [facility] [place]; [facility] Comment on above: Site: Left DeltoidVI S Given: * Hepatitis A (11/14/15) 07-30-2020 tetanus toxoid, redu ryan diphtheria toxoid, and acellular pertussis vaccine, adsorbed Eber Manley MD Work Phone: [facility] [employer] [facility]; [facility] Comment on above: Site: Right DeltoidV IS Given: * Tdap (Tetanus, Diphtheria, Pertussis) (06/20/14) 09-27-2018 varicella virus vaccine Kev Manley MD Work Phone: [facility] [place]; [facility] Comment on above: Site: Left ArmVIS Gi simone: * Varicella (Chickenpox) (06/08/17) 10-27-2017 hepatitis B vaccine, adult dosage Eber Manley MD Work Phone: [facility]; [facility] Comment on above: Site: Left DeltoidVI S Given: * Hepatitis B (11/14/15) 11-10-2016 Meningococcal, MCV4, unspecified conjugate formulation(groups A, C, Y and W-135) Eber Manley MD Work Phone: [facility]; [facility] 11-10-2016 meningococcal oligosaccharide (groups A, C, Y and W-135) diphtheria toxoid conjugate vaccine (MCV4O) Eber Manley MD Work Phone: [facility] [employer]; [facility] Comment on above: Site: Deltoid (Left) VIS Given: * Meningococcal Vaccine (07/26/2015) 02-27-2016 influenza, injectabl e, quadrivalent, contains preservative Eber Manley MD Work Phone: [place] [employer]; [facility] Comment on above: Site: Deltoid (Left) VIS Given: * Influenza - Inactivated (12/01/14) 02-27-2016 unknown vaccine or i mmune globulin Eber Manley MD Work Phone: [facility]; [facility] 02-27-2015 influenza, seasonal, injectable Eber Manley MD Work Phone: [employer]; [facility] Comment on above: Site: Deltoid (Left) VIS Given: * Inactivated Influenza (12/01/2014) 02-27-2015 IMMUNIZATION ADMIN ([id number]) Eber Manley MD Work Phone: [employer]; [facility] 04-11-2014 influenza, seasonal, injectable Eber Manley MD Work Phone: [employer]; [facility]. Comment on above: Site: Deltoid (Left) VIS Given: * Influenza, Inactivated () 04-11-2014 IMMUNIZATION ADMIN ([id number]) Eber Manley MD Work Phone: [employer]; [facility] 04-06-2012 influenza, seasonal, injectable Eber Manley MD Work Phone: [employer]; [facility] Comment on above: Site: Deltoid (Left) VIS Given: * Inactivated Influenza Vaccine (12/05/08) * Inactivated Influenza Vaccine (11/19/10) * Influenza vaccine [id number], inactivated (10/27/2011) * VIS Given (Unspecified) 04-06-2012 IMMUNIZATION ADMIN ([id number]) Eber Manley MD Work Phone: [employer]; [facility] 07-11-2010 tetanus toxoid, redu ryan diphtheria toxoid, and acellular pertussis vaccine, adsorbed Eber Manley MD Work Phone: [facility] [place]; [place] [employer] [facility]. Comment on above: Site: Deltoid (Left) VIS Given: * Tetanus/Diphtheria/(Pertussis) (Td/Tdap) (03/14/08) 03-09-2007 influenza, seasonal, injectable Eber Manley MD Work Phone: [facility]; [facility] 11-21-2004 measles, mumps and rubella virus vaccine Eber Manley MD Work Phone: [facility] [place]; [facility] 11-21-2004 poliovirus vaccine, inactivated Eber Manley MD Work Phone: [facility] [place]; [place] [employer] [facility] 11-18-2003 diphtheria, tetanus toxoids and acellular pertussis vaccine Eber Manley MD Work Phone: [facility] [place]; [place] [employer] [facility] 12-08-2000 diphtheria, tetanus toxoids and acellular pertussis vaccine Eber Manley MD Work Phone: [facility] [place]; [facility] 11-25-1999 haemophilus influenz ae type b vaccine, PRP-T conjugate Eber Manley MD Work Phone: [facility].; [place] [employer] [facility] 11-25-1999 measles, mumps and rubella virus vaccine Eber Manley MD Work Phone: [place] [facility] [place] [facility] 09-18-1999 hepatitis B vaccine, pediatric or pediatric/adolescent dosage Eber Manley MD Work Phone: [facility] [place]; [place] [facility] 05-31-1999 diphtheria, tetanus toxoids and acellular pertussis vaccine Eber Manley MD Work Phone: [place] [employer]; [place] [employer] 05-31-1999 haemophilus influenz ae type b vaccine, PRP-T conjugate Eber Manley MD Work Phone: [facility] 05-31-1999 poliovirus vaccine, inactivated Eber Manley MD Work Phone: [facility] 03-27-1999 diphtheria, tetanus toxoids and acellular pertussis vaccine Eber Manley MD Work Phone: [facility] 03-27-1999 haemophilus influenz ae type b vaccine, PRP-T conjugate Eber Manley MD Work Phone: [facility] 03-27-1999 poliovirus vaccine, inactivated Eber Manley MD Work Phone: [facility] 01-23-1999 diphtheria, tetanus toxoids and acellular pertussis vaccine Eber Manley MD Work Phone: [facility] 01-23-1999 haemophilus influenz ae type b vaccine, PRP-T conjugate Eber Manley MD Work Phone: [facility] 01-23-1999 poliovirus vaccine, inactivated Eber Manley MD Work Phone: [facility] 1998 hepatitis B vaccine, pediatric or pediatric/adolescent dosage Eber Manley MD Work Phone: [facility] Payers Date Payer Category Payer Self-pay [id number] Unknown [id number] 1998 Unknown [id number] 2.16.8 40.1.362889.3.579.2.651 1998 Unknown [id number] 2.16. 840.1.244432.3.579.2.479 Unknown [facility] Unknown [id number] Unknown [id number] 2.16.8 40.1.708495.3.579.2.462 Unknown [id number] 2.16.8 40.1.258671.3.579.2.462 Unknown [id number] 2.16.8 40.1.052442.3.579.2.462 Unknown [id number] 2.16.8 40.1.393032.3.579.2.462 Unknown [id number] 2.16.8 40.1.002908.3.579.2.462 Unknown [id number] 2.16.8 40.1.673869.3.579.2.462 Unknown [id number] 2.16.8 40.1.418988.3.579.2.462 Unknown [id number] 2.16.8 40.1.128259.3.579.2.462 Unknown [id number] 2.16.8 40.1.935819.3.579.2.462 Unknown [id number] 2.16.8 40.1.265802.3.579.2.462 Unknown [id number] 2.16.8 40.1.246137.3.579.2.462 Unknown [id number] 2.16.8 40.1.048022.3.579.2.462 Unknown [id number] 2.16.8 40.1.832252.3.579.2.462 Unknown [id number] 2.16.8 40.1.180038.3.579.2.462 Unknown [id number] 2.16.8 40.1.705485.3.579.2.462 Unknown [id number] 2.16.8 40.1.327333.3.579.2.462 Unknown [id number] 2.16.8 40.1.239052.3.579.2.462 Unknown [id number] 2.16.8 40.1.216246.3.579.2.462 Unknown [id number] 2.16.8 40.1.150320.3.579.2.462 Unknown [id number] 2.16.8 40.1.999238.3.579.2.462 Unknown [id number] 2.16.8 40.1.900553.3.579.2.462 Unknown [id number] 2.16.8 40.1.909245.3.579.2.462 Unknown [id number] 2.16.8 40.1.882003.3.579.2.462 Social History Date Type Detail Facility Current Work/Study Status Current [facility]/Study Status [facility]; [facility] Exercise History: Exercise Histo ry: ; Moderate. [facility]; [facility] Tobacco Use: Tobacco Use: ; N ever smoker. [facility]; [facility] Start: 2000 Female [facility] Moderate [facility]; [facility] Work Phone: Start: 08-30-2024 End: 09-20-2024 Never smoked tobacco [facility] Start: 10-24-2022 [facility] Start: 08-30-2024 Sex Female (finding) [facility] Sex Female [facility] Mental Status Date Assessment Result Facility 08-30-2024 Cognitive function Level Of Cons ciousness Awake;Alert;Appropriate;Follow s Commands [facility] Work Phone: Clinical Notes 03-09-2024 to 01-23-2025 Note Date & Type Note Facility 01-23-2025 Progress note [facility] 01-23-2025 Progress note Note Date/Time January 23, 2025 3:09pm [facility] [address], [address] [place] [address] OFFICE VISIT Date of Service: 01/23/25 MR#: [id number] Acct: [id number] Name: ARUN HELM Rep #: [id number] : 2000 Provider: SUMA Mccullough Age/Sex: 24/F [facility] Status: Signed Intake Vital Signs 11/03/24 15:59 12/29/24 14:20 01/23/25 14:52 01/23/25 14:53 Height 5 ft 5 in 5 ft 5 in 5 ft 5 in 5 ft 5 in Weight: 142 lb BMI 23.6 BP 119/78 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 Visit 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: No Is patient in pain?: No Allergies Sulfa (Sulfonamide Antibiotics) (sulfa drugs) Allergy (Verified 01/23/25 14:52) Rash Medications ?Medication ?Instructions ?Recorded ?Confirmed ?Type multivit-min no.71-iron fum 28 cap PO 09/20/24 5 History mg-folate no.1 1 mg-dha 300 mg capsule (PNV-[facility]) Last Menstrual Period: 07/30/24 Zika: Zika virus screening: Negative : No PFSH PFSH Medical History Proteins serum plasma low Wears glasses Fatty liver Non-smoker Blackout History of echocardiogram Surgical History Hx of wisdom tooth extraction Family History Grandmother Heart failure Maternal Thyroid disorder Maternal hypothyroidism Father Hypertension Grandfather Lung cancer Maternal CVA (cerebral vascular accident) Maternal Diabetes Maternal Aunt Cervical cancer, Onset Age: 20 Paternal Mother Hypertension Osteoporosis Adenomyosis Uterine fibroid Ovarian cyst Social History adopted: No household members: spouse housing: house current occupational status: employed current occupation: [employer] current occupational exposures/hazards: No pets and animals: Yes pets and animals: dog(s) [facility] [place] [facility] out of state: Yes out of country: No sexually active: Yes Smoking Status: Never smoker second hand exposure: No alcohol intake: never substance use type: does not use well-balanced diet: daily or most days caffeine: Yes Type: coffee Number of servings: 1 eating out: 1-3 times/week during the past year weight has: remained stable what type of physical activity do you participate in: walking, running and weight training frequency: 3-4 times per week duration: 15-30 minutes/day rivera/baptism: Alevism seatbelt use: always do you feel safe at home: Yes additional social history: - 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 OB Visit RAMO Calculator Estimated Delivery Date Method Current WG Current Estimate 05/13/25 Ultrasound #1 24w 2d Other Estimates 05/06/25 LMP (Certain) 25w 2d Expected Delivery Route/Plan Labor Preferences- CB/BF classes: [] labor support person: [] labor intervention preferences: [] pain management options preferred: [] cut cord/dad catch: [] : [] PP control planned: [] discussed possible routes of delivery and associated risks: [] special requests: [] Specific Issue/Plans Covid status: [] Flu vaccine: [] Tdap vaccine: [] Rhogam: [] LARC form signed: [] Problem list reviewed and updated with the most current plan of care details and appropriate orders placed. Relevant counseling for the gestational age provided. Continue routine care and follow up unless otherwise noted in visit notes/problem list details Initial Weight: 120 lb Date -?-?-?-?-?-?-?-?-?-?-?-?- EGA Weight BP Urine Prot -?-?-?-?-?-?-?-?-?-?-?-?- Glucose FHR FuHt Pres Dilation -?-?-?-?-?-?-?-?-?-?-?-?- Effaced St Visit Note 10/03/24 -?-?-?-?-?-?-?-?-?-?-?-?- 8w 2d 120 lb 8 oz (+8 oz) 119/84 -?-?-?-?-?-?-?-?-?-?-?-?- 174 -?-?-?-?-?-?-?-?-?-?-?-?- KW- CRL not cons with dates. RAMO changed. accepts NIPT and carrier 11/03/24 -?-?-?-?-?-?-?-?-?-?-?-?- 12w 5d 123 lb 6 oz (+3 lb 6 oz) 123/79 Negative -?-?-?-?-?-?-?-?-?-?-?-?- Negative 165 -?-?-?-?-?-?-?-?-?-?-?-?- JV- no complaint s today. CRL still consistent with last scan. Nipt pending 12/02/24 -?-?-?-?-?-?-?-?-?-?-?-?- 16w 6d 130 lb 1 oz (+10 lb 1 oz) 106/68 -?-?-?-?-?-?-?-?-?-?-?-?- 146 -?-?-?-?-?-?-?-?-?-?-?-?- LC- no vb/crampi ng. declines afp. has anatomy scheduled. 12/29/24 -?-?-?-?-?-?-?-?-?-?-?-?- 20w 5d 139 lb 3 oz (+19 lb 3 oz) 114/76 Negative -?-?-?-?-?-?-?-?-?-?-?-?- Negative 145 20 -?-?-?-?-?-?-?-?-?-?-?-?- KW- no vb/lof/ct x. some fm. KW- no vb/lof/ctx. some fm. would like follow up US with [facility]. normal anatomy 01/23/25 -?-?-?-?-?-?-?-?-?-?-?-?- 24w 2d 142 lb (+22 lb) 119/78 -?-?-?-?-?-?-?-?-?-?-?-?- 150 -?-?-?-?-?-?-?-?-?-?-?-?- KW- no vb/lof/ct x. good fm. discussed glucose, flu and tdap. ACOG First Trimester First Trimester: Desire for , Alcohol, Tobacco Cessation, Illicit/Recreational Drug/Substance Use, Intimate Partner Violence, Barriers to care, Unstable Housing, Communication Barriers, Environmental/Work Hazards, Anticipated Course of Care, Toxoplasmosis Precations, Use of Any medications, Sexual activity, Exercise, Dental Care, Sauna/Hot tub use, Seat Belt use, Childbirth classes/Hospital facilities, Travel, Indications for Ultrasound and Screening for Aneuploidy; Discussed Second Trimester Second Trimester: Signs and Symptoms of Labor, Selecting a care provider, Reproductive Life Planning & Contreception, Care Planning, Depression/Anxiety and Intimate Partner Violence; Discussed Tobacco Cessation Third Trimester Third Trimester: Pain Management Plans, Labor support person(s), Immediate Larc, Signs and Symptoms of Preeclampsia, Infant Feeding No , Education and Family Medical Leave or Disability Forms ROS Const Reports system reviewed and no additional complaints, except as documented Eyes Reports system reviewed and no additional complaints, except as documented ENT Reports system reviewed and no additional complaints, except as documented Card Reports system reviewed and no additional complaints, except as documented Resp Reports system reviewed and no additional complaints, except as documented GI Reports system reviewed and no additional complaints, except as documented, Denies nausea and Denies vomiting Reports system reviewed and no additional complaints, except as documented Musc Reports system reviewed and no additional complaints, except as documented Skin/Breast Reports system reviewed and no additional complaints, except as documented Neuro Yes system reviewed and no additional complaints, except as documented Psych Reports system reviewed and no additional complaints, except as documented Endo Reports system reviewed and no additional complaints, except as documented Tom/Lymph Reports system reviewed and no additional complaints, except as documented Aller/Immun Reports system reviewed and no additional complaints, except as documented Exam Const General: cooperative, healthy appearing and no acute distress Orientation: alert, awake and oriented x3 Neck Neck: normal visual inspection and full ROM Resp Effort & Inspection: normal respiratory effort, able to speak in complete sentences and symmetric chest movement GI Inspection: normal to inspection Palpation: soft and other Other: gravid Skin General: no rashes or lesions noted Neuro General: patient alert, patient awake and patient oriented x3 Cognition: normal cognition Speech: speech normal Gait: normal gait Motor: muscle tone normal throughout Extrem General: normal to inspection and full ROM Psych Appearance: grossly normal Mental Status: mental status grossly normal Mood: congruent mood Affect: normal affect Speech and Movement: speech and movement normal Attitude: cooperative Thought Process: normal Thought Content: normal Judgment: judgment good Coding Level of Care Code OB Routine Diagnoses 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 Gall bladder disease K82.9 Personal history of hyperthyroidism Z86.39 Fatty liver K76.0 Supervision of high-risk O09.90 24 weeks gestation of Z3A.24 Weeks of gestation: 24 weeks Amenorrhea N91.2 Occupational exposure in workplace Z57.9 Needle stick injury of finger Protein S in undetectable to low range in serum Nausea in adult patient R11.0 Diarrhea R19.7 Postprandial abdominal pain in right upper quadrant R10.11 Biliary dyskinesia K82.8 Assessment and Plan Assessment and Plan (1) Circumvallate placenta: Status: Acute Comment: growth us at [facility] (2) Gall bladder disease: Status: Acute (3) Personal history of hyperthyroidism: Status: Acute Comment: 2019- resolved without treatment-normal thyroid labs at [facility] (4) Fatty liver: Status: Acute (5) Supervision of high-risk : Status: Acute Comment: PRR, , RAMO 05/06/25, Chance (6) : Status: Acute Qualifiers: Weeks of gestation: 24 weeks Qualified Code(s): Z3A.24 - 24 weeks gestation of Comment: NIPT-low risk, male. Horizon neg. (7) Amenorrhea: Status: Acute Comment: +UPT (8) Occupational exposure in workplace: Status: Acute (9) Needle stick injury of finger: Status: Acute (10) Protein S in undetectable to low range in serum: Status: Chronic Comment: saw hematology and cleared without follow up. (11) Nausea in adult patient: Status: Acute Comment: Described as patient's biggest complaint this symptom accompanies pain and is not necessarily postprandial in its onset. Patient does describe more of an a.m. onset. Differential would include above diagnoses as well as H. pylori? (12) Diarrhea: Status: Acute Comment: Sporadic diarrhea. Stool studies negative. Pancreatic elastase negative. Stool lactoferrin negative. However, IBD panel somewhat equivocal but suggestive of Crohn's disease. Will discuss with Dr. Keen of gastroenterology to see if he believes endoscopy will be more clarifying. (13) Postprandial abdominal pain in right upper quadrant: Status: Acute Comment: Patient describes immediate postprandial discomfort. This seems inconsistent with gallbladder etiology which should be delayed by several hours. With this descriptor I would be more concerned for peptic ulcer disease, gastritis, other inflammatory issues of the stomach or esophagus... 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 While she describes some consistencies with the gallbladder etiology (right upper quadrant discomfort that is not predicted by position or timing) certain other descriptors are inconsistent with a gallbladder etiology. Moreover, patient remarks that she was told her IBD panel was positive enough for gastroenterology to offer initiation of medications for presumptive diagnosis of Crohn's. With this personal history and her familial history of IBD in the family I believe it may be prudent to pursue double endoscopy before considering a surgery with cholecystectomy. I have shared with Ms. Helm that normally this is a low risk procedure with low risk of postoperative issues, however, I did discuss risk of postcholecystectomy syndrome and the potential to create postprandial abdominal discomfort and diarrhea?both issues from which she suffers presently. She expresses agreement with this rationale and confirms that she is in no hurry to undergo surgery. Orders: Orders POC Urinalysis 2 Dip (Clinic) Today CBC W/Diff, Automated Today O09.90 - Supervision of high risk , unspecified, unspecified trimester Glucose Challenge Gest 1H 50g Today O09.90 - Supervision of high risk , unspecified, unspecified trimester, Z13.1 - Encounter for screening for diabetes mellitus HIV Today O09.90 - Supervision of high risk , unspecified, unspecified trimester Syphilis Antibodies Today O09.90 - Supervision of high risk , unspecified, unspecified trimester Plan Details Additional Comments: ACOG trimester education reviewed and updated. see problem list details for updated plan management information and see below for orders placed at this visit. GA appropriate handout given. 01/23/25 [id number] <Electronically signed by Genesis bautista CNM> Date _ Genesis Bright Signature: Date (if applicable) CC: ~ [facility] Work Phone: [phone] 655-714409-04-2025 Progress [facility] [address] [place] [address], [address] [place] [address] OFFICE VISIT Date of Service: 12/29/24 MR#: [id number] Acct: [id number] Name: ARUN HELM Rep #: [id number] : 2000 Provider: SUMA Mccullough Age/Sex: 24/F [facility] Status: Signed Intake Vital Signs 11/03/24 15:59 12/02/24 15:27 12/29/24 14:20 Height 5 ft 5 in 5 ft 5 in 5 ft 5 in Weight: 139 lb 3 oz BMI 23.1 BP 114/76 Intake Visit Reasons: 19wk ob Chief Complaint: 19wk OB 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: No Is patient in pain?: No Allergies Sulfa (Sulfonamide Antibiotics) (sulfa drugs) Allergy (Verified 12/29/24 14:19) Rash Medications ?Medication ?Instructions ?Recorded ?Confirmed ?Type multivit-min no.71-iron fum 28 cap PO 09/20/24 5 History mg-folate no.1 1 mg-dha 300 mg capsule (PNV-[facility]) Last Menstrual Period: 07/30/24 : No Have you fallen in the past year?: No PFSH PFSH Medical History Proteins serum plasma low Wears glasses Fatty liver Non-smoker Blackout History of echocardiogram Surgical History Hx of wisdom tooth extraction Family History Grandmother Heart failure Maternal Thyroid disorder Maternal hypothyroidism Father Hypertension Grandfather Lung cancer Maternal CVA (cerebral vascular accident) Maternal Diabetes Maternal Aunt Cervical cancer, Onset Age: 20 Paternal Mother Hypertension Osteoporosis Adenomyosis Uterine fibroid Ovarian cyst Social History adopted: No household members: spouse housing: house current occupational status: employed current occupation: [employer] current occupational exposures/hazards: No pets and animals: Yes pets and animals: dog(s) [facility] [place] [facility] out of state: Yes out of country: No sexually active: Yes Smoking Status: Never smoker second hand exposure: No alcohol intake: never substance use type: does not use well-balanced diet: daily or most days caffeine: Yes Type: coffee Number of servings: 1 eating out: 1-3 times/week during the past year weight has: remained stable what type of physical activity do you participate in: walking, running and weight training frequency: 3-4 times per week duration: 15-30 minutes/day rivera/baptism: Alevism seatbelt use: always do you feel safe at home: Yes 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 OB Visit RAMO Calculator Estimated Delivery Date Method Current WG Current Estimate 05/13/25 Ultrasound #1 20w 5d Other Estimates 05/06/25 LMP (Certain) 21w 5d Expected Delivery Route/Plan Labor Preferences- CB/BF classes: [] labor support person: [] labor intervention preferences: [] pain management options preferred: [] cut cord/dad catch: [] : [] PP control planned: [] discussed possible routes of delivery and associated risks: [] special requests: [] Specific Issue/Plans Covid status: [] Flu vaccine: [] Tdap vaccine: [] Rhogam: [] LARC form signed: [] Problem list reviewed and updated with the most current plan of care details and appropriate ordersplaced. Relevant counseling for the gestational age provided. Continue routine care and follow up unless otherwise noted in visit notes/problem list details Initial Weight: 120 lb Date -?-?-?-?-?-?-?-?-?-?-?-?- EGA Weight BP Urine Prot -?-?-?-?-?-?-?-?-?-?-?-?- Glucose FHR FuHt Pres Dilation -?-?-?-?-?-?-?-?-?-?-?-?- Effaced St Visit Note 10/03/24 -?-?-?-?-?-?-?-?-?-?-?-?- 8w 2d 120 lb 8 oz (+8 oz) 119/84 -?-?-?-?-?-?-?-?-?-?-?-?- 174 -?-?-?-?-?-?-?-?-?-?-?-?- KW- CRL not cons with dates. RAMO changed. accepts NIPT and carrier 11/03/24 -?-?-?-?-?-?-?-?-?-?-?-?- 12w 5d 123 lb 6 oz (+3 lb 6 oz) 123/79 Negative -?-?-?-?-?-?-?-?-?-?-?-?- Negative 165 -?-?-?-?-?-?-?-?-?-?-?-?- JV- no complaint s today. CRL still consistent with last scan. Nipt pending 12/02/24 -?-?-?-?-?-?-?-?-?-?-?-?- 16w 6d 130 lb 1 oz (+10 lb 1 oz) 106/68 -?-?-?-?-?-?-?-?-?-?-?-?- 146 -?-?-?-?-?-?-?-?-?-?-?-?- LC- no vb/crampi ng. declines afp. has anatomy scheduled. 12/29/24 -?-?-?-?-?-?-?-?-?-?-?-?- 20w 5d 139 lb 3 oz (+19 lb 3 oz) 114/76 Negative -?-?-?-?-?-?-?-?-?-?-?-?- Negative 145 20 -?-?-?-?-?-?-?-?-?-?-?-?- KW- no vb/lof/ct x. some fm. KW- no vb/lof/ctx. some fm. would like follow up US with [facility]. normal anatomy ACOG First Trimester First Trimester: Desire for , Alcohol, Tobacco Cessation, Illicit/Recreational Drug/Substance Use, Intimate Partner Violence, Barriers to care, Unstable Housing, Communication Barriers, Environmental/Work Hazards, Anticipated Course of Care, Toxoplasmosis Precations, Use of Any med ications, Sexual activity, Exercise, Dental Care, Sauna/Hot tub use, Seat Belt use, Childbirth classes/Hospital facilities, Travel, Indications for Ultrasound and Screening for Aneuploidy; Discussed Second Trimester Second Trimester: Signs and Symptoms of Labor, Selecting a care provider, Reproductive Life Planning & Contreception, Care Planning, Depression/Anxiety and Intimate Partner Violence; Discussed Tobacco Cessation Third Trimester Third Trimester: Pain Management Plans, Labor support person(s), Immediate Larc, Signs and Symptoms of Preeclampsia, Feeding No , [place] Education and Family Medical Leave or Disability Forms ROS Const Reports system reviewed and no additional complaints, except as documented Eyes Reports system reviewed and no additional complaints, except as documented ENT Reports system reviewed and no additional complaints, except as documented Card Reports system reviewed and no additional complaints, except as documented Resp Reports system reviewed and no additional complaints, except as documented GI Reports system reviewed and no additional complaints, except as documented, Denies nausea and Denies vomiting Reports system reviewed and no additional complaints, except as documented Musc Reports system reviewed and no additional complaints, except as documented Skin/Breast Reports system reviewed and no additional complaints, except as documented Neuro Yes system reviewed and no additional complaints, except as documented Psych Reports system reviewed and no additional complaints, except as documented Endo Reports system reviewed and no additional complaints, except as documented Tom/Lymph Reports system reviewed and no additional complaints, except as documented Aller/Immun Reports system reviewed and no additional complaints, except as documented Exam Const General: cooperative, healthy appearing and no acute distress Orientation: alert, awake and oriented x3 Neck Neck: normal visual inspection and full ROM Resp Effort & Inspection: normal respiratory effort, able to speak in complete sentences and symmetric chest movement GI Inspection: normal to inspection Palpation: soft and other Other: gravid Skin General: no rashes or lesions noted Neuro General: patient alert, patient awake and patient oriented x3 Cognition: normal cognition Speech: speech normal Gait: normal gait Motor: muscle tone normal throughout Extrem General: normal to inspection and full ROM Psych Appearance: grossly normal Mental Status: mental status grossly normal Mood: congruent mood Affect: normal affect Speech and Movement: speech and movement normal Attitude: cooperative Thought Process: normal Thought Content: normal Judgment: judgment good Results POC Urinalysis 2 Dip (Clinic) Office Urine Glucose Negative Last Edit by Sandie Manley on 12/29/24 14:29 Office Urine Protein Negative Last Edit by Sandie Manley on 12/29/24 14:29 Coding Level of Care Code OB Routine Diagnoses 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 Gall bladder disease K82.9 Personal history of hyperthyroidism Z86.39 Fatty liver K76.0 Supervision of high-risk O09.90 20 weeks gestation of Z3A.20 Weeks of gestation: 20 weeks Amenorrhea N91.2 Occupational exposure in workplace Z57.9 Protein S in undetectable to low range in serum Needle stick injury of finger Nausea in adult patient R11.0 Diarrhea R19.7 Postprandial abdominal pain in right upper quadrant R10.11 Biliary dyskinesia K82.8 Assessment and Plan Assessment and Plan (1) Circumvallate placenta: Status: Acute Comment: growth us at [facility] (2) Gall bladder disease: Status: Acute (3) Personal history of hyperthyroidism: Status: Acute Comment: 2019- resolved without treatment-normal thyroid labs at [facility] (4) Fatty liver: Status: Acute (5) Supervision of high-risk : Status: Acute Comment: PRR, , RAMO 05/06/25, Chance (6) : Status: Acute Qualifiers: Weeks of gestation: 20 weeks Qualified Code(s): Z3A.20 - 20 weeks gestation of Comment: NIPT-low risk, male. Horizon neg. (7) Amenorrhea: Status: Acute Comment: +UPT (8) Occupational exposure in workplace: Status: Acute (9) Protein S in undetectable to low range in serum: Status: Chronic Comment: saw hematology and cleared without follow up. (10) Needle stick injury of finger: Status: Acute (11) Nausea in adult patient: Status: Acute Comment: Described as patient's biggest complaint this symptom accompanies pain and is not necessarily postprandial in its onset. Patient does describe more of an a.m. onset. Differential would include above diagnoses as well as H. pylori? (12) Diarrhea: Status: Acute Comment: Sporadic diarrhea. Stool studies negative. Pancreatic elastase negative. Stool lactoferrin negative. However, IBD panel somewhat equivocal but suggestive of Crohn's disease. Will discuss with Dr. Keen of gastroenterology to see if he believes endoscopy will be more clarifying. (13) Postprandial abdominal pain in right upper quadrant: Status: Acute Comment: Patient describes immediate postprandial discomfort. This seems inconsistent with gallbladder etiology which should be delayed by several hours. With this descriptor I would be more concerned for peptic ulcer disease, gastritis, other inflammatory issues of the stomach or esophagus... 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 While she describes some consistencies with the gallbladder etiology (right upper quadrant discomfort that is not predicted by position or timing) certain other descriptors are inconsistent with a gallbladder etiology. Moreover, patient remarks that she was told her IBD panel was positive enough for gastroenterology to offer initiation of medications for presumptive diagnosis of Crohn's. With this personal history and herfamilial history of IBD in the family I believe it may be prudent to pursue double endoscopy beforeconsidering a surgery with cholecystectomy. I have shared with Ms. Helm that normally this is a low risk procedure with low risk of postoperative issues, however, I did discuss risk of postcholecystectomy syndrome and the potential to create postprandial abdominal discomfort and diarrhea?both issues from which she suffers presently. She expresses agreement with this rationale and confirms that she is in no hurry to undergo surgery. Orders: Orders POC Urinalysis 2 Dip (Clinic) Today Plan Details Additional Comments: ACOG trimester education reviewed and updated. see problem list details for updated plan management information and see below for orders placed atthis visit. GA appropriate handout given. Clinical Quality Measures Falls Risk Screening/Assistive Devices Have you fallen in the past year?: No 12/29/24 1442 s SUMA> Date _ Genesis Mccullough CNM Cosigner Signature: Date (if applicable) CC: ~ [id number] Progress note Author Genesis Mccullough [facility] Note Date/Time December 29, 2024 2:42pm [facility] [address], [address] [place] [address] OFFICE VISIT Date of Service: 12/29/24 MR#: [id number] Acct: [id number] Name: ARUN HELM Rep #: [id number] : 2000 Provider: SUMA Mccullough Age/Sex: 24/F Location[facility] Status: Signed Intake Vital Signs 11/03/24 15:59 12/02/24 15:27 12/29/24 14:20 Height 5 ft 5 in 5 ft 5 in 5 ft 5 in Weight: 139 lb 3 oz BMI 23.1 BP 114/76 Intake Visit Reasons: 19wk ob Chief Complaint: 19wk OB 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: No Is patient in pain?: No Allergies Sulfa (Sulfonamide Antibiotics) (sulfa drugs) Allergy (Verified 12/29/24 14:19) Rash Medications ?Medication ?Instructions ?Recorded ?Confirmed ?Type multivit-min no.71-iron fum 28 cap PO 09/20/24 5 History mg-folate no.1 1 mg-dha 300 mg capsule (PNV-[place]) Last Menstrual Period: 07/30/24 : No Have you fallen in the past year?: No PFSH PFSH Medical History Proteins serum plasma low Wears glasses Fatty liver Non-smoker Blackout History of echocardiogram Surgical History Hx of wisdom tooth extraction Family History Grandmother Heart failure Maternal Thyroid disorder Maternal hypothyroidism Father Hypertension Grandfather Lung cancer Maternal CVA (cerebral vascular accident) Maternal Diabetes Maternal Aunt Cervical cancer, Onset Age: 20 Paternal Mother Hypertension Osteoporosis Adenomyosis Uterine fibroid Ovarian cyst Social History adopted: No household members: spouse housing: house current occupational status: employed current occupation: [employer] current occupational exposures/hazards: No pets and animals: Yes pets and animals: dog(s) [facility] [place] [facility] out of state: Yes out of country: No sexually active: Yes Smoking Status: Never smoker second hand exposure: No alcohol intake: never substance use type: does not use well-balanced diet: daily or most days caffeine: Yes Type: coffee Number of servings: 1 eating out: 1-3 times/week during the past year weight has: remained stable what type of physical activity do you participate in: walking, running and weight training frequency: 3-4 times per week duration: 15-30 minutes/day rivera/baptism: Alevism seatbelt use: always do you feel safe at home: Yes 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 OB Visit RAMO Calculator Estimated Delivery Date Method Current WG Current Estimate 05/13/25 Ultrasound #1 20w 5d Other Estimates 05/06/25 LMP (Certain) 21w 5d Expected Delivery Route/Plan Labor Preferences- CB/BF classes: [] labor support person: [] labor intervention preferences: [] pain management options preferred: [] cut cord/dad catch: [] : [] PP control planned: [] discussed possible routes of delivery and associated risks: [] special requests: [] Specific Issue/Plans Covid status: [] Flu vaccine: [] Tdap vaccine: [] Rhogam: [] LARC form signed: [] Problem list reviewed and updated with the most current plan of care details and appropriate orders placed. Relevant counseling for the gestational age provided. Continue routine care and follow up unless otherwise noted in visit notes/problem list details Initial Weight: 120 lb Date -?-?-?-?-?-?-?-?-?-?-?-?- EGA Weight BP Urine Prot -?-?-?-?-?-?-?-?-?-?-?-?- Glucose FHR FuHt Pres Dilation -?-?-?-?-?-?-?-?-?-?-?-?- Effaced St Visit Note 10/03/24 -?-?-?-?-?-?-?-?-?-?-?-?- 8w 2d 120 lb 8 oz (+8 oz) 119/84 -?-?-?-?-?-?-?-?-?-?-?-?- 174 -?-?-?-?-?-?-?-?-?-?-?-?- KW- CRL not cons with dates. RAMO changed. accepts NIPT and carrier 11/03/24 -?-?-?-?-?-?-?-?-?-?-?-?- 12w 5d 123 lb 6 oz (+3 lb 6 oz) 123/79 Negative -?-?-?-?-?-?-?-?-?-?-?-?- Negative 165 -?-?-?-?-?-?-?-?-?-?-?-?- JV- no complaint s today. CRL still consistent with last scan. Nipt pending 12/02/24 -?-?-?-?-?-?-?-?-?-?-?-?- 16w 6d 130 lb 1 oz (+10 lb 1 oz) 106/68 -?-?-?-?-?-?-?-?-?-?-?-?- 146 -?-?-?-?-?-?-?-?-?-?-?-?- LC- no vb/crampi ng. declines afp. has anatomy scheduled. 12/29/24 -?-?-?-?-?-?-?-?-?-?-?-?- 20w 5d 139 lb 3 oz (+19 lb 3 oz) 114/76 Negative -?-?-?-?-?-?-?-?-?-?-?-?- Negative 145 20 -?-?-?-?-?-?-?-?-?-?-?-?- KW- no vb/lof/ct x. some fm. KW- no vb/lof/ctx. some fm. would like follow up US with [facility]. normal anatomy ACOG First Trimester First Trimester: Desire for , Alcohol, Tobacco Cessation, Illicit/Recreational Drug/Substance Use, Intimate Partner Violence, Barriers to care, Unstable Housing, Communication Barriers, Environmental/Work Hazards, Anticipated Course of Care, Toxoplasmosis Precations, Use of Any medications, Sexual activity, Exercise, Dental Care, Sauna/Hot tub use, Seat Belt use, Childbirth classes/Hospital facilities, Travel, Indications for Ultrasound and Screening for Aneuploidy; Discussed Second Trimester Second Trimester: Signs and Symptoms of Labor, Selecting a care provider, Reproductive Life Planning & Contreception, Care Planning, Depression/Anxiety and Intimate Partner Violence; Discussed Tobacco Cessation Third Trimester Third Trimester: Pain Management Plans, Labor support person(s), Immediate Larc, Signs and Symptoms of Preeclampsia, Feeding No , [place] Education and Family Medical Leave or Disability Forms ROS Const Reports system reviewed and no additional complaints, except as documented Eyes Reports system reviewed and no additional complaints, except as documented ENT Reports system reviewed and no additional complaints, except as documented Card Reports system reviewed and no additional complaints, except as documented Resp Reports system reviewed and no additional complaints, except as documented GI Reports system reviewed and no additional complaints, except as documented, Denies nausea and Denies vomiting Reports system reviewed and no additional complaints, except as documented Musc Reports system reviewed and no additional complaints, except as documented Skin/Breast Reports system reviewed and no additional complaints, except as documented Neuro Yes system reviewed and no additional complaints, except as documented Psych Reports system reviewed and no additional complaints, except as documented Endo Reports system reviewed and no additional complaints, except as documented Tom/Lymph Reports system reviewed and no additional complaints, except as documented Aller/Immun Reports system reviewed and no additional complaints, except as documented Exam Const General: cooperative, healthy appearing and no acute distress Orientation: alert, awake and oriented x3 Neck Neck: normal visual inspection and full ROM Resp Effort & Inspection: normal respiratory effort, able to speak in complete sentences and symmetric chest movement GI Inspection: normal to inspection Palpation: soft and other Other: gravid Skin General: no rashes or lesions noted Neuro General: patient alert, patient awake and patient oriented x3 Cognition: normal cognition Speech: speech normal Gait: normal gait Motor: muscle tone normal throughout Extrem General: normal to inspection and full ROM Psych Appearance: grossly normal Mental Status: mental status grossly normal Mood: congruent mood Affect: normal affect Speech and Movement: speech and movement normal Attitude: cooperative Thought Process: normal Thought Content: normal Judgment: judgment good Results POC Urinalysis 2 Dip (Clinic) Office Urine Glucose Negative Last Edit by Sandie Manley on 12/29/24 14:29 Office Urine Protein Negative Last Edit by Sandie Manley on 12/29/24 14:29 Coding Level of Care Code OB Routine Diagnoses 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 Gall bladder disease K82.9 Personal history of hyperthyroidism Z86.39 Fatty liver K76.0 Supervision of high-risk O09.90 20 weeks gestation of Z3A.20 Weeks of gestation: 20 weeks Amenorrhea N91.2 Occupational exposure in workplace Z57.9 Protein S in undetectable to low range in serum Needle stick injury of finger Nausea in adult patient R11.0 Diarrhea R19.7 Postprandial abdominal pain in right upper quadrant R10.11 Biliary dyskinesia K82.8 Assessment and Plan Assessment and Plan (1) Circumvallate placenta: Status: Acute Comment: growth us at [facility] (2) Gall bladder disease: Status: Acute (3) Personal history of hyperthyroidism: Status: Acute Comment: 2019- resolved without treatment-normal thyroid labs at [facility] (4) Fatty liver: Status: Acute (5) Supervision of high-risk : Status: Acute Comment: PRR, , RAMO 05/06/25, Chance (6) : Status: Acute Qualifiers: Weeks of gestation: 20 weeks Qualified Code(s): Z3A.20 - 20 weeks gestation of Comment: NIPT-low risk, male. Horizon neg. (7) Amenorrhea: Status: Acute Comment: +UPT (8) Occupational exposure in workplace: Status: Acute (9) Protein S in undetectable to low range in serum: Status: Chronic Comment: saw hematology and cleared without follow up. (10) Needle stick injury of finger: Status: Acute (11) Nausea in adult patient: Status: Acute Comment: Described as patient's biggest complaint this symptom accompanies pain and is not necessarily postprandial in its onset. Patient does describe more of an a.m. onset. Differential would include above diagnoses as well as H. pylori? (12) Diarrhea: Status: Acute Comment: Sporadic diarrhea. Stool studies negative. Pancreatic elastase negative. Stool lactoferrin negative. However, IBD panel somewhat equivocal but suggestive of Crohn's disease. Will discuss with Dr. Keen of gastroenterology to see if he believes endoscopy will be more clarifying. (13) Postprandial abdominal pain in right upper quadrant: Status: Acute Comment: Patient describes immediate postprandial discomfort. This seems inconsistent with gallbladder etiology which should be delayed by several hours. With this descriptor I would be more concerned for peptic ulcer disease, gastritis, other inflammatory issues of the stomach or esophagus... 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 While she describes some consistencies with the gallbladder etiology (right upper quadrant discomfort that is not predicted by position or timing) certain other descriptors are inconsistent with a gallbladder etiology. Moreover, patient remarks that she was told her IBD panel was positive enough for gastroenterology to offer initiation of medications for presumptive diagnosis of Crohn's. With this personal history and her familial history of IBD in the family I believe it may be prudent to pursue double endoscopy before considering a surgery with cholecystectomy. I have shared with Ms. Helm that normally this is a low risk procedure with low risk of postoperative issues, however, I did discuss risk of postcholecystectomy syndrome and the potential to create postprandial abdominal discomfort and diarrhea?both issues from which she suffers presently. She expresses agreement with this rationale and confirms that she is in no hurry to undergo surgery. Orders: Orders POC Urinalysis 2 Dip (Clinic) Today Plan Details Additional Comments: ACOG trimester education reviewed and updated. see problem list details for updated plan management information and see below for orders placed at this visit. [place] appropriate handout given. Clinical Quality Measures Falls Risk Screening/Assistive Devices Have you fallen in the past year?: No 12/29/24 1442 <Electronically signed by Genesis bautista CNM> Date _ Genesis Mccullough CNM Cosigner Signature: Date (if applicable) CC: ~ [facility] Work Phone: 1(150) 207-804506-09-2025 Evaluation note* Diagnosis Onset Date Resolution Status Admit Date Amenorrhea acute October 03, 2024 2:44pm Biliary dyskinesia acute October 032024 2:44pm Diarrhea acute October 03, 2024 2:44pm Fatty liver acute October 03 2:44pm Gall bladder disease acute October 03, 2024 2:44pm Nausea in adult patient acute J une 2024 2:44pm Needle stick injury of finger acute October 03, 2024 2:44pm Occupational exposure in workplace acute October 03, 2024 2 :44pm Personal history of hyperthyroidism acute October 03, 2024 2 :44pm Postprandial abdominal pain in right upper quadrant acute October 03, 2 025 2:44pm acute October 03, 2024 2:44pm Supervision of high-risk acute October 03, 2024 2 :44pm Protein S in undetectable to low range in serum chronic October 03 2:44pm Amenorrhea acute November 03 3:56pm Biliary dyskinesia acute October 252024 3:56pm Diarrhea acute November 03 3:56pm Fatty liver acute November 03 3:56pm Gall bladder disease acute November 03, 2024 3:56pm Nausea in adult patient acute J [id number] 3:56pm Needle stick injury of finger acute November 03, 2024 3:56pm Occupational exposure in workplace acute November 03, 2024 3:56pm Personal history of hyperthyroidism acute November 03, 2024 3:56pm Postprandial abdominal pain in right upper quadrant acute November 03, 2024 3:56pm acute November 03 3:56pm Supervision of high-risk acute November 03, 2024 3:56pm Protein S in undetectable to low range in serum chronic November 03 3:56pm Amenorrhea acute December 02 3:23pm Biliary dyskinesia acute December 02, 2024 3:23pm Diarrhea acute December 02 3:23pm Fatty liver acute December 02, 2 025 3:23pm Gall bladder disease acute Augu st 2024 3:23pm Nausea in adult patient acute A ugust 2024 3:23pm Needle stick injury of finger acute December 02, 2024 3:23pm Occupational exposure in workplace acute December 02, 2024 3:23pm Personal history of hyperthyroidism acute December 02, 2024 3:23pm Postprandial abdominal pain in right upper quadrant acute December 02, 2024 3:23pm acute December 02 3:23pm Supervision of high-risk acute December 02, 2024 3:23pm Protein S in undetectable to low range in serum chronic December 02, 2 025 3:23pm Amenorrhea acute December 29, 2024 2:17pm Biliary dyskinesia acute Sept2024 2:17pm Circumvallate placenta acute Se ptember 2024 2:17pm Diarrhea acute December 29, 2024 2:17pm Fatty liver acute December 2:17pm Gall bladder disease acute Dec 2:17pm Nausea in adult patient acute S eptember 2024 2:17pm Needle stick injury of finger acute December 29, 2024 2:17pm Occupational exposure in workplace acute December 29, 2 025 2:17pm Personal history of hyperthyroidism acute December 29, 2 025 2:17pm Postprandial abdominal pain in right upper quadrant acute December 292024 2:17pm acute December 29, 2024 2:17pm Supervision of high-risk acute December 29, 2 025 2:17pm Protein S in undetectable to low range in serum chronic December 2:17pm [facility] Work Phone: 1(754) 118-917006-09-2025 Evaluation note* Diagnosis Onset Date Resolution Status Admit Date Amenorrhea acute October 03, 2024 2:44pm Biliary dyskinesia acute October 032024 2:44pm Diarrhea acute October 03, 2024 2:44pm Fatty liver acute October 03 2:44pm Gall bladder disease acute October 03, 2024 2:44pm Nausea in adult patient acute J une 2024 2:44pm Needle stick injury of finger acute October 03, 2024 2:44pm Occupational exposure in workplace acute October 03, 2024 2 :44pm Personal history of hyperthyroidism acute October 03, 2024 2 :44pm Postprandial abdominal pain in right upper quadrant acute October 03, 2 025 2:44pm acute October 03, 2024 2:44pm Supervision of high-risk acute October 03, 2024 2 :44pm Protein S in undetectable to low range in serum chronic October 03 2:44pm Amenorrhea acute November 03 3:56pm Biliary dyskinesia acute October 252024 3:56pm Diarrhea acute November 03 3:56pm Fatty liver acute November 03 3:56pm Gall bladder disease acute November 03, 2024 3:56pm Nausea in adult patient acute J [id number] 3:56pm Needle stick injury of finger acute November 03, 2024 3:56pm Occupational exposure in workplace acute November 03, 2024 3:56pm Personal history of hyperthyroidism acute November 03, 2024 3:56pm Postprandial abdominal pain in right upper quadrant acute November 03, 2024 3:56pm acute November 03 3:56pm Supervision of high-risk acute November 03, 2024 3:56pm Protein S in undetectable to low range in serum chronic November 03 3:56pm Amenorrhea acute December 02 3:23pm Biliary dyskinesia acute December 02, 2024 3:23pm Diarrhea acute December 02 3:23pm Fatty liver acute December 02, 2 025 3:23pm Gall bladder disease acute Aug2024 3:23pm Nausea in adult patient acute A ugust 2024 3:23pm Needle stick injury of finger acute December 02, 2024 3:23pm Occupational exposure in workplace acute December 02, 2024 3:23pm Personal history of hyperthyroidism acute December 02, 2024 3:23pm Postprandial abdominal pain in right upper quadrant acute December 02, 2024 3:23pm acute December 02 3:23pm Supervision of high-risk acute December 02, 2024 3:23pm Protein S in undetectable to low range in serum chronic December 02, 2 025 3:23pm Amenorrhea acute December 29, 2024 2:17pm Biliary dyskinesia acute Sept2024 2:17pm Circumvallate placenta acute Se ptember 2024 2:17pm Diarrhea acute December 29, 2024 2:17pm Fatty liver acute December 2:17pm Gall bladder disease acute Dec 2:17pm Nausea in adult patient acute S ep2024 2:17pm Needle stick injury of finger acute December 29, 2024 2:17pm Occupational exposure in workplace acute December 29 2:17pm Personal history of hyperthyroidism acute December 29 2:17pm Postprandial abdominal pain in right upper quadrant acute December 292024 2:17pm acute December 29, 2024 2:17pm Supervision of high-risk acute December 29 2:17pm Protein S in undetectable to low range in serum chronic December 2:17pm Amenorrhea acute December 2:52pm Biliary dyskinesia acute Sept2024 2:52pm Circumvallate placenta acute Se ptember 2024 2:52pm Diarrhea acute December 2:52pm Fatty liver acute December 2:52pm Gall bladder disease acute Dec 2:52pm Nausea in adult patient acute S eptemb2024 2:52pm Needle stick injury of finger acute January 23, 2025 2:52pm Occupational exposure in workplace acute January 23, 2025 2:52pm Personal history of hyperthyroidism acute January 23, 2025 2:52pm Postprandial abdominal pain in right upper quadrant acute December 272024 2:52pm acute December 2:52pm Supervision of high-risk acute January 23, 2025 2:52pm Protein S in undetectable to low range in serum chronic December 2:52pm [facility] Work Phone: 1(772) 786-181306-09-2025 Progress [facility] [address] [place] [address], [address] [place] [address] OFFICE VISIT Date of Service: 10/03/24 MR#: [id number] Acct: [id number] Name: ARUN HELM Rep #: [id number] : 2000 Provider: SUMA Mccullough Age/Sex: 23/F [place] [facility] [place]: Signed Intake Vital Signs 08/30/24 17:16 09/20/24 08:02 10/03/24 14:47 Height 5 ft 5 in 5 ft 5 in 5 ft 5 in Weight: 120 lb 8 oz BMI 20.0 BP 119/84 H Intake Visit Reasons: *EST* NOB LMP 07/30, RAMO 05/06/25 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: No Is patient in pain?: No Allergies Sulfa (Sulfonamide Antibiotics) (sulfa drugs) Allergy (Verified 10/03/24 14:49) Rash Medications ?Medication ?Instructions ?Recorded ?Confirmed ?Type multivit-min no.71-iron fum 28 cap PO 09/20/24 5 History mg-folate no.1 1 mg-dha 300 mg capsule (PNV-[facility]) Last Menstrual Period: 07/30/24 Zika: Zika virus screening: Negative : Yes PFSH PFSH Medical History Proteins serum plasma low Wears glasses Fatty liver Non-smoker Blackout History of echocardiogram Surgical History Hx of wisdom tooth extraction Family History Grandmother Heart failure Maternal Thyroid disorder Maternal hypothyroidism Father Hypertension Grandfather Lung cancer Maternal CVA (cerebral vascular accident) Maternal Diabetes Maternal Aunt Cervical cancer, Onset Age: 20 Paternal Mother Hypertension Osteoporosis Adenomyosis Uterine fibroid Ovarian cyst Social History adopted: No household members: spouse housing: house current occupational status: employed current occupation: [employer] current occupational exposures/hazards: No pets and animals: Yes pets and animals: dog(s) [facility] [place] [facility] out of state: Yes out of country: No sexually active: Yes Smoking Status: Never smoker second hand exposure: No alcohol intake: never substance use type: does not use well-balanced diet: daily or most days caffeine: Yes Type: coffee Number of servings: 1 eating out: 1-3 times/week during the past year weight has: remained stable what type of physical activity do you participate in: walking, running and weight training frequency: 3-4 times per week duration: 15-30 minutes/day rivera/baptism: Alevism seatbelt use: always do you feel safe at home: Yes additional social history: - 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 OB Visit RAMO Calculator Estimated Delivery Date Method Current WG Current Estimate 05/13/25 Ultrasound #1 8w 2d Other Estimates 05/06/25 LMP (Certain) 9w 2d Estimated Due Date: 05/06/25 Expected Delivery Route/Plan Labor Preferences- CB/BF classes: [] labor support person: [] labor intervention preferences: [] pain management options preferred: [] cut cord/dad catch: [] : [] PP control planned: [] discussed possible routes of delivery and associated risks: [] special requests: [] Specific Issue/Plans Covid status: [] Flu vaccine: [] Tdap vaccine: [] Rhogam: [] LARC form signed: [] Problem list reviewed and updated with the most current plan of care details and appropriate ordersplaced. Relevant counseling for the gestational age provided. Continue routine care and follow up unless otherwise noted in visit notes/problem list details Initial Weight: Not Recorded Date -?-?--?-?-?-?-?-?-?-?-?-?- EGA Weight BP Urine Prot -?-?-?-?-?-?-?-?-?-?-?-?- Glucose FHR FuHt Pres Dilation -?-?-?-?-?-?-?-?-?-?-?-?- Effaced St Visit Note 10/03/24 -?-?-?-?-?-?-?-?-?-?-?-?- 8w 2d 120 lb 8 oz 119/84 -?-?-?-?-?-?-?-?-?-?-?-?- 174 -?-?-?-?-?-?-?-?-?-?-?-?- KW- CRL not cons with dates. RAMO changed. accepts NIPT and carrier Menstrual History Last Menstrual Period: 07/30/24 Reported LMP: definite Normal amount/duration: Yes Frequency in days: 29 On hormonal BC at conception: No hCG+: 08/28/24 Antepartum Record Genetic Screening: Congenital Heart Defect: Patient (Maternal grandma heart murmur), Neural Tube Defect: Other, Hemoglobinopathy Or Carrier: Patient (Pt- Protein S deficiency), Cystic Fibrosis: Other,Chromosome Abnormality: Other, Zuhair-Sachs: Other, Hemophilia: Other, Intellectual Disability/Autism:Other, Recurrent Loss/Stillbirth: Other, Other Structural Defect: Other, Other Genetic Disease: Other and Maternal Metabolic Disorder: Other Infection History: Live with someone with TB or Exposed to TB: No, Patient or Partner has history of Genital Herpes: No, Rash or Viral illness since last mentrual period: No, Prior GBS-Infected child: No, History of STD: No, HIV Infection: No, History of Hepatitis: No, Recent travel outside of [place]: No, Concern for hepatitis exposure: No, Varicella immune: Yes (immune) and Covid Vaccinated: Yes (Pfizer, No Boosters) Medical History Medical History: Positive: Heart disease (1st degree heart block when sleeping 2015, stated willout grow it), Hepatitis/liver disease (fatty liver disease), Thyroid dysfunction (Hx hyperthyroidism 2018, resolved without treatment), Drug/latex allergies/reactions (Sulfa), Operations/hospitalizations (wisdom teeth), Relevant family history (See PFSH) and Other (gall bladder) and Negative: Diabetes, Hypertension, Auto-immune disorder, Kidney disease/UTI, Neurologic/epilepsy, Psychiatric, Depression/ depression, Varicosities/phlebitis, Trauma/domestic violence, History of blood transfusions, D (Rh) Sensitized, Pulmonary (e.g.,TB,Asthma), Seasonal allergies, Breast, Cloth Finishing Range Tender surgery, Anesthetic complications, History of abnormal pap, Uterine anomaly/raymundo, Infertility (took 7 months to conceive) and Anti-retroviral treatment ACOG First Trimester First Trimester: Desire for , Alcohol, Tobacco Cessation, Illicit/Recreational Drug/Substance Use, Intimate Partner Violence, Barriers to care, Unstable Housing, Communication Barriers, Environmental/Work Hazards, Anticipated Course of Care, Toxoplasmosis Precations, Use of Any med ications, Sexual activity, Exercise, Dental Care, Sauna/Hot tub use, Seat Belt use, Childbirth classes/Hospital facilities, , Travel, Indications for Ultrasound and Screening for Aneuploidy Second Trimester Second Trimester: Signs and Symptoms of Labor, Selecting a care provider, Reproductive Life Planning & Contreception, Care Planning, Depression/Anxiety and Intimate Partner Violence; Discussed Tobacco Cessation Third Trimester Third Trimester: Pain Management Plans, Labor support person(s), Immediate Larc, Signs and Symptoms of Preeclampsia, Feeding Yes , [place] Education and Family Medical Leave or Disability Forms ROS Const Reports system reviewed and no additional complaints, except as documented, Denies fatigue, Denies headache(s) and Denies lethargy ENT Denies headache(s) Card Reports system reviewed and no additional complaints, except as documented Resp Reports system reviewed and no additional complaints, except as documented GI Reports system reviewed and no additional complaints, except as documented, Denies abdominal pain, Denies constipation, Denies cramping, Denies diarrhea and Denies dyspepsia Reports system reviewed and no additional complaints, except as documented, Denies abnormal vaginalbleeding, Denies difficulty voiding, Denies dyspareunia and Denies dysuria Musc Reports system reviewed and no additional complaints, except as documented Skin/Breast Reports system reviewed and no additional complaints, except as documented Neuro Yes system reviewed and no additional complaints, except as documented and No headache(s) Psych Reports system reviewed and no additional complaints, except as documented, Denies anhedonia and Denies anxiety Endo Reports system reviewed and no additional complaints, except as documented and Denies fatigue Exam Const General: cooperative, healthy appearing and comfortable Neck Neck: normal visual inspection and full ROM Chest Chest palpation & inspection: normal inspection of the chest Breast inspection: normal inspection of the breasts and normal inspection of the axillae Breast palpation: normal palpation of the breasts and normal palpation of the axillae Resp Effort & Inspection: normal respiratory effort and able to speak in complete sentences GI Inspection: normal to inspection Palpation: soft External Female Exam: normal external appearance and normal appearance of the urethra Urethra: normal appearance of the urethra Skin General: no rashes or lesions noted Neuro General: patient alert, patient awake and patient oriented x3 Extrem General: normal to inspection and full ROM Psych Appearance: grossly normal and well kempt Mental Status: mental status grossly normal Mood: congruent mood Affect: normal affect Speech and Movement: speech and movement normal Thought Process: normal Thought Content: normal Coding Level of Care Code OB Routine Diagnoses Gall bladder disease K82.9 Personal history of hyperthyroidism Z86.39 Fatty liver K76.0 Supervision of high-risk O09.90 9 weeks gestation of Z3A.09 Weeks of gestation: 9 weeks Amenorrhea N91.2 Occupational exposure in workplace Z57.9 Needle stick injury of finger Protein S in undetectable to low range in serum Nausea in adult patient R11.0 Diarrhea R19.7 Postprandial abdominal pain in right upper quadrant R10.11 Biliary dyskinesia K82.8 Assessment and Plan Assessment and Plan (1) Gall bladder disease: Status: Acute (2) Personal history of hyperthyroidism: Status: Acute Comment: 2019- resolved without treatment (3) Fatty liver: Status: Acute (4) Supervision of high-risk : Status: Acute Comment: , RAMO 05/06/25, Chance (5) : Status: Acute Qualifiers: Weeks of gestation: 9 weeks Qualified Code(s): Z3A.09 - 9 weeks gestation of Comment: elects NIPT & Carrier testing (6) Amenorrhea: Status: Acute Comment: +UPT (7) Occupational exposure in workplace: Status: Acute (8) Needle stick injury of finger: Status: Acute (9) Protein S in undetectable to low range in serum: Status: Chronic Comment: saw hematology and cleared without follow up. (10) Nausea in adult patient: Status: Acute Comment: Described as patient's biggest complaint this symptom accompanies pain and is not necessarily postprandial in its onset. Patient does describe more of an a.m. onset. Differential would include above diagnoses as well as H. pylori? (11) Diarrhea: Status: Acute Comment: Sporadic diarrhea. Stool studies negative. Pancreatic elastase negative. Stool lactoferrin negative. However, IBD panel somewhat equivocal but suggestive of Crohn's disease. Will discuss with Dr. Keen of gastroenterology to see if he believes endoscopy will be more clarifying. (12) Postprandial abdominal pain in right upper quadrant: Status: Acute Comment: Patient describes immediate postprandial discomfort. This seems inconsistent with gallbladder etiology which should be delayed by several hours. With this descriptor I would be more concerned for peptic ulcer disease, gastritis, other inflammatory issues of the stomach or esophagus... 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 While she describes some consistencies with the gallbladder etiology (right upper quadrant discomfort that is not predicted by position or timing) certain other descriptors are inconsistent with a gallbladder etiology. Moreover, patient remarks that she was told her IBD panel was positive enough for gastroenterology to offer initiation of medications for presumptive diagnosis of Crohn's. With this personal history and herfamilial history of IBD in the family I believe it may be prudent to pursue double endoscopy beforeconsidering a surgery with cholecystectomy. I have shared with Ms. Helm that normally this is a low risk procedure with low risk of postoperative issues, however, I did discuss risk of postcholecystectomy syndrome and the potential to create postprandial abdominal discomfort and diarrhea?both issues from which she suffers presently. She expresses agreement with this rationale and confirms that she is in no hurry to undergo surgery. Comments Comments: Patient oriented to practice and discussed care expectations and screenings. ACOG book offered to patient. Discussed routine and specially indicated labs if needed- patient consents to testing. See problem list details for plan information. Optional screening including maternal carrier screenings, neural tube defect screening, genetic screening options including quad screen, nuchal translucency, sequential screening, and NIPT screening offered to patient and patient chose: NIPT/Carrier 10/03/24 1512 s CNM> Date _ Genesis Mccullough CNM Cosigner Signature: Date (if applicable) CC: ~ [facility]06-09-2025 Progress note Author Genesis Mccullough [facility] Note Date/Time October 03, 2024 3:12p m [facility] [address], [address] [place] [address] OFFICE VISIT Date of Service: 10/03/24 MR#: [id number] Acct: [id number] Name: ARUN HELM Rep #: [id number] : 2000 Provider: SUMA Mccullough Age/Sex: 23/F [place] [facility]: Signed Intake Vital Signs 08/30/24 17:16 09/20/24 08:02 10/03/24 14:47 Height 5 ft 5 in 5 ft 5 in 5 ft 5 in Weight: 120 lb 8 oz BMI 20.0 BP 119/84 H Intake Visit Reasons: *EST* NOB LMP 07/30, RAMO 05/06/25 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: No Is patient in pain?: No Allergies Sulfa (Sulfonamide Antibiotics) (sulfa drugs) Allergy (Verified 10/03/24 14:49) Rash Medications ?Medication ?Instructions ?Recorded ?Confirmed ?Type multivit-min no.71-iron fum 28 cap PO 09/20/24 5 History mg-folate no.1 1 mg-dha 300 mg capsule (PNV-[facility]) Last Menstrual Period: 07/30/24 Zika: Zika virus screening: Negative : Yes PFSH PFSH Medical History Proteins serum plasma low Wears glasses Fatty liver Non-smoker Blackout History of echocardiogram Surgical History Hx of wisdom tooth extraction Family History Grandmother Heart failure Maternal Thyroid disorder Maternal hypothyroidism Father Hypertension Grandfather Lung cancer Maternal CVA (cerebral vascular accident) Maternal Diabetes Maternal Aunt Cervical cancer, Onset Age: 20 Paternal Mother Hypertension Osteoporosis Adenomyosis Uterine fibroid Ovarian cyst Social History adopted: No household members: spouse housing: house current occupational status: employed current occupation: [employer] current occupational exposures/hazards: No pets and animals: Yes pets and animals: dog(s) [facility] [place] [facility] out of state: Yes out of country: No sexually active: Yes Smoking Status: Never smoker second hand exposure: No alcohol intake: never substance use type: does not use well-balanced diet: daily or most days caffeine: Yes Type: coffee Number of servings: 1 eating out: 1-3 times/week during the past year weight has: remained stable what type of physical activity do you participate in: walking, running and weight training frequency: 3-4 times per week duration: 15-30 minutes/day rivera/baptism: Alevism seatbelt use: always do you feel safe at home: Yes additional social history: - 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 OB Visit RAMO Calculator Estimated Delivery Date Method Current WG Current Estimate 05/13/25 Ultrasound #1 8w 2d Other Estimates 05/06/25 LMP (Certain) 9w 2d Estimated Due Date: 05/06/25 Expected Delivery Route/Plan Labor Preferences- CB/BF classes: [] labor support person: [] labor intervention preferences: [] pain management options preferred: [] cut cord/dad catch: [] : [] PP control planned: [] discussed possible routes of delivery and associated risks: [] special requests: [] Specific Issue/Plans Covid status: [] Flu vaccine: [] Tdap vaccine: [] Rhogam: [] LARC form signed: [] Problem list reviewed and updated with the most current plan of care details and appropriate orders placed. Relevant counseling for the gestational age provided. Continue routine care and follow up unless otherwise noted in visit notes/problem list details Initial Weight: Not Recorded Date -?-?--?-?-?-?-?-?-?-?-?-?- EGA Weight BP Urine Prot -?-?-?-?-?-?-?-?-?-?-?-?- Glucose FHR FuHt Pres Dilation -?-?-?-?-?-?-?-?-?-?-?-?- Effaced St Visit Note 10/03/24 -?-?-?-?-?-?-?-?-?-?-?-?- 8w 2d 120 lb 8 oz 119/84 -?-?-?-?-?-?-?-?-?-?-?-?- 174 -?-?-?-?-?-?-?-?-?-?-?-?- KW- CRL not cons with dates. RAMO changed. accepts NIPT and carrier Menstrual History Last Menstrual Period: 07/30/24 Reported LMP: definite Normal amount/duration: Yes Frequency in days: 29 On hormonal BC at conception: No hCG+: 08/28/24 Antepartum Record Genetic Screening: Congenital Heart Defect: Patient (Maternal grandma heart murmur), Neural Tube Defect: Other, Hemoglobinopathy Or Carrier: Patient (Pt-Protein S deficiency), Cystic Fibrosis: Other, Chromosome Abnormality: Other, Zuhair-Sachs: Other, Hemophilia: Other, Intellectual Disability/Autism: Other, Recurrent Loss/Stillbirth: Other, Other Structural Defect: Other, Other Genetic Disease: Other and Maternal Metabolic Disorder: Other Infection History: Live with someone with TB or Exposed to TB: No, Patient or Partner has history of Genital Herpes: No, Rash or Viral illness since last mentrual period: No, Prior GBS-Infected child: No, History of STD: No, HIV Infection: No, History of Hepatitis: No, Recent travel outside of [place]: No, Concern for hepatitis exposure: No, Varicella immune: Yes (immune) and Covid Vaccinated: Yes (Pfizer, No Boosters) Medical History Medical History: Positive: Heart disease (1st degree heart block when sleeping 2015, MD stated will out grow it), Hepatitis/liver disease (fatty liver disease), Thyroid dysfunction (Hx hyperthyroidism 2018, resolved without treatment), Drug/latex allergies/reactions (Sulfa), Operations/hospitalizations (wisdom teeth), Relevant family history (See PFSH) and Other (gall bladder) and Negative: Diabetes, Hypertension, Auto-immune disorder, Kidney disease/UTI, Neurologic/epilepsy, Psychiatric, Depression/ depression, Varicosities/phlebitis, Trauma/domestic violence, History of blood transfusions, D (Rh) Sensitized, Pulmonary (e.g.,TB,Asthma), Seasonal allergies, Breast, Cloth Finishing Range Tender surgery, Anesthetic complications, History of abnormal pap, Uterine anomaly/raymundo, Infertility (took 7 months to conceive) and Anti-retroviral treatment ACOG First Trimester First Trimester: Desire for , Alcohol, Tobacco Cessation, Illicit/Recreational Drug/Substance Use, Intimate Partner Violence, Barriers to care, Unstable Housing, Communication Barriers, Environmental/Work Hazards, Anticipated Course of Care, Toxoplasmosis Precations, Use of Any medications, Sexual activity, Exercise, Dental Care, Sauna/Hot tub use, Seat Belt use, Childbirth classes/Hospital facilities, , Travel, Indications for Ultrasound and Screening for Aneuploidy Second Trimester Second Trimester: Signs and Symptoms of Labor, Selecting a care provider, Reproductive Life Planning & Contreception, Care Planning, Depression/Anxiety and Intimate Partner Violence; Discussed Tobacco Cessation Third Trimester Third Trimester: Pain Management Plans, Labor support person(s), Immediate Larc, Signs and Symptoms of Preeclampsia, Infant Feeding Yes , [place] Education and Family Medical Leave or Disability Forms ROS Const Reports system reviewed and no additional complaints, except as documented, Denies fatigue, Denies headache(s) and Denies lethargy ENT Denies headache(s) Card Reports system reviewed and no additional complaints, except as documented Resp Reports system reviewed and no additional complaints, except as documented GI Reports system reviewed and no additional complaints, except as documented, Denies abdominal pain, Denies constipation, Denies cramping, Denies diarrhea and Denies dyspepsia Reports system reviewed and no additional complaints, except as documented, Denies abnormal vaginal bleeding, Denies difficulty voiding, Denies dyspareunia and Denies dysuria Musc Reports system reviewed and no additional complaints, except as documented Skin/Breast Reports system reviewed and no additional complaints, except as documented Neuro Yes system reviewed and no additional complaints, except as documented and No headache(s) Psych Reports system reviewed and no additional complaints, except as documented, Denies anhedonia and Denies anxiety Endo Reports system reviewed and no additional complaints, except as documented and Denies fatigue Exam Const General: cooperative, healthy appearing and comfortable Neck Neck: normal visual inspection and full ROM Chest Chest palpation & inspection: normal inspection of the chest Breast inspection: normal inspection of the breasts and normal inspection of the axillae Breast palpation: normal palpation of the breasts and normal palpation of the axillae Resp Effort & Inspection: normal respiratory effort and able to speak in complete sentences GI Inspection: normal to inspection Palpation: soft External Female Exam: normal external appearance and normal appearance of the urethra Urethra: normal appearance of the urethra Skin General: no rashes or lesions noted Neuro General: patient alert, patient awake and patient oriented x3 Extrem General: normal to inspection and full ROM Psych Appearance: grossly normal and well kempt Mental Status: mental status grossly normal Mood: congruent mood Affect: normal affect Speech and Movement: speech and movement normal Thought Process: normal Thought Content: normal Coding Level of Care Code OB Routine Diagnoses Gall bladder disease K82.9 Personal history of hyperthyroidism Z86.39 Fatty liver K76.0 Supervision of high-risk O09.90 9 weeks gestation of Z3A.09 Weeks of gestation: 9 weeks Amenorrhea N91.2 Occupational exposure in workplace Z57.9 Needle stick injury of finger Protein S in undetectable to low range in serum Nausea in adult patient R11.0 Diarrhea R19.7 Postprandial abdominal pain in right upper quadrant R10.11 Biliary dyskinesia K82.8 Assessment and Plan Assessment and Plan (1) Gall bladder disease: Status: Acute (2) Personal history of hyperthyroidism: Status: Acute Comment: 2019- resolved without treatment (3) Fatty liver: Status: Acute (4) Supervision of high-risk : Status: Acute Comment: , RAMO 05/06/25, Chance (5) : Status: Acute Qualifiers: Weeks of gestation: 9 weeks Qualified Code(s): Z3A.09 - 9 weeks gestation of Comment: elects NIPT & Carrier testing (6) Amenorrhea: Status: Acute Comment: +UPT (7) Occupational exposure in workplace: Status: Acute (8) Needle stick injury of finger: Status: Acute (9) Protein S in undetectable to low range in serum: Status: Chronic Comment: saw hematology and cleared without follow up. (10) Nausea in adult patient: Status: Acute Comment: Described as patient's biggest complaint this symptom accompanies pain and is not necessarily postprandial in its onset. Patient does describe more of an a.m. onset. Differential would include above diagnoses as well as H. pylori? (11) Diarrhea: Status: Acute Comment: Sporadic diarrhea. Stool studies negative. Pancreatic elastase negative. Stool lactoferrin negative. However, IBD panel somewhat equivocal but suggestive of Crohn's disease. Will discuss with Dr. Keen of gastroenterology to see if he believes endoscopy will be more clarifying. (12) Postprandial abdominal pain in right upper quadrant: Status: Acute Comment: Patient describes immediate postprandial discomfort. This seems inconsistent with gallbladder etiology which should be delayed by several hours. With this descriptor I would be more concerned for peptic ulcer disease, gastritis, other inflammatory issues of the stomach or esophagus... 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 While she describes some consistencies with the gallbladder etiology (right upper quadrant discomfort that is not predicted by position or timing) certain other descriptors are inconsistent with a gallbladder etiology. Moreover, patient remarks that she was told her IBD panel was positive enough for gastroenterology to offer initiation of medications for presumptive diagnosis of Crohn's. With this personal history and her familial history of IBD in the family I believe it may be prudent to pursue double endoscopy before considering a surgery with cholecystectomy. I have shared with Ms. Helm that normally this is a low risk procedure with low risk of postoperative issues, however, I did discuss risk of postcholecystectomy syndrome and the potential to create postprandial abdominal discomfort and diarrhea?both issues from which she suffers presently. She expresses agreement with this rationale and confirms that she is in no hurry to undergo surgery. Comments Comments: Patient oriented to practice and discussed care expectations and screenings. ACOG book offered to patient. Discussed routine and specially indicated labs if needed- patient consents to testing. See problem list details for plan information. Optional screening including maternal carrier screenings, neural tube defect screening, genetic screening options including quad screen, nuchal translucency, sequential screening, and NIPT screening offered to patient and patient chose: NIPT/Carrier 10/03/24 5564 <Electronically signed by Genesis bautista CNM> Date _ Genesis Mccullough CNM Cosigner Signature: Date (if applicable) CC: ~ [place] [facility] Work Phone: 1(649) 994-337705-06-2025 Evaluation note* Diagnosis Onset Date Resolution Status Admit Date Needle stick injury of finger acute August 30, 2024 5:15pm Occupational exposure in workplace acute August 30, 2024 5: 15pm Amenorrhea acute October 03, 2024 2:44pm Biliary dyskinesia acute October 032024 2:44pm Diarrhea acute October 03, 2024 2:44pm Fatty liver acute October 03 2:44pm Gall bladder disease acute October 03, 2024 2:44pm Nausea in adult patient acute J une 2024 2:44pm Needle stick injury of finger acute October 03, 2024 2:44pm Occupational exposure in workplace acute October 03, 2024 2 :44pm Personal history of hyperthyroidism acute October 03, 2024 2 :44pm Postprandial abdominal pain in right upper quadrant acute October 03, 2 025 2:44pm acute October 03, 2024 2:44pm Supervision of high-risk acute October 03, 2024 2 :44pm Protein S in undetectable to low range in serum chronic October 03, 2024 2 :44pm [place] [facility] Work Phone: 1(246) 503-814405-06-2025 Evaluation note* Diagnosis Onset Date Resolution Status Admit Date Needle stick injury of finger acute August 30, 2024 5:15pm Occupational exposure in workplace acute August 30, 2024 5: 15pm Amenorrhea acute October 03, 2024 2:44pm Biliary dyskinesia acute October 032024 2:44pm Diarrhea acute October 03, 2024 2:44pm Fatty liver acute October 03 2:44pm Gall bladder disease acute October 03, 2024 2:44pm Nausea in adult patient acute J une 2024 2:44pm Needle stick injury of finger acute October 03, 2024 2:44pm Occupational exposure in workplace acute October 03, 2024 2 :44pm Personal history of hyperthyroidism acute October 03, 2024 2 :44pm Postprandial abdominal pain in right upper quadrant acute October 03, 2 025 2:44pm acute October 03, 2024 2:44pm Supervision of high-risk acute October 03, 2024 2 :44pm Protein S in undetectable to low range in serum chronic October 03, 2024 2 :44pm Amenorrhea acute November 03 3:56pm Biliary dyskinesia acute October 252024 3:56pm Diarrhea acute November 03 3:56pm Fatty liver acute November 03 3:56pm Gall bladder disease acute November 03, 2024 3:56pm Nausea in adult patient acute J priscilla 2024 3:56pm Needle stick injury of finger acute November 03, 2024 3:56pm Occupational exposure in workplace acute November 03, 2024 3:56pm Personal history of hyperthyroidism acute November 03, 2024 3:56pm Postprandial abdominal pain in right upper quadrant acute November 03, 2024 3:56pm acute November 03 3:56pm Supervision of high-risk acute November 03, 2024 3:56pm Protein S in undetectable to low range in serum chronic November 03, 2024 3:56pm [place] [facility] Work Phone: 1(337) 467-149205-06-2025 Evaluation note* Diagnosis Onset Date Resolution Status Admit Date Needle stick injury of finger acute August 30, 2024 5:15pm Occupational exposure in workplace acute August 30, 2024 5: 15pm Amenorrhea acute October 03, 2024 2:44pm Biliary dyskinesia acute October 032024 2:44pm Diarrhea acute October 03, 2024 2:44pm Fatty liver acute October 03 2:44pm Gall bladder disease acute October 03, 2024 2:44pm Nausea in adult patient acute J une 2024 2:44pm Needle stick injury of finger acute October 03, 2024 2:44pm Occupational exposure in workplace acute October 03, 2024 2 :44pm Personal history of hyperthyroidism acute October 03, 2024 2 :44pm Postprandial abdominal pain in right upper quadrant acute October 03, 2 025 2:44pm acute October 03, 2024 2:44pm Supervision of high-risk acute October 03, 2024 2 :44pm Protein S in undetectable to low range in serum chronic October 03, 2024 2 :44pm Amenorrhea acute November 03 3:56pm Biliary dyskinesia acute October 252024 3:56pm Diarrhea acute November 03 3:56pm Fatty liver acute November 03 3:56pm Gall bladder disease acute November 03, 2024 3:56pm Nausea in adult patient acute J priscilla 2024 3:56pm Needle stick injury of finger acute November 03, 2024 3:56pm Occupational exposure in workplace acute November 03, 2024 3:56pm Personal history of hyperthyroidism acute November 03, 2024 3:56pm Postprandial abdominal pain in right upper quadrant acute November 03, 2024 3:56pm acute November 03 3:56pm Supervision of high-risk acute November 03, 2024 3:56pm Protein S in undetectable to low range in serum chronic November 03, 2024 3:56pm Amenorrhea acute December 02 3:23pm Biliary dyskinesia acute December 02, 2024 3:23pm Diarrhea acute December 02 3:23pm Fatty liver acute December 02, 2 025 3:23pm Gall bladder disease acute Aug2024 3:23pm Nausea in adult patient acute A ug2024 3:23pm Needle stick injury of finger acute December 02, 2024 3:23pm Occupational exposure in workplace acute December 02, 2024 3:23pm Personal history of hyperthyroidism acute December 02, 2024 3:23pm Postprandial abdominal pain in right upper quadrant acute December 02, 2024 3:23pm acute December 02 3:23pm Supervision of high-risk acute December 02, 2024 3:23pm Protein S in undetectable to low range in serum chronic December 02, 2024 3:23pm [place] [facility] Work Phone: 1([phone]) 524-658601-28-2025 Evaluation note* Diagnosis Onset Date Resolution Status Admit Date Protein S in undetectable to low range in serum chronic May 24, 2024 2:50pm Protein S in undetectable to low range in serum chronic May 27, 2024 1:26pm Encounter for routine gynecological examination noneactive Januar y 2024 1:26pm Needle stick injury of finger acute August 30, 2024 5:15pm Occupational exposure in workplace acute August 30, 2024 5: 15pm [place] [facility] Work Phone: 1(259) 421-241601-16-2025 Evaluation note* Diagnosis Onset Date Resolution Status Admit Date Protein S in undetectable to low range in serum chronic May 12, 2024 2:44pm Protein S in undetectable to low range in serum chronic May 24, 2024 2:50pm Protein S in undetectable to low range in serum chronic May 27, 2024 1:26pm Encounter for routine gynecological examination noneactive Darío lemus 2024 1:26pm [facility] Work Phone: 1(160) 617-198911-13-2024 [facility] Medical Records Department [address] [place] [address] History Physical Exam 03/09/24 1323 MR#: [id number] Acct: [id number] Name: ARUN HELM Rep #: [id number] : 2000 23 From: Andres Friend DO PCP: SUYAPA [place] Status:[employer] Location: [place] [address] History and Physical Date of Admission: 03/09/24 ARUN HELM, is a 23 F who presents to the office today for establishment with [facility] with complaints of diarrhea and abnormal HIDA scan. 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 She reports that the diarrhea has been going on since April of this year, it started as an intestinal flu that had severe RUQ abdominal pain and cramping regardless of food intake. Reports that the infection triggered her to ask for an abdominal US of the RUQ; US showed mild fatty liver changes, no cholelithiasis, no cholangitis. She states the stools are not always pure liquid; stools stay afloat in the toilet water. She states that she's tried adjusting her food intake to a Mediterranean diet and bulked fiber intake; reports that the healthier she ate, the worse the pain and diarrhea was. Diarrhea occurs within an hour of eating; abdominal pain and/or cramping is sporadic and not linked to the diarrhea. She denies any specific type of food correlation to the episodes:i.e. fatty, greasy, etc. She denies tenesmus, hematochezia, melena, fever, chills, and vomiting. She reports minimal episodes of nausea. She denies trying OTC remedies for the diarrhea. She did request a HIDA scan from her PCP; results demonstrated GB ejection fraction of 24% with reflux back in to GB of CCK. She states a preferral for further diagnostic evaluation vs medicinal intervention as the diarrhea is tolerable, but she wants to know why it's happening. Gallbladder Problems Pain location: epigastric and right upper quadrant Current symptoms: Reports abnormal CCK-Hida study and nausea; Denies belching, fever(s), chills, jaundice, excessive flatus, pale stool, constipation, vomiting, food intolerance, dyspepsia, shoul tatyana pain or heartburn Pain type: sharp and cramping Pain scale (0-10): 5 Associated symptoms: Reports nausea and diarrhea; Denies chills, constipation or vomiting ROS Const Constitutional: No chills, fatigue, fever(s) or weight change Eyes Eyes: No change in vision ENT ENT: No abnormal hearing, dizziness/vertigo or difficulty swallowing Resp Respiratory: No cough Gastro GI: Positive for abdominal pain, change in stool character, diarrhea and nausea/dyspepsia; No belching, bloating, change in bowel habits, coffee ground emesis, constipation, cramping, heartburn, difficulty swallowing, feeling full early, excessive flatus, incontinent of stools, Vomiting blood/hematemesis, Blood in stool, loose stools, Black,tarry stools, pain with swallowing, vomiting or other Genitourinary-Female: No difficulty urinating Musc Musculoskeletal: No joint pain Skin Skin: No yellowing of the eye or itchy eyes Neuro Neurology: No abnormal hearing Psych Psychiatric: No anxiety and No depression Endo Endocrine: No change in body appearance, fatigue or weight change Aller/Imm Allergy/Immunologic: No food intolerance or itchy eyes Tom/Lymp Hematologic/Lymphatic: No easy bleeding or easy bruising Exam Const General: cooperative, healthy appearing, comfortable and no acute distress Nutritional Appearance: average body habitus and well nourished Orientation: alert and oriented x3 [facility] Head: normal to inspection Ears: hearing grossly normal bilaterally Eyes General: appearance normal, both eyes and all related structures Neck Neck: normal visual inspection and full ROM Neck mass: No Chest Chest palpation inspection: normal inspection of the chest Resp Effort Inspection: normal respiratory effort, able to speak in complete sentences and symmetric chest movement GI Inspection: normal to inspection Skin General: no rashes or lesions noted Neuro General: patient alert and patient oriented x3 Cognition: normal cognition Speech: speech normal Gait: normal gait Extrem General: normal to inspection and full ROM Psych Appearance: well kempt Mood: congruent mood Affect: normal affect Speech and Movement: speech and movement normal Attitude: cooperative Thought Process: normal Judgment: judgment good Assessment and Plan Assessment and Plan (1) Gallbladder Problem: (2) Biliary dyskinesia: Status: Acute Plan: ARUN HELM, is a 23 F who presents to the office today for establishment with [facility] with complaints of diarrhea and abnormal HIDA scan. 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 She reports that the diarrhea has been going on since April (more content not included)...[facility] noteNo assessment information availableWP[facility] Work Phone: Hospital Discharge instructions Additional Instructions Follow-up with employee health. You may require further testing and blood tests. [facility] Work Phone: Reason for referral (narrative)No reason for referral information availableWPike Community Hospital Work Phone: Summary Purpose Family History No Family History Records Found Cancer Status:Active Comments:Materna l Grandfather. Paternal Uncle. [...] scoliosis Status:Active scoliosis Status:Active Comments:Brother . mild Relationship Condition Age at Onset Recorded Date/T [place] grandmother Heart failure Unknown father Hypertension Unknown grandfather Malignant neoplasm of lung Unknown Cancer Status:Active Comments:Materna l Grandfather. Paternal Uncle. [...] ts:Maternal Grandfather. Hypertension Status:Active Comments:Materna l Grandmother. Mother. Father. Hypothyroidism Status:Active Comments:Materna l Grandmother. no scoliosis Status:Active scoliosis Status:Active Comments:Brother . mild Cancer Status:Active Comments:Materna l Grandfather. Paternal Uncle. LUNG AND MELANOMA Cerebrovascular Accident Status:Active Comment s:Paternal Grandmother. Diabetes Mellitus Type II Status:Active Commen ts:Maternal Grandfather. Hypertension Status:Active Comments:Materna l Grandmother. Mother. Father. Hypothyroidism Status:Active Comments:Materna l Grandmother. no scoliosis Status:Active scoliosis Status:Active Comments:Brother . mild Cancer Status:Active Comments:Materna l Grandfather. Paternal Uncle. LUNG AND MELANOMA Cerebrovascular Accident Status:Active Comment s:Paternal Grandmother. Diabetes Mellitus Type II Status:Active Commen ts:Maternal Grandfather. Hypertension Status:Active Comments:Materna l Grandmother. Mother. Father. Hypothyroidism Status:Active Comments:Materna l Grandmother. no scoliosis Status:Active scoliosis Status:Active Comments:Brother . mild Cancer Status:Active Comments:Materna l Grandfather. Paternal Uncle. LUNG AND MELANOMA Cerebrovascular Accident Status:Active Comment s:Paternal Grandmother. Diabetes Mellitus Type II Status:Active Commen ts:Maternal Grandfather. Hypertension Status:Active Comments:Materna l Grandmother. Mother. Father. Hypothyroidism Status:Active Comments:Materna l Grandmother. no scoliosis Status:Active scoliosis Status:Active Comments:Brother . mild Cancer Status:Active Comments:Materna l Grandfather. Paternal Uncle. LUNG AND MELANOMA Cerebrovascular Accident Status:Active Comment s:Paternal Grandmother. Diabetes Mellitus Type II Status:Active Commen ts:Maternal Grandfather. Hypertension Status:Active Comments:Materna l Grandmother. Mother. Father. Hypothyroidism Status:Active Comments:Materna l Grandmother. no scoliosis Status:Active scoliosis Status:Active Comments:Brother . mild Cancer Status:Active Comments:Materna l Grandfather. Paternal Uncle. LUNG AND MELANOMA Cerebrovascular Accident Status:Active Comment s:Paternal Grandmother. Diabetes Mellitus Type II Status:Active Commen ts:Maternal Grandfather. Hypertension Status:Active Comments:Materna l Grandmother. Mother. Father. Hypothyroidism Status:Active Comments:Materna l Grandmother. no scoliosis Status:Active scoliosis Status:Active Comments:Brother . mild Cancer Status:Active Comments:Materna l Grandfather. Paternal Uncle. LUNG AND MELANOMA Cerebrovascular Accident Status:Active Comment s:Paternal Grandmother. Diabetes Mellitus Type II Status:Active Commen ts:Maternal Grandfather. Hypertension Status:Active Comments:Materna l Grandmother. Mother. Father. Hypothyroidism Status:Active Comments:Materna l Grandmother. no scoliosis Status:Active scoliosis Status:Active Comments:Brother . mild Cancer Status:Active Comments:Materna l Grandfather. Paternal Uncle. LUNG AND MELANOMA Cerebrovascular Accident Status:Active Comment s:Paternal Grandmother. Diabetes Mellitus Type II Status:Active Commen ts:Maternal Grandfather. Hypertension Status:Active Comments:Materna l Grandmother. Mother. Father. Hypothyroidism Status:Active Comments:Materna l Grandmother. no scoliosis Status:Active scoliosis Status:Active Comments:Brother . mild Cancer Status:Active Comments:Materna l Grandfather. Paternal Uncle. LUNG AND MELANOMA Cerebrovascular Accident Status:Active Comment s:Paternal Grandmother. Diabetes Mellitus Type II Status:Active Commen ts:Maternal Grandfather. Hypertension Status:Active Comments:Materna l Grandmother. Mother. Father. Hypothyroidism Status:Active Comments:Materna l Grandmother. no scoliosis Status:Active scoliosis Status:Active Comments:Brother . mild Cancer Status:Active Comments:Materna l Grandfather. Paternal Uncle. LUNG AND MELANOMA Cerebrovascular Accident Status:Active Comment s:Paternal Grandmother. Diabetes Mellitus Type II Status:Active Commen ts:Maternal Grandfather. Hypertension Status:Active Comments:Materna l Grandmother. Mother. Father. Hypothyroidism Status:Active Comments:Materna l Grandmother. no scoliosis Status:Active scoliosis Status:Active Comments:Brother . mild Cancer Status:Active Comments:Materna l Grandfather. Paternal Uncle. LUNG AND MELANOMA Cerebrovascular Accident Status:Active Comment s:Paternal Grandmother. Diabetes Mellitus Type II Status:Active Commen ts:Maternal Grandfather. Hypertension Status:Active Comments:Materna l Grandmother. Mother. Father. Hypothyroidism Status:Active Comments:Materna l Grandmother. no scoliosis Status:Active scoliosis Status:Active Comments:Brother . mild Cancer Status:Active Comments:Materna l Grandfather. Paternal Uncle. LUNG AND MELANOMA Cerebrovascular Accident Status:Active Comment s:Paternal Grandmother. Diabetes Mellitus Type II Status:Active Commen ts:Maternal Grandfather. Hypertension Status:Active Comments:Materna l Grandmother. Mother. Father. Hypothyroidism Status:Active Comments:Materna l Grandmother. no scoliosis Status:Active scoliosis Status:Active Comments:Brother . mild Cancer Status:Active Comments:Materna l Grandfather. Paternal Uncle. LUNG AND MELANOMA Cerebrovascular Accident Status:Active Comment s:Paternal Grandmother. Diabetes Mellitus Type II Status:Active Commen ts:Maternal Grandfather. Hypertension Status:Active Comments:Materna l Grandmother. Mother. Father. Hypothyroidism Status:Active Comments:Materna l Grandmother. no scoliosis Status:Active scoliosis Status:Active Comments:Brother . mild Cancer Status:Active Comments:Materna l Grandfather. Paternal Uncle. LUNG AND MELANOMA Cerebrovascular Accident Status:Active Comment s:Paternal Grandmother. Diabetes Mellitus Type II Status:Active Commen ts:Maternal Grandfather. Hypertension Status:Active Comments:Materna l Grandmother. Mother. Father. Hypothyroidism Status:Active Comments:Materna l Grandmother. no scoliosis Status:Active scoliosis Status:Active Comments:Brother . mild Cancer Status:Active Comments:Materna l Grandfather. Paternal Uncle. LUNG AND MELANOMA Cerebrovascular Accident Status:Active Comment s:Paternal Grandmother. Diabetes Mellitus Type II Status:Active Commen ts:Maternal Grandfather. Hypertension Status:Active Comments:Materna l Grandmother. Mother. Father. Hypothyroidism Status:Active Comments:Materna l Grandmother. no scoliosis Status:Active scoliosis Status:Active Comments:Brother . mild Cancer Status:Active Comments:Materna l Grandfather. Paternal Uncle. LUNG AND MELANOMA Cerebrovascular Accident Status:Active Comment s:Paternal Grandmother. Diabetes Mellitus Type II Status:Active Commen ts:Maternal Grandfather. Hypertension Status:Active Comments:Materna l Grandmother. Mother. Father. Hypothyroidism Status:Active Comments:Materna l Grandmother. no scoliosis Status:Active scoliosis Status:Active Comments:Brother . mild Cancer Status:Active Comments:Materna l Grandfather. Paternal Uncle. LUNG AND MELANOMA Cerebrovascular Accident Status:Active Comment s:Paternal Grandmother. Diabetes Mellitus Type II Status:Active Commen ts:Maternal Grandfather. Hypertension Status:Active Comments:Materna l Grandmother. Mother. Father. Hypothyroidism Status:Active Comments:Materna l Grandmother. no scoliosis Status:Active scoliosis Status:Active Comments:Brother . mild Cancer Status:Active Comments:Materna l Grandfather. Paternal Uncle. LUNG AND MELANOMA Cerebrovascular Accident Status:Active Comment s:Paternal Grandmother. Diabetes Mellitus Type II Status:Active Commen ts:Maternal Grandfather. Hypertension Status:Active Comments:Materna l Grandmother. Mother. Father. Hypothyroidism Status:Active Comments:Materna l Grandmother. no scoliosis Status:Active scoliosis Status:Active Comments:Brother . mild Cancer Status:Active Comments:Materna l Grandfather. Paternal Uncle. LUNG AND MELANOMA Cerebrovascular Accident Status:Active Comment s:Paternal Grandmother. Diabetes Mellitus Type II Status:Active Commen ts:Maternal Grandfather. Hypertension Status:Active Comments:Materna l Grandmother. Mother. Father. Hypothyroidism Status:Active Comments:Materna l Grandmother. no scoliosis Status:Active scoliosis Status:Active Comments:Brother . mild Cancer Status:Active Comments:Materna l Grandfather. Paternal Uncle. LUNG AND MELANOMA Cerebrovascular Accident Status:Active Comment s:Paternal Grandmother. Diabetes Mellitus Type II Status:Active Commen ts:Maternal Grandfather. Hypertension Status:Active Comments:Materna l Grandmother. Mother. Father. Hypothyroidism Status:Active Comments:Materna l Grandmother. no scoliosis Status:Active scoliosis Status:Active Comments:Brother . mild Cancer Status:Active Comments:Materna l Grandfather. Paternal Uncle. LUNG AND MELANOMA Cerebrovascular Accident Status:Active Comment s:Paternal Grandmother. Diabetes Mellitus Type II Status:Active Commen ts:Maternal Grandfather. Hypertension Status:Active Comments:Materna l Grandmother. Mother. Father. Hypothyroidism Status:Active Comments:Materna l Grandmother. no scoliosis Status:Active scoliosis Status:Active Comments:Brother . mild Cancer Status:Active Comments:Materna l Grandfather. Paternal Uncle. LUNG AND MELANOMA Cerebrovascular Accident Status:Active Comment s:Paternal Grandmother. Diabetes Mellitus Type II Status:Active Commen ts:Maternal Grandfather. Hypertension Status:Active Comments:Materna l Grandmother. Mother. Father. Hypothyroidism Status:Active Comments:Materna l Grandmother. no scoliosis Status:Active scoliosis Status:Active Comments:Brother . mild Cancer Status:Active Comments:Materna l Grandfather. Paternal Uncle. LUNG AND MELANOMA Cerebrovascular Accident Status:Active Comment s:Paternal Grandmother. Diabetes Mellitus Type II Status:Active Commen ts:Maternal Grandfather. Hypertension Status:Active Comments:Materna l Grandmother. Mother. Father. Hypothyroidism Status:Active Comments:Materna l Grandmother. no scoliosis Status:Active scoliosis Status:Active Comments:Brother . mild Cancer Status:Active Comments:Materna l Grandfather. Paternal Uncle. LUNG AND MELANOMA Cerebrovascular Accident Status:Active Comment s:Paternal Grandmother. Diabetes Mellitus Type II Status:Active Commen ts:Maternal Grandfather. Hypertension Status:Active Comments:Materna l Grandmother. Mother. Father. Hypothyroidism Status:Active Comments:Materna l Grandmother. no scoliosis Status:Active scoliosis Status:Active Comments:Brother . mild Cancer Status:Active Comments:Materna l Grandfather. Paternal Uncle. LUNG AND MELANOMA Cerebrovascular Accident Status:Active Comment s:Paternal Grandmother. Diabetes Mellitus Type II Status:Active Commen ts:Maternal Grandfather. Hypertension Status:Active Comments:Materna l Grandmother. Mother. Father. Hypothyroidism Status:Active Comments:Materna l Grandmother. no scoliosis Status:Active scoliosis Status:Active Comments:Brother . mild Cancer Status:Active Comments:Materna l Grandfather. Paternal Uncle. LUNG AND MELANOMA Cerebrovascular Accident Status:Active Comment s:Paternal Grandmother. Diabetes Mellitus Type II Status:Active Commen ts:Maternal Grandfather. Hypertension Status:Active Comments:Materna l Grandmother. Mother. Father. Hypothyroidism Status:Active Comments:Materna l Grandmother. no scoliosis Status:Active scoliosis Status:Active Comments:Brother . mild Cancer Status:Active Comments:Materna l Grandfather. Paternal Uncle. LUNG [employer] MELANOMA Cerebrovascular Accident Status:Active Comment s:Paternal Grandmother. Diabetes Mellitus Type II Status:Active Commen ts:Maternal Grandfather. Hypertension Status:Active Comments:Materna l Grandmother. Mother. Father. Hypothyroidism Status:Active Comments:Materna l Grandmother. no scoliosis Status:Active scoliosis Status:Active Comments:Brother . mild Cancer Status:Active Comments:Materna l Grandfather. Paternal Uncle. L[employer] MELANOMA Cerebrovascular Accident Status:Active Comment s:Paternal Grandmother. Diabetes Mellitus Type II Status:Active Commen ts:Maternal Grandfather. Hypertension Status:Active Comments:Materna l Grandmother. Mother. Father. Hypothyroidism Status:Active Comments:Materna l Grandmother. no scoliosis Status:Active scoliosis Status:Active Comments:Brother . mild Cancer Status:Active Comments:Materna l Grandfather. Paternal Uncle. LUN[employer] MELANOMA Cerebrovascular Accident Status:Active Comment s:Paternal Grandmother. Diabetes Mellitus Type II Status:Active Commen ts:Maternal Grandfather. Hypertension Status:Active Comments:Materna l Grandmother. Mother. Father. Hypothyroidism Status:Active Comments:Materna l Grandmother. no scoliosis Status:Active scoliosis Status:Active Comments:Brother . mild Cancer Status:Active Comments:Materna l Grandfather. Paternal Uncle. LUNG [employer] MELANOMA Cerebrovascular Accident Status:Active Comment s:Paternal Grandmother. Diabetes Mellitus Type II Status:Active Commen ts:Maternal Grandfather. Hypertension Status:Active Comments:Materna l Grandmother. Mother. Father. Hypothyroidism Status:Active Comments:Materna l Grandmother. no scoliosis Status:Active scoliosis Status:Active Comments:Brother . mild Cancer Status:Active Comments:Materna l Grandfather. Paternal Uncle. LUN[employer] MELANOMA Cerebrovascular Accident Status:Active Comment s:Paternal Grandmother. Diabetes Mellitus Type II Status:Active Commen ts:Maternal Grandfather. Hypertension Status:Active Comments:Materna l Grandmother. Mother. Father. Hypothyroidism Status:Active Comments:Materna l Grandmother. no scoliosis Status:Active scoliosis Status:Active Comments:Brother . mild Cancer Status:Active Comments:Materna l Grandfather. Paternal Uncle. LUNG [employer] MELANOMA Cerebrovascular Accident Status:Active Comment s:Paternal Grandmother. Diabetes Mellitus Type II Status:Active Commen ts:Maternal Grandfather. Hypertension Status:Active Comments:Materna l Grandmother. Mother. Father. Hypothyroidism Status:Active Comments:Materna l Grandmother. no scoliosis Status:Active scoliosis Status:Active Comments:Brother . mild Cancer Status:Active Comments:Materna l Grandfather. Paternal Uncle. LUN[employer] MELANOMA Cerebrovascular Accident Status:Active Comment s:Paternal Grandmother. Diabetes Mellitus Type II Status:Active Commen ts:Maternal Grandfather. Hypertension Status:Active Comments:Materna l Grandmother. Mother. Father. Hypothyroidism Status:Active Comments:Materna l Grandmother. no scoliosis Status:Active scoliosis Status:Active Comments:Brother . mild Relationship Condition Age at Onset Recorded Date/T andrea Not Specified Malignant neoplasm of cervix Unknown grandmother Heart failure Unknown father Hypertension Unknown grandfather Malignant neoplasm of lung Unknown Cancer Status:Active Comments:Materna l Grandfather. Paternal Uncle. LUNG [employer] MELANOMA Cerebrovascular Accident Status:Active Comment s:Paternal Grandmother. Diabetes Mellitus Type II Status:Active Commen ts:Maternal Grandfather. Hypertension Status:Active Comments:Materna l Grandmother. Mother. Father. Hypothyroidism Status:Active Comments:Materna l Grandmother. no scoliosis Status:Active scoliosis Status:Active Comments:Brother . mild Relationship Condition Age at Onset Recorded Date/T and[place] grandmother Heart failure Unknown Disorder of thyroid Unknown father Hypertension Unknown grandfather Malignant neoplasm of lung Unknown Cerebrovascular accident (CVA) Unknown Diabetes mellitus Unknown aunt Malignant neoplasm of cervix 20 mother Hypertension Unknown Osteoporosis Unknown Adenomyosis of uterus Unknown Uterine leiomyoma Unknown Cyst of ovary Unknown Cancer Status:Active Comments:Materna l Grandfather. Paternal Uncle. LUN[employer] MELANOMA Cerebrovascular Accident Status:Active Comment s:Paternal Grandmother. Diabetes Mellitus Type II Status:Active Commen ts:Maternal Grandfather. Hypertension Status:Active Comments:Materna l Grandmother. Mother. Father. Hypothyroidism Status:Active Comments:Materna l Grandmother. no scoliosis Status:Active scoliosis Status:Active Comments:Brother . mild Cancer Status:Active Comments:Materna l Grandfather. Paternal Uncle. LUNG [employer] MELANOMA Cerebrovascular Accident Status:Active Comment s:Paternal Grandmother. Diabetes Mellitus Type II Status:Active Commen ts:Maternal Grandfather. Hypertension Status:Active Comments:Materna l Grandmother. Mother. Father. Hypothyroidism Status:Active Comments:Materna l Grandmother. no scoliosis Status:Active scoliosis Status:Active Comments:Brother . mild Cancer Status:Active Comments:Materna l Grandfather. Paternal Uncle. LUNG [employer] MELANOMA Cerebrovascular Accident Status:Active Comment s:Paternal Grandmother. Diabetes Mellitus Type II Status:Active Commen ts:Maternal Grandfather. Hypertension Status:Active Comments:Materna l Grandmother. Mother. Father. Hypothyroidism Status:Active Comments:Materna l Grandmother. no scoliosis Status:Active scoliosis Status:Active Comments:Brother . mild Advance Directives No Advanced Directives Records Found Advance Directive Response Recorded Date/ Time Do you have a Healthcare Power of Public Housing Interviewer? 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 :26pm 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, 2024 10: 49am exposure August 30, 2024 5:15pm Reason for Visit Admit Date Protein S in undetectable to low range i n serum May 12, 2024 2:44pm Protein S in undetectable to low range i n serum May 24, 2024 2:50pm Protein S in undetectable to low range i n serum May 27, 2024 1:26pm Encounter for routine gynecological exam ination May 27, 2024 1:26pm Chief Complaint Admit Date [facility] May 24, 2024 2 :50pm 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, 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 :26pm 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, 2024 10: 49am exposure August 30, 2024 5:15pm NOB, Confirm , Vitals September 20, 2024 7:49am Reason for Visit Admit Date Protein S in undetectable to low range i n serum May 24, 2024 2:50pm Protein S in undetectable to low range i n serum May 27, 2024 1:26pm Encounter for routine gynecological exam ination May 27, 2024 1:26pm Needle stick injury of finger August 30, 2 025 5:15pm Occupational exposure in workplace August 302024 5:15pm Chief Complaint Admit Date 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, 2024 10: 49am exposure August 30, 2024 5:15pm NOB, Confirm , Vitals September 20, 2024 7:49am *EST* NOB LMP 4/5, RAMO 05/06/25 October 03, 2024 2:44pm Reason for Visit Admit Date Needle stick injury of finger August 30, 2 025 5:15pm Occupational exposure in workplace August 302024 5:15pm Amenorrhea October 03, 2024 2:44p m Biliary dyskinesia October 03, 2024 2:44p m Diarrhea October 03, 2024 2:44p m Fatty liver October 03, 2024 2:44p m Gall bladder disease October 03, 2024 2:44 pm Nausea in adult patient October 03, 2024 2 :44pm Needle stick injury of finger October 03, 2024 2:44pm Occupational exposure in workplace October 03, 2024 2:44pm Personal history of hyperthyroidism October 03, 2024 2:44pm Postprandial abdominal pain in right upp er quadrant October 03, 2024 2:44pm October 03, 2024 2:44p m Supervision of high-risk October 03, 2024 2:44pm Protein S in undetectable to low range i n serum October 03, 2024 2:44pm Chief Complaint Admit Date 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, 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 10: 49am exposure August 30, 2024 5:15pm NOB, Confirm , Vitals September 20, 2024 7:49am *EST* NOB LMP 4/5, RAMO 05/06/25 October 03, 2024 2:44pm 11 wk ob November 03, 2024 3:56 pm Reason for Visit Admit Date Needle stick injury of finger August 30, 2 025 5:15pm Occupational exposure in workplace August 302024 5:15pm Amenorrhea October 03, 2024 2:44p m Biliary dyskinesia October 03, 2024 2:44p m Diarrhea October 03, 2024 2:44p m Fatty liver October 03, 2024 2:44p m Gall bladder disease October 03, 2024 2:44 pm Nausea in adult patient October 03, 2024 2 :44pm Needle stick injury of finger October 03, 2024 2:44pm Occupational exposure in workplace October 03, 2024 2:44pm Personal history of hyperthyroidism October 03, 2024 2:44pm Postprandial abdominal pain in right upp er quadrant October 03, 2024 2:44pm October 03, 2024 2:44p m Supervision of high-risk October 03, 2024 2:44pm Protein S in undetectable to low range i n serum October 03, 2024 2:44pm Amenorrhea November 03, 2024 3:56 pm Biliary dyskinesia November 03, 2024 3:56 pm Diarrhea November 03, 2024 3:56 pm Fatty liver November 03, 2024 3:56 pm Gall bladder disease November 03, 2024 3:5 6pm Nausea in adult patient November 03, 2024 3:56pm Needle stick injury of finger November 03, 2024 3:56pm Occupational exposure in workplace November 03, 2024 3:56pm Personal history of hyperthyroidism November 03, 2024 3:56pm Postprandial abdominal pain in right upp er quadrant November 03, 2024 3:56pm November 03, 2024 3:56 pm Supervision of high-risk November 03, 2024 3:56pm Protein S in undetectable to low range i n serum November 03, 2024 3:56pm Chief Complaint Admit Date 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, 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 10: 49am exposure August 30, 2024 5:15pm NOB, Confirm , Vitals September 20, 2024 7:49am *EST* NOB LMP 4/5, RAMO 05/06/25 October 03, 2024 2:44pm 11 wk ob November 03, 2024 3:56 pm 15 wk ob December 02, 2024 3:2 3pm Reason for Visit Admit Date Needle stick injury of finger August 30, 2 025 5:15pm Occupational exposure in workplace August 302024 5:15pm Amenorrhea October 03, 2024 2:44p m Biliary dyskinesia October 03, 2024 2:44p m Diarrhea October 03, 2024 2:44p m Fatty liver October 03, 2024 2:44p m Gall bladder disease October 03, 2024 2:44 pm Nausea in adult patient October 03, 2024 2 :44pm Needle stick injury of finger October 03, 2024 2:44pm Occupational exposure in workplace October 03, 2024 2:44pm Personal history of hyperthyroidism October 03, 2024 2:44pm Postprandial abdominal pain in right upp er quadrant October 03, 2024 2:44pm October 03, 2024 2:44p m Supervision of high-risk October 03, 2024 2:44pm Protein S in undetectable to low range i n serum October 03, 2024 2:44pm Amenorrhea November 03, 2024 3:56 pm Biliary dyskinesia November 03, 2024 3:56 pm Diarrhea November 03, 2024 3:56 pm Fatty liver November 03, 2024 3:56 pm Gall bladder disease November 03, 2024 3:5 6pm Nausea in adult patient November 03, 2024 3:56pm Needle stick injury of finger November 03, 2024 3:56pm Occupational exposure in workplace November 03, 2024 3:56pm Personal history of hyperthyroidism November 03, 2024 3:56pm Postprandial abdominal pain in right upp er quadrant November 03, 2024 3:56pm November 03, 2024 3:56 pm Supervision of high-risk November 03, 2024 3:56pm Protein S in undetectable to low range i n serum November 03, 2024 3:56pm Amenorrhea December 02, 2024 3:2 3pm Biliary dyskinesia December 02, 2024 3:2 3pm Diarrhea December 02, 2024 3:2 3pm Fatty liver December 02, 2024 3:2 3pm Gall bladder disease December 02, 2024 3: 23pm Nausea in adult patient December 02, 2024 3:23pm Needle stick injury of finger November 3:23pm Occupational exposure in workplace 2024 3:23pm Personal history of hyperthyroidism 2024 3:23pm Postprandial abdominal pain in right upp er quadrant December 02, 2024 3:23pm December 02, 2024 3:2 3pm Supervision of high-risk [employer] 2024 3:23pm Protein S in undetectable to low range i n serum December 02, 2024 3:23pm Chief Complaint Admit Date NOB, Confirm , Vitals September 20, 2024 7:49am *EST* NOB LMP 5, RAMO 05/06/25 October 03, 2024 2:44pm 11 wk ob November 03, 2024 3:56 pm 15 wk ob December 02, 2024 3:2 3pm 20wk5d ob December 29, 2024 2:17pm Reason for Visit Admit Date Amenorrhea October 03, 2024 2:44p m Biliary dyskinesia October 03, 2024 2:44p m Diarrhea October 03, 2024 2:44p m Fatty liver October 03, 2024 2:44p m Gall bladder disease October 03, 2024 2:44 pm Nausea in adult patient October 03, 2024 2 :44pm Needle stick injury of finger October 03, 2024 2:44pm Occupational exposure in workplace October 03, 2024 2:44pm Personal history of hyperthyroidism October 03, 2024 2:44pm Postprandial abdominal pain in right upp er quadrant October 03, 2024 2:44pm October 03, 2024 2:44p m Supervision of high-risk October 03, 2024 2:44pm Protein S in undetectable to low range i n serum October 03, 2024 2:44pm Amenorrhea November 03, 2024 3:56 pm Biliary dyskinesia November 03, 2024 3:56 pm Diarrhea November 03, 2024 3:56 pm Fatty liver November 03, 2024 3:56 pm Gall bladder disease November 03, 2024 3:5 6pm Nausea in adult patient November 03, 2024 3:56pm Needle stick injury of finger November 03, 2024 3:56pm Occupational exposure in workplace November 03, 2024 3:56pm Personal history of hyperthyroidism November 03, 2024 3:56pm Postprandial abdominal pain in right upp er quadrant November 03, 2024 3:56pm November 03, 2024 3:56 pm Supervision of high-risk November 03, 2024 3:56pm Protein S in undetectable to low range i n serum November 03, 2024 3:56pm Amenorrhea December 02, 2024 3:2 3pm Biliary dyskinesia December 02, 2024 3:2 3pm Diarrhea December 02, 2024 3:2 3pm Fatty liver December 02, 2024 3:2 3pm Gall bladder disease December 02, 2024 3: 23pm Nausea in adult patient December 02, 2024 3:23pm Needle stick injury of finger November 3:23pm Occupational exposure in workplace [employer] 2024 3:23pm Personal history of hyperthyroidism [facility]u 2024 3:23pm Postprandial abdominal pain in right upp er quadrant December 02, 2024 3:23pm December 02, 2024 3:2 3pm Supervision of high-risk [employer] 2024 3:23pm Protein S in undetectable to low range i n serum December 02, 2024 3:23pm Amenorrhea December 29, 2024 2:17pm Biliary dyskinesia December 29, 2024 2:17pm 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 29 2:17pm Diarrhea December 29, 2024 2:17pm Fatty liver December 29, 2024 2:17pm Gall bladder disease December 29, 2024 2:17pm Nausea in adult patient December 29, 025 2:17pm Needle stick injury of finger December 29, 2024 2:17pm Occupational exposure in workplace [facility]2024 2:17pm Personal history of hyperthyroidism [facility]2024 2:17pm Postprandial abdominal pain in right upp er quadrant December 29, 2024 2:17pm December 29, 2024 2:17pm Supervision of high-risk [facility] 2024 2:17pm Protein S in undetectable to low range i n serum December 29, 2024 2:17pm Chief Complaint Admit Date *EST* NOB LMP 07/30, RAMO 05/06/25 October 03, 2024 2:44pm 11 wk ob November 03, 2024 3:56 pm 15 wk ob December 02, 2024 3:2 3pm 20wk5d ob December 29, 2024 2:17pm 24wk2d ob January 23, 2025 2:52pm Reason for Visit Admit Date Amenorrhea October 03, 2024 2:44p m Biliary dyskinesia October 03, 2024 2:44p m Diarrhea October 03, 2024 2:44p m Fatty liver October 03, 2024 2:44p m Gall bladder disease October 03, 2024 2:44 pm Nausea in adult patient October 03, 2024 2 :44pm Needle stick injury of finger October 03, 2024 2:44pm Occupational exposure in workplace October 03, 2024 2:44pm Personal history of hyperthyroidism October 03, 2024 2:44pm Postprandial abdominal pain in right upp er quadrant October 03, 2024 2:44pm October 03, 2024 2:44p m Supervision of high-risk October 03, 2024 2:44pm Protein S in undetectable to low range i n serum October 03, 2024 2:44pm Amenorrhea November 03, 2024 3:56 pm Biliary dyskinesia November 03, 2024 3:56 pm Diarrhea November 03, 2024 3:56 pm Fatty liver November 03, 2024 3:56 pm Gall bladder disease November 03, 2024 3:5 6pm Nausea in adult patient November 03, 2024 3:56pm Needle stick injury of finger November 03, 2024 3:56pm Occupational exposure in workplace November 03, 2024 3:56pm Personal history of hyperthyroidism November 03, 2024 3:56pm Postprandial abdominal pain in right upp er quadrant November 03, 2024 3:56pm November 03, 2024 3:56 pm Supervision of high-risk November 03, 2024 3:56pm Protein S in undetectable to low range i n serum November 03, 2024 3:56pm Amenorrhea December 02, 2024 3:2 3pm Biliary dyskinesia December 02, 2024 3:2 3pm Diarrhea December 02, 2024 3:2 3pm Fatty liver December 02, 2024 3:2 3pm Gall bladder disease December 02, 2024 3: 23pm Nausea in adult patient December 02, 2024 3:23pm Needle stick injury of finger November 3:23pm Occupational exposure in workplace 2024 3:23pm Personal history of hyperthyroidism 2024 3:23pm Postprandial abdominal pain in right upp er quadrant December 02, 2024 3:23pm December 02, 2024 3:2 3pm Supervision of high-risk [employer] 2024 3:23pm Protein S in undetectable to low range i n serum December 02, 2024 3:23pm Amenorrhea December 29, 2024 2:17pm Biliary dyskinesia December 29, 2024 2:17pm 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 29 2:17pm Diarrhea December 29, 2024 2:17pm Fatty liver December 29, 2024 2:17pm Gall bladder disease December 29, 2024 2:17pm Nausea in adult patient December 29, 2 025 2:17pm Needle stick injury of finger December 29, 2024 2:17pm Occupational exposure in workplace [facility]2024 2:17pm Personal history of hyperthyroidism Dec 2:17pm Postprandial abdominal pain in right upp er quadrant December 29, 2024 2:17pm December 29, 2024 2:17pm Supervision of high-risk [facility]2024 2:17pm Protein S in undetectable to low range i n serum December 29, 2024 2:17pm Amenorrhea January 23, 2025 2:52pm Biliary dyskinesia January 23, 2025 2:52pm Circumvallate placenta January 23 025 2:52pm Diarrhea January 23, 2025 2:52pm Fatty liver January 23, 2025 2:52pm Gall bladder disease January 23 2:52pm Nausea in adult patient January 23, 2025 2:52pm Needle stick injury of finger January 23, 2025 2:52pm Occupational exposure in workplace [facility]2024 2:52pm Personal history of hyperthyroidism Dec 2:52pm Postprandial abdominal pain in right upp er quadrant January 23, 2025 2:52pm January 23, 2025 2:52pm Supervision of high-risk [facility] 2024 2:52pm Protein S in undetectable to low range i n serum January 23, 2025 2:52pm Additional Source Comments INFORMATION SOURCE (unrecogn ized section and content) DATE CREATED AUTHOR 03/31/2019 [facility] DATE CREATED AUTHOR AUTHOR'S ORGANIZ ATION 11/14/2019 [facility] DATE CREATED AUTHOR AUTHOR'S ORGANIZ ATION 08/30/2021 [facility] DATE CREATED AUTHOR AUTHOR'S ORGANIZ ATION 01/12/2024 [facility] DATE CREATED AUTHOR AUTHOR'S ORGANIZ ATION 12/15/2024 [facility] DATE CREATED AUTHOR AUTHOR'S ORGANIZ ATION 03/08/2025 [facility] Care Teams (unrecognized sec tion and content) Team Status: Active Member Role Status Dates SUYAPA [place] Primary Care Provider Active Team Status: Active Member Role Status Dates SUYAPA [place] Primary Care Provider Active S tart: August 15, 2024 Health Risk Assessment Attending Provider Active Start: August 15, 2024 Health Risk Assessment Referring Provider Active Start: August 15, 2024 Team Status: Inactive Member Role Status Dates SUYAPA [place] Primary Care Provider Active S tart: August 30, 2024 End: August 30, 2024 Eduardo Eduardo MD Attending Provider Active Star t: August 30, 2024 End: August 30, 2024 Team Status: Inactive Member Role Status Dates SUYAPA [place] Primary Care Provider Active S tart: September 20, 2024 End: September 20, 2024 SUYAPA [place] Referring Provider Active Star t: September 20, 2024 End: September 20, 2024 Genesis Mccullough CNM Attending Provider Active S tart: September 20, 2024 End: September 20, 2024 Team Status: Inactive Member Role Status Dates SUYAPA [place] Primary Care Provider Active S tart: October 03, 2024 End: October 03, 2024 SUYAPA [place] Referring Provider Active Star t: October 03, 2024 End: October 03, 2024 Genesis Mccullough CNM Attending Provider Active S tart: October 03, 2024 End: October 03, 2024 Team Status: Active Member Role Status Dates Dr. Eber Manley MD Family Provider Active Dr. Eber Manley MD Primary Care Provider Active Team Status: Inactive Member Role Status Dates Dr. Eber Manley MD Primary Care Provider Active SUYAPA [place] Attending Provider, Referring Provid er Active Team Status: Inactive Member Role Status Dates Dr. Andres Keen DO Referring Provider Active Start: May 12, 2024 End: May 12, 2024 Dr. Jordan Elliott MD Attending Provider Active S tart: May 12, 2024 End: May 12, 2024 SUYAPA [place] Primary Care Provider Active S tart: May 12, 2024 End: May 12, 2024 Team Status: Active Member Role Status Dates SUYAPA [place] Primary Care Provider Active S tart: May 12, 2024 Dr. Jordan Elliott MD Attending Provider Active S tart: May 12, 2024 Dr. Jordan Elliott MD Referring Provider Active S tart: May 12, 2024 Team Status: Inactive Member Role Status Dates SUYAPA [place] Primary Care Provider Active S tart: May 24, 2024 End: May 24, 2024 SUYAPA [place] Referring Provider Active Star t: May 24, 2024 End: May 24, 2024 Fina Barker RESIDENCY PROGRAM COORDINATOR, RESIDENCY PROGRAM COORDINATOR-C Attending Provider Active Start: May 24, 2024 End: May 24, 2024 Team Status: Inactive Member Role Status Dates SUYAPA [place] Primary Care Provider Active S tart: May 27, 2024 End: May 27, 2024 SUYAPA [place] Referring Provider Active Star t: May 27, 2024 End: May 27, 2024 Dr. Veronica Valles DO Attending Provider Activ e Start: May 27, 2024 End: May 27, 2024 Team Status: Inactive Member Role Status Dates SUYAPA [place] Primary Care Provider Active S tart: August 30, 2024 End: August 30, 2024 Eduardo Eduardo MD Emergency Provider Active Star t: August 30, 2024 End: August 30, 2024 Team Status: Inactive Member Role Status Dates SUYAPA [place] Primary Care Provider Active S tart: October 03, 2024 End: October 03, 2024 Genesis Mccullough CNM Attending Provider Active S tart: October 03, 2024 End: October 03, 2024 Genesis Mccullough CNM Referring Provider Active S tart: October 03, 2024 End: October 03, 2024 Team Status: Active Member Role/Relationship Status Dates SUYAPA [place] Primary Care Provider Active Team Status: Active Member Role/Relationship Status Dates SUYAPA [place] Primary Care Provider Active S tart: August 15, 2024 Health Risk Assessment Attending Provider Active Start: August 15, 2024 Health Risk Assessment Referring Provider Active Start: August 15, 2024 Team Status: Inactive Member Role/Relationship Status Dates SUYAPA [place] Primary Care Provider Active S tart: August 30, 2024 End: August 30, 2024 Eduardo Eduardo MD Attending Provider Active Star t: August 30, 2024 End: August 30, 2024 Team Status: Inactive Member Role/Relationship Status Dates SUYAPA [place] Primary Care Provider Active S tart: September 20, 2024 End: September 20, 2024 Zoila Orozco , PA Referring Provider Active Star t: September 20, 2024 End: September 20, 2024 Genesis Mccullough CNM Attending Provider Active S tart: September 20, 2024 End: September 20, 2024 Team Status: Inactive Member Role/Relationship Status Dates Zoilajarrett Orozco PA Primary Care Provider Active S tart: October 03, 2024 End: October 03, 2024 Zoila Orozco PA Referring Provider Active Star t: October 03, 2024 End: October 03, 2024 Genesis Mccullough CNM Attending Provider Active S tart: October 03, 2024 End: October 03, 2024 Team Status: Inactive Member Role/Relationship Status Dates SUYAPA [place] Primary Care Provider Active S tart: October 03, 2024 End: October 03, 2024 Genesis Mccullough CNM Attending Provider Active S tart: October 03, 2024 End: October 03, 2024 Genesis Mccullough CNM Referring Provider Active S tart: October 03, 2024 End: October 03, 2024 Team Status: Active Member Role/Relationship Status Dates Zoila Orozco PA Primary Care Provider Active S tart: November 01, 2024 Genesis Mccullough CNM Attending Provider Active S tart: November 01, 2024 Team Status: Inactive Member Role/Relationship Status Dates Zoilajarrett Orozco PA Primary Care Provider Active S tart: November 03, 2024 End: November 03, 2024 Zoila Orozco PA Referring Provider Active Star t: November 03, 2024 End: November 03, 2024 Dr. Veronica Valles , Attending Provider Activ e Start: November 03, 2024 End: November 03, 2024 Team Status: Inactive Member Role/Relationship Status Dates Zoilajarrett Orozco PA Primary Care Provider Active S tart: November 01, 2024 End: November 01, 2024 Genesis Mccullough CNM Attending Provider Active S tart: November 01, 2024 End: November 01, 2024 Team Status: Inactive Member Role/Relationship Status Dates Zoila Taiwo PA Primary Care Provider Active S tart: December 02, 2024 End: December 02, 2024 Zoilarex Orozco PA Referring Provider Active Star t: December 02, 2024 End: December 02, 2024 Shreya Alvarado CNM Attending Provider Active Start: December 02, 2024 End: December 02, 2024 Team Status: Inactive Member Role/Relationship Status Dates Zoila Orozco PA Primary Care Provider Active S tart: September 20, 2024 End: September 20, 2024 Zoila Orozco PA Referring Provider Active Star t: September 20, 2024 End: September 20, 2024 Genesis Mccullough CNM Attending Provider Active S tart: September 20, 2024 End: September 20, 2024 Team Status: Inactive Member Role/Relationship Status Dates Zoila Orozco PA Primary Care Provider Active S tart: October 03, 2024 End: October 03, 2024 Zoila Orozco PA Referring Provider Active Star t: October 03, 2024 End: October 03, 2024 Genesis Mccullough CNM Attending Provider Active S tart: October 03, 2024 End: October 03, 2024 Team Status: Inactive Member Role/Relationship Status Dates SUYAPA [place] Primary Care Provider Active S tart: October 03, 2024 End: October 03, 2024 Genesis Mccullough CNM Attending Provider Active S tart: October 03, 2024 End: October 03, 2024 Genesis Mccullough CNM Referring Provider Active S tart: October 03, 2024 End: October 03, 2024 Team Status: Inactive Member Role/Relationship Status Dates Zoila Orozco PA Primary Care Provider Active S tart: November 01, 2024 End: November 01, 2024 Genesis Mccullough CNM Attending Provider Active S tart: November 01, 2024 End: November 01, 2024 Team Status: Inactive Member Role/Relationship Status Dates Zoilajarrett Orozco PA Primary Care Provider Active S tart: November 03, 2024 End: November 03, 2024 Zoilajarrett Orozco PA Referring Provider Active Star t: November 03, 2024 End: November 03, 2024 Dr. Veronica Valles DO Attending Provider Activ e Start: November 03, 2024 End: November 03, 2024 Team Status: Inactive Member Role/Relationship Status Dates Zoilajarrett Orozco PA Primary Care Provider Active S tart: December 02, 2024 End: December 02, 2024 Zoila Orozco PA Referring Provider Active Star t: December 02, 2024 End: December 02, 2024 Shreya Alvarado CNM Attending Provider Active Start: December 02, 2024 End: December 02, 2024 Team Status: Inactive Member Role/Relationship Status Dates SUYAPA [place] Primary Care Provider Active S tart: December 29, 2024 End: December 29, 2024 Zoila Orozco PA Referring Provider Active Star t: December 29, 2024 End: December 29, 2024 Genesis Mccullough CNM Attending Provider Active S tart: December 29, 2024 End: December 29, 2024 Team Status: Active Member Role/Relationship Status Dates SUYAPA [place] Primary care physician Active Team Status: Inactive Member Role/Relationship Status Dates SUY[place]A [place] Primary care physician Active Start: October 03, 2024 End: October 03, 2024 SUY[place]A [place] Referring Provider Active Star t: October 03, 2024 End: October 03, 2024 Genesis Mccullough CNM Attending physician Active Start: October 03, 2024 End: October 03, 2024 Team Status: Inactive Member Role/Relationship Status Dates SUY[place]A [place] Primary care physician Active Start: October 03, 2024 End: October 03, 2024 Genesis Mccullough CNM Attending physician Active Start: October 03, 2024 End: October 03, 2024 Genesis Mccullough CNM Referring Provider Active S tart: October 03, 2024 End: October 03, 2024 Team Status: Inactive Member Role/Relationship Status Dates SUY[place]A [place] Primary care physician Active Start: November 01, 2024 End: November 01, 2024 Genesis Mccullough CNM Attending physician Active Start: November 01, 2024 End: November 01, 2024 Team Status: Inactive Member Role/Relationship Status Dates SUYAPA aCrolina Primary care physician Active Start: November 03, 2024 End: November 03, 2024 Zoila Orozco PA Referring Provider Active Star t: November 03, 2024 End: November 03, 2024 Dr. Veronica Valles DO Attending physician Acti ve Start: November 03, 2024 End: November 03, 2024 Team Status: Inactive Member Role/Relationship Status Dates Zoila Orozco PA Primary care physician Active Start: December 02, 2024 End: December 02, 2024 Zoila Orozco PA Referring Provider Active Star t: December 02, 2024 End: December 02, 2024 Shreya Alvarado CNM Attending physician Active Start: December 02, 2024 End: December 02, 2024 Team Status: Inactive Member Role/Relationship Status Dates SUY[place]A [place] Primary care physician Active Start: December 29, 2024 End: December 29, 2024 SUYAPA [place] Referring Provider Active Star t: December 29, 2024 End: December 29, 2024 Genesis Mccullough CNM Attending physician Active Start: December 29, 2024 End: December 29, 2024 Team Status: Inactive Member Role/Relationship Status Dates SUYAPA [place] Primary care physician Active Start: January 23, 2025 End: January 23, 2025 SUYAPA [place] Referring Provider Active Star t: January 23, 2025 End: January 23, 2025 Genesis Mcucllough CNM Attending physician Active Start: January 23, 2025 End: January 23, 2025 Goals (unrecognized section and content) Type Care Experience Labor Preferences-CB /BF classes: []labor support person: []labor intervention preferences: []pain management options preferred: []cut cord/dad catch: []: []PP control planned: []discussed possible routes of delivery and associated risks: []special requests: [] FOR RECORDS PERTAINING TO PATIENTS WHO ARE [...] BE BASED ON THE PRIMARY CLINICAL RECORDS. The [employer] provides no warranty or guarantee of the accuracy or completeness of information in this document.
== END | disposition home or self-care (01) ==
LOC: LABSPEC 11:02
PROVIDERS: PCP Nurse Practitioner Family; Visit Provider Student in an Organized Health Care Education/Training Program
DX: O09.93 Supervision of high risk pregnancy, unspecified, third trimester (principal); Z3A.36 36 weeks gestation of pregnancy
CPT/HCPCS: 87081